=== PATIENT | female | born 1970 | race Caucasian/White ===

== ENCOUNTER 2018-08-12 10:14 | Observation (INO) | payer BC, OTHER ==
--- NOTE | 2018-08-12 10:45 | ED ---
General Adult HPI <Jatin Louie - Last Filed: 08/12/18 16:18> - General Source: patient, RN notes reviewed Mode of arrival: ambulatory Limitations: no limitations <Mickey Cowart - Last Filed: 08/12/18 18:25> - General Chief complaint: Shortness of Breath Stated complaint: SOB, headache Time Seen by Provider: 08/12/18 10:44 - History of Present Illness Initial comments: 48-year-old female with a past medical history of sleep apnea, heart murmur, Hodgkin's lymphoma, bariatric surgery in 2012 presents to the emergency department for a chief complaint of shortness of breath 3 weeks. Patient states the shortness of breath has been progressing for the past 3 weeks. She states shortness of breath is worse with activity. She states last night was the first time she was short of breath at rest. She admits to chest tightness when short of breath but denies pain. Patient denies diaphoresis. Patient denies any cardiac history besides for an unknown heart murmur. Patient admits to shortness of breath worsening with lying flat. She denies any leg swelling. Patient denies any recent travel, pain in the legs, or contraceptive pills, smoking. Patient does admit to a [id number] smoking history but did quit 20 years ago. Patient has no other complaints at this time including chest pain, abdominal pain, nausea or vomiting, headache, or visual changes. (Mickey Cowart) - Related Data Home Medications Medication Instructions Recorded Confirmed Meloxicam 15 mg PO DAILY PRN 07/31/16 08/12/18 Metoprolol Succinate [Toprol Xl] 100 mg PO HS 08/12/18 08/12/18 Naproxen Sodium [Aleve] 400 mg PO DAILY PRN 08/12/18 08/12/18 Pramipexole Di-HCl [Mirapex] 1.5 mg PO HS 08/12/18 08/12/18 Allergies Allergy/AdvReac Type Severity Reaction Status Date / Time amoxicillin AdvReac UTI Verified 08/12/18 10:56 artificial sweetner AdvReac Nausea & Uncoded 08/12/18 10:25 Vomiting Review of Systems ROS Other: All systems not noted in ROS Statement are negative. <Jatin Louie - Last Filed: 08/12/18 16:18> ROS Other: All systems not noted in ROS Statement are negative. <Mickey Cowart P - Last Filed: 08/12/18 18:25> ROS Statement: Those systems with pertinent positive or pertinent negative responses have been documented in the HPI. Past Medical History Past Medical History: Sleep Apnea/CPAP/BIPAP Additional Past Medical History / Comment(s): heart murmur, hodkins lymphoma, ankle spurs, restless leg syndrome History of Any Multi-Drug Resistant Organisms: None Reported Past Surgical History: Adenoidectomy, Bariatric Surgery, Section, Tubal Ligation Additional Past Surgical History / Comment(s): sleeve gastrectomy 05/2013, Lymph node asperation, Lt knee injections, back injections Past Anesthesia/Blood Transfusion Reactions: No Reported Reaction Smoking Status: Former smoker Past Alcohol Use History: Occasional Past Drug Use History: None Reported - Past Family History Mother Family Medical History: COPD Additional Family Medical History / Comment(s): Mom: heart dx, brother at 4 months of heart abnormalaties, <Mickey Cowart P - Last Filed: 08/12/18 18:25> General Exam Limitations: no limitations General appearance: alert, in no apparent distress Head exam: Present: atraumatic, normocephalic, normal inspection Eye exam: Present: normal appearance, PERRL, EOMI. Absent: scleral icterus, conjunctival injection, periorbital swelling ENT exam: Present: normal exam, mucous membranes moist Neck exam: Present: normal inspection, full ROM. Absent: tenderness, meningismus, lymphadenopathy Respiratory exam: Present: normal lung sounds bilaterally. Absent: respiratory distress, wheezes, rales, rhonchi, stridor Cardiovascular Exam: Present: regular rate, normal rhythm, systolic murmur ( murmur noted). Absent: diastolic murmur, rubs, gallop, clicks GI/Abdominal exam: Present: soft, normal bowel sounds. Absent: distended, tenderness, guarding, rebound, rigid Extremities exam: Absent: pedal edema (No edema noted in lower extremities) Neurological exam: Present: alert, oriented X3, CN II-XII intact Psychiatric exam: Present: normal affect, normal mood <Mickey Cowart P - Last Filed: 08/12/18 18:25> Vital Signs 12/08/12/18 08/12/18 10:22 13:30 13:31 Temperature 98.3 F Pulse Rate 87 80 79 Respiratory 18 13 18 Rate Blood Pressure 176/96 157/82 157/82 O2 Sat by Pulse 99 97 97 Oximetry 08/12/18 08/12/18 08/12/18 14:00 15:00 16:00 Temperature Pulse Rate 81 89 85 Respiratory 19 14 13 Rate Blood Pressure 160/85 160/92 167/101 O2 Sat by Pulse 95 97 98 Oximetry 08/12/18 16:30 Temperature Pulse Rate 84 Respiratory 22 Rate Blood Pressure 158/88 O2 Sat by Pulse 96 Oximetry EKG Findings - EKG Comments: EKG Findings:: EKG shows sinus rhythm rate of 84, OH 160, QRS 78, QTc 425 <Jatin Louie - Last Filed: 08/12/18 16:18> - EKG Comments: EKG Findings:: EKG at 1228 shows sinus rhythm, ventricular rate 80, OH interval 176, QTc 412, no ST elevation or depression. EKG at 1447 shows normal sinus rhythm, ventricular rate 80, OH interval 182, QTC 417 no significant changes noted. <Mickey Cowart - Last Filed: 08/12/18 18:25> Medical Decision Making - Lab Data Result diagrams: 08/12/18 12:56 08/12/18 12:56 <Jatin Louie - Last Filed: 08/12/18 16:18> - Lab Data Result diagrams: 08/12/18 12:56 08/12/18 12:56 <Mickey Cowart - Last Filed: 08/12/18 18:25> - Medical Decision Making 48-year-old female with a past medical history of sleep apnea, heart murmur, Hodgkin's lymphoma, bariatric surgery presents to the emergency department for a chief complaint of shortness of breath 3 weeks. Patient states this has been progressing and she was short of breath at rest last night. She states usually shortness of breath is worsened with activity. Vitals are within normal limits, mild hypertension. O2 sat consistently between 95 and 98% on room air. No signs of respiratory distress. On exam patient does have murmur noted, states this is a known murmur. No swelling in the lower extremities. CBC and CMP unremarkable. Mild cardiomegaly noted on chest x-ray with interstitial changes and trace effusions. Correlate for CHF or pulmonary vascular congestion. Troponin is elevated mildly at 0.049, BNP 792. Troponin likely elevated due to CHF exacerbation. She has not expressed any chest pain. EKGs repeated multiple times in the emergency department do not show any changing or significant ST elevation. D-dimer was elevated to 1.40 so patient was scanned which did not show any evidence of pulmonary embolism however there is pulmonary edema with bilateral pleural effusions. Patient was started on IV Lasix. She will be admitted for selective with cardiology consult. Discussed with Dr Louie (Mickey Cowart) - Lab Data Lab Results 08/12/18 08/12/18 08/12/18 Range/Units 12:53 12:53 12:56 WBC 9.3 (3.8-10.6) k/uL RBC 4.31 (3.80-5.40) m/uL Hgb 10.8 L (11.4-16.0) gm/dL Hct 34.7 (34.0-46.0) % MCV 80.5 (80.0-100.0) fL MCH 25.1 (25.0-35.0) pg MCHC 31.3 (31.0-37.0) g/dL RDW 14.2 (11.5-15.5) % Plt Count 267 (150-450) k/uL Neutrophils % 71 % Lymphocytes % 19 % Monocytes % 5 % Eosinophils % 2 % Basophils % 1 % Neutrophils # 6.6 (1.3-7.7) k/uL Lymphocytes # 1.8 (1.0-4.8) k/uL Monocytes # 0.5 (0-1.0) k/uL Eosinophils # 0.2 (0-0.7) k/uL Basophils # 0.1 (0-0.2) k/uL Hypochromasia Marked PT (9.0-12.0) sec INR (<1.2) APTT (22.0-30.0) sec D-Dimer (<0.60) mg/L FEU Sodium (137-145) mmol/L Potassium (3.5-5.1) mmol/L Chloride (98-107) mmol/L Carbon Dioxide (22-30) mmol/L Anion Gap mmol/L BUN (7-17) mg/dL Creatinine (0.52-1.04) mg/dL Est GFR (CKD-EPI)AfAm (>60 ml/min/1.73 sqM) Est GFR (CKD-EPI)NonAf (>60 ml/min/1.73 sqM) Glucose (74-99) mg/dL Calcium (8.4-10.2) mg/dL Total Bilirubin (0.2-1.3) mg/dL AST (14-36) U/L ALT (9-52) U/L Alkaline Phosphatase (38-126) U/L Total Creatine Kinase 45 (30-135) U/L CK-MB (CK-2) 0.6 (0.0-2.4) ng/mL CK-MB (CK-2) Rel Index 1.3 Troponin I 0.049 H* (0.000-0.034) ng/mL NT-Pro-B Natriuret Pep 792 pg/mL Total Protein (6.3-8.2) g/dL Albumin (3.5-5.0) g/dL 08/12/18 08/12/18 Range/Units 12:56 12:56 WBC (3.8-10.6) k/uL RBC (3.80-5.40) m/uL Hgb (11.4-16.0) gm/dL Hct (34.0-46.0) % MCV (80.0-100.0) fL MCH (25.0-35.0) pg MCHC (31.0-37.0) g/dL RDW (11.5-15.5) % Plt Count (150-450) k/uL Neutrophils % % Lymphocytes % % Monocytes % % Eosinophils % % Basophils % % Neutrophils # (1.3-7.7) k/uL Lymphocytes # (1.0-4.8) k/uL Monocytes # (0-1.0) k/uL Eosinophils # (0-0.7) k/uL Basophils # (0-0.2) k/uL Hypochromasia PT 9.5 (9.0-12.0) sec INR 0.9 (<1.2) APTT 23.0 (22.0-30.0) sec D-Dimer 1.40 H (<0.60) mg/L FEU Sodium 141 (137-145) mmol/L Potassium 5.0 (3.5-5.1) mmol/L Chloride 106 (98-107) mmol/L Carbon Dioxide 30 (22-30) mmol/L Anion Gap 5 mmol/L BUN 14 (7-17) mg/dL Creatinine 0.75 (0.52-1.04) mg/dL Est GFR (CKD-EPI)AfAm >90 (>60 ml/min/1.73 sqM) Est GFR (CKD-EPI)NonAf >90 (>60 ml/min/1.73 sqM) Glucose 102 H (74-99) mg/dL Calcium 9.2 (8.4-10.2) mg/dL Total Bilirubin 0.4 (0.2-1.3) mg/dL AST 23 (14-36) U/L ALT 45 (9-52) U/L Alkaline Phosphatase 122 (38-126) U/L Total Creatine Kinase (30-135) U/L CK-MB (CK-2) (0.0-2.4) ng/mL CK-MB (CK-2) Rel Index Troponin I (0.000-0.034) ng/mL NT-Pro-B Natriuret Pep pg/mL Total Protein 6.6 (6.3-8.2) g/dL Albumin 3.7 (3.5-5.0) g/dL Disposition <Jatin Louie B - Last Filed: 08/12/18 16:18> Time of Disposition: 17:58 <Mickey Cowart P - Last Filed: 08/12/18 18:25> Clinical Impression: Congestive heart failure, Pleural effusion Disposition: ADMITTED IP TO THIS HOSP Condition: Fair Referrals: Rohan Burns MD [Primary Care Provider] - 1-2 days
[2018-08-12] MEDS ORDERED: SODIUM CHLORIDE 0.9% 500 ML 500 ML IV STA (11:30)
[2018-08-12] MEDS ORDERED: KETOROLAC 30 MG/ML 1 ML VIAL IVP STA (11:31)
[2018-08-12 13:18] LABS: Basophils # (A) 0.1 k/uL (0-0.2); Basophils % (A) 1 %; Eosinophils # (A) 0.2 k/uL (0-0.7); Eosinophils % (A) 2 %; HCT 34.7 % (34.0-46.0); HGB 10.8 gm/dL (11.4-16.0); Hypochromasia Marked; Lymphocytes # (A) 1.8 k/uL (1.0-4.8); Lymphocytes % (A) 19 %; MCH 25.1 pg (25.0-35.0); MCHC 31.3 g/dL (31.0-37.0); MCV 80.5 fL (80.0-100.0); Mean Platelet Volume 7.5; Monocytes # (A) 0.5 k/uL (0-1.0); Monocytes % (A) 5 %; Neutrophils # (A) 6.6 k/uL (1.3-7.7); Neutrophils % (A) 71 %; Platelet Count 267 k/uL (150-450); RBC 4.31 m/uL (3.80-5.40); RDW 14.2 % (11.5-15.5); WBC 9.3 k/uL (3.8-10.6)
--- NOTE | 2018-08-12 13:23 | XR ---
EXAMINATION TYPE: XR chest 2V DATE OF EXAM: 08/12/2018 COMPARISON: None HISTORY: 71-year-old female with shortness of breath for 2 weeks TECHNIQUE: PA and lateral views FINDINGS: Heart mildly enlarged. Diffuse interstitial densities. Trace effusions are suggested on lateral view. IMPRESSION: Mild cardiomegaly with interstitial changes and trace effusions. Correlate for CHF or pulmonary vascu lar congestion.
[2018-08-12 13:32] LABS: INR 0.9 (<1.2); Prothrombin Time 9.5 sec (9.0-12.0)
[2018-08-12 13:37] LABS: ALT 45 U/L (9-52); AST 23 U/L (14-36); Albumin 3.7 g/dL (3.5-5.0); Alkaline Phosphatase 122 U/L (38-126); Anion Gap 5 mmol/L; Blood Urea Nitrogen 14 mg/dL (7-17); Calcium 9.2 mg/dL (8.4-10.2); Carbon Dioxide 30 mmol/L (22-30); Chloride 106 mmol/L (98-107); Glucose 102 mg/dL (74-99); Sodium 141 mmol/L (137-145); Total Bilirubin 0.4 mg/dL (0.2-1.3); Total Protein 6.6 g/dL (6.3-8.2)
[2018-08-12 13:46] LABS: D-Dimer 1.4 mg/L FEU (<0.60)
[2018-08-12 13:56] LABS: Creatine Kinase MB 0.6 ng/mL (0.0-2.4)
[2018-08-12 14:03] LABS: Troponin I 0.049 ng/mL (0.000-0.034)
[2018-08-12] MEDS ORDERED: ASPIRIN 81 MG PO STA (14:19)
--- NOTE | 2018-08-12 17:34 | CT ---
EXAMINATION TYPE: CT chest angio for PE with contrast and with 3-D reconstruction renderings DATE OF EXAM: 08/12/2018 COMPARISON: None HISTORY: SOB CT DLP: 755.7 mGycm Automated exposure control for dose reduction was used. CONTRAST: CT Chest for pulmonary embolism performed with with IV Contrast, patient injected with 100 mL of Isovue 370. 3-D reconstructions. FINDINGS: AIRWAYS: Unremarkable. LUNGS: There is a dependent groundglass opacity pattern throughout the lung lobes bilaterally and sym metrically, consistent with pulmonary edema. PLEURAL SPACES: There is a moderate right pleural effusion and a small left pleural effusion present. There is associated mild bibasilar passive atelectasis, greater on the right. MEDIASTINUM: There is satisfactory enhancement of the pulmonary artery and its branches, there is no CT evidence for pulmonary embolism. Aorta is negative. There are no greater than 1 cm hilar or medias tinal lymph nodes. No cardiomegaly, but corner calcifications noted. Only minimal pericardial effusio n is seen. OTHER: No additional significant abnormality is seen. IMPRESSION: 1. Interstitial phase pulmonary edema with bilateral pleural effusions, greater on the right. 2. Coronary calcifications.
[2018-08-12] MEDS ORDERED: NALOXONE 0.4 MG/ML 1 ML VIAL IV PRN (17:55)
[2018-08-12] MEDS ORDERED: FUROSEMIDE 10 MG/ML 4 ML VIAL IV STA (17:57)
[2018-08-12] MEDS: SODIUM CHLORIDE 0.9% 1,000 ML IV SCH (18:48)
[2018-08-12] MEDS: traMADol 50 MG TAB PO PRN (18:48)
[2018-08-13] MEDS: traMADol 50 MG TAB PO PRN ×2 (01:24→12:11)
[2018-08-13] MEDS: FUROSEMIDE 10 MG/ML 4 ML VIAL IV SCH ×2 (05:07→18:09)
[2018-08-13] MEDS ORDERED: MELOXICAM 7.5 MG TAB PO PRN (10:54)
[2018-08-13] MEDS ORDERED: NAPROXEN 250 MG TAB PO PRN (10:54)
--- NOTE | 2018-08-13 14:01 | P.CRDCN ---
History of Present Illness Consult date: 08/13/18 Requesting physician: Edy Pierre Chief complaint: Shortness of breath History of present illness: This is a pleasant 48-year-old female with history of sleep apnea, Hodgkin's lymphoma for which the patient had undergone chemotherapy and radiation. Hypertension, sleep apnea, restless leg syndrome, presented to the hospital mainly with complaints of progressively worsening shortness of breath. Patient states she's been experiencing these symptoms for the past 3-4 weeks, worsening in severity over that time. She also states that with walking short distances she notices intermittent tightness in her chest. Positive PND and orthopnea, no significant bilateral peripheral edema. Patient has been told in the past to have had a heart murmur. Chest x-ray shows myocardial megaly with interstitial changes and trace effusions. Correlation for congestive heart failure or pulmonary vascular congestion suggestive. ET of the chest was performed which showed bilateral pleural effusions, greater on the right, coronary calcifications. No evidence of pulmonary embolism. Initial EKG showed a normal sinus rhythm with no acute changes. 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 Blood pressure 176/90 with a heart rate in the 80s, temperature 98.3, 99% on room air. White blood cell count 9.3, hemoglobin 10.8 , platelet count 267. D-dimer 1.4. Sodium 141, potassium 5.0, BUN 14, creatinine 0.5. Troponin 0.049, 0.052. BNP level 792. Patient was initiated on IV Lasix in the emergency room, she is also receiving metoprolol 100 mg at bedtime. At the time of our examination, patient feels well, denies any shortness of breath at present, denies any chest discomfort. Past Medical History Past Medical History: Hypertension, Osteoarthritis (OA), Sleep Apnea/CPAP/BIPAP Additional Past Medical History / Comment(s): heart murmur, at age 20 or 21 dx w / hodgkins lymphoma-received chemo/radiation, ankle spurs, restless leg syndrome ,past kidney stone,slight scoliosis,2 herniated disc History of Any Multi-Drug Resistant Organisms: None Reported Past Surgical History: Adenoidectomy, Bariatric Surgery, Section, Tubal Ligation Additional Past Surgical History / Comment(s): sleeve gastrectomy 05/2013, Lymph node asperation, Lt knee injections, back injections Past Anesthesia/Blood Transfusion Reactions: No Reported Reaction Additional Past Anesthesia/Blood Transfusion Reaction / Comment(s): "has never received any blood transfusions" Smoking Status: Former smoker - Past Family History Father Additional Family Medical History / Comment(s): alcoholism Mother Family Medical History: COPD Additional Family Medical History / Comment(s): Mom: heart dx, brother at 4 months of heart abnormalaties, Medications and Allergies Home Medications Medication Instructions Recorded Confirmed Type Meloxicam 15 mg PO DAILY PRN 07/31/16 08/12/18 History Metoprolol Succinate [Toprol Xl] 100 mg PO HS 08/12/18 08/12/18 History Naproxen Sodium [Aleve] 400 mg PO DAILY PRN 08/12/18 08/12/18 History Pramipexole Di-HCl [Mirapex] 1.5 mg PO HS 08/12/18 08/12/18 History Allergies Allergy/AdvReac Type Severity Reaction Status Date / Time amoxicillin AdvReac UTI Verified 08/12/18 10:56 artificial sweetner AdvReac Nausea & Uncoded 08/12/18 10:25 Vomiting Physical Exam Vitals: Vital Signs Temp Pulse Pulse Resp BP BP Pulse Ox 08/13/18 11:50 98.0 F 87 18 125/76 97 08/13/18 07:58 97.8 F 82 18 123/88 96 08/13/18 04:00 98.4 F 90 18 136/78 95 08/13/18 00:30 97.6 F 85 17 130/65 96 08/13/18 00:00 98.8 F 90 85 18 154/72 141/85 94 L 08/12/18 23:30 93 20 156/81 96 08/12/18 23:00 87 20 146/77 08/12/18 22:30 92 20 152/89 95 08/12/18 22:00 91 15 167/79 95 08/12/18 21:30 86 14 156/94 95 08/12/18 21:00 80 14 152/93 96 08/12/18 20:30 82 21 130/73 96 08/12/18 20:00 88 15 142/79 95 08/12/18 19:30 86 18 141/83 96 08/12/18 19:00 89 14 150/91 96 08/12/18 18:30 94 21 171/95 97 08/12/18 18:00 87 13 158/93 97 08/12/18 17:00 83 21 151/93 95 08/12/18 16:30 84 22 158/88 96 08/12/18 16:00 85 13 167/101 98 18 15:00 89 14 160/92 97 08/12/18 14:00 81 19 160/85 95 08/12/18 13:31 79 18 157/82 97 08/12/18 13:30 80 13 157/82 97 Intake and Output 08/12/18 08/13/18 08/13/18 22:59 06:59 14:59 Output Total 1100 850 Balance -1100 -850 Output: Urine 1100 850 Other: Voiding Method Toilet # Voids 3 Weight 131.5 kg PHYSICAL EXAMINATION: GENERAL: 78-year-old female in no acute distress at the time of my examination HEENT: Head is atraumatic, normocephalic. Pupils equal, round. Sclera anicteric. Conjunctiva are clear. Mucous membranes of the mouth are moist. Neck is supple. There is no elevated jugular venous pressure. No carotid bruit is heard. HEART EXAMINATION: Heart S1 and S2 with systolic ejection murmur is heard. CHEST EXAMINATION: Circumflex clear with mild diminished air entry to the bases. ABDOMEN: Soft, nontender. Bowel sounds are heard. No organomegaly noted. EXTREMITIES: 2+ peripheral pulses with trace evidence of peripheral edema and no calf tenderness noted. NEUROLOGIC patient is awake, alert and oriented X3. . Results 08/12/18 12:56 08/12/18 12:56 Cardiac Enzymes 08/12/18 08/12/18 08/13/18 Range/Units 12:53 12:56 09:49 AST 23 (14-36) U/L CK-MB (CK-2) 0.6 (0.0-2.4) ng/mL Troponin I 0.049 H* 0.052 H* (0.000-0.034) ng/mL Coagulation 08/12/18 Range/Units 12:56 PT 9.5 (9.0-12.0) sec APTT 23.0 (22.0-30.0) sec CBC 08/12/18 Range/Units 12:56 WBC 9.3 (3.8-10.6) k/uL RBC 4.31 (3.80-5.40) m/uL Hgb 10.8 L (11.4-16.0) gm/dL Hct 34.7 (34.0-46.0) % Plt Count 267 (150-450) k/uL Comprehensive Metabolic Panel 08/12/18 Range/Units 12:56 Sodium 141 (137-145) mmol/L Potassium 5.0 (3.5-5.1) mmol/L Chloride 106 (98-107) mmol/L Carbon Dioxide 30 (22-30) mmol/L BUN 14 (7-17) mg/dL Creatinine 0.75 (0.52-1.04) mg/dL Glucose 102 H (74-99) mg/dL Calcium 9.2 (8.4-10.2) mg/dL AST 23 (14-36) U/L ALT 45 (9-52) U/L Alkaline Phosphatase 122 (38-126) U/L Total Protein 6.6 (6.3-8.2) g/dL Albumin 3.7 (3.5-5.0) g/dL Current Medications Generic Name Dose Route Start Last Admin Trade Name Freq PRN Reason Stop Dose Admin Furosemide 40 mg 08/13/18 06:00 08/13/18 05:07 Lasix IV 40 mg Q12H HENNY Administration Sodium Chloride 1,000 mls @ 20 mls/hr 08/12/18 18:00 08/12/18 18:48 Saline 0.9% IV 20 mls/hr .Q24H HENNY Administration Meloxicam 15 mg 08/13/18 10:54 Mobic PO DAILY PRN MODERATE Pain Metoprolol Succinate 100 mg 08/13/18 21:00 Toprol Xl PO HS HENNY Naloxone HCl 0.2 mg 08/12/18 17:55 Narcan IV Q2M PRN Opioid Reversal Naproxen 250 mg 08/13/18 10:54 Naprosyn PO DAILY PRN MILD Pain Pramipexole Dihydrochloride 1.5 mg 08/13/18 21:00 Mirapex PO HS HENNY Tramadol HCl 50 mg 08/12/18 17:55 08/13/18 12:11 Ultram PO 50 mg Q6H PRN Administration SEVERE Pain Intake and Output 08/12/18 08/13/18 08/13/18 22:59 06:59 14:59 Output Total 1100 850 Balance -1100 -850 Output: Urine 1100 850 Other: Voiding Method Toilet # Voids 3 Weight 131.5 kg 08/12/18 12:56 08/12/18 12:56 EKG Interpretations (text) EKG shows normal sinus rhythm with no acute changes, evidence of old anterior septal infarct. Assessment and Plan Plan: Assessment and plan #1 symptoms of progressively worsening shortness of breath with associated chest tightness. Evidence of mild congestive heart failure on chest x-ray. LV function unknown at this time. Patient is currently on IV Lasix. D-dimer 1.4, CTA of the chest negative for pulmonary embolism. There is evidence of pulmonary edema with bilateral pleural effusions. #2 abnormality in troponin, could represent acute coronary syndrome, EKG shows normal sinus rhythm with evidence of old anterior septal infarct. We will obtain a third troponin. #3 hypertension #4 sleep apnea #5 history of Hodgkin's lymphoma with prior chemo and radiation Plan We will obtain an echocardiogram with Doppler study. Obtain third troponin value. Continue IV Lasix. Patient may require other workup to rule out any underlying coronary artery disease. Further recommendations will be based on these findings and patient's clinical course. DNP note has been reviewed, I agree with a documented findings and plan of care. Patient was seen and examined.
[2018-08-13 14:09] VITALS: BMI 48.2
[2018-08-13] MEDS ORDERED: METOPROLOL SUCCINATE (ER) 100 MG TAB.ER.24H PO SCH (21:00)
[2018-08-13] MEDS ORDERED: PRAMIPEXOLE 1 MG TAB PO SCH (21:00)
--- NOTE | 2018-08-13 21:03 | HP ---
HISTORY AND PHYSICAL DATE OF ADMISSION: 08/12/2018 DATE OF SERVICE: 08/13/2018 PRESENTING COMPLAINT: Short of breath. HISTORY OF PRESENTING COMPLAINT: This is a very pleasant 48-year-old patient of Dr. Rohan Burns. Chronic stable medical conditions include hypertension osteoarthritis in the lower back, obesity. The patient also has restless legs syndrome, scoliosis. Did have Hodgkin's lymphoma, treated over 30 years ago with chemotherapy. For 2 weeks the patient has been progressively getting more and more short of breath. It became rather significant yesterday. There was minimal edema, if any. The patient did have a cough, though there was no sputum, no fever, no chills. She was finding it difficult to lie down. The patient with any activity was getting heavy chest pressure and finally decided to come in. Chest x-ray in the ER did show pulmonary edema. The patient did get a dose of Lasix, and following diuresis she felt right away better. Patient did have some troponin leak and was admitted for the same. REVIEW OF SYSTEMS: CONSTITUTIONAL: Tired. HEENT: None. RESPIRATORY: As above. CARDIOVASCULAR: As above. GASTROINTESTINAL: None. GENITOURINARY: None. MUSCULOSKELETAL: Arthritic pain in joints, especially lower back. DERMATOLOGICAL: None. HEMATOLOGICAL: None. LYMPHATICS: None. PSYCHIATRY: None. NEUROLOGICAL: None. PAST MEDICAL HISTORY: 1. Hypertension. 2. Osteoarthritis in the lower back. 3. Obstructive sleep apnea. Does not use CPAP. 4. Hodgkin's lymphoma 30 years ago, treated with chemo and radiation treatment. 5. Restless legs syndrome. 6. Scoliosis. PAST SURGICAL HISTORY: 1. Adenoidectomy. 2. Bariatric surgery. 3. . 4. Sleeve gastrectomy in 2012. 5. Lymph node aspiration. 6. Left knee injections. 7. Back injections. SOCIAL HISTORY: Patient smoked on and off for about 20 years, half a pack a day, and stopped smoking close to 15 years ago. . Drinks alcohol occasionally. FAMILY HISTORY: Mother and brother both had heart disease. HOME MEDICATIONS: 1. Mirapex 1.5 mg p.o. at bedtime. 2. Aleve 400 mg p.o. daily p.r.n. 3. Toprol-XL 100 mg at bedtime. 4. Meloxicam 15 mg p.o. daily p.r.n. ALLERGIES: AMOXICILLIN, ARTIFICIAL SWEETENER. PHYSICAL EXAMINATION: VITAL SIGNS ON PRESENTATION: Temperature 98.3, pulse 87, respiration 18, blood pressure 136/96, pulse ox 99% on room air. Repeat blood pressure did come down to 160/85. GENERAL APPEARANCE: Well built; BMI of 48.2. Sitting up, not in distress. EYES: Pupils equal. Conjunctivae normal. HEENT: External appearance of nose and ears normal. Oral cavity normal. NECK: JVD not raised. Mass not palpable. RESPIRATORY: Effort increased. LUNGS: Decreased breath sounds. CARDIOVASCULAR: Ejection systolic murmur with soft S2 in the aortic area going up to the neck. First and second sounds normal. Some edema. ABDOMEN: Soft, nontender. Liver and spleen not palpable. LYMPHATIC: No lymph node palpable in neck or axillae. PSYCHIATRY: Alert and oriented x3. Mood and affect normal. NEUROLOGICAL: Pupils equal. Cranial nerves grossly intact. Power and sensation grossly intact. INVESTIGATIONS: White count 9.3, hemoglobin 10.8, potassium 5.0. BUN and creatinine are normal. Troponin 0.049, 0.052, 0.035. ProBNP 792. Chest x-ray film, personally reviewed by me, shows cardiomegaly and venous prominence. Chest CTA shows some pulmonary edema with bilateral pleural effusions. ASSESSMENT: 1. Acute congestive heart failure exacerbation. Will need EF determination. Patient does have a soft ejection systolic murmur with a soft S2 in the aortic area; could be suggestive of aortic stenosis. It may be noted that the patient did receive chemotherapy over 30 years ago and there may have been chemotherapy-induced some element of cardiomyopathy. Patient has also been getting significant chest pressure with exertion and probably will need a cardiac catheterization to rule out underlying coronary artery disease. 2. Morbid obesity with body mass index of 48.2. 3. Essential hypertension. 4. Primary osteoarthritis, especially in the lumbar spine. 5. Restless legs syndrome. 6. Scoliosis. PLAN: Given patient's cardiac function, will discontinue patient's NSAIDs and keep the patient on IV Lasix. Two-D echocardiogram was ordered, results of which are pending. Cardiology was consulted. The patient will probably need a cardiac catheterization. This was discussed with the patient. MMODL / IJN: [id number] /
[2018-08-13] MEDS: SODIUM CHLORIDE 0.9% 1,000 ML IV SCH (21:04)
[2018-08-13] MEDS: ENOXAPARIN 40 MG/0.4 ML SYRINGE SQ SCH (21:30)
[2018-08-14] MEDS: FUROSEMIDE 10 MG/ML 4 ML VIAL IV SCH (06:11)
[2018-08-14 06:23] LABS: Anion Gap 7 mmol/L; Blood Urea Nitrogen 18 mg/dL (7-17); Carbon Dioxide 30 mmol/L (22-30); Chloride 102 mmol/L (98-107); Cholesterol 168 mg/dL (<200); Glucose 102 mg/dL (74-99); HDL Cholesterol 35 mg/dL (40-60); LDL Cholesterol,Calculated 108 mg/dL (0-99); Potassium 4.4 mmol/L (3.5-5.1); Sodium 139 mmol/L (137-145); Triglycerides 124 mg/dL (<150)
[2018-08-14] MEDS ORDERED: ATORVASTATIN 40 MG TAB PO SCH (09:00)
[2018-08-14] MEDS ORDERED: ASPIRIN 81 MG PO SCH (09:00)
[2018-08-14 09:01] VITALS: RESP 18
[2018-08-14] MEDS: ENOXAPARIN 40 MG/0.4 ML SYRINGE SQ SCH (09:17)
[2018-08-14] MEDS ORDERED: DOBUTamine DRIP for NUC MED 500 MG in DEXTROSE/WATER 1 250ML.BAG IV ONE (10:52)
--- NOTE | 2018-08-14 11:29 | ECHOF ---
Referral Reason:chf MEASUREMENTS -------- HEIGHT: 165.1 cm WEIGHT: 131.1 kg BP: 123/88 RVIDd: 3.0 cm (< 3.3) IVSd: 1.4 cm (0.6 - 1.1) LVIDd: 4.7 cm (3.9 - 5.3) LVPWd: 1.6 cm (0.6 - 1.1) IVSs: 2.0 cm LVIDs: 3.2 cm LVPWs: 2.4 cm LA Diam: 3.7 cm (2.7 - 3.8) LAESV Index (A-L): 26.75 ml/m Ao Diam: 3.2 cm (2.0 - 3.7) AV Cusp: 1.1 cm (1.5 - 2.6) EPSS: 1.1 cm MV E Devendra: 1.15 m/s MV DecT: 179 ms MV A Devendra: 0.97 m/s MV E/A Ratio: 1.19 AV maxP.52 mmHg AV meanP.99 mmHg AR PHT: 382 ms RAP: 15.00 mmHg RVSP: 45.42 mmHg MV EF SLOPE: 28.52 mm/s (70 - 150) MV EXCURSION: 1.15 cm (> 18.000) FINDINGS -------- Sinus rhythm. This was a technically difficult study with suboptimal views. The left ventricular size is normal. There is severe concentric left ventricular hypertrophy. Ove rall left ventricular systolic function is normal with, an EF between 55 - 60 %. Mitral Doppler inf low pattern suggests diastolic filling abnormality {E/E'}. The right ventricle is normal in size. Normal LA size by volume 22+/-6 ml/m2. The right atrium was not well visualized. 3 ml of Lumason was utilized for enhancement of images. There is mild to moderate aortic valve sclerosis. There is gjuk-qr-zmqgwspz aortic regurgitation. There is moderate aortic stenosis present. Peak/mean gradient across the Aortic Valve is 60.52mmHg / 32.99mmHg. The mitral valve leaflets are mildly thickened. There is trace to mild mitral regurgitation. Mild tricuspid regurgitation present. There is mild to moderate pulmonary hypertension. The right ventricular systolic pressure, as measured by Doppler, is 45.42mmHg. The pulmonic valve was not well visualized. The aortic root size is normal. The inferior vena cava is dilated with no significant inspiratory collapse which is consistent estima johnny right atrial pressure of >15 mmHg. There is no pericardial effusion. CONCLUSIONS -------- 1. Sinus rhythm. 2. This was a technically difficult study with suboptimal views. 3. The left ventricular size is normal. 4. Overall left ventricular systolic function is normal with, an EF between 55 - 60 %. 5. The right ventricle is normal in size. 6. Normal LA size by volume 22+/-6 ml/m2. 7. The right atrium was not well visualized. 8. 3 ml of Lumason was utilized for enhancement of images. 9. There is mild to moderate aortic valve sclerosis. 10. There is eqqx-cp-rxjuwtrj aortic regurgitation. 11. There is moderate aortic stenosis present. 12. Peak/mean gradient across the Aortic Valve is 60.52mmHg / 32.99mmHg. 13. The mitral valve leaflets are mildly thickened. 14. There is trace to mild mitral regurgitation. 15. Mild tricuspid regurgitation present. 16. There is mild to moderate pulmonary hypertension. 17. The right ventricular systolic pressure, as measured by Doppler, is 45.42mmHg. 18. The pulmonic valve was not well visualized. 19. The aortic root size is normal. 20. The inferior vena cava is dilated with no significant inspiratory collapse which is consistent es timated right atrial pressure of >15 mmHg. 21. There is no pericardial effusion. PHOTO LAB MANAGER: CARRIE Hartman
--- NOTE | 2018-08-14 14:25 | PN ---
PROGRESS NOTE Mrs Brizuela had an echocardiogram which revealed moderate to severe aortic stenosis with concentric LVH. I discussed the findings with the patient. The echocardiogram transthoracic was not clear whether this was a bicuspid valve or not. However, CAT scan of the chest did not reveal any dilatation of ascending aorta. I explained to the patient that we will not do any stress test and instead we will pursue current medical therapy and I will see her in the office next week and we will perform a right and left heart catheterization and a transesophageal echo to assess the severity of aortic stenosis and also to check her right-sided pressures as well. She is relatively young and has no family history of a bicuspid aortic valve. I explained to the patient the rationale, risks, benefits, and options. We will discharge her on current medical therapy and I will see her in the office within a week. All questions were answered. Discharge instructions were given. Vital signs are stable, S1-S2 heard normally, ejection systolic murmur is audible, second heart sound is preserved. Lungs are clear. Abdomen and lower extremity exam is unchanged. MMODL / IJN: [id number] /
[2018-08-14 17:48] VITALS: BP 137/64; PULSE 83; TEMP 98
--- NOTE | 2018-08-20 11:22 | DS ---
DISCHARGE SUMMARY DATE OF ADMISSION: 08/12/2018 DATE OF DISCHARGE: 08/14/2018 FINAL DIAGNOSES: 1. Acute congestive heart failure exacerbation secondary to moderate aortic stenosis. 2. Morbid obesity, body mass index 48.2. 3. Essential hypertension. 4. 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 5. Restless legs syndrome. 6. Chronic scoliosis. HOSPITAL COURSE: This patient presented with CHF symptoms and 2D echo confirmed a moderate aortic stenosis. The patient did respond well to Lasix and was doing rather well at the time of discharge. Seen by Dr. Issac Jones. He will do a cardiac catheterization as an outpatient. This was discussed with the patient. Overall feeling much better. PHYSICAL EXAMINATION: On examination, temperature 98, pulse 83, respiration 18, blood pressure 137/64, pulse ox 95% on room air. Lungs are clear. Soft ejection systolic murmur at the aortic area. BUN 18, creatinine 0.74. The patient had a troponin leak of 0.049. LDL 108. Chest CTA shows pulmonary edema. DISCHARGE MEDICATIONS: 1. Toprol XL 100 mg q.h.s. 2. Mirapex 1.5 mg q.h.s. 3. Tylenol 500 mg q.4 p.r.n. 4. Aspirin 81 mg a day. 5. Lipitor 40 mg a day. 6. Lasix 40 mg a day. 7. Potassium 20 mEq a day. DISCONTINUED MEDICATIONS: Meloxicam and naproxen. Follow up with Dr. Issac Jones on 08/20/2018 and follow up with Dr. Rohna Burns on 08/20/2018. MMODL / IJN: [id number] /
== END 2018-08-14 15:47 | disposition home or self-care (01) ==
LOC: EC 10:14 → 3SCARD 20:08
PROVIDERS: ADMIT Hospitalist; ATTEND Hospitalist
DX: I35.0 Nonrheumatic aortic (valve) stenosis (principal); I11.0 Hypertensive heart disease with heart failure; I50.9 Heart failure, unspecified; R77.8 Other specified abnormalities of plasma proteins; R79.89 Other specified abnormal findings of blood chemistry; G47.33 Obstructive sleep apnea (adult) (pediatric); Z99.89 Dependence on other enabling machines and devices; M41.9 Scoliosis, unspecified; M47.9 Spondylosis, unspecified; E66.01 Morbid (severe) obesity due to excess calories; Z68.42 Body mass index [BMI] 45.0-49.9, adult; M19.91 Primary osteoarthritis, unspecified site; G25.81 Restless legs syndrome; Z85.71 Personal history of Hodgkin lymphoma; Z87.891 Personal history of nicotine dependence; Z79.1 Long term (current) use of non-steroidal anti-inflammatories (NSAID); Z79.899 Other long term (current) drug therapy; Z88.0 Allergy status to penicillin; Z91.02 Food additives allergy status; Z98.84 Bariatric surgery status; Z98.51 Tubal ligation status; Z92.21 Personal history of antineoplastic chemotherapy; Z92.3 Personal history of irradiation; Z87.442 Personal history of urinary calculi; Z82.5 Family history of asthma and other chronic lower respiratory diseases; Z82.49 Family history of ischemic heart disease and other diseases of the circulatory system; Z82.79 Family history of other congenital malformations, deformations and chromosomal abnormalities; Z81.1 Family history of alcohol abuse and dependence
CPT/HCPCS: 96376 ×2; 96372 ×2; 96374; 96375; 99285; 36415; 93005; 93306; 85379; 83880; 80061; 80053; 80048; 82550; 82553; 84484 ×2; 85025; 85610; 85730; 71046; 71275; G0378 ×3; J1250; J1940 ×3; J1650 ×2; J1885; Q9950; Q9967

== ENCOUNTER 2018-09-05 06:30 | Day surgery (SDC) | payer BC ==
[2018-09-03 14:40] VITALS: BMI 47.5
[~2018-09-05 06:30] MED LIST: ALPRAZolam 0.25 MG TAB PO PRN; ALPRAZolam 0.5 MG TAB PO PRN; NITROGLYCERIN SL TABS 0.4 MG TAB SUBLINGUAL PRN; SODIUM CHLORIDE 0.9% 1,000 ML in EMPTY BAG 1 BAG IV ONE
[2018-09-05] MEDS ORDERED: ATORVASTATIN 80 MG TAB PO ONE (07:00)
[2018-09-05] MEDS ORDERED: ASPIRIN 325 MG TAB PO ONE (07:00)
[2018-09-05] MEDS: MIDAZOLAM 2 MG/2 ML VIAL IVP ONE ×2 (07:41→07:44)
[2018-09-05] MEDS ORDERED: LIDOCAINE 1% INJ 10MG/ML (20 ML MDV) SQ ONE (07:44)
[2018-09-05] MEDS: VERAPAMIL SYRINGE (5 MG/10 ML) INTRAARTER ONE ×2 (07:46→08:09)
[2018-09-05] MEDS ORDERED: HEPARIN SODIUM 1,000 UN/ML (10ML VL) IV ONE (07:52)
[2018-09-05] MEDS ORDERED: fentaNYL (PF) 50 MCG/ML 2 ML AMP IVP ONE (08:01)
[2018-09-05] MEDS ORDERED: IOPAMIDOL-370 100ML BTL INJ ONE (08:09)
--- NOTE | 2018-09-05 09:03 | CC ---
CARDIAC CATHETERIZATION REPORT DATE OF SERVICE: 09/05/2018 PROCEDURE: Coronary angiography. PERFORMED BY: Dr. Issac Jones. CLINICAL INFORMATION: Mrs. Frank Kurtz is a 48-year-old lady who was recently seen by me in the hospital. She has history of hypertension and also aortic stenosis which was moderate to severe with msen-xn-knquxskx regurgitation as well. She was advised coronary angiography and transesophageal echo and brought in for the procedure electively. Risks, benefits, options and rationale were explained to the patient in detail. PROCEDURE NOTE: Under local anesthesia and strict aseptic precautions, a 6-Hebrew introducer was placed in the right radial artery. For the right coronary, I used a JR4 and for the left I used an Ultimate 1 catheter and I performed selective coronary angiography. I did not check any LV pressures. The sheath was taken out and TR band applied as per protocol with a saturation of the fingers of 97%. The patient had considerable discomfort at the site of entry in the right radial artery, but following the procedure, she was asymptomatic. There may have been some spasm. LV gram was not performed and LV pressures were not checked. Moderate conscious sedation time was 31 minutes. The patient was administered fentanyl and Versed and oxygen saturation hemodynamics and EKG were monitored closely. CORONARY ANGIOGRAPHY FINDINGS: RIGHT CORONARY ARTERY: Technically dominant vessel has no significant disease, has only minor irregularities and distally bifurcates into a large PDA and PLV, both of which supply a sizable amount of myocardium. PLV is larger branch than PDA and there is no significant disease noted in the very dominant RCA or its branches. LEFT MAIN CORONARY ARTERY: This is a fair caliber vessel has about a 55% to 60% lesion involving the distal left main before bifurcation. This lesion is evident in multiple views and in any way I look at the lesion, it is at least close to 60%. The left main then bifurcates into ramus intermedius, LAD and circumflex. The ramus almost looks like a high obtuse marginal branch. Left main therefore distally has about a 55% to 60% lesion. LEFT ANTERIOR DESCENDING CORONARY ARTERY: Good caliber vessel extends along the anterior wall, gives off a large septal branch proximally then gives secondary branches then gives off a diagonal branch and then runs towards the apex. The distal 1/4 of LAD is small in caliber and distribution. The LAD, however, in the distal 1/4 is small in caliber and distribution, but the diagonal and septal are free of significant disease. LEFT POSTERIOR CIRCUMFLEX CORONARY ARTERY: Technically nondominant vessel, smaller in distribution. No significant disease. It gives off a high first obtuse marginal which almost looks like a ramus. There is no significant disease in the ramus other than an area of maybe a 30% narrowing noted. The circumflex and ramus/high obtuse marginal are free of significant disease. The high obtuse marginal has about a 30% lesion proximally. LEFT VENTRICULOGRAM: This was not performed. FINAL IMPRESSION: This patient has somewhat of an unusual LAD anatomy. RCA is very dominant and disease free. The ramus has a 30% proximal lesion. The circumflex is nondominant, free of significant disease. LAD starts off as a good caliber vessel gives off a septal and diagonal branch and in the distal 1/4 of the LAD, the caliber is small and it has diffuse narrowing and it runs all the way to the apex. There are no critical lesions in the LAD, but LAD in the distal 1/4 is small in caliber and distribution. RECOMMENDATIONS: This lady also has moderate to severe aortic stenosis and she will have MARY today. Most likely she will require an aortic valve replacement and a bypass surgery in view of distal left main of nearly 60%. I discussed the findings with the patient and family. She will have MARY today and I will then make arrangements for her to see the surgeon. ESTEVAN / JUAN JN: [id number] /
[2018-09-05] MEDS ORDERED: SODIUM CHLORIDE 0.9% 1,000 ML IV SCH (09:15)
[2018-09-05] MEDS ORDERED: ACETAMINOPHEN TAB 325 MG TAB PO STA (09:42)
[2018-09-05] MEDS ORDERED: HYDROmorphone 0.5 MG/0.5 ML SYRINGE IVP STA (09:53)
[2018-09-05] MEDS ORDERED: fentaNYL (PF) 50 MCG/ML 2 ML AMP ONE (11:54)
[2018-09-05] MEDS ORDERED: BENZOCAINE SPRAY 1 CAN MUCOUS MEM ONE (12:23)
[2018-09-05] MEDS ORDERED: fentaNYL (PF) 50 MCG/ML 2 ML AMP IV ONE (12:24)
[2018-09-05] MEDS ORDERED: IV FLUID CONTINUATION 400 ML IV ONE (12:24)
[2018-09-05] MEDS ORDERED: MIDAZOLAM 2 MG/2 ML VIAL IV ONE (12:24)
[2018-09-05] MEDS ORDERED: MIDAZOLAM 2 MG/2 ML VIAL IVP ONE (12:26)
--- NOTE | 2018-09-05 13:02 | ECHOT ---
TRANSESOPHAGEAL ECHOCARDIOGRAM This transesophageal echocardiogram was performed to evaluate the patient's aortic stenosis. Patient was given intravenous sedation with Versed and fentanyl and transesophageal echocardiogram was performed without any complications. Left ventricular chamber is normal in size. Mitral valve morphology is normal. Minimal mitral regurgitation is noted. Left atrial appendage is normal. There is no evidence of thrombus. Left atrium is mildly enlarged. Aortic valve is calcified and sclerotic with aortic it appears to be trileaflet. The aortic valve area is calculated in the range of 1 to 1.1 cm2 suggestive of severe degree of aortic stenosis. There is a mild aortic regurgitation noted. Tricuspid valve morphology is normal. Left ventricular systolic function is normal. Interatrial septum is intact. There is no evidence of any PFO by saline contrast study. FINAL IMPRESSION: 1. Aortic wall is calcified and with a restricted opening. Aortic valve area is calculated in the range of 1 to 1.1 cm2 suggestive of severe aortic stenosis. 2. Left ventricular systolic function is normal. 3. Mild aortic regurgitation and trace mitral regurgitation is noted. 4. There is no evidence of thrombus in left atrium or atrial appendage. 5. Interatrial septum is intact without any evidence of patent foramen ovale. MMODL / IJN: [id number] /
[2018-09-05] MEDS ORDERED: RX INFO: IV CONTRAST WAS GIVEN 1 EACH MISC MISCELLANE PRN (13:13)
[2018-09-05] MEDS ORDERED: ACETAMINOPHEN TAB 500 MG TAB PO PRN (13:16)
[2018-09-05] MEDS ORDERED: HEPARIN SODIUM,PORCINE 5,000 UNIT/ML 1 ML VIAL IV ONE (13:18)
[2018-09-05] MEDS ORDERED: HEPARIN SODIUM,PORCINE 5,000 UNIT/ML 1 ML VIAL IV PRN (13:18)
[2018-09-05] MEDS ORDERED: SODIUM CHLORIDE 0.9% 1,000 ML in EMPTY BAG 1 BAG IV ONE (13:22)
[2018-09-05] MEDS ORDERED: HEPARIN SOD,PORK IN 0.45% NACL 25,000 UNIT in 0.45% NACL 1 250ML.BAG IV SCH (13:30)
[2018-09-05 15:31] LABS: Basophils # (A) 0.1 k/uL (0-0.2); Basophils % (A) 1 %; Eosinophils # (A) 0.3 k/uL (0-0.7); Eosinophils % (A) 3 %; HCT 39.1 % (34.0-46.0); Hypochromasia Marked; Lymphocytes # (A) 2.5 k/uL (1.0-4.8); Lymphocytes % (A) 25 %; MCH 25.1 pg (25.0-35.0); MCHC 30.6 g/dL (31.0-37.0); MCV 82.1 fL (80.0-100.0); Mean Platelet Volume 7.5; Monocytes # (A) 0.4 k/uL (0-1.0); Monocytes % (A) 4 %; Neutrophils # (A) 6.5 k/uL (1.3-7.7); Neutrophils % (A) 65 %; Platelet Count 261 k/uL (150-450); RBC 4.76 m/uL (3.80-5.40); RDW 14.8 % (11.5-15.5); WBC 10.1 k/uL (3.8-10.6)
--- NOTE | 2018-09-05 15:31 | P.GSCN ---
History of Present Illness Consult date: 09/05/18 Reason for Consult: Coronary artery disease with left main disease, severe aortic stenosis, surgical recommendations Requesting physician: Marifer Jones History of present illness: This is a 48-year-old female patient who follows with Dr. Rohan Burns on an outpatient basis. She has a previous medical history of known aortic stenosis, hypertension, hyperlipidemia, Hodgkin's lymphoma status post chemo and radiation when she was 20 years old, previous heavy tobacco dependence, she quit greater than 10 years ago but previously smoked 2-3 packs a day for 20 years, morbid obesity, previous gastric sleeve surgery, obstructive sleep apnea without CPAP use, restless leg syndrome, and family history of premature coronary artery disease with uncle having MT at 47 years old and cousin from myocardial infarction at 45 years old. She has been followed on an outpatient basis for aortic stenosis. She presented to [facility] emergency room in July 2018 with complaints of increasing shortness of breath and chest pain with exertion. Her workup included chest x-ray which demonstrated mild cardiomegaly, chest CTA which demonstrated pulmonary edema with bilateral pleural effusions and coronary calcification, and transthoracic echocardiogram which demonstrated normal left ventricular systolic function with EF 55-60%, mild to moderate aortic regurgitation, moderate aortic stenosis with peak/mean gradient 60.52 mmHg/32.99 mmHg, trace to mild mitral regurgitation, mild tricuspid regurgitation, and mild to moderate pulmonary hypertension with RVSP 45.42 mmHg. She was treated for acute congestive heart failure with diuretics and was discharged with plans to follow with Dr. Jones for heart catheterization. Heart catheterization was completed this morning and demonstrated left main stenosis approaching 60%, and a 30% proximal lesion in the ramus. Transesophageal echocardiogram was also completed demonstrating calcified tricuspid aortic valve with an area calculated to be 1-1.1 cm suggesting severe aortic stenosis, mild aortic regurgitation, and trace mitral regurgitation. Due to these findings Dr. Jesus from cardiothoracic surgery was consulted for surgical recommendations. Review of Systems Review of systems was completed and was negative except as noted. - Constitutional Reports chronic headaches - Cardiovascular Reports chest pain, Reports dyspnea on exertion, Reports leg edema Past Medical History Past Medical History: Coronary Artery Disease (CAD), Chest Pain / Angina, Hyperlipidemia, Hypertension, Osteoarthritis (OA), Sleep Apnea/CPAP/BIPAP Additional Past Medical History / Comment(s): heart murmur, at age 20 or 21 dx w / hodgkins lymphoma-received chemo/radiation, ankle spurs, restless leg syndrome ,past kidney stone,slight scoliosis,2 herniated disc, recent admission here for SOB, chest discomfort, aortic stenosis, recent bronchitis History of Any Multi-Drug Resistant Organisms: None Reported Past Surgical History: Adenoidectomy, Bariatric Surgery, Section, Tubal Ligation Additional Past Surgical History / Comment(s): sleeve gastrectomy 05/2013, Lymph node aspiration, Lt knee injections, back injections Past Anesthesia/Blood Transfusion Reactions: No Reported Reaction Additional Past Anesthesia/Blood Transfusion Reaction / Comm: "has never received any blood transfusions" Past Psychological History: No Psychological Hx Reported Smoking Status: Former smoker Past Alcohol Use History: Occasional Past Drug Use History: Marijuana - Past Family History Father Additional Family Medical History / Comment(s): alcoholism Mother Family Medical History: COPD Additional Family Medical History / Comment(s): Mom: heart dx, brother at 4 months of heart abnormalaties, uncle had a myocardial infarction at 47 years old, cousin from myocardial infarction at 45 years old Medications and Allergies Home Medications Medication Instructions Recorded Confirmed Type Metoprolol Succinate [Toprol Xl] 100 mg PO HS 08/12/18 09/03/18 History Pramipexole Di-HCl [Mirapex] 1.5 mg PO HS 08/12/18 09/03/18 History Acetaminophen Tab [Tylenol Tab] 500 mg PO Q4H PRN #1 tablet 08/14/18 09/03/18 Rx Aspirin 81 mg PO DAILY chew 08/14/18 09/03/18 Rx Furosemide [Lasix] 40 mg PO DAILY #30 tablet 08/14/18 09/03/18 Rx Cephalexin [Keflex] 500 mg PO Q8HR 09/03/18 09/03/18 History Allergies Allergy/AdvReac Type Severity Reaction Status Date / Time amoxicillin AdvReac UTI Verified 09/03/18 14:17 artificial sweetener AdvReac Nausea & Uncoded 09/03/18 14:42 Vomiting Surgical - Exam Vital Signs Temp Pulse Resp BP 98.2 F 89 20 117/64 09/05/18 07:03 09/05/18 07:03 09/05/18 07:03 09/05/18 07:03 - General well developed, well nourished, no distress, no pain, obese - Eyes PERRL, normal ocular movement - ENT no hearing loss, poor nursing home - Neck no masses, no bruits, trachea midline - Respiratory Lungs sounds clear bilaterally. Respirations even, nonlabored. Currently on room air with oxygen saturation 95%. No chest wall deformities. - Cardiovascular S1, S2 present. Positive systolic murmur. Regular rate and rhythm, sinus rhythm on telemetry. Palpable peripheral pulses bilaterally. Trace bilateral lower extremity edema present. No calf pain or tenderness noted. No varicosities noted. - Abdomen Abdomen: soft, non tender, bowel sounds - Genitourinary Deferred - Rectum Deferred - Integumentary Multiple tattoos present no rash, no growths - Neurologic normal coordination, normal sensation - Musculoskeletal normal gait, normal posture - Psychiatric oriented to time, oriented to person, oriented to place, speech is normal, memory intact Results - Imaging Additional studies: Heart catheterization and transesophageal echocardiogram films were reviewed. Assessment and Plan (1) Aortic stenosis Current Visit: Yes Status: Chronic Code(s): I35.0 - NONRHEUMATIC AORTIC ( VALVE) STENOSIS SNOMED Code(s): 10133210 (2) Hypertension Current Visit: Yes Status: Chronic Code(s): I10 - ESSENTIAL (PRIMARY) HYPERTENSION SNOMED Code(s): 07815981 (3) Hyperlipidemia Current Visit: Yes Status: Chronic Code(s): E78.5 - HYPERLIPIDEMIA, UNSPECIFIED SNOMED Code(s): 66873470 (4) History of Hodgkin's lymphoma Current Visit: No Status: Resolved Code(s): Z85.71 - PERSONAL HISTORY OF HODGKIN LYMPHOMA SNOMED Code(s): 584525023 (5) History of chemotherapy Current Visit: No Status: Resolved Code(s): Z92.21 - PERSONAL HISTORY OF ANTINEOPLASTIC CHEMOTHERAPY SNOMED Code(s): 334121677992101 (6) History of radiation therapy Current Visit: No Status: Resolved Code(s): Z92.3 - PERSONAL HISTORY OF IRRADIATION SNOMED Code(s): 065173247 (7) Obstructive sleep apnea Current Visit: Yes Status: Chronic Code(s): G47.33 - OBSTRUCTIVE SLEEP APNEA (ADULT) (PEDIATRIC) SNOMED Code(s): 17855409 (8) History of gastric surgery Current Visit: Yes Status: Chronic Code(s): Z98.890 - OTHER SPECIFIED POSTPROCEDURAL STATES SNOMED Code(s): 651471353 (9) Restless leg syndrome Current Visit: Yes Status: Chronic Code(s): G25.81 - RESTLESS LEGS SYNDROME SNOMED Code(s): 69741451 (10) Morbid obesity with BMI of 45.0-49.9, adult Current Visit: Yes Status: Chronic Code(s): E66.01 - MORBID (SEVERE) OBESITY DUE TO EXCESS CALORIES; Z68.42 - BODY MASS INDEX (BMI) 45.0-49.9, ADULT SNOMED Code(s): 091627076 Plan: The patient was seen and examined in the extended stay unit. Chart/diagnostics were reviewed. The case will be discussed in detail with Dr. Jesus. At this time the patient is indicating she will likely seek a second opinion at [facility]. Preoperative teaching was initiated. Preoperative testing was initiated. We would recommend maximizing medical therapy with aspirin, statin, beta will therapy. Patient would need dental clearance prior to any valvular surgery, this was discussed with the patient. An appointment was made with the patient to see Dr. Jesus in the office on 09/11/2018 at 2:30 PM for further discussion. If the patient would prefer to have surgery at [facility] or anywhere else, she is certainly within her right, however we would be happy to perform cardiac surgery here if she wishes. Medical management per cardiology, primary care services. Thank you Dr. Jones for this consult. Please call us with any questions. Time with Patient: Greater than 30
[2018-09-05 15:41] LABS: ALT 27 U/L (9-52); AST 20 U/L (14-36); Albumin 3.9 g/dL (3.5-5.0); Alkaline Phosphatase 130 U/L (38-126); Anion Gap 8 mmol/L; Blood Urea Nitrogen 17 mg/dL (7-17); Calcium 9.2 mg/dL (8.4-10.2); Carbon Dioxide 27 mmol/L (22-30); Chloride 106 mmol/L (98-107); Cholesterol 181 mg/dL (<200); Glucose 109 mg/dL (74-99); HDL Cholesterol 33 mg/dL (40-60); LDL Cholesterol,Calculated 91 mg/dL (0-99); Magnesium 2.1 mg/dL (1.6-2.3); Potassium 4.3 mmol/L (3.5-5.1); Sodium 141 mmol/L (137-145); Total Bilirubin 0.4 mg/dL (0.2-1.3); Total Protein 6.9 g/dL (6.3-8.2); Triglycerides 283 mg/dL (<150)
[2018-09-05 15:43] LABS: INR 0.9 (<1.2); Prothrombin Time 9.4 sec (9.0-12.0)
[2018-09-05 15:53] LABS: Partial Thromboplastin Time 19.8 sec (22.0-30.0)
--- NOTE | 2018-09-05 16:17 | US ---
EXAMINATION TYPE: US carotid duplex BILAT DATE OF EXAM: 09/05/2018 COMPARISON: NONE CLINICAL HISTORY: preop cardiac surgery. EXAM MEASUREMENTS: RIGHT: Peak Systolic Velocity (PSV) cm/sec ----- Right CCA: 62.5 ----- Right ICA: 123.6 ----- Right ECA: 92.2 ICA/CCA ratio: 2.0 RIGHT: End Diastole cm/sec ----- Right CCA: 20.6 ----- Right ICA: 42.3 ----- Right ECA: 10.7 LEFT: Peak Systolic Velocity (PSV) cm/sec ----- Left CCA: 64.2 ----- Left ICA: 106.8 ----- Left ECA: 101.5 ICA/CCA ratio: 1.7 LEFT: End Diastole cm/sec ----- Left CCA: 23.2 ----- Left ICA: 42.4 ----- Left ECA: 19.6 VERTEBRALS (direction of flow): Right Vertebral: Antegrade Left Vertebral: Antegrade Rhythm: Normal Bilateral intimal thickening, bilateral torturous ICA, no elevated velocities, right ICA/CCA ratio 2. 0 Grayscale, color Doppler, spectral Doppler imaging performed of the carotid arteries. Waveform analys is does not show significant stenosis of the proximal internal carotid arteries by Doppler criteria. IMPRESSION: No hemodynamic significant stenosis of the proximal internal carotid arteries bilaterall y by Doppler criteria, an indirect measurement of carotid stenosis
[2018-09-05] MEDS: CEPHALEXIN 500 MG CAP PO SCH ×2 (17:17→23:23)
[2018-09-05] MEDS ORDERED: PRAMIPEXOLE 0.5 MG TAB PO SCH (21:00)
[2018-09-05] MEDS ORDERED: METOPROLOL SUCCINATE (ER) 100 MG TAB.ER.24H PO SCH (21:00)
[2018-09-05 22:48] LABS: Hemoglobin A1C 6.3 % (4.0-6.0)
[2018-09-06 04:52] LABS: Hepatitis A Antibody IgM Non-Reactive (Non-Reactive); Hepatitis B Core IgM Non-Reactive (Non-Reactive)
[2018-09-06 04:58] VITALS: RESP 18
[2018-09-06 07:52] LABS: ALT 30 U/L (9-52); AST 23 U/L (14-36); Albumin 3.5 g/dL (3.5-5.0); Alkaline Phosphatase 142 U/L (38-126); Anion Gap 6 mmol/L; Blood Urea Nitrogen 16 mg/dL (7-17); Calcium 8.9 mg/dL (8.4-10.2); Carbon Dioxide 28 mmol/L (22-30); Chloride 107 mmol/L (98-107); Glucose 108 mg/dL (74-99); Potassium 4.6 mmol/L (3.5-5.1); Sodium 141 mmol/L (137-145); Total Bilirubin 0.4 mg/dL (0.2-1.3); Total Protein 6.4 g/dL (6.3-8.2)
[2018-09-06 08:43] LABS: Basophils # (A) 0.1 k/uL (0-0.2); Basophils % (A) 1 %; Eosinophils # (A) 0.3 k/uL (0-0.7); Eosinophils % (A) 3 %; HCT 38.1 % (34.0-46.0); HGB 11.6 gm/dL (11.4-16.0); Hypochromasia Moderate; Lymphocytes # (A) 2.7 k/uL (1.0-4.8); Lymphocytes % (A) 28 %; MCH 24.2 pg (25.0-35.0); MCHC 30.5 g/dL (31.0-37.0); MCV 79.4 fL (80.0-100.0); Mean Platelet Volume 9.1; Monocytes # (A) 0.6 k/uL (0-1.0); Monocytes % (A) 6 %; Neutrophils # (A) 5.9 k/uL (1.3-7.7); Neutrophils % (A) 61 %; Platelet Count 258 k/uL (150-450); RDW 14.6 % (11.5-15.5); WBC 9.7 k/uL (3.8-10.6)
[2018-09-06] MEDS ORDERED: ASPIRIN 81 MG PO SCH (09:00)
[2018-09-06] MEDS ORDERED: FUROSEMIDE 40 MG TAB PO SCH (09:00)
--- NOTE | 2018-09-06 09:25 | P.PN ---
Subjective Progress Note Date: 09/06/18 Principal diagnosis: Coronary artery disease with left main disease, severe aortic stenosis. Previous medical history of hypertension, hyperlipidemia, Hodgkin's lymphoma status post chemo and radiation when she was 20 years old, previous heavy tobacco dependence, mild COPD with FEV1 71% of predicted, morbid obesity, previous gastric sleeve surgery, obstructive sleep apnea without CPAP use, restless leg syndrome, and family history of premature coronary artery disease with uncle having AR at 47 years old and cousin from myocardial infarction at 45 years old. The patient is currently sitting up in bed on the cardiac stepdown unit in no acute distress. Denies any pain or shortness of breath at this time. Preoperative teaching reinforced, all questions answered. At this time patient states that she has decided to have her surgery here at [facility]. The patient's case was discussed in detail with Dr. Jesus. Preoperative testing has been completed and STS risk score has been calculated and will be discussed with the patient. Objective - Vital Signs Vital signs: Vital Signs Temp 98.2 F 09/06/18 04:00 Pulse 76 09/06/18 04:00 Resp 18 09/06/18 04:00 BP 141/79 09/06/18 04:00 Pulse Ox 96 09/06/18 04:00 Intake & Output 09/05/18 09/06/18 09/06/18 18:59 06:59 18:59 Intake Total 1255 1605.839 Output Total 250 Balance 1005 1605.839 Weight 129.727 kg 130.6 kg Intake: IV 525 220 Sodium Chloride 0.9% 1, 100 220 000 ml @ 100 mls/hr IV . Q10H HENNY Rx#:[id number] Intake, IV Titration 185.839 Amount Heparin Sod,Pork in 0.45% 185.839 NaCl 25,000 unit In 0.45 % NaCl 1 250ml.bag @ 7. 709 UNITS/KG/HR 10 mls/hr IV .Q24H HENNY Rx#: [id number] Oral 730 1200 Output: Urine 250 Other: Voiding Method Toilet # Voids 2 - Constitutional General appearance: Present: cooperative, no acute distress, obese - Respiratory Details: Lungs sounds clear bilaterally. Respirations even, nonlabored. Currently on room air with oxygen saturation 96%. Able to achieve 2000 mL on her incentive spirometry. - Cardiovascular Details: S1, S2 present. Positive systolic murmur. Regular rate and rhythm, sinus rhythm on telemetry. Palpable peripheral pulses bilaterally. No edema present. No calf pain or tenderness noted. - Gastrointestinal Gastrointestinal Comment(s): Abdomen soft, nontender, nondistended, obese. Active bowel sounds present 4 quadrants. Tolerating diet. - Genitourinary Genitourinary Comment(s): Continues to void clear, yellow urine. - Integumentary Integumentary Comment(s): Skin is warm and dry with evidence of good perfusion. - Neurologic Neurologic: Present: CNII-XII intact - Musculoskeletal Musculoskeletal: Present: gait normal, strength equal bilaterally - Psychiatric Psychiatric: Present: A&O x's 3, appropriate affect, intact judgment & insight - Allied health notes Allied health notes reviewed: nursing - Labs CBC & Chem 7: 09/06/18 06:45 09/06/18 06:45 Labs: Abnormal Lab Results - Last 24 Hours (Table) 09/05/18 09/05/18 09/05/18 Range/Units 15:11 15:11 15:11 MCV (80.0-100.0) fL MCH (25.0-35.0) pg MCHC 30.6 L (31.0-37.0) g/dL APTT 19.8 L (22.0-30.0) sec Glucose 109 H (74-99) mg/dL Hemoglobin A1c (4.0-6.0) % Alkaline Phosphatase 130 H (38-126) U/L Triglycerides 283 H (<150) mg/dL HDL Cholesterol 33 L (40-60) mg/dL 09/05/18 09/06/18 09/06/18 Range/Units 15:11 06:45 06:45 MCV 79.4 L (80.0-100.0) fL MCH 24.2 L (25.0-35.0) pg MCHC 30.5 L (31.0-37.0) g/dL APTT (22.0-30.0) sec Glucose 108 H (74-99) mg/dL Hemoglobin A1c 6.3 H (4.0-6.0) % Alkaline Phosphatase 142 H (38-126) U/L Triglycerides (<150) mg/dL HDL Cholesterol (40-60) mg/dL Microbiology - Last 24 Hours (Table) 09/05/18 17:45 Nasal Screen MRSA/MSSA - Preliminary Nasal Swab - Imaging and Cardiology Carotid Dopplers and vein mapping reviewed Assessment and Plan (1) Aortic stenosis Current Visit: Yes Status: Chronic Code(s): I35.0 - NONRHEUMATIC AORTIC ( VALVE) STENOSIS SNOMED Code(s): 40465965 (2) Hypertension Current Visit: Yes Status: Chronic Code(s): I10 - ESSENTIAL (PRIMARY) HYPERTENSION SNOMED Code(s): 15828611 (3) Hyperlipidemia Current Visit: Yes Status: Chronic Code(s): E78.5 - HYPERLIPIDEMIA, UNSPECIFIED SNOMED Code(s): 59797306 (4) History of Hodgkin's lymphoma Current Visit: No Status: Resolved Code(s): Z85.71 - PERSONAL HISTORY OF HODGKIN LYMPHOMA SNOMED Code(s): 810849898 (5) History of chemotherapy Current Visit: No Status: Resolved Code(s): Z92.21 - PERSONAL HISTORY OF ANTINEOPLASTIC CHEMOTHERAPY SNOMED Code(s): 621715600375909 (6) History of radiation therapy Current Visit: No Status: Resolved Code(s): Z92.3 - PERSONAL HISTORY OF IRRADIATION SNOMED Code(s): 192587612 (7) Obstructive sleep apnea Current Visit: Yes Status: Chronic Code(s): G47.33 - OBSTRUCTIVE SLEEP APNEA (ADULT) (PEDIATRIC) SNOMED Code(s): 22265251 (8) History of gastric surgery Current Visit: Yes Status: Chronic Code(s): Z98.890 - OTHER SPECIFIED POSTPROCEDURAL STATES SNOMED Code(s): 394908783 (9) Restless leg syndrome Current Visit: Yes Status: Chronic Code(s): G25.81 - RESTLESS LEGS SYNDROME SNOMED Code(s): 39598211 (10) Morbid obesity with BMI of 45.0-49.9, adult Current Visit: Yes Status: Chronic Code(s): E66.01 - MORBID (SEVERE) OBESITY DUE TO EXCESS CALORIES; Z68.42 - BODY MASS INDEX (BMI) 45.0-49.9, ADULT SNOMED Code(s): 969747960 Plan: 1. Continue aspirin, beta will therapy. Patient needs statin, however she states she is intolerant to atorvastatin, should be started on Crestor at discharge as it is not on formulary here. 2. Appointment has been made with Dr. Jesus for this August at 2:30 PM to make plans for aortic valve replacement and coronary artery bypass surgery. 3. Patient will need dental clearance prior to surgery, this has been discussed with the patient. 4. Encourage incentive spirometry use. 5. Continue to reinforce preoperative teaching. 6. Our contact information has been given to the patient and she may contact us with any questions. 7. Patient may be discharged to home from our standpoint when okay with cardiology. Time with Patient: Greater than 30
[2018-09-06] MEDS: CEPHALEXIN 500 MG CAP PO SCH (09:31)
[2018-09-06 11:06] VITALS: BP 120/67; PULSE 81; TEMP 98
--- NOTE | 2018-09-09 08:58 | P.VSCSTY ---
Greater Saphenous Vein Mapping This is bilateral lower extremity greater saphenous vein mapping. Date of service 09/05/2018 Vein quality and ultrasound appearance we see no intraluminal thrombus or wall changes. There are a lot of sizable branches on both sides throughout.. Vein size groin right 7.0 x 7.3 groin left 9.2 x 9.2 High thigh right 5.1 x 5.6 high thigh left 8.6 x 8.3 Mid thigh right 5.5 x 6.1 mid thigh left 5.8 x 6.3 Above-knee right 5.4 x 6.4 above- knee left 4.8 x 5.6 Below knee right 5.1 x 5.2 below-knee left 4.8 x 4.8 Mid calf right 3.8 x 4.0 mid calf left 3.7 x 3.9 Ankle right 3.3 x 3.2 ankle left 2.7 x 2.5 Impression usable bilateral greater saphenous vein. Lower legs appear better size match to coronaries..
== END 2018-09-06 11:45 | disposition home or self-care (01) ==
LOC: CATHCVL 06:30 → 3SCARD 08:17 → CATHCVL 09-06 11:45
PROVIDERS: ATTEND Internal Medicine Interventional Cardiology
DX: I08.3 Combined rheumatic disorders of mitral, aortic and tricuspid valves (principal); I25.119 Atherosclerotic heart disease of native coronary artery with unspecified angina pectoris; I11.9 Hypertensive heart disease without heart failure; E78.00 Pure hypercholesterolemia, unspecified; G47.33 Obstructive sleep apnea (adult) (pediatric); G25.81 Restless legs syndrome; I27.20 Pulmonary hypertension, unspecified; M19.90 Unspecified osteoarthritis, unspecified site; J44.9 Chronic obstructive pulmonary disease, unspecified; E66.01 Morbid (severe) obesity due to excess calories; Z68.42 Body mass index [BMI] 45.0-49.9, adult; Z99.89 Dependence on other enabling machines and devices; Z79.899 Other long term (current) drug therapy; Z88.0 Allergy status to penicillin; Z90.3 Acquired absence of stomach [part of]; Z98.84 Bariatric surgery status; Z98.51 Tubal ligation status; Z85.71 Personal history of Hodgkin lymphoma; Z92.21 Personal history of antineoplastic chemotherapy; Z92.3 Personal history of irradiation; Z87.442 Personal history of urinary calculi; Z87.891 Personal history of nicotine dependence; Z82.49 Family history of ischemic heart disease and other diseases of the circulatory system
CPT/HCPCS: 94150; 93312; 93320; 93325; 93454; 80061; 80053 ×2; 80074; 84443; 83735; 85025 ×2; 85610; 85730 ×2; 87070; 83036; 93970; 93880; C1769 ×4; C1894 ×2; J2250; J1644 ×3; J2001; J3010; J1170; Q9967

== ENCOUNTER → 2018-09-25 | Outpatient (CLI) | payer BC, OTHER ==
[2018-09-25 09:39] LABS: Appearance,Urine Clear (Clear); Bilirubin,Urine Negative (Negative); Blood,Urine Negative (Negative); Color,Urine Colorless; Glucose,Urine (UA) Negative (Negative); Ketones,Urine Negative (Negative); Leukocyte Esterase,Urine Negative (Negative); Nitrite,Urine Negative (Negative); PH, Urine 5.5 (5.0-8.0); Protein,Urine Negative (Negative); Specific Gravity,Urine 1.006 (1.001-1.035); Urobilinogen,Urine <2.0 mg/dL (<2.0)
[2018-09-25 09:53] LABS: HCT 37.9 % (34.0-46.0); HGB 11.5 gm/dL (11.4-16.0); Hypochromasia Moderate; MCH 24.3 pg (25.0-35.0); MCHC 30.2 g/dL (31.0-37.0); MCV 80.5 fL (80.0-100.0); Mean Platelet Volume 7.4; Platelet Count 262 k/uL (150-450); RDW 15.3 % (11.5-15.5)
[2018-09-25 09:56] LABS: INR 0.8 (<1.2); Partial Thromboplastin Time 24.1 sec (22.0-30.0); Prothrombin Time 9.3 sec (9.0-12.0)
[2018-09-25 10:26] LABS: ALT 34 U/L (9-52); AST 23 U/L (14-36); Albumin 4.2 g/dL (3.5-5.0); Alkaline Phosphatase 137 U/L (38-126); Anion Gap 9 mmol/L; Blood Urea Nitrogen 17 mg/dL (7-17); Calcium 9.3 mg/dL (8.4-10.2); Carbon Dioxide 30 mmol/L (22-30); Chloride 104 mmol/L (98-107); Glucose 123 mg/dL (74-99); Potassium 4.3 mmol/L (3.5-5.1); Sodium 143 mmol/L (137-145); Total Bilirubin 0.3 mg/dL (0.2-1.3); Total Protein 7.2 g/dL (6.3-8.2)
--- NOTE | 2018-09-25 11:37 | XR ---
EXAMINATION TYPE: XR chest 2V DATE OF EXAM: 09/25/2018 COMPARISON: 08/12/2018 TECHNIQUE: PA and lateral views submitted. HISTORY: Aortic Stenosis FINDINGS: The lungs are clear and there is no pneumothorax, pleural effusion, or focal pneumonia. Heart is mi ldly prominent. Arthropathy of the shoulders. No overt failure. Hypertrophic and degenerative change of the spine. IMPRESSION: 1. Cardiomegaly
--- NOTE | 2018-09-26 11:59 | P.PN ---
Progress Note - Text Progress Note Date: 09/25/18 A 5 m walk test was completed time 1: 2.28 seconds, time 2: 2.10 seconds, time 3 : 2.03 seconds.
== END | disposition home or self-care (01) ==
LOC: LABPAT 07:30
PROVIDERS: ATTEND Thoracic Surgery (Cardiothoracic Vascular Surgery)
DX: I35.1 Nonrheumatic aortic (valve) insufficiency (principal); I25.119 Atherosclerotic heart disease of native coronary artery with unspecified angina pectoris; I51.7 Cardiomegaly
CPT/HCPCS: 36415; 71046; 80053; 81003; 85027; 85610; 85730; 87086; 93922; 93930

== ENCOUNTER 2018-10-01 09:00 | Inpatient (IN) | payer BC, OTHER ==
[2018-10-02] MEDS ORDERED: PROTAMINE SULFATE 250 MG in EMPTY BAG 1 BAG IV ONE (05:00)
[2018-10-02] MEDS ORDERED: NITROGLYCERIN SL TABS 0.4 MG TAB SUBLINGUAL ONE (05:00)
[2018-10-02] MEDS ORDERED: NOREPINEPHRINE 4 MG in SODIUM CHLORIDE 0.9% 250 ML IV ONE (05:00)
[2018-10-02] MEDS ORDERED: INSULIN REGULAR 100 UNIT in SODIUM CHLORIDE 0.9% 100 ML IV ONE (05:00)
[2018-10-02] MEDS ORDERED: PHENYLEPHRINE 40 MG in SODIUM CHLORIDE 0.9% 250 ML IV ONE (05:00)
[2018-10-02] MEDS ORDERED: METOPROLOL TARTRATE 12.5 MG TAB PO ONE (05:00)
[2018-10-02] MEDS ORDERED: ceFAZolin 2,000 MG in SODIUM CHLORIDE 0.9% 30 ML IVPB ONE (05:00)
[2018-10-02] MEDS ORDERED: CHLORHEXIDINE GLUCONATE 15 ML CUP MUCOUS MEM ONE (05:00)
[2018-10-02] MEDS ORDERED: SODIUM CHLORIDE 0.9% 1,000 ML IV ONE (05:00)
[2018-10-02] MEDS ORDERED: NITROGLYCERIN-D5W PMX 25 MG/250 ML BTL IV ONE (05:00)
[2018-10-02] MEDS ORDERED: MANNITOL 25% 12.5 GM/50 ML VIAL IV ONE (05:00)
[2018-10-02] MEDS ORDERED: LACTATED RINGERS 1,000 ML IV ONE (05:00)
[2018-10-02] MEDS ORDERED: DILTIAZEM 125 MG in SODIUM CHLORIDE 0.9% 100 ML IV ONE (05:00)
[2018-10-02] MEDS ORDERED: CLEVIDIPINE BUTYRATE 25 MG in EMPTY BAG 1 BAG IV ONE (05:00)
[2018-10-02] MEDS ORDERED: TRANEXAMIC ACID 2,000 MG in SODIUM CHLORIDE 0.9% 80 ML IV ONE ×4 (05:00)
[2018-10-02] MEDS ORDERED: CALCIUM CHLORIDE 100 MG/ML 10 ML SYRINGE IV ONE (05:00)
[2018-10-02] MEDS ORDERED: NITROGLYCERIN-D5W PMX 50 MG in DEXTROSE/WATER 1 250ML.BAG IV ONE (05:00)
[2018-10-02] MEDS ORDERED: ASPIRIN 325 MG TAB PO ONE (05:00)
[2018-10-02] MEDS ORDERED: ALBUMIN HUMAN 5% 500 ML IVPB ONE ×6 (05:00)
[2018-10-02] MEDS ORDERED: PROPOFOL 1,000 MG/100 ML VIAL IV ONE (05:00)
[2018-10-02] MEDS ORDERED: ceFAZolin 1,000 MG in SODIUM CHLORIDE 0.9% IRRIGATIO 1,000 ML IRRIGATION ONE (05:00)
[2018-10-02] MEDS ORDERED: CARDIOPLEGIC SOLN (K+ 16 MEQ/L 1,000 ML with SODIUM BICARB (1 MEQ/ML) 20 ML, LIDOCAINE ... PERFUSION ONE ×9 (05:00)
[2018-10-02] MEDS ORDERED: HEPARIN SODIUM 1,000 UN/ML (10ML VL) IV ONE (05:00)
[2018-10-02] MEDS ORDERED: HEPARIN SODIUM,PORCINE 5,000 UNIT in SODIUM CHLORIDE 0.9% 500 ML 500 ML IV ONE (05:00)
[2018-10-02] MEDS ORDERED: PROTAMINE SULFATE 10 MG/ML 25 ML VIAL IV ONE ×2 (05:00→07:46)
[2018-10-02] MEDS ORDERED: PHENYLEPHRINE-0.9% NACL SYG 1 MG/10 ML SYRINGE IV ONE (05:00)
[2018-10-02] MEDS ORDERED: DILTIAZEM 50 MG in SODIUM CHLORIDE 0.9% 40 ML IV ONE (05:00)
[2018-10-02] MEDS ORDERED: PAPAVERINE 360 MG in SODIUM CHLORIDE 0.9% 90 ML IV ONE (05:00)
[2018-10-02] MEDS ORDERED: ATORVASTATIN 10 MG TAB PO ONE (05:00)
[2018-10-02] MEDS ORDERED: SODIUM BICARB 8.4% 50 ML SYR (1 MEQ/ML) IV ONE (05:00)
[2018-10-02] MEDS ORDERED: ceFAZolin 3 GM in SODIUM CHLORIDE 0.9% 30 ML IVPB ONE (05:00)
[2018-10-02] MEDS ORDERED: MAGNESIUM SULFATE MG 500 MG/ML IV ONE (05:00)
[2018-10-02] MEDS ORDERED: ALBUMIN HUMAN 25% 50 ML IV ONE ×2 (05:00)
[2018-10-02] MEDS ORDERED: MAGNESIUM SULFATE 4 MEQ/ML 10ML VIAL ONE (07:46)
[2018-10-02] MEDS ORDERED: SODIUM CHLORIDE 0.9% IRRIG 1,000 ML BTL IRRIGATION ONE (07:46)
[2018-10-02] MEDS ORDERED: MIDAZOLAM 2 MG/2 ML VIAL ONE (07:46)
[2018-10-02] MEDS ORDERED: TRANEXAMIC ACID 1,000 MG/10 ML VIAL ONE (07:46)
[2018-10-02] MEDS ORDERED: VECURONIUM 10 MG VIAL IV ONE (07:46)
[2018-10-02] MEDS ORDERED: fentaNYL (PF) 50 MCG/ML 50 ML VIAL ONE (07:46)
[2018-10-02] MEDS ORDERED: SODIUM CHLORIDE 0.9% 250 ML BAG ONE (07:46)
[2018-10-02] MEDS ORDERED: fentaNYL (PF) 50 MCG/ML 2 ML AMP ONE (07:46)
[2018-10-02] MEDS ORDERED: ceFAZolin 1,000 MG VIAL ONE (07:46)
[2018-10-02] MEDS ORDERED: PROPOFOL 10 MG/ML 20 ML VIAL IV ONE (07:46)
[2018-10-02] MEDS ORDERED: LIDOCAINE 2% SYG (PF) 100 MG/5 ML ONE (07:46)
[2018-10-02] MEDS ORDERED: ELECTROLYTE-R (PH 7.4) 1,000 ML IV.SOLN IV ONE (07:46)
[2018-10-02 08:43] LABS: ABG Base Excess 5.8 mmol/L; ABG HCO3 30 mmol/L (21-25); ABG Oxygen Saturation 99.6 % (94-97); ABG PCO2 42 mmHg (35-45); ABG PH 7.47 (7.35-7.45); ABG PO2 232 mmHg (83-108); ABG Potassium Whole Blood 3.8 mmol/L (3.4-4.5); ABG Sodium Whole Blood 143 mmol/L (135-146); ABG TCO2 31 mmol/L (19-24)
[2018-10-02 10:23] LABS: ABG Base Excess 4.9 mmol/L; ABG HCO3 29 mmol/L (21-25); ABG Oxygen Saturation 99.7 % (94-97); ABG PCO2 42 mmHg (35-45); ABG PH 7.45 (7.35-7.45); ABG PO2 263 mmHg (83-108); ABG Potassium Whole Blood 3.7 mmol/L (3.4-4.5); ABG Sodium Whole Blood 142 mmol/L (135-146); ABG TCO2 31 mmol/L (19-24)
[2018-10-02 11:35] LABS: ABG Base Excess 2.3 mmol/L; ABG HCO3 27 mmol/L (21-25); ABG Oxygen Saturation 99.7 % (94-97); ABG PCO2 42 mmHg (35-45); ABG PH 7.42 (7.35-7.45); ABG PO2 237 mmHg (83-108); ABG Potassium Whole Blood 4.2 mmol/L (3.4-4.5); ABG Sodium Whole Blood 138 mmol/L (135-146); ABG TCO2 28 mmol/L (19-24)
[2018-10-02 12:09] LABS: ABG Base Excess 2.7 mmol/L; ABG HCO3 27 mmol/L (21-25); ABG Oxygen Saturation 99.7 % (94-97); ABG PCO2 41 mmHg (35-45); ABG PH 7.43 (7.35-7.45); ABG PO2 222 mmHg (83-108); ABG Potassium Whole Blood 4.3 mmol/L (3.4-4.5); ABG Sodium Whole Blood 139 mmol/L (135-146); ABG TCO2 29 mmol/L (19-24)
[2018-10-02 12:42] LABS: ABG Base Excess 1.6 mmol/L; ABG HCO3 27 mmol/L (21-25); ABG Oxygen Saturation 99.9 % (94-97); ABG PCO2 45 mmHg (35-45); ABG PH 7.38 (7.35-7.45); ABG PO2 324 mmHg (83-108); ABG Potassium Whole Blood 4.6 mmol/L (3.4-4.5); ABG Sodium Whole Blood 139 mmol/L (135-146); ABG TCO2 28 mmol/L (19-24)
[2018-10-02 13:33] LABS: ABG Base Excess -0.9 mmol/L; ABG HCO3 24 mmol/L (21-25); ABG Oxygen Saturation 99.9 % (94-97); ABG PCO2 43 mmHg (35-45); ABG PH 7.36 (7.35-7.45); ABG PO2 357 mmHg (83-108); ABG Potassium Whole Blood 4.8 mmol/L (3.4-4.5); ABG Sodium Whole Blood 138 mmol/L (135-146); ABG TCO2 26 mmol/L (19-24)
[2018-10-02 14:51] LABS: ABG Base Excess -0.5 mmol/L; ABG HCO3 24 mmol/L (21-25); ABG PCO2 35 mmHg (35-45); ABG PH 7.43 (7.35-7.45); ABG Potassium Whole Blood 3.9 mmol/L (3.4-4.5); ABG Sodium Whole Blood 141 mmol/L (135-146); ABG TCO2 25 mmol/L (19-24)
[2018-10-02 14:52] LABS: ABG PO2 >420 mmHg (83-108)
[2018-10-02] MEDS ORDERED: METOCLOPRAMIDE 5 MG/ML 2 ML VIAL IVP PRN (15:36)
[2018-10-02] MEDS ORDERED: DILTIAZEM 125 MG in SODIUM CHLORIDE 0.9% 100 ML IV SCH (15:36)
[2018-10-02] MEDS ORDERED: IPRATROPIUM-ALBUTEROL 3 ML NEB INHALATION PRN (15:36)
[2018-10-02] MEDS ORDERED: PROPOFOL 1,000 MG in EMPTY BAG 1 BAG IV SCH (15:36)
[2018-10-02] MEDS ORDERED: BENZOCAINE/MENTHOL LOZENG 1 EACH LOZENGE MUCOUS MEM PRN (15:36)
[2018-10-02] MEDS ORDERED: AMIODARONE 300 MG in DEXTROSE 5% IN WATER 250 ML IV SCH ×2 (15:36)
[2018-10-02] MEDS ORDERED: Potassium Replacement Protocol 1 EACH MISC MISCELLANE PRN (15:36)
[2018-10-02] MEDS ORDERED: NITROGLYCERIN-D5W PMX 50 MG in DEXTROSE/WATER 1 250ML.BAG IV SCH (15:36)
[2018-10-02] MEDS ORDERED: DEXTROSE 5% IN WATER 100 ML with AMIODARONE 150 MG IV PRN (15:36)
[2018-10-02] MEDS ORDERED: Magnesium Replacement Protocol 1 EACH MISC MISCELLANE PRN (15:36)
[2018-10-02] MEDS ORDERED: ONDANSETRON 4 MG/2 ML VIAL IVP PRN (15:36)
[2018-10-02] MEDS ORDERED: Phosphorus Replacement Protoco 1 EACH MISC MISCELLANE PRN (15:36)
[2018-10-02] MEDS ORDERED: CALCIUM CHLORIDE 1 GM in SODIUM CHLORIDE 0.9% 50 ML IV PRN (16:00)
[2018-10-02] MEDS: IPRATROPIUM-ALBUTEROL 3 ML NEB INHALATION SCH ×2 (16:00→19:12)
[2018-10-02] MEDS ORDERED: AMIODARONE 360 MG in DEXTROSE 5% IN WATER 200 ML IV PRN ×2 (16:29)
[2018-10-02] MEDS ORDERED: AMIODARONE 300 MG in DEXTROSE 5% IN WATER 250 ML IV PRN ×2 (16:31)
[2018-10-02 16:42] LABS: Glucose,Whole Blood 153 mg/dL (75-99)
[2018-10-02 16:43] LABS: ABG Base Excess 1.5 mmol/L; ABG HCO3 24 mmol/L (21-25); ABG PCO2 30 mmHg (35-45); ABG PH 7.52 (7.35-7.45); ABG PO2 311 mmHg (83-108); ABG TCO2 25 mmol/L (19-24)
[2018-10-02 16:45] LABS: Basophils % (A) 0 %; Eosinophils % (A) 0 %; HCT 22.4 % (34.0-46.0); Hypochromasia Moderate; Lymphocytes # (A) 1.3 k/uL (1.0-4.8); Lymphocytes % (A) 11 %; MCH 25.3 pg (25.0-35.0); MCHC 31.8 g/dL (31.0-37.0); MCV 79.4 fL (80.0-100.0); Monocytes # (A) 0.6 k/uL (0-1.0); Monocytes % (A) 5 %; Neutrophils % (A) 83 %; Platelet Count 148 k/uL (150-450); RBC 2.82 m/uL (3.80-5.40); RDW 15.8 % (11.5-15.5)
[2018-10-02 16:49] LABS: HGB 7.1 gm/dL (11.4-16.0)
[2018-10-02 16:50] LABS: Ionized Calcium 4.8 mg/dL (4.5-5.3)
--- NOTE | 2018-10-02 16:53 | P.CNPUL ---
History of Present Illness Consult date: 10/02/18 Chief complaint: Post thoracotomy, cardiac surgery, ventilator management, postoperative History of present illness: 48-year-old female patient, morbidly obese, was found out to have bicuspid aortic valve along with severe aortic stenosis and a cardiac catheterization that showed 6-70% left main stenosis. The patient underwent aortic valve replacement and two-vessel bypass surgery. I'm seeing this patient in intensive care unit as the patient arrived and she is being currently seen postop. She is currently on assist control mode of ventilation. She is on a rate of 12, tidal volume of 600, FiO2 of 100% and a PEEP of 10. Her peak air pressures around 37-40. Static pressures 28. Meanwhile, the patient is hemodynamically stable. Cardiac index is at 1.7. Pulmonary artery pressure 38/ 24. The patient is producing adequate amount of urine output. The patient and a combination of propofol drip, running at 25 g per KG per minute, nitroglycerin drip at 5 mg per KG per minute, and Cardizem drip at 5 mg an hour. The patient underwent BRO to LAD and and diagonal and radial bypass to OM1. Note that the patient had a preop spirometry that showed a FEV1 of 74% with an FVC of 71% indicating a mild obstructive physiology consistent with her obesity. She has adequate urine output at this point in time. Chest x-ray was noted. There is adequate expansion of both lungs. ET tube is in a pullback by around 1 cm. The patient has a left pleural and mediastinal chest tube. No pneumothorax. Lungs are well expanded. Review of Systems ROS unobtainable: due to endotracheal tube Past Medical History Past Medical History: Coronary Artery Disease (CAD), Cancer, Chest Pain / Angina , Hyperlipidemia, Hypertension, Osteoarthritis (OA), Sleep Apnea/CPAP/BIPAP Additional Past Medical History / Comment(s): Morbid obesity with a previous gastric sleeve surgery approximately 5 years ago, history of Hodgkin's lymphoma treated with systemic chemotherapy and radiation therapy, restless leg syndrome , history of nephrolithiasis, mild scoliosis, degenerative disc disease, bicuspid aortic valve, coronary artery disease, hypertension, hyperlipidemia, obstructive sleep apnea, osteoarthritis History of Any Multi-Drug Resistant Organisms: None Reported Past Surgical History: Adenoidectomy, Bariatric Surgery, Section, Heart Catheterization, Tubal Ligation Additional Past Surgical History / Comment(s): sleeve gastrectomy 05/2013, Lymph node aspiration, Lt knee injections, back injections Past Anesthesia/Blood Transfusion Reactions: No Reported Reaction Additional Past Anesthesia/Blood Transfusion Reaction / Comment(s): "has never received any blood transfusions" Smoking Status: Former smoker - Past Family History Father Additional Family Medical History / Comment(s): alcoholism Mother Family Medical History: COPD Additional Family Medical History / Comment(s): Mom: heart dx, brother at 4 months of heart abnormalaties, uncle had a myocardial infarction at 47 years old, cousin from myocardial infarction at 45 years old Medications and Allergies Home Medications Medication Instructions Recorded Confirmed Type Metoprolol Succinate [Toprol Xl] 100 mg PO HS 08/12/18 10/02/18 History Pramipexole Di-HCl [Mirapex] 1.5 mg PO HS 08/12/18 10/02/18 History Acetaminophen Tab [Tylenol] 500 mg PO Q4H PRN #1 tablet 08/14/18 10/02/18 Rx Aspirin 81 mg PO DAILY chew 08/14/18 10/02/18 Rx Furosemide [Lasix] 40 mg PO DAILY #30 tablet 08/14/18 10/02/18 Rx Rosuvastatin Calcium [Crestor] 5 mg PO DAILY #90 tab 09/06/18 10/02/18 Rx Allergies Allergy/AdvReac Type Severity Reaction Status Date / Time clindamycin Allergy Rash/Hives Verified 10/02/18 06:13 amoxicillin AdvReac UTI Verified 10/02/18 06:13 atorvastatin [From Lipitor] AdvReac muscle Verified 10/02/18 06:13 cramping artificial sweetener AdvReac Nausea & Uncoded 10/02/18 06:13 Vomiting Physical Exam Vitals: Vital Signs Temp Pulse Resp BP BP Pulse Ox 10/02/18 06:15 97.5 F L 88 16 107/57 108/62 95 Intake and Output 10/02/18 10/02/18 10/02/18 06:59 14:59 22:59 Intake Total 100 343 740 Output Total 4075 Balance 100 343 -3335 Intake: IV 100 33 Blood Product 310 740 Ffp 24 Cp2d Unit 201 [id number] Ffp 24 Cpd Unit 0 332 [id number] Platelet Pheresis Acda1 207 Unit [id number] Platelet Pheresis Acda2 310 Unit [id number] Output: Urine 575 Estimated Blood Loss 3500 Gen. appearance, comfortable was sedated nonacute distress. Obese with a BMI of 47.6 Head exam was generally normal. There was no scleral icterus or corneal arcus. Mucous membranes were moist. Neck was supple and without jugular venous distension, thyromegaly, or carotid bruits. Carotids were easily palpable bilaterally. There was no adenopathy. Right IJ [place]in catheter in place Lungs sounds are diminished bilaterally. Sternum stable clean and intact. The patient has a left pleural and mediastinal chest tube. Cardiac exam revealed the PMI to be normally situated and sized. The rhythm was regular and no extrasystoles were noted during several minutes of auscultation. The first and second heart sounds were normal and physiologic splitting of the second heart sound was noted. There were no murmurs, rubs, clicks, or gallops. Abdominal exam revealed normal bowel sounds. The abdomen was soft, non-tender, and without masses, organomegaly, or appreciable enlargement of the abdominal aorta. Extremities are cold. The pulses are palpable bilaterally. No cyanosis or clubbing. Neurologically the patient is awake and alert and there is no focal neurological deficits. Results - Laboratory Findings ABG ABG pH 7.43 (7.35-7.45) 10/02/18 14:45 ABG pCO2 35 mmHg (35-45) 10/02/18 14:45 ABG pO2 >420 mmHg (83-108) H 10/02/18 14:45 ABG O2 Saturation 100.0 % (94-97) H 10/02/18 14:45 Abnormal lab findings: Abnormal Labs 09/25/18 10/02/18 10/02/18 09:00 08:43 10:23 ABG pH 7.47 H ABG pO2 232 H 263 H ABG HCO3 30 H 29 H ABG Total CO2 31 H 31 H ABG O2 Saturation 99.6 H 99.7 H ABG Hematocrit 31 L ABG Potassium ABG Ionized Calcium 4.4 L 4.4 L ABG Glucose 117 H 142 H ABG Lactic Acid Hemoglobin 11.0 L 10.2 L Arterial Blood Potassium Arterial Blood Glucose 117 H 142 H Crossmatch See Detail 10/02/18 10/02/18 10/02/18 11:35 12:09 12:41 ABG pH ABG pO2 237 H 222 H 324 H ABG HCO3 27 H 27 H 27 H ABG Total CO2 28 H 29 H 28 H ABG O2 Saturation 99.7 H 99.7 H 99.9 H ABG Hematocrit 23 L 25 L 25 L ABG Potassium 4.6 H ABG Ionized Calcium 4.3 L 4.3 L 4.4 L ABG Glucose 126 H 151 H 163 H ABG Lactic Acid Hemoglobin 7.5 L 8.1 L 8.1 L Arterial Blood Potassium 4.6 H Arterial Blood Glucose 126 H 151 H 163 H Crossmatch 10/02/18 10/02/18 13:32 14:45 ABG pH ABG pO2 357 H >420 H ABG HCO3 ABG Total CO2 26 H 25 H ABG O2 Saturation 99.9 H 100.0 H ABG Hematocrit 23 L 24 L ABG Potassium 4.8 H ABG Ionized Calcium 4.3 L ABG Glucose 213 H 161 H ABG Lactic Acid 2.7 H* 2.7 H* Hemoglobin 7.3 L 7.7 L Arterial Blood Potassium 4.8 H Arterial Blood Glucose 213 H 161 H Crossmatch - Diagnostic Findings Chest x-ray: image reviewed Assessment and Plan Plan: Assessment 1 aortic valve replacement with a mechanical aortic valve and two-vessel bypass surgery involving BRO to LAD and radial artery graft to OM 1 and the patient is postop day #0. 2 post thoracotomy, currently intubated and the patient is on a mechanical ventilator. Blood gases show a component of respiratory alkalosis with a pH of 7.5 and a pCO2 of 29. PO2 is at 311. The patient has being ventilated with a height tidal volume and a peak and static pressures are quite elevated. Appropriate vent adjustments will be done. Most recent cardiac index is at 1.7. 3 morbid obesity with a BMI of 47.6 4 previous history of gastric sleeve surgery 5 previous history of Hodgkin's lymphoma 6 history of restless leg syndrome 7 hypertension 8 hyperlipidemia Plan Continue vent support. Switch this patient on assist control mode of ventilation. Of the tidal volume to 450. Drop the PEEP down to 8. Drop the FiO2 down to 50%. Monitor the peak and static pressures. Monitor the cardiac output. The patient volume to augment the cardiac output. Keep the sedation for now. Not ready for weaning at this point in time. Monitor the output from the chest tube. Monitor hemoglobin. We may be able to extubate this patient with the next 6 hours. We'll continue to follow make further recommendations based on her progress pH chest x-ray was noted. Hemodynamic parameters were all noted.
[2018-10-02 16:59] LABS: Partial Thromboplastin Time 39.3 sec (22.0-30.0); Prothrombin Time 10.8 sec (9.0-12.0)
[2018-10-02 17:00] LABS: ALT 31 U/L (9-52); AST 60 U/L (14-36); Albumin 3.2 g/dL (3.5-5.0); Alkaline Phosphatase 61 U/L (38-126); Anion Gap 6 mmol/L; Blood Urea Nitrogen 16 mg/dL (7-17); Calcium 8.7 mg/dL (8.4-10.2); Carbon Dioxide 26 mmol/L (22-30); Chloride 109 mmol/L (98-107); Glucose 135 mg/dL (74-99); Potassium 4.5 mmol/L (3.5-5.1); Sodium 141 mmol/L (137-145); Total Bilirubin 0.9 mg/dL (0.2-1.3)
[2018-10-02] MEDS: LACTATED RINGERS 1,000 ML IV SCH (17:02)
[2018-10-02] MEDS: ceFAZolin 3 GM in SODIUM CHLORIDE 0.9% 100 ML IVPB SCH ×2 (17:05→23:27)
[2018-10-02] MEDS: ACETAMINOPHEN IV (For NPO) 1,000 MG in EMPTY BAG 1 BAG IVPB SCH ×2 (17:05→23:27)
[2018-10-02 17:10] LABS: Glucose,Whole Blood 149 mg/dL (75-99)
--- NOTE | 2018-10-02 17:16 | XR ---
EXAMINATION TYPE: XR chest 1V portable DATE OF EXAM: 10/02/2018 COMPARISON: 09/25/2018 HISTORY: Aortic stenosis. TECHNIQUE: Single frontal view of the chest is obtained. FINDINGS: Endotracheal tube is 1.5 cm from the magda. Right jugular catheter has tip in the main pu lmonary artery. There are sternal wires. There is a left-sided chest tube. I see no pneumothorax. The re are chest leads. There is no gross heart failure. IMPRESSION: There is minimal atelectasis in the left lower lobe that is new compared to preoperative exam of 09/25/2018. No heart failure.
[2018-10-02] MEDS: CLEVIDIPINE BUTYRATE 25 MG in EMPTY BAG 1 BAG IV SCH (17:56)
[2018-10-02 18:14] LABS: Glucose,Whole Blood 120 mg/dL (75-99)
[2018-10-02] MEDS: ALBUMIN HUMAN 5% 250 ML in EMPTY BAG 1 BAG IVPB PRN (18:29)
[2018-10-02] MEDS: INSULIN REGULAR 100 UNIT in SODIUM CHLORIDE 0.9% 100 ML IV SCH (19:06)
[2018-10-02 19:31] LABS: Glucose,Whole Blood 175 mg/dL (75-99)
[2018-10-02 20:10] LABS: Anisocytosis Slight; Basophils % (A) 0 %; Eosinophils % (A) 0 %; HCT 25.4 % (34.0-46.0); HGB 7.5 gm/dL (11.4-16.0); Hypochromasia Moderate; Lymphocytes # (A) 1.4 k/uL (1.0-4.8); Lymphocytes % (A) 10 %; MCH 23.7 pg (25.0-35.0); MCHC 29.5 g/dL (31.0-37.0); MCV 80.1 fL (80.0-100.0); Mean Platelet Volume 8.8; Monocytes # (A) 0.6 k/uL (0-1.0); Monocytes % (A) 4 %; Neutrophils # (A) 12.1 k/uL (1.3-7.7); Neutrophils % (A) 84 %; Platelet Count 200 k/uL (150-450); RBC 3.17 m/uL (3.80-5.40); RDW 16.2 % (11.5-15.5); WBC 14.3 k/uL (3.8-10.6)
[2018-10-02 20:12] LABS: Glucose,Whole Blood 183 mg/dL (75-99)
[2018-10-02 20:48] LABS: ABG Base Excess 0.4 mmol/L; ABG HCO3 25 mmol/L (21-25); ABG Oxygen Saturation 99.4 % (94-97); ABG PCO2 37 mmHg (35-45); ABG PH 7.43 (7.35-7.45); ABG PO2 188 mmHg (83-108); ABG TCO2 26 mmol/L (19-24)
[2018-10-02 21:15] LABS: Glucose,Whole Blood 174 mg/dL (75-99)
--- NOTE | 2018-10-02 21:33 | CONS ---
CONSULTATION ATTENDING DOCTOR: Dr. Jesus HISTORY OF PRESENT ILLNESS: Mrs. Kurtz is a 48-year-old female who is followed by Dr. Issac Jones and has underwent cardiac catheterization, was found to have severe aortic stenosis with significant left main disease. She underwent coronary bypass grafting with BRO to the LAD and diagonal branch and radial artery to the OM. She is intubated and sedated. Patient prior to the surgical intervention on the evaluation of Dr. Jones was having symptoms of progressive dyspnea on exertion. She has no history of myocardial infarction. She has underwent transesophageal echocardiogram in August of this year and her left ventricular systolic function was preserved. She had mild aortic and trace mitral regurgitation. Her coronary risk factors are positive for history of hyperlipidemia and hypertension. She is nondiabetic. REVIEW OF SYSTEMS: Could not be obtained. PHYSICAL EXAMINATION: She is a 48-year-old female, intubated, sedated. Blood pressure 107/50 with a heart rate in the 80s. HEAD: Normocephalic. EYES: Sclerae anicteric. NECK: [place]-Edin in place. LUNGS: Clear to auscultation anteriorly. HEART: Regular rate and rhythm S1, S2 with a metallic aortic sound. No diastolic murmur. No rub. ABDOMEN: Soft, obese. Hypoactive bowel sounds. EXTREMITIES: No edema. IMPRESSION: 1. Status post mechanical aortic valve replacement and coronary artery bypass grafting. 2. History of hypertension. 3. Hyperlipidemia. 4. Obesity. 5. Prior history of gastric sleeve surgery. 6. History of Hodgkin lymphoma. RECOMMENDATION: From the cardiac standpoint, we will continue present therapy with the routine postoperative care. Hopefully, she can be weaned and extubated within the next few hours. MMODL / IJN: [id number] /
[2018-10-02 22:23] LABS: Glucose,Whole Blood 167 mg/dL (75-99)
[2018-10-02] MEDS: MUPIROCIN 2% OINT 22 GM TUBE NASAL SCH (22:27)
[2018-10-02 22:42] LABS: Anisocytosis Slight; Basophils % (A) 0 %; Eosinophils % (A) 0 %; HCT 24.9 % (34.0-46.0); HGB 7.4 gm/dL (11.4-16.0); Hypochromasia Moderate; Lymphocytes # (A) 1.1 k/uL (1.0-4.8); Lymphocytes % (A) 8 %; MCHC 29.8 g/dL (31.0-37.0); MCV 80.4 fL (80.0-100.0); Mean Platelet Volume 7.5; Monocytes # (A) 0.5 k/uL (0-1.0); Monocytes % (A) 4 %; Neutrophils # (A) 11.7 k/uL (1.3-7.7); Neutrophils % (A) 87 %; Platelet Count 165 k/uL (150-450); RBC 3.09 m/uL (3.80-5.40); RDW 16.1 % (11.5-15.5); WBC 13.6 k/uL (3.8-10.6)
[2018-10-02 22:54] LABS: Albumin 3.6 g/dL (3.5-5.0); Calcium 8.4 mg/dL (8.4-10.2); Potassium 4.7 mmol/L (3.5-5.1); Total Bilirubin 0.9 mg/dL (0.2-1.3); Total Protein 5.6 g/dL (6.3-8.2)
[2018-10-02 23:19] LABS: Glucose,Whole Blood 148 mg/dL (75-99)
[2018-10-02] MEDS: HEPARIN SODIUM,PORCINE 5,000 UNIT/ML 1 ML VIAL SQ SCH (23:27)
[2018-10-03 00:21] LABS: Glucose,Whole Blood 135 mg/dL (75-99)
[2018-10-03 01:22] LABS: Glucose,Whole Blood 128 mg/dL (75-99)
[2018-10-03 02:26] LABS: Glucose,Whole Blood 126 mg/dL (75-99)
[2018-10-03 03:21] LABS: Glucose,Whole Blood 120 mg/dL (75-99)
[2018-10-03] MEDS: ALBUMIN HUMAN 5% 250 ML in EMPTY BAG 1 BAG IVPB PRN ×2 (04:00→06:30)
[2018-10-03 04:33] LABS: Glucose,Whole Blood 121 mg/dL (75-99)
[2018-10-03 04:53] LABS: Partial Thromboplastin Time 24.6 sec (22.0-30.0); Prothrombin Time 10.3 sec (9.0-12.0)
[2018-10-03 04:58] LABS: Ionized Calcium 4.6 mg/dL (4.5-5.3)
[2018-10-03 05:09] LABS: Albumin 3.5 g/dL (3.5-5.0); Calcium 8.3 mg/dL (8.4-10.2); Magnesium 3.2 mg/dL (1.6-2.3); Potassium 4.9 mmol/L (3.5-5.1); Total Bilirubin 0.5 mg/dL (0.2-1.3); Total Protein 5.5 g/dL (6.3-8.2)
[2018-10-03] MEDS: ACETAMINOPHEN IV (For NPO) 1,000 MG in EMPTY BAG 1 BAG IVPB SCH ×3 (05:37→18:46)
[2018-10-03 05:46] LABS: HCT 23.9 % (34.0-46.0); HGB 7.5 gm/dL (11.4-16.0); Hypochromasia Marked; MCH 25.1 pg (25.0-35.0); MCHC 31.3 g/dL (31.0-37.0); MCV 80.4 fL (80.0-100.0); Mean Platelet Volume 7.5; Platelet Count 169 k/uL (150-450); RBC 2.98 m/uL (3.80-5.40); RDW 15.7 % (11.5-15.5); WBC 14.5 k/uL (3.8-10.6)
[2018-10-03 05:46] LABS: Glucose,Whole Blood 130 mg/dL (75-99)
[2018-10-03 06:48] LABS: Glucose,Whole Blood 128 mg/dL (75-99)
[2018-10-03] MEDS: IPRATROPIUM-ALBUTEROL 3 ML NEB INHALATION SCH ×4 (06:50→19:52)
[2018-10-03 07:21] LABS: Glucose,Whole Blood 128 mg/dL (75-99)
[2018-10-03 07:24] LABS: Band Neutrophils % 9 %; Lymphocytes # (M) 1.74 k/uL (1.0-4.8); Monocytes # (M) 0.58 k/uL (0-1.0); Neutrophils % (M) 75 %; Nucleated Red Blood Cells 0 /100 WBC (0-0); Total Cells Counted 100
[2018-10-03 07:25] LABS: Anisocytosis (M) Present
[2018-10-03 07:26] LABS: Polychromasia Present
[2018-10-03 07:27] LABS: Ovalocytes Present; Poikilocytosis (M) Present
--- NOTE | 2018-10-03 08:14 | XR ---
EXAMINATION TYPE: XR chest 1V portable DATE OF EXAM: 10/03/2018 COMPARISON: Prior chest x-ray 10/02/2018 HISTORY: Status post cardiac surgery, extubated TECHNIQUE: Single frontal view of the chest is obtained. FINDINGS: Endotracheal tube has been removed. Central venous sheath and coaxial [place] catheter, median sternal drain, left chest tube, post median sternotomy changes are again noted. Lung volumes a re low. Heart size is accentuated, patient is rotated. No sizable pneumothorax or pleural effusion. C entral vascularity and interstitium are increased. There are additional overlying artifacts. IMPRESSION: Expiratory rotated exam, there may be a component of volume overload, interstitial edema . Additional follow-up recommended.
[2018-10-03] MEDS: HEPARIN SODIUM,PORCINE 5,000 UNIT/ML 1 ML VIAL SQ SCH ×2 (08:21→16:45)
[2018-10-03] MEDS: DILTIAZEM ORAL 30 MG TAB PO SCH ×3 (08:21→18:45)
[2018-10-03 08:22] LABS: Glucose,Whole Blood 125 mg/dL (75-99)
[2018-10-03] MEDS: ceFAZolin 3 GM in SODIUM CHLORIDE 0.9% 100 ML IVPB SCH ×2 (08:29→16:45)
[2018-10-03] MEDS: ASPIRIN 325 MG TAB PO SCH (08:29)
[2018-10-03] MEDS: MUPIROCIN 2% OINT 22 GM TUBE NASAL SCH (08:29)
[2018-10-03] MEDS ORDERED: CLOPIDOGREL 75 MG TAB PO SCH (09:00)
[2018-10-03] MEDS ORDERED: PANTOPRAZOLE 40 MG/10 ML VIAL IVP SCH (09:00)
[2018-10-03] MEDS: KETOROLAC 30 MG/ML 1 ML VIAL IVP SCH ×3 (09:06→21:54)
[2018-10-03 09:09] LABS: Glucose,Whole Blood 131 mg/dL (75-99)
--- NOTE | 2018-10-03 09:26 | P.PN ---
Subjective Progress Note Date: 10/03/18 Principal diagnosis: Bicuspid aortic valve with severe aortic stenosis, symptomatic multivessel coronary artery disease with left main coronary artery disease. Morbid obesity. Hypertension. Hyperlipidemia. Prediabetic with preoperative hemoglobin A1c 6.3%. History of Hodgkin's lymphoma at 20 years old with subsequent chemo and radiation therapy. Previous tobacco abuse with preoperative FEV1 71% of predicted. Obstructive sleep apnea without CPAP use. History of gastric sleeve surgery. Restless leg syndrome. Family history of premature coronary artery disease with uncle having myocardial infarction 47 years old and cousin from myocardial infarction at 45 years old. POD #1 elective coronary artery bypass graft surgery with sequential left internal mammary artery to the left anterior descending artery to the diagonal branch, radial artery to the obtuse marginal artery, aortic valve replacement using a 23 mm On-X mechanical valve, aortic root enlargement with [place]-Bg patch , exclusion of the left atrial appendage using a 35 mm AtriClip, endoscopic left radial artery harvest, epi-aortic scanning, intraoperative transesophageal echocardiogram by anesthesia. Postoperative acute blood loss anemia, an expected outcome of surgery given cardiopulmonary bypass pump and hemodilution. The patient is currently sitting in a recliner in no acute distress in the intensive care unit. She was successfully extubated last night at 21:12. Remains hemodynamically stable on no inotropes or pressors. She is using her incentive spirometer diligently. Remains in normal sinus rhythm. Does complain of postoperative surgical chest pain, denies shortness of breath. No new complaints. Objective - Vital Signs Vital signs: Vital Signs Temp 99.5 F 10/03/18 08:00 Pulse 76 10/03/18 08:30 Resp 31 H 10/03/18 08:30 BP 108/62 10/02/18 06:15 Pulse Ox 94 L 10/03/18 08:30 Intake & Output 10/02/18 10/03/18 10/03/18 18:59 06:59 18:59 Intake Total 5629.938 6010.391 290.119 Output Total 4323 901 155 Balance -2513.769 2491.391 135.119 Weight 143.2 kg Intake: IV 732 1722.0 281.0 ACETAMINOPHEN IV (For NPO 200 ) 1,000 mg In Empty Bag 1 bag @ 400 mls/hr IVPB Q6HR [facility] Rx#:[id number] Albumin Human 5% 500 ml @ 500 500 Per Protocol IVPB ONCE ONE Rx#:[id number] CO/CI 30 210 50 Diltiazem 125 mg In 5 40 10 Sodium Chloride 0.9% 100 ml @ 5 MG/HR 5 mls/hr IV .Q24H [facility] Rx#:[id number] Lactated Ringers 1,000 ml 150 550 100 @ 20 mls/hr IV .Q24H [facility] Rx#:[id number] Nitroglycerin-D5w Pmx 50 5 20.0 3.0 mg In Dextrose/Water 1 250ml.bag @ 5 MCG/MIN 1.5 mls/hr IV .Q24H [facility] Rx#: [id number] Pressure Bag 9 102 18 ceFAZolin 3 gm In Sodium 100 100 Chloride 0.9% 100 ml @ 100 mls/hr IVPB Q8HR [facility] Rx#:[id number] Intake, IV Titration 27.231 50.391 9.119 Amount Insulin Regular 100 unit 40.666 9.119 In Sodium Chloride 0.9% 100 ml @ Per Protocol IV .Q0M [facility] Rx#:[id number] Propofol 1,000 mg In 27.231 9.725 Empty Bag 1 bag @ Titrate IV .Q0M [facility] Rx#: [id number] Oral 1080 Tube Feeding 540 Blood Product 1050 Ffp 24 Cp2d Unit 201 [id number] Ffp 24 Cpd Unit 332 [id number] Platelet Pheresis Acda1 207 Unit [id number] Platelet Pheresis Acda2 310 Unit [id number] Output: Chest Tube Drainage 113 468 80 Left Pleural/Mediastinal 113 468 80 Drainage 15 Left Wrist 15 Urine 710 418 75 Estimated Blood Loss 3500 Other: Voiding Method Indwelling Catheter Indwelling Catheter ABP, PAP, CO, CI - Last Documented Arterial Blood Pressure 105/54 Pulmonary Artery Pressure 49/23 Cardiac Output 5.7 Cardiac Index 2.5 - Constitutional General appearance: Present: cooperative, morbidly obese, no acute distress - Respiratory Details: Lungs sounds diminished bilaterally. Respirations even, nonlabored. Currently on 2 L nasal cannula with oxygen saturation 96%. Able to achieve 1250 mL on her incentive spirometry. Mediastinal/left pleural chest tube to continuous wall suction, 250 mL serosanguineous drainage overnight, 600 mL since surgery, no air leak present. - Cardiovascular Details: S1, S2 present. Positive valvular click. Regular rate and rhythm, sinus rhythm on telemetry. Palpable peripheral pulses bilaterally. Generalized trace edema present. No calf pain or tenderness noted. Right internal jugular [place], right radial arterial line present. Last CO/CI 4.9/2.1 on no inotropes or pressors. Heart hugger in place with patient demonstrating appropriate use. Antiembolism stockings, SCDs present. - Gastrointestinal Gastrointestinal Comment(s): Abdomen soft, nontender, nondistended, obese. Hypoactive bowel sounds present 4 quadrants. Tolerating clear liquids. Positive flatus. - Genitourinary Genitourinary Comment(s): [place] present draining clear, yellow urine. Output 15-45 mL per hour overnight , 264 mL in the last 8 hours. - Integumentary Integumentary Comment(s): Skin is warm and dry with evidence of good perfusion. Anterior chest incision well approximated and covered with dry intact dressing. Left radial artery harvest site well approximated, SANDRA drain present with minimal serosanguineous drainage. Patient has positive feeling without numbness or tingling in her left hand, able to open and close her hand and physician's aide objects. - Neurologic Neurologic: Present: CNII-XII intact - Musculoskeletal Musculoskeletal: Present: gait normal, strength equal bilaterally - Psychiatric Psychiatric: Present: A&O x's 3, appropriate affect, intact judgment & insight - Allied health notes Allied health notes reviewed: nursing - Labs CBC & Chem 7: 10/03/18 04:26 10/03/18 04:26 Labs: Abnormal Lab Results - Last 24 Hours (Table) 09/25/18 10/02/18 10/02/18 Range/Units 09:00 08:43 10:23 WBC (3.8-10.6) k/uL RBC (3.80-5.40) m/uL Hgb (11.4-16.0) gm/dL Hct (34.0-46.0) % MCV (80.0-100.0) fL MCH (25.0-35.0) pg MCHC (31.0-37.0) g/dL RDW (11.5-15.5) % Plt Count (150-450) k/uL Neutrophils # (1.3-7.7) k/uL Neutrophils # (Manual) (1.3-7.7) k/uL APTT (22.0-30.0) sec ABG pH 7.47 H (7.35-7.45) ABG pCO2 (35-45) mmHg ABG pO2 232 H 263 H (83-108) mmHg ABG HCO3 30 H 29 H (21-25) mmol/L ABG Total CO2 31 H 31 H (19-24) mmol/L ABG O2 Saturation 99.6 H 99.7 H (94-97) % ABG Hematocrit 31 L (34.0-46.0) % ABG Potassium (3.4-4.5) mmol/L ABG Ionized Calcium 4.4 L 4.4 L (4.5-5.3) mg/dL ABG Glucose 117 H 142 H (75-99) mg/dL ABG Lactic Acid (0.5-1.6) mmol/L Hemoglobin 11.0 L 10.2 L (11.4-16.0) gm/dL Chloride (98-107) mmol/L BUN (7-17) mg/dL Glucose (74-99) mg/dL POC Glucose (mg/dL) (75-99) mg/dL Calcium (8.4-10.2) mg/dL Magnesium (1.6-2.3) mg/dL AST (14-36) U/L ALT (9-52) U/L Total Protein (6.3-8.2) g/dL Albumin (3.5-5.0) g/dL Arterial Blood Potassium (3.4-4.5) mmol/L Arterial Blood Glucose 117 H 142 H (75-99) mg/dL Crossmatch See Detail 10/02/18 10/02/18 10/02/18 Range/Units 11:35 12:09 12:41 WBC (3.8-10.6) k/uL RBC (3.80-5.40) m/uL Hgb (11.4-16.0) gm/dL Hct (34.0-46.0) % MCV (80.0-100.0) fL MCH (25.0-35.0) pg MCHC (31.0-37.0) g/dL RDW (11.5-15.5) % Plt Count (150-450) k/uL Neutrophils # (1.3-7.7) k/uL Neutrophils # (Manual) (1.3-7.7) k/uL APTT (22.0-30.0) sec ABG pH (7.35-7.45) ABG pCO2 (35-45) mmHg ABG pO2 237 H 222 H 324 H (83-108) mmHg ABG HCO3 27 H 27 H 27 H (21-25) mmol/L ABG Total CO2 28 H 29 H 28 H (19-24) mmol/L ABG O2 Saturation 99.7 H 99.7 H 99.9 H (94-97) % ABG Hematocrit 23 L 25 L 25 L (34.0-46.0) % ABG Potassium 4.6 H (3.4-4.5) mmol/L ABG Ionized Calcium 4.3 L 4.3 L 4.4 L (4.5-5.3) mg/dL ABG Glucose 126 H 151 H 163 H (75-99) mg/dL ABG Lactic Acid (0.5-1.6) mmol/L Hemoglobin 7.5 L 8.1 L 8.1 L (11.4-16.0) gm/dL Chloride (98-107) mmol/L BUN (7-17) mg/dL Glucose (74-99) mg/dL POC Glucose (mg/dL) (75-99) mg/dL Calcium (8.4-10.2) mg/dL Magnesium (1.6-2.3) mg/dL AST (14-36) U/L ALT (9-52) U/L Total Protein (6.3-8.2) g/dL Albumin (3.5-5.0) g/dL Arterial Blood Potassium 4.6 H (3.4-4.5) mmol/L Arterial Blood Glucose 126 H 151 H 163 H (75-99) mg/dL Crossmatch 10/02/18 10/02/18 10/02/18 Range/Units 13:32 14:45 16:18 WBC (3.8-10.6) k/uL RBC (3.80-5.40) m/uL Hgb (11.4-16.0) gm/dL Hct (34.0-46.0) % MCV (80.0-100.0) fL MCH (25.0-35.0) pg MCHC (31.0-37.0) g/dL RDW (11.5-15.5) % Plt Count (150-450) k/uL Neutrophils # (1.3-7.7) k/uL Neutrophils # (Manual) (1.3-7.7) k/uL APTT (22.0-30.0) sec ABG pH (7.35-7.45) ABG pCO2 (35-45) mmHg ABG pO2 357 H >420 H (83-108) mmHg ABG HCO3 (21-25) mmol/L ABG Total CO2 26 H 25 H (19-24) mmol/L ABG O2 Saturation 99.9 H 100.0 H (94-97) % ABG Hematocrit 23 L 24 L (34.0-46.0) % ABG Potassium 4.8 H (3.4-4.5) mmol/L ABG Ionized Calcium 4.3 L (4.5-5.3) mg/dL ABG Glucose 213 H 161 H (75-99) mg/dL ABG Lactic Acid 2.7 H* 2.7 H* (0.5-1.6) mmol/L Hemoglobin 7.3 L 7.7 L (11.4-16.0) gm/dL Chloride (98-107) mmol/L BUN (7-17) mg/dL Glucose (74-99) mg/dL POC Glucose (mg/dL) 153 H (75-99) mg/dL Calcium (8.4-10.2) mg/dL Magnesium (1.6-2.3) mg/dL AST (14-36) U/L ALT (9-52) U/L Total Protein (6.3-8.2) g/dL Albumin (3.5-5.0) g/dL Arterial Blood Potassium 4.8 H (3.4-4.5) mmol/L Arterial Blood Glucose 213 H 161 H (75-99) mg/dL Crossmatch 10/02/18 10/02/18 10/02/18 Range/Units 16:20 16:20 16:20 WBC 12.0 H (3.8-10.6) k/uL RBC 2.82 L (3.80-5.40) m/uL Hgb 7.1 L D (11.4-16.0) gm/dL Hct 22.4 L (34.0-46.0) % MCV 79.4 L (80.0-100.0) fL MCH (25.0-35.0) pg MCHC (31.0-37.0) g/dL RDW 15.8 H (11.5-15.5) % Plt Count 148 L (150-450) k/uL Neutrophils # 10.0 H (1.3-7.7) k/uL Neutrophils # (Manual) (1.3-7.7) k/uL APTT 39.3 H (22.0-30.0) sec ABG pH (7.35-7.45) ABG pCO2 (35-45) mmHg ABG pO2 (83-108) mmHg ABG HCO3 (21-25) mmol/L ABG Total CO2 (19-24) mmol/L ABG O2 Saturation (94-97) % ABG Hematocrit (34.0-46.0) % ABG Potassium (3.4-4.5) mmol/L ABG Ionized Calcium (4.5-5.3) mg/dL ABG Glucose (75-99) mg/dL ABG Lactic Acid (0.5-1.6) mmol/L Hemoglobin (11.4-16.0) gm/dL Chloride 109 H (98-107) mmol/L BUN (7-17) mg/dL Glucose 135 H (74-99) mg/dL POC Glucose (mg/dL) (75-99) mg/dL Calcium (8.4-10.2) mg/dL Magnesium 4.0 H (1.6-2.3) mg/dL AST 60 H (14-36) U/L ALT (9-52) U/L Total Protein 5.0 L (6.3-8.2) g/dL Albumin 3.2 L (3.5-5.0) g/dL Arterial Blood Potassium (3.4-4.5) mmol/L Arterial Blood Glucose (75-99) mg/dL Crossmatch 10/02/18 10/02/18 10/02/18 Range/Units 16:40 16:58 18:02 WBC (3.8-10.6) k/uL RBC (3.80-5.40) m/uL Hgb (11.4-16.0) gm/dL Hct (34.0-46.0) % MCV (80.0-100.0) fL MCH (25.0-35.0) pg MCHC (31.0-37.0) g/dL RDW (11.5-15.5) % Plt Count (150-450) k/uL Neutrophils # (1.3-7.7) k/uL Neutrophils # (Manual) (1.3-7.7) k/uL APTT (22.0-30.0) sec ABG pH 7.52 H (7.35-7.45) ABG pCO2 30 L (35-45) mmHg ABG pO2 311 H (83-108) mmHg ABG HCO3 (21-25) mmol/L ABG Total CO2 25 H (19-24) mmol/L ABG O2 Saturation 100.0 H (94-97) % ABG Hematocrit (34.0-46.0) % ABG Potassium (3.4-4.5) mmol/L ABG Ionized Calcium (4.5-5.3) mg/dL ABG Glucose (75-99) mg/dL ABG Lactic Acid (0.5-1.6) mmol/L Hemoglobin (11.4-16.0) gm/dL Chloride (98-107) mmol/L BUN (7-17) mg/dL Glucose (74-99) mg/dL POC Glucose (mg/dL) 149 H 120 H (75-99) mg/dL Calcium (8.4-10.2) mg/dL Magnesium (1.6-2.3) mg/dL AST (14-36) U/L ALT (9-52) U/L Total Protein (6.3-8.2) g/dL Albumin (3.5-5.0) g/dL Arterial Blood Potassium (3.4-4.5) mmol/L Arterial Blood Glucose (75-99) mg/dL Crossmatch 10/02/18 10/02/18 10/02/18 Range/Units 19:02 20:00 20:00 WBC 14.3 H (3.8-10.6) k/uL RBC 3.17 L (3.80-5.40) m/uL Hgb 7.5 L (11.4-16.0) gm/dL Hct 25.4 L (34.0-46.0) % MCV (80.0-100.0) fL MCH 23.7 L (25.0-35.0) pg MCHC 29.5 L (31.0-37.0) g/dL RDW 16.2 H (11.5-15.5) % Plt Count (150-450) k/uL Neutrophils # 12.1 H (1.3-7.7) k/uL Neutrophils # (Manual) (1.3-7.7) k/uL APTT (22.0-30.0) sec ABG pH (7.35-7.45) ABG pCO2 (35-45) mmHg ABG pO2 (83-108) mmHg ABG HCO3 (21-25) mmol/L ABG Total CO2 (19-24) mmol/L ABG O2 Saturation (94-97) % ABG Hematocrit (34.0-46.0) % ABG Potassium (3.4-4.5) mmol/L ABG Ionized Calcium (4.5-5.3) mg/dL ABG Glucose (75-99) mg/dL ABG Lactic Acid (0.5-1.6) mmol/L Hemoglobin (11.4-16.0) gm/dL Chloride (98-107) mmol/L BUN (7-17) mg/dL Glucose (74-99) mg/dL POC Glucose (mg/dL) 175 H 183 H (75-99) mg/dL Calcium (8.4-10.2) mg/dL Magnesium (1.6-2.3) mg/dL AST (14-36) U/L ALT (9-52) U/L Total Protein (6.3-8.2) g/dL Albumin (3.5-5.0) g/dL Arterial Blood Potassium (3.4-4.5) mmol/L Arterial Blood Glucose (75-99) mg/dL Crossmatch 10/02/18 10/02/18 10/02/18 Range/Units 20:40 21:04 22:12 WBC (3.8-10.6) k/uL RBC (3.80-5.40) m/uL Hgb (11.4-16.0) gm/dL Hct (34.0-46.0) % MCV (80.0-100.0) fL MCH (25.0-35.0) pg MCHC (31.0-37.0) g/dL RDW (11.5-15.5) % Plt Count (150-450) k/uL Neutrophils # (1.3-7.7) k/uL Neutrophils # (Manual) (1.3-7.7) k/uL APTT (22.0-30.0) sec ABG pH (7.35-7.45) ABG pCO2 (35-45) mmHg ABG pO2 188 H (83-108) mmHg ABG HCO3 (21-25) mmol/L ABG Total CO2 26 H (19-24) mmol/L ABG O2 Saturation 99.4 H (94-97) % ABG Hematocrit (34.0-46.0) % ABG Potassium (3.4-4.5) mmol/L ABG Ionized Calcium (4.5-5.3) mg/dL ABG Glucose (75-99) mg/dL ABG Lactic Acid (0.5-1.6) mmol/L Hemoglobin (11.4-16.0) gm/dL Chloride (98-107) mmol/L BUN (7-17) mg/dL Glucose (74-99) mg/dL POC Glucose (mg/dL) 174 H 167 H (75-99) mg/dL Calcium (8.4-10.2) mg/dL Magnesium (1.6-2.3) mg/dL AST (14-36) U/L ALT (9-52) U/L Total Protein (6.3-8.2) g/dL Albumin (3.5-5.0) g/dL Arterial Blood Potassium (3.4-4.5) mmol/L Arterial Blood Glucose (75-99) mg/dL Crossmatch 10/02/18 10/02/18 10/02/18 Range/Units 22:16 22:16 23:08 WBC 13.6 H (3.8-10.6) k/uL RBC 3.09 L (3.80-5.40) m/uL Hgb 7.4 L (11.4-16.0) gm/dL Hct 24.9 L (34.0-46.0) % MCV (80.0-100.0) fL MCH 24.0 L (25.0-35.0) pg MCHC 29.8 L (31.0-37.0) g/dL RDW 16.1 H (11.5-15.5) % Plt Count (150-450) k/uL Neutrophils # 11.7 H (1.3-7.7) k/uL Neutrophils # (Manual) (1.3-7.7) k/uL APTT (22.0-30.0) sec ABG pH (7.35-7.45) ABG pCO2 (35-45) mmHg ABG pO2 (83-108) mmHg ABG HCO3 (21-25) mmol/L ABG Total CO2 (19-24) mmol/L ABG O2 Saturation (94-97) % ABG Hematocrit (34.0-46.0) % ABG Potassium (3.4-4.5) mmol/L ABG Ionized Calcium (4.5-5.3) mg/dL ABG Glucose (75-99) mg/dL ABG Lactic Acid (0.5-1.6) mmol/L Hemoglobin (11.4-16.0) gm/dL Chloride 108 H (98-107) mmol/L BUN (7-17) mg/dL Glucose 154 H (74-99) mg/dL POC Glucose (mg/dL) 148 H (75-99) mg/dL Calcium (8.4-10.2) mg/dL Magnesium (1.6-2.3) mg/dL AST 83 H (14-36) U/L ALT (9-52) U/L Total Protein 5.6 L (6.3-8.2) g/dL Albumin (3.5-5.0) g/dL Arterial Blood Potassium (3.4-4.5) mmol/L Arterial Blood Glucose (75-99) mg/dL Crossmatch 10/03/18 10/03/18 10/03/18 Range/Units 00:10 01:10 02:15 WBC (3.8-10.6) k/uL RBC (3.80-5.40) m/uL Hgb (11.4-16.0) gm/dL Hct (34.0-46.0) % MCV (80.0-100.0) fL MCH (25.0-35.0) pg MCHC (31.0-37.0) g/dL RDW (11.5-15.5) % Plt Count (150-450) k/uL Neutrophils # (1.3-7.7) k/uL Neutrophils # (Manual) (1.3-7.7) k/uL APTT (22.0-30.0) sec ABG pH (7.35-7.45) ABG pCO2 (35-45) mmHg ABG pO2 (83-108) mmHg ABG HCO3 (21-25) mmol/L ABG Total CO2 (19-24) mmol/L ABG O2 Saturation (94-97) % ABG Hematocrit (34.0-46.0) % ABG Potassium (3.4-4.5) mmol/L ABG Ionized Calcium (4.5-5.3) mg/dL ABG Glucose (75-99) mg/dL ABG Lactic Acid (0.5-1.6) mmol/L Hemoglobin (11.4-16.0) gm/dL Chloride (98-107) mmol/L BUN (7-17) mg/dL Glucose (74-99) mg/dL POC Glucose (mg/dL) 135 H 128 H 126 H (75-99) mg/dL Calcium (8.4-10.2) mg/dL Magnesium (1.6-2.3) mg/dL AST (14-36) U/L ALT (9-52) U/L Total Protein (6.3-8.2) g/dL Albumin (3.5-5.0) g/dL Arterial Blood Potassium (3.4-4.5) mmol/L Arterial Blood Glucose (75-99) mg/dL Crossmatch 10/03/18 10/03/18 10/03/18 Range/Units 03:09 04:22 04:26 WBC 14.5 H (3.8-10.6) k/uL RBC 2.98 L (3.80-5.40) m/uL Hgb 7.5 L (11.4-16.0) gm/dL Hct 23.9 L (34.0-46.0) % MCV (80.0-100.0) fL MCH (25.0-35.0) pg MCHC (31.0-37.0) g/dL RDW 15.7 H (11.5-15.5) % Plt Count (150-450) k/uL Neutrophils # (1.3-7.7) k/uL Neutrophils # (Manual) 12.10 H (1.3-7.7) k/uL APTT (22.0-30.0) sec ABG pH (7.35-7.45) ABG pCO2 (35-45) mmHg ABG pO2 (83-108) mmHg ABG HCO3 (21-25) mmol/L ABG Total CO2 (19-24) mmol/L ABG O2 Saturation (94-97) % ABG Hematocrit (34.0-46.0) % ABG Potassium (3.4-4.5) mmol/L ABG Ionized Calcium (4.5-5.3) mg/dL ABG Glucose (75-99) mg/dL ABG Lactic Acid (0.5-1.6) mmol/L Hemoglobin (11.4-16.0) gm/dL Chloride (98-107) mmol/L BUN (7-17) mg/dL Glucose (74-99) mg/dL POC Glucose (mg/dL) 120 H 121 H (75-99) mg/dL Calcium (8.4-10.2) mg/dL Magnesium (1.6-2.3) mg/dL AST (14-36) U/L ALT (9-52) U/L Total Protein (6.3-8.2) g/dL Albumin (3.5-5.0) g/dL Arterial Blood Potassium (3.4-4.5) mmol/L Arterial Blood Glucose (75-99) mg/dL Crossmatch 10/03/18 10/03/18 10/03/18 Range/Units 04:26 05:34 06:37 WBC (3.8-10.6) k/uL RBC (3.80-5.40) m/uL Hgb (11.4-16.0) gm/dL Hct (34.0-46.0) % MCV (80.0-100.0) fL MCH (25.0-35.0) pg MCHC (31.0-37.0) g/dL RDW (11.5-15.5) % Plt Count (150-450) k/uL Neutrophils # (1.3-7.7) k/uL Neutrophils # (Manual) (1.3-7.7) k/uL APTT (22.0-30.0) sec ABG pH (7.35-7.45) ABG pCO2 (35-45) mmHg ABG pO2 (83-108) mmHg ABG HCO3 (21-25) mmol/L ABG Total CO2 (19-24) mmol/L ABG O2 Saturation (94-97) % ABG Hematocrit (34.0-46.0) % ABG Potassium (3.4-4.5) mmol/L ABG Ionized Calcium (4.5-5.3) mg/dL ABG Glucose (75-99) mg/dL ABG Lactic Acid (0.5-1.6) mmol/L Hemoglobin (11.4-16.0) gm/dL Chloride (98-107) mmol/L BUN 18 H (7-17) mg/dL Glucose 112 H (74-99) mg/dL POC Glucose (mg/dL) 130 H 128 H (75-99) mg/dL Calcium 8.3 L (8.4-10.2) mg/dL Magnesium 3.2 H (1.6-2.3) mg/dL AST 125 H (14-36) U/L ALT 65 H (9-52) U/L Total Protein 5.5 L (6.3-8.2) g/dL Albumin (3.5-5.0) g/dL Arterial Blood Potassium (3.4-4.5) mmol/L Arterial Blood Glucose (75-99) mg/dL Crossmatch 10/03/18 10/03/18 Range/Units 07:10 08:11 WBC (3.8-10.6) k/uL RBC (3.80-5.40) m/uL Hgb (11.4-16.0) gm/dL Hct (34.0-46.0) % MCV (80.0-100.0) fL MCH (25.0-35.0) pg MCHC (31.0-37.0) g/dL RDW (11.5-15.5) % Plt Count (150-450) k/uL Neutrophils # (1.3-7.7) k/uL Neutrophils # (Manual) (1.3-7.7) k/uL APTT (22.0-30.0) sec ABG pH (7.35-7.45) ABG pCO2 (35-45) mmHg ABG pO2 (83-108) mmHg ABG HCO3 (21-25) mmol/L ABG Total CO2 (19-24) mmol/L ABG O2 Saturation (94-97) % ABG Hematocrit (34.0-46.0) % ABG Potassium (3.4-4.5) mmol/L ABG Ionized Calcium (4.5-5.3) mg/dL ABG Glucose (75-99) mg/dL ABG Lactic Acid (0.5-1.6) mmol/L Hemoglobin (11.4-16.0) gm/dL Chloride (98-107) mmol/L BUN (7-17) mg/dL Glucose (74-99) mg/dL POC Glucose (mg/dL) 128 H 125 H (75-99) mg/dL Calcium (8.4-10.2) mg/dL Magnesium (1.6-2.3) mg/dL AST (14-36) U/L ALT (9-52) U/L Total Protein (6.3-8.2) g/dL Albumin (3.5-5.0) g/dL Arterial Blood Potassium (3.4-4.5) mmol/L Arterial Blood Glucose (75-99) mg/dL Crossmatch - Imaging and Cardiology Chest x-ray: report reviewed, image reviewed Assessment and Plan (1) Morbid obesity with BMI of 50.0-59.9, adult Current Visit: Yes Status: Chronic Code(s): E66.01 - MORBID (SEVERE) OBESITY DUE TO EXCESS CALORIES; Z68.43 - BODY MASS INDEX (BMI) 50-59.9, ADULT SNOMED Code(s): 897285319 (2) Family history of early CAD Current Visit: Yes Status: Chronic Code(s): Z82.49 - FAMILY HX OF ISCHEM HEART DIS AND OTH DIS OF THE CIRC SYS SNOMED Code(s): 009285839 (3) Tobacco dependence in remission Current Visit: No Status: Resolved Code(s): F17.201 - NICOTINE DEPENDENCE, UNSPECIFIED, IN REMISSION SNOMED Code(s): 286463682 (4) Aortic stenosis Current Visit: No Status: Resolved Code(s): I35.0 - NONRHEUMATIC AORTIC ( VALVE) STENOSIS SNOMED Code(s): 50542072 (5) History of gastric surgery Current Visit: No Status: Resolved Code(s): Z98.890 - OTHER SPECIFIED POSTPROCEDURAL STATES SNOMED Code(s): 602135138 (6) Hyperlipidemia Current Visit: Yes Status: Chronic Code(s): E78.5 - HYPERLIPIDEMIA, UNSPECIFIED SNOMED Code(s): 19461397 (7) Hypertension Current Visit: Yes Status: Chronic Code(s): I10 - ESSENTIAL (PRIMARY) HYPERTENSION SNOMED Code(s): 36471360 (8) Obstructive sleep apnea Current Visit: No Status: Chronic Code(s): G47.33 - OBSTRUCTIVE SLEEP APNEA (ADULT) (PEDIATRIC) SNOMED Code(s): 35455374 (9) Restless leg syndrome Current Visit: No Status: Chronic Code(s): G25.81 - RESTLESS LEGS SYNDROME SNOMED Code(s): 00779875 (10) History of Hodgkin's lymphoma Current Visit: No Status: Resolved Code(s): Z85.71 - PERSONAL HISTORY OF HODGKIN LYMPHOMA SNOMED Code(s): 108614651 (11) History of chemotherapy Current Visit: No Status: Resolved Code(s): Z92.21 - PERSONAL HISTORY OF ANTINEOPLASTIC CHEMOTHERAPY SNOMED Code(s): 035460603274459 (12) History of radiation therapy Current Visit: No Status: Resolved Code(s): Z92.3 - PERSONAL HISTORY OF IRRADIATION SNOMED Code(s): 331911017 Plan: 1. Continue aspirin, Crestor, beta will therapy. Will increase beta will therapy as tolerated. 2. Continue IV Cardizem, will transition to oral Cardizem today, may stop IV Cardizem after second oral dose given. Continue for radial artery spasm prophylaxis. Discontinue IV nitro. 3. Wean O2 as tolerated. Encourage incentive spirometry 10 times every hour. Encourage continued smoking cessation. 4. Bronchodilators per pulmonology. 5. Increase activity, ambulate as tolerated. PT/OT/cardiac rehab following. 6. Will start Coumadin tomorrow. 7. Will monitor daily labs and x-rays. Electrolyte replacement per protocol. No transfusion at this time. 8. Pain control with current medication regimen. Toradol added. 9. Insulin management per primary care service. 10. GI prophylaxis with Protonix. DVT prophylaxis with subcu heparin, SCDs. 11. Discontinue Kossuth. Connect Cordis to continuous CVP monitoring. 12. Will discontinue SANDRA drain. Keep chest tubes, Apodaca catheter for another 24 hours. 13. More recommendations to follow as patient progresses. Time with Patient: Greater than 30
--- NOTE | 2018-10-03 09:43 | PN ---
PROGRESS NOTE Ms. Kurtz is a 48-year-old female who has underwent coronary artery bypass grafting and double bypass with BRO to LAD and diagonal branch and radial to the obtuse marginal branch. She is extubated, complaining of chest soreness, denying any dizziness or palpitation. She has mild dyspnea. She continued be in sinus mechanism. She is on IV Cardizem. She is on aspirin, Lipitor, Plavix 75 mg daily and metoprolol tartrate 12.5 mg twice a day. PHYSICAL EXAMINATION: Blood pressure 115/60 with a heart rate in the 50s. LUNGS: Clear with a few crackles at the bases. HEART: Regular rate and rhythm, S1, S2. No S3 with metallic aortic sound and a systolic murmur. ABDOMEN: Soft, obese, nontender. EXTREMITIES: No significant edema. LAB DATA: Revealed BUN and creatinine of 18 and 1.01, hemoglobin of 7.5. IMPRESSION: 1. Status post aortic valve replacement with a prosthetic valve. 2. Status post coronary artery bypass grafting. 3. Hyperlipidemia. 4. Obesity. 5. Hypertension. RECOMMENDATION: From the cardiac standpoint, will continue supportive care. Continue incentive spirometry. Depending on her blood pressure, the dose of beta will will be adjusted. The patient will need to be started on anticoagulation soon in view of her metallic valve. MMODL / IJN: [id number] /
[2018-10-03 09:59] VITALS: BMI 52.5
[2018-10-03 10:29] LABS: Glucose,Whole Blood 154 mg/dL (75-99)
[2018-10-03 11:03] LABS: Glucose,Whole Blood 148 mg/dL (75-99)
--- NOTE | 2018-10-03 11:19 | P.PN ---
Subjective Progress Note Date: 10/03/18 Principal diagnosis: Bicuspid aortic valve, severe aortic stenosis, coronary artery disease. Status post aortic valve replacement with two-vessel coronary artery bypass grafting. 48-year-old female patient, morbidly obese, was found out to have bicuspid aortic valve along with severe aortic stenosis and a cardiac catheterization that showed 6-70% left main stenosis. The patient underwent aortic valve replacement and two-vessel bypass surgery. I'm seeing this patient in intensive care unit as the patient arrived and she is being currently seen postop. She is currently on assist control mode of ventilation. She is on a rate of 12, tidal volume of 600, FiO2 of 100% and a PEEP of 10. Her peak air pressures around 37-40. Static pressures 28. Meanwhile, the patient is hemodynamically stable. Cardiac index is at 1.7. Pulmonary artery pressure 38/ 24. The patient is producing adequate amount of urine output. The patient and a combination of propofol drip, running at 25 g per KG per minute, nitroglycerin drip at 5 mg per KG per minute, and Cardizem drip at 5 mg an hour. The patient underwent BRO to LAD and and diagonal and radial bypass to OM1. Note that the patient had a preop spirometry that showed a FEV1 of 74% with an FVC of 71% indicating a mild obstructive physiology consistent with her obesity. She has adequate urine output at this point in time. Chest x-ray was noted. There is adequate expansion of both lungs. ET tube is in a pullback by around 1 cm. The patient has a left pleural and mediastinal chest tube. No pneumothorax. Lungs are well expanded. The patient is seen again today 10/03/2018 in follow-up in the intensive care unit. She was successfully extubated at 2100 last evening. She is currently maintaining good O2 saturations in the 90s on 2 L/m per nasal cannula. She is awake and alert in no acute distress. She is sitting up in a chair at the bedside. Pain is well managed. Chest x-ray shows some evidence of interstitial edema. Low lung volumes. Mediastinal and left chest tubes in place. Approximately 700 ML's return thus far. White count 14.5. Hemoglobin 7.5. Creatinine 1.01. She received 2 units of fresh frozen plasma, one unit of platelets and 1 unit of pheresis platelets. [place] catheter remains in place. PA pressure 47/28, CVP 23, cardiac output 5.7, cardiac index 2.5. Remains on a Cardizem drip at 5 mg per hour. Insulin drip at 3.5 units per hour. Lactated Ringer's at 50 MLS per hour. Objective - Vital Signs Vital signs: Vital Signs Temp 99.5 F 10/03/18 08:00 Pulse 74 10/03/18 10:00 Resp 20 10/03/18 10:00 BP 108/62 10/02/18 06:15 Pulse Ox 94 L 10/03/18 10:00 Intake & Output 10/02/18 10/03/18 10/03/18 18:59 06:59 18:59 Intake Total 9369.033 4975.391 748.119 Output Total 4323 901 250 Balance -2513.769 2491.391 498.119 Weight 143.2 kg 143.2 kg Intake: IV 732 1722.0 439.0 ACETAMINOPHEN IV (For NPO 200 ) 1,000 mg In Empty Bag 1 bag @ 400 mls/hr IVPB Q6HR [facility] Rx#:[id number] Albumin Human 5% 500 ml @ 500 500 Per Protocol IVPB ONCE ONE Rx#:[id number] CO/CI 30 210 90 Diltiazem 125 mg In 5 40 10 Sodium Chloride 0.9% 100 ml @ 5 MG/HR 5 mls/hr IV .Q24H [facility] Rx#:[id number] Lactated Ringers 1,000 ml 150 550 200 @ 20 mls/hr IV .Q24H [facility] Rx#:[id number] Nitroglycerin-D5w Pmx 50 5 20.0 3.0 mg In Dextrose/Water 1 250ml.bag @ 5 MCG/MIN 1.5 mls/hr IV .Q24H [facility] Rx#: [id number] Pressure Bag 9 102 36 ceFAZolin 3 gm In Sodium 100 100 Chloride 0.9% 100 ml @ 100 mls/hr IVPB Q8HR [facility] Rx#:[id number] Intake, IV Titration 27.231 50.391 9.119 Amount Insulin Regular 100 unit 40.666 9.119 In Sodium Chloride 0.9% 100 ml @ Per Protocol IV .Q0M [facility] Rx#:[id number] Propofol 1,000 mg In 27.231 9.725 Empty Bag 1 bag @ Titrate IV .Q0M [facility] Rx#: [id number] Oral 1080 300 Tube Feeding 540 Blood Product 1050 Ffp 24 Cp2d Unit 201 [id number] Ffp 24 Cpd Unit 332 [id number] Platelet Pheresis Acda1 207 Unit [id number] Platelet Pheresis Acda2 310 Unit [id number] Output: Chest Tube Drainage 113 468 130 Left Pleural/Mediastinal 113 468 130 Drainage 15 Left Wrist 15 Urine 710 418 120 Estimated Blood Loss 3500 Other: Voiding Method Indwelling Catheter Indwelling Catheter Indwelling Catheter ABP, PAP, CO, CI - Last Documented Arterial Blood Pressure 101/59 Pulmonary Artery Pressure 47/28 Cardiac Output 5.7 Cardiac Index 2.5 - Exam Gen. appearance, Awake alert in no acute distress. On 2 L nasal cannula. Head exam was generally normal. There was no scleral icterus or corneal arcus. Mucous membranes were moist. Neck was supple and without jugular venous distension, thyromegaly, or carotid bruits. Carotids were easily palpable bilaterally. There was no adenopathy. Right IJ [place] catheter in place Lungs sounds are diminished bilaterally. Sternum stable clean and intact. The patient has a left pleural and mediastinal chest tube. Cardiac exam revealed the PMI to be normally situated and sized. The rhythm was regular and no extrasystoles were noted during several minutes of auscultation. The first and second heart sounds were normal and physiologic splitting of the second heart sound was noted. There were no murmurs, rubs, clicks, or gallops. Abdominal exam revealed normal bowel sounds. The abdomen was soft, non-tender, and without masses, organomegaly, or appreciable enlargement of the abdominal aorta. Extremities are cold. The pulses are palpable bilaterally. No cyanosis or clubbing. Neurologically the patient is awake and alert and there is no focal neurological deficits. - Labs CBC & Chem 7: 10/03/18 04:26 10/03/18 04:26 Labs: Abnormal Lab Results - Last 24 Hours (Table) 09/25/18 10/02/18 10/02/18 Range/Units 09:00 08:43 10:23 WBC (3.8-10.6) k/uL RBC (3.80-5.40) m/uL Hgb (11.4-16.0) gm/dL Hct (34.0-46.0) % MCV (80.0-100.0) fL MCH (25.0-35.0) pg MCHC (31.0-37.0) g/dL RDW (11.5-15.5) % Plt Count (150-450) k/uL Neutrophils # (1.3-7.7) k/uL Neutrophils # (Manual) (1.3-7.7) k/uL APTT (22.0-30.0) sec ABG pH 7.47 H (7.35-7.45) ABG pCO2 (35-45) mmHg ABG pO2 232 H 263 H (83-108) mmHg ABG HCO3 30 H 29 H (21-25) mmol/L ABG Total CO2 31 H 31 H (19-24) mmol/L ABG O2 Saturation 99.6 H 99.7 H (94-97) % ABG Hematocrit 31 L (34.0-46.0) % ABG Potassium (3.4-4.5) mmol/L ABG Ionized Calcium 4.4 L 4.4 L (4.5-5.3) mg/dL ABG Glucose 117 H 142 H (75-99) mg/dL ABG Lactic Acid (0.5-1.6) mmol/L Hemoglobin 11.0 L 10.2 L (11.4-16.0) gm/dL Chloride (98-107) mmol/L BUN (7-17) mg/dL Glucose (74-99) mg/dL POC Glucose (mg/dL) (75-99) mg/dL Calcium (8.4-10.2) mg/dL Magnesium (1.6-2.3) mg/dL AST (14-36) U/L ALT (9-52) U/L Total Protein (6.3-8.2) g/dL Albumin (3.5-5.0) g/dL Arterial Blood Potassium (3.4-4.5) mmol/L Arterial Blood Glucose 117 H 142 H (75-99) mg/dL Crossmatch See Detail 10/02/18 10/02/18 10/02/18 Range/Units 11:35 12:09 12:41 WBC (3.8-10.6) k/uL RBC (3.80-5.40) m/uL Hgb (11.4-16.0) gm/dL Hct (34.0-46.0) % MCV (80.0-100.0) fL MCH (25.0-35.0) pg MCHC (31.0-37.0) g/dL RDW (11.5-15.5) % Plt Count (150-450) k/uL Neutrophils # (1.3-7.7) k/uL Neutrophils # (Manual) (1.3-7.7) k/uL APTT (22.0-30.0) sec ABG pH (7.35-7.45) ABG pCO2 (35-45) mmHg ABG pO2 237 H 222 H 324 H (83-108) mmHg ABG HCO3 27 H 27 H 27 H (21-25) mmol/L ABG Total CO2 28 H 29 H 28 H (19-24) mmol/L ABG O2 Saturation 99.7 H 99.7 H 99.9 H (94-97) % ABG Hematocrit 23 L 25 L 25 L (34.0-46.0) % ABG Potassium 4.6 H (3.4-4.5) mmol/L ABG Ionized Calcium 4.3 L 4.3 L 4.4 L (4.5-5.3) mg/dL ABG Glucose 126 H 151 H 163 H (75-99) mg/dL ABG Lactic Acid (0.5-1.6) mmol/L Hemoglobin 7.5 L 8.1 L 8.1 L (11.4-16.0) gm/dL Chloride (98-107) mmol/L BUN (7-17) mg/dL Glucose (74-99) mg/dL POC Glucose (mg/dL) (75-99) mg/dL Calcium (8.4-10.2) mg/dL Magnesium (1.6-2.3) mg/dL AST (14-36) U/L ALT (9-52) U/L Total Protein (6.3-8.2) g/dL Albumin (3.5-5.0) g/dL Arterial Blood Potassium 4.6 H (3.4-4.5) mmol/L Arterial Blood Glucose 126 H 151 H 163 H (75-99) mg/dL Crossmatch 10/02/18 10/02/18 10/02/18 Range/Units 13:32 14:45 16:18 WBC (3.8-10.6) k/uL RBC (3.80-5.40) m/uL Hgb (11.4-16.0) gm/dL Hct (34.0-46.0) % MCV (80.0-100.0) fL MCH (25.0-35.0) pg MCHC (31.0-37.0) g/dL RDW (11.5-15.5) % Plt Count (150-450) k/uL Neutrophils # (1.3-7.7) k/uL Neutrophils # (Manual) (1.3-7.7) k/uL APTT (22.0-30.0) sec ABG pH (7.35-7.45) ABG pCO2 (35-45) mmHg ABG pO2 357 H >420 H (83-108) mmHg ABG HCO3 (21-25) mmol/L ABG Total CO2 26 H 25 H (19-24) mmol/L ABG O2 Saturation 99.9 H 100.0 H (94-97) % ABG Hematocrit 23 L 24 L (34.0-46.0) % ABG Potassium 4.8 H (3.4-4.5) mmol/L ABG Ionized Calcium 4.3 L (4.5-5.3) mg/dL ABG Glucose 213 H 161 H (75-99) mg/dL ABG Lactic Acid 2.7 H* 2.7 H* (0.5-1.6) mmol/L Hemoglobin 7.3 L 7.7 L (11.4-16.0) gm/dL Chloride (98-107) mmol/L BUN (7-17) mg/dL Glucose (74-99) mg/dL POC Glucose (mg/dL) 153 H (75-99) mg/dL Calcium (8.4-10.2) mg/dL Magnesium (1.6-2.3) mg/dL AST (14-36) U/L ALT (9-52) U/L Total Protein (6.3-8.2) g/dL Albumin (3.5-5.0) g/dL Arterial Blood Potassium 4.8 H (3.4-4.5) mmol/L Arterial Blood Glucose 213 H 161 H (75-99) mg/dL Crossmatch 10/02/18 10/02/18 10/02/18 Range/Units 16:20 16:20 16:20 WBC 12.0 H (3.8-10.6) k/uL RBC 2.82 L (3.80-5.40) m/uL Hgb 7.1 L D (11.4-16.0) gm/dL Hct 22.4 L (34.0-46.0) % MCV 79.4 L (80.0-100.0) fL MCH (25.0-35.0) pg MCHC (31.0-37.0) g/dL RDW 15.8 H (11.5-15.5) % Plt Count 148 L (150-450) k/uL Neutrophils # 10.0 H (1.3-7.7) k/uL Neutrophils # (Manual) (1.3-7.7) k/uL APTT 39.3 H (22.0-30.0) sec ABG pH (7.35-7.45) ABG pCO2 (35-45) mmHg ABG pO2 (83-108) mmHg ABG HCO3 (21-25) mmol/L ABG Total CO2 (19-24) mmol/L ABG O2 Saturation (94-97) % ABG Hematocrit (34.0-46.0) % ABG Potassium (3.4-4.5) mmol/L ABG Ionized Calcium (4.5-5.3) mg/dL ABG Glucose (75-99) mg/dL ABG Lactic Acid (0.5-1.6) mmol/L Hemoglobin (11.4-16.0) gm/dL Chloride 109 H (98-107) mmol/L BUN (7-17) mg/dL Glucose 135 H (74-99) mg/dL POC Glucose (mg/dL) (75-99) mg/dL Calcium (8.4-10.2) mg/dL Magnesium 4.0 H (1.6-2.3) mg/dL AST 60 H (14-36) U/L ALT (9-52) U/L Total Protein 5.0 L (6.3-8.2) g/dL Albumin 3.2 L (3.5-5.0) g/dL Arterial Blood Potassium (3.4-4.5) mmol/L Arterial Blood Glucose (75-99) mg/dL Crossmatch 10/02/18 10/02/18 10/02/18 Range/Units 16:40 16:58 18:02 WBC (3.8-10.6) k/uL RBC (3.80-5.40) m/uL Hgb (11.4-16.0) gm/dL Hct (34.0-46.0) % MCV (80.0-100.0) fL MCH (25.0-35.0) pg MCHC (31.0-37.0) g/dL RDW (11.5-15.5) % Plt Count (150-450) k/uL Neutrophils # (1.3-7.7) k/uL Neutrophils # (Manual) (1.3-7.7) k/uL APTT (22.0-30.0) sec ABG pH 7.52 H (7.35-7.45) ABG pCO2 30 L (35-45) mmHg ABG pO2 311 H (83-108) mmHg ABG HCO3 (21-25) mmol/L ABG Total CO2 25 H (19-24) mmol/L ABG O2 Saturation 100.0 H (94-97) % ABG Hematocrit (34.0-46.0) % ABG Potassium (3.4-4.5) mmol/L ABG Ionized Calcium (4.5-5.3) mg/dL ABG Glucose (75-99) mg/dL ABG Lactic Acid (0.5-1.6) mmol/L Hemoglobin (11.4-16.0) gm/dL Chloride (98-107) mmol/L BUN (7-17) mg/dL Glucose (74-99) mg/dL POC Glucose (mg/dL) 149 H 120 H (75-99) mg/dL Calcium (8.4-10.2) mg/dL Magnesium (1.6-2.3) mg/dL AST (14-36) U/L ALT (9-52) U/L Total Protein (6.3-8.2) g/dL Albumin (3.5-5.0) g/dL Arterial Blood Potassium (3.4-4.5) mmol/L Arterial Blood Glucose (75-99) mg/dL Crossmatch 10/02/18 10/02/18 10/02/18 Range/Units 19:02 20:00 20:00 WBC 14.3 H (3.8-10.6) k/uL RBC 3.17 L (3.80-5.40) m/uL Hgb 7.5 L (11.4-16.0) gm/dL Hct 25.4 L (34.0-46.0) % MCV (80.0-100.0) fL MCH 23.7 L (25.0-35.0) pg MCHC 29.5 L (31.0-37.0) g/dL RDW 16.2 H (11.5-15.5) % Plt Count (150-450) k/uL Neutrophils # 12.1 H (1.3-7.7) k/uL Neutrophils # (Manual) (1.3-7.7) k/uL APTT (22.0-30.0) sec ABG pH (7.35-7.45) ABG pCO2 (35-45) mmHg ABG pO2 (83-108) mmHg ABG HCO3 (21-25) mmol/L ABG Total CO2 (19-24) mmol/L ABG O2 Saturation (94-97) % ABG Hematocrit (34.0-46.0) % ABG Potassium (3.4-4.5) mmol/L ABG Ionized Calcium (4.5-5.3) mg/dL ABG Glucose (75-99) mg/dL ABG Lactic Acid (0.5-1.6) mmol/L Hemoglobin (11.4-16.0) gm/dL Chloride (98-107) mmol/L BUN (7-17) mg/dL Glucose (74-99) mg/dL POC Glucose (mg/dL) 175 H 183 H (75-99) mg/dL Calcium (8.4-10.2) mg/dL Magnesium (1.6-2.3) mg/dL AST (14-36) U/L ALT (9-52) U/L Total Protein (6.3-8.2) g/dL Albumin (3.5-5.0) g/dL Arterial Blood Potassium (3.4-4.5) mmol/L Arterial Blood Glucose (75-99) mg/dL Crossmatch 10/02/18 10/02/18 10/02/18 Range/Units 20:40 21:04 22:12 WBC (3.8-10.6) k/uL RBC (3.80-5.40) m/uL Hgb (11.4-16.0) gm/dL Hct (34.0-46.0) % MCV (80.0-100.0) fL MCH (25.0-35.0) pg MCHC (31.0-37.0) g/dL RDW (11.5-15.5) % Plt Count (150-450) k/uL Neutrophils # (1.3-7.7) k/uL Neutrophils # (Manual) (1.3-7.7) k/uL APTT (22.0-30.0) sec ABG pH (7.35-7.45) ABG pCO2 (35-45) mmHg ABG pO2 188 H (83-108) mmHg ABG HCO3 (21-25) mmol/L ABG Total CO2 26 H (19-24) mmol/L ABG O2 Saturation 99.4 H (94-97) % ABG Hematocrit (34.0-46.0) % ABG Potassium (3.4-4.5) mmol/L ABG Ionized Calcium (4.5-5.3) mg/dL ABG Glucose (75-99) mg/dL ABG Lactic Acid (0.5-1.6) mmol/L Hemoglobin (11.4-16.0) gm/dL Chloride (98-107) mmol/L BUN (7-17) mg/dL Glucose (74-99) mg/dL POC Glucose (mg/dL) 174 H 167 H (75-99) mg/dL Calcium (8.4-10.2) mg/dL Magnesium (1.6-2.3) mg/dL AST (14-36) U/L ALT (9-52) U/L Total Protein (6.3-8.2) g/dL Albumin (3.5-5.0) g/dL Arterial Blood Potassium (3.4-4.5) mmol/L Arterial Blood Glucose (75-99) mg/dL Crossmatch 10/02/18 10/02/18 10/02/18 Range/Units 22:16 22:16 23:08 WBC 13.6 H (3.8-10.6) k/uL RBC 3.09 L (3.80-5.40) m/uL Hgb 7.4 L (11.4-16.0) gm/dL Hct 24.9 L (34.0-46.0) % MCV (80.0-100.0) fL MCH 24.0 L (25.0-35.0) pg MCHC 29.8 L (31.0-37.0) g/dL RDW 16.1 H (11.5-15.5) % Plt Count (150-450) k/uL Neutrophils # 11.7 H (1.3-7.7) k/uL Neutrophils # (Manual) (1.3-7.7) k/uL APTT (22.0-30.0) sec ABG pH (7.35-7.45) ABG pCO2 (35-45) mmHg ABG pO2 (83-108) mmHg ABG HCO3 (21-25) mmol/L ABG Total CO2 (19-24) mmol/L ABG O2 Saturation (94-97) % ABG Hematocrit (34.0-46.0) % ABG Potassium (3.4-4.5) mmol/L ABG Ionized Calcium (4.5-5.3) mg/dL ABG Glucose (75-99) mg/dL ABG Lactic Acid (0.5-1.6) mmol/L Hemoglobin (11.4-16.0) gm/dL Chloride 108 H (98-107) mmol/L BUN (7-17) mg/dL Glucose 154 H (74-99) mg/dL POC Glucose (mg/dL) 148 H (75-99) mg/dL Calcium (8.4-10.2) mg/dL Magnesium (1.6-2.3) mg/dL AST 83 H (14-36) U/L ALT (9-52) U/L Total Protein 5.6 L (6.3-8.2) g/dL Albumin (3.5-5.0) g/dL Arterial Blood Potassium (3.4-4.5) mmol/L Arterial Blood Glucose (75-99) mg/dL Crossmatch 10/03/18 10/03/18 10/03/18 Range/Units 00:10 01:10 02:15 WBC (3.8-10.6) k/uL RBC (3.80-5.40) m/uL Hgb (11.4-16.0) gm/dL Hct (34.0-46.0) % MCV (80.0-100.0) fL MCH (25.0-35.0) pg MCHC (31.0-37.0) g/dL RDW (11.5-15.5) % Plt Count (150-450) k/uL Neutrophils # (1.3-7.7) k/uL Neutrophils # (Manual) (1.3-7.7) k/uL APTT (22.0-30.0) sec ABG pH (7.35-7.45) ABG pCO2 (35-45) mmHg ABG pO2 (83-108) mmHg ABG HCO3 (21-25) mmol/L ABG Total CO2 (19-24) mmol/L ABG O2 Saturation (94-97) % ABG Hematocrit (34.0-46.0) % ABG Potassium (3.4-4.5) mmol/L ABG Ionized Calcium (4.5-5.3) mg/dL ABG Glucose (75-99) mg/dL ABG Lactic Acid (0.5-1.6) mmol/L Hemoglobin (11.4-16.0) gm/dL Chloride (98-107) mmol/L BUN (7-17) mg/dL Glucose (74-99) mg/dL POC Glucose (mg/dL) 135 H 128 H 126 H (75-99) mg/dL Calcium (8.4-10.2) mg/dL Magnesium (1.6-2.3) mg/dL AST (14-36) U/L ALT (9-52) U/L Total Protein (6.3-8.2) g/dL Albumin (3.5-5.0) g/dL Arterial Blood Potassium (3.4-4.5) mmol/L Arterial Blood Glucose (75-99) mg/dL Crossmatch 10/03/18 10/03/18 10/03/18 Range/Units 03:09 04:22 04:26 WBC 14.5 H (3.8-10.6) k/uL RBC 2.98 L (3.80-5.40) m/uL Hgb 7.5 L (11.4-16.0) gm/dL Hct 23.9 L (34.0-46.0) % MCV (80.0-100.0) fL MCH (25.0-35.0) pg MCHC (31.0-37.0) g/dL RDW 15.7 H (11.5-15.5) % Plt Count (150-450) k/uL Neutrophils # (1.3-7.7) k/uL Neutrophils # (Manual) 12.10 H (1.3-7.7) k/uL APTT (22.0-30.0) sec ABG pH (7.35-7.45) ABG pCO2 (35-45) mmHg ABG pO2 (83-108) mmHg ABG HCO3 (21-25) mmol/L ABG Total CO2 (19-24) mmol/L ABG O2 Saturation (94-97) % ABG Hematocrit (34.0-46.0) % ABG Potassium (3.4-4.5) mmol/L ABG Ionized Calcium (4.5-5.3) mg/dL ABG Glucose (75-99) mg/dL ABG Lactic Acid (0.5-1.6) mmol/L Hemoglobin (11.4-16.0) gm/dL Chloride (98-107) mmol/L BUN (7-17) mg/dL Glucose (74-99) mg/dL POC Glucose (mg/dL) 120 H 121 H (75-99) mg/dL Calcium (8.4-10.2) mg/dL Magnesium (1.6-2.3) mg/dL AST (14-36) U/L ALT (9-52) U/L Total Protein (6.3-8.2) g/dL Albumin (3.5-5.0) g/dL Arterial Blood Potassium (3.4-4.5) mmol/L Arterial Blood Glucose (75-99) mg/dL Crossmatch 10/03/18 10/03/18 10/03/18 Range/Units 04:26 05:34 06:37 WBC (3.8-10.6) k/uL RBC (3.80-5.40) m/uL Hgb (11.4-16.0) gm/dL Hct (34.0-46.0) % MCV (80.0-100.0) fL MCH (25.0-35.0) pg MCHC (31.0-37.0) g/dL RDW (11.5-15.5) % Plt Count (150-450) k/uL Neutrophils # (1.3-7.7) k/uL Neutrophils # (Manual) (1.3-7.7) k/uL APTT (22.0-30.0) sec ABG pH (7.35-7.45) ABG pCO2 (35-45) mmHg ABG pO2 (83-108) mmHg ABG HCO3 (21-25) mmol/L ABG Total CO2 (19-24) mmol/L ABG O2 Saturation (94-97) % ABG Hematocrit (34.0-46.0) % ABG Potassium (3.4-4.5) mmol/L ABG Ionized Calcium (4.5-5.3) mg/dL ABG Glucose (75-99) mg/dL ABG Lactic Acid (0.5-1.6) mmol/L Hemoglobin (11.4-16.0) gm/dL Chloride (98-107) mmol/L BUN 18 H (7-17) mg/dL Glucose 112 H (74-99) mg/dL POC Glucose (mg/dL) 130 H 128 H (75-99) mg/dL Calcium 8.3 L (8.4-10.2) mg/dL Magnesium 3.2 H (1.6-2.3) mg/dL AST 125 H (14-36) U/L ALT 65 H (9-52) U/L Total Protein 5.5 L (6.3-8.2) g/dL Albumin (3.5-5.0) g/dL Arterial Blood Potassium (3.4-4.5) mmol/L Arterial Blood Glucose (75-99) mg/dL Crossmatch 10/03/18 10/03/1810/03/19 Range/Units 07:10 08:11 08:58 WBC (3.8-10.6) k/uL RBC (3.80-5.40) m/uL Hgb (11.4-16.0) gm/dL Hct (34.0-46.0) % MCV (80.0-100.0) fL MCH (25.0-35.0) pg MCHC (31.0-37.0) g/dL RDW (11.5-15.5) % Plt Count (150-450) k/uL Neutrophils # (1.3-7.7) k/uL Neutrophils # (Manual) (1.3-7.7) k/uL APTT (22.0-30.0) sec ABG pH (7.35-7.45) ABG pCO2 (35-45) mmHg ABG pO2 (83-108) mmHg ABG HCO3 (21-25) mmol/L ABG Total CO2 (19-24) mmol/L ABG O2 Saturation (94-97) % ABG Hematocrit (34.0-46.0) % ABG Potassium (3.4-4.5) mmol/L ABG Ionized Calcium (4.5-5.3) mg/dL ABG Glucose (75-99) mg/dL ABG Lactic Acid (0.5-1.6) mmol/L Hemoglobin (11.4-16.0) gm/dL Chloride (98-107) mmol/L BUN (7-17) mg/dL Glucose (74-99) mg/dL POC Glucose (mg/dL) 128 H 125 H 131 H (75-99) mg/dL Calcium (8.4-10.2) mg/dL Magnesium (1.6-2.3) mg/dL AST (14-36) U/L ALT (9-52) U/L Total Protein (6.3-8.2) g/dL Albumin (3.5-5.0) g/dL Arterial Blood Potassium (3.4-4.5) mmol/L Arterial Blood Glucose (75-99) mg/dL Crossmatch 10/03/18 10/03/18 Range/Units 10:18 10:52 WBC (3.8-10.6) k/uL RBC (3.80-5.40) m/uL Hgb (11.4-16.0) gm/dL Hct (34.0-46.0) % MCV (80.0-100.0) fL MCH (25.0-35.0) pg MCHC (31.0-37.0) g/dL RDW (11.5-15.5) % Plt Count (150-450) k/uL Neutrophils # (1.3-7.7) k/uL Neutrophils # (Manual) (1.3-7.7) k/uL APTT (22.0-30.0) sec ABG pH (7.35-7.45) ABG pCO2 (35-45) mmHg ABG pO2 (83-108) mmHg ABG HCO3 (21-25) mmol/L ABG Total CO2 (19-24) mmol/L ABG O2 Saturation (94-97) % ABG Hematocrit (34.0-46.0) % ABG Potassium (3.4-4.5) mmol/L ABG Ionized Calcium (4.5-5.3) mg/dL ABG Glucose (75-99) mg/dL ABG Lactic Acid (0.5-1.6) mmol/L Hemoglobin (11.4-16.0) gm/dL Chloride (98-107) mmol/L BUN (7-17) mg/dL Glucose (74-99) mg/dL POC Glucose (mg/dL) 154 H 148 H (75-99) mg/dL Calcium (8.4-10.2) mg/dL Magnesium (1.6-2.3) mg/dL AST (14-36) U/L ALT (9-52) U/L Total Protein (6.3-8.2) g/dL Albumin (3.5-5.0) g/dL Arterial Blood Potassium (3.4-4.5) mmol/L Arterial Blood Glucose (75-99) mg/dL Crossmatch Assessment and Plan Assessment: Assessment 1 aortic valve replacement with a mechanical aortic valve and two-vessel bypass surgery involving BRO to LAD and radial artery graft to OM 1 and the patient is postop day #1. 2 post thoracotomy, extubated at 2100 on 10/02/2017. On 2 L/m per nasal cannula. 3 morbid obesity with a BMI of 47.6 4 previous history of gastric sleeve surgery 5 previous history of Hodgkin's lymphoma 6 history of restless leg syndrome 7 hypertension 8 hyperlipidemia Plan: The patient was seen and evaluated by Dr. Navarro. Chest x-ray and labs were reviewed. Mediastinal chest tubes remain in place. She is working well with the incentive spirometer. Continued on bronchodilators. Hemodynamically stable. Up in a chair at bedside. Will continue to increase her activity as tolerated. Heparin for DVT prophylaxis. We'll continue to follow and make further recommendations based on her clinical status. I, the cosigning physician, performed a history & physical examination of the patient. Lungs sounds few scattered rhonchi, crackles in the posterior bases Maintaining good O2 saturations in the 90s on 2 L/m per nasal cannula. I discussed the assessment and plan of care with my nurse practitioner, Candis Nichole. I attest to the above note as dictated by her.
[2018-10-03 12:08] LABS: Glucose,Whole Blood 128 mg/dL (75-99)
[2018-10-03 13:12] LABS: Glucose,Whole Blood 151 mg/dL (75-99)
[2018-10-03] MEDS: LACTATED RINGERS 1,000 ML IV SCH (13:53)
[2018-10-03] MEDS: CLEVIDIPINE BUTYRATE 25 MG in EMPTY BAG 1 BAG IV SCH (13:57)
[2018-10-03 14:04] LABS: Glucose,Whole Blood 187 mg/dL (75-99)
[2018-10-03] MEDS ORDERED: BISACODYL 10 MG SUPP RECTAL PRN (14:49)
[2018-10-03] MEDS ORDERED: MAGNESIUM HYDROXIDE 2,400 MG/10 ML CUP PO PRN (14:49)
[2018-10-03 15:08] LABS: Glucose,Whole Blood 140 mg/dL (75-99)
[2018-10-03] MEDS: INSULIN REGULAR 100 UNIT in SODIUM CHLORIDE 0.9% 100 ML IV SCH (15:36)
[2018-10-03 16:41] LABS: Glucose,Whole Blood 110 mg/dL (75-99)
[2018-10-03] MEDS: METOPROLOL TARTRATE 12.5 MG TAB PO SCH ×2 (16:45→23:31)
--- NOTE | 2018-10-03 17:39 | P.OP ---
Date of Procedure: 10/02/18 Preoperative Diagnosis: Coronary artery disease, aortic stenosis with aortic insufficiency Postoperative Diagnosis: Same Procedure(s) Performed: Coronary artery bypass grafting 3 with sequential BRO to first diagonal and left anterior descending coronary artery with left radial artery T graft to obtuse marginal coronary artery and aortic valve replacement with 23 mm On-X mechanical valve with Nix aortic root enlargement with Dacron patch, ligation of left atrial appendage with 35 mm AtriCure clip, endovascular harvest of the left radial artery. MARY by anesthesia Implants: 23 mm On-X valve, Dacron patch, holding pericardial patch, 35 mm AtriCure clip Anesthesia: JOHN Surgeon: Miyk Jesus Artistic Associate #1: Lorenzo Perez Artistic Associate #2: Cedric Goins Estimated Blood Loss (ml): 1,000 IV fluids (ml): 3,000 Urine output (ml): 800 Pathology: other (Aortic valve) Condition: stable Disposition: ICU Indications for Procedure: 48-year-old female with anginal symptomatology and moderate to severe aortic valvular stenosis with left main two-vessel coronary artery disease Operative Findings: Calcific tricuspid aortic valve, small aortic annulus, diffuse coronary artery disease with good targets.. Description of Procedure: Patient was brought to the operating room, placed supine on the operating table , anesthetized and intubated. MARY probe was placed. The anterior chest bilateral lower extremities and left upper extremity were sterilely prepped and draped. The left radial artery was harvested using endovascular technique. Right greater saphenous vein was harvested using endovascular technique. Simultaneous sternotomy was performed and left internal mammary artery was harvested on a vascularized pedicle left intact on its origin from the subclavian and divided distally. Left pleural space was drained with 32-[place]izen [place] chest tube. Standard sternal retractor was placed and the pericardium opened in the midline. The part was exposed with pericardial sutures. Patient was heparinized and cannulated for cardiac peroneal bypass with 7 mm Sarns soft flow cannula in the distal ascending aorta and two-stage venous cannula through the right atrium into the inferior vena cava. Antegrade and retrograde cardioplegia lines were placed in standard fashion. Bulldog clamp was placed on the proximal left internal mammary artery and it was opened in its midportion prior to its entrance into the pericardial sac with a linear longitudinal incision of about a centimeter. The radial artery was jumped as a T graft off the BRO from this incision using running 7-0 Prolene suture. Bulldog clamp was removed and good flow was noted both through the distal BRO and through the radial artery. Bulldog clamp was replaced. Patient was placed on cardiopulmonary bypass in standard fashion and stabilized. Pursestring suture was placed in the right superior pulmonary vein. Aorta was crossclamped and the heart was arrested with cold crystalloid cardioplegia followed by retrograde cardioplegia. The obtuse marginal coronary artery was exposed. It was calcified proximally and we dissected distally to beyond the calcification to a soft spot an open the vessel here. It accepted a 1.5 mm probe proximally and distally. The radial artery was anastomosed in end-to-side fashion with running 7-0 Prolene suture. The 35 mm AtriCure was applied to the base of the left atrial appendage. Next the sequential graft from of the BRO to the diagonal and LAD was planned out. A longitudinal incision was made in the BRO opposite the diagonal and diagonal was also opened. It was a 1.5 mm vessel. Anastomosis was constructed with running 8-0 Prolene suture in ckgb-in-xlen fashion. On completion anastomosis bulldog clamp was briefly moved distally and the BRO was noted to fill well and flow distally in the diagonal. It also filled the radial and it filled well into the OM. We reclamped the BRO proximally. The distal end of the JAHAIRA was prepared in the distal anastomosis of the BRO to the LAD was performed. The LAD was a 2 mm vessel.'s opened in its midportion and the anastomosis constructed with running 8-0 Prolene suture. On completion of the anastomosis it was probed and noted be patent. Again inflow was briefly opened and it was noted to flow well. BRO was reoccluded. The aorta was now opened transversely. Aortic valve was examined. It was tricuspid calcific valve and it was excised and the annulus decalcified. A 21 mm On-X valve sizer fit tightly. Due to the patient's size this was felt to be inadequate. The arteriotomy incision was carried down into the midportion of the non-coronary cusp and across the aortic annulus into the left ventricle. A patch of Dacron was fashioned and sewn in place with 5-0 Prolene suture, enlarging the annulus. Circumferential valve sutures of 2-0 Ethibond were placed with pledgets on the ventricular side to allow a supra-annular valve implant. A 23 sizer now fit well. A 23 On-X valve was opened and the valve sutures were placed through the sewing ring of the valve. It was seated and the sutures tied and was noted to seat well. Second dose of cardioplegia had been given an hour into the case. Valve was noted to seat well with patent coronary ostia and good motion of the valve leaflets without any impingement. The 5-0 Prolene suture that had been used to suture the patch into the annulus was used to continue suturing the patch around the arteriotomy essentially closing the arteriotomy. The patient was placed in Trendelenburg and the cross- clamp was removed. There was some bleeding from the edges of the arteriotomy and this was reinforced with multiple sutures. The needle holes were bleeding quite a bit no was decided to place a pericardial patch over this in order to obviate any postoperative bleeding. First we put a little BioGlue over the needle holes and then sewed a pericardial patch over the aortotomy and patch. Hemostasis was now much better. Meanwhile the patient had return to slow sinus weatherman's after initial pacing. Pacing wires had been placed in standard fashion. The patient was de-aired under MARY guidance and she was then weaned from cardioplegic bypass without the use of inotropic support. She well. There was quite a bit of oozing still and fresh frozen and platelets were given with eventual resolution of the coagulopathy and the bleeding. This patient was dry, mediastinum was drained with 36-[place]izen [place] chest tubes in the left pleural space with a 32-[place]izen [place] chest tube. These were secured with 0 Ethibond sutures. The chest was irrigated with antibiotic solution. Sternum was closed with 8 sternal wires. The fascia was closed with 0 Ethibond. The subcutaneous and subcuticular layers were closed with layers of Vicryl suture. Patient was transferred to the CVICU in stable hemodynamic condition on no inotropic support. She did receive 2 FFP and 2 bags of platelets. She did not require any packed red blood cells..
[2018-10-03 18:12] LABS: Glucose,Whole Blood 119 mg/dL (75-99)
--- NOTE | 2018-10-03 18:40 | CONS ---
CONSULTATION DATE OF CONSULTATION: 10/03/2018 REASON FOR CONSULTATION: Medical management requested by Dr. Jesus. CONSULTATION: This is a pleasant 48-year-old patient of Dr. Rohan Burns. Patient was here in July with acute congestive heart failure exacerbation secondary to moderate aortic stenosis. Subsequently patient underwent a cardiac catheterization and was found to have LAD disease and some disease in the circumflex. This was followed by a MARY that showed severe aortic stenosis. Patient's other chronic stable medical conditions include essential hypertension, primary osteoarthritis of the lumbar spine, restless legs syndrome, chronic scoliosis. Patient is status post coronary artery bypass and mechanical aortic valve was placed. The patient was extubated last night and is currently on 2 L of oxygen. Patient did tolerate full liquids earlier today. The patient has got 2 mediastinal chest tubes and one left pleural chest tube. Telemetry shows sinus rhythm. The patient has been out of bed, awake, has got a slight cough. REVIEW OF SYSTEMS: CONSTITUTIONAL: Tired. HEENT: None. RESPIRATORY: Slight shortness of breath. CARDIOVASCULAR: As above. GASTROINTESTINAL: None. GENITOURINARY: None. MUSCULOSKELETAL: Pain in the joints, including lower back. DERMATOLOGICAL: None. HEMATOLOGICAL: None. LYMPHATICS: None. PSYCHIATRY: None. NEUROLOGICAL: None. PAST MEDICAL HISTORY: 1. Hypertension. 2. Osteoarthritis of the lumbar spine. 3. Obstructive sleep apnea. Does not use CPAP. 4. Hodgkin's lymphoma 30 years ago, treated with chemo and radiation treatment. 5. Restless legs syndrome. 6. Scoliosis. 7. Aortic stenosis, severe. PAST SURGICAL HISTORY: 1. Adenoidectomy. 2. Bariatric surgery. 3. . 4. Sleeve gastrectomy in 2012. 5. Lymph node aspiration. 6. Left knee injection. 7. Back injection. SOCIAL HISTORY: The patient smoked on and off for 20 years, half a pack a day, and stopped smoking about 15 years ago. . Alcohol occasionally. FAMILY HISTORY: Mother and brother both had heart disease. HOME MEDICATIONS: 1. Crestor 5 mg a day. 2. Mirapex 1.5 mg at bedtime. 3. Toprol-XL 100 mg at bedtime. 4. Lasix 40 mg a day. 5. Aspirin 81 mg a day. 6. Currently patient also did receive albumin. 7. DuoNeb. 8. Also received IV amiodarone. 9. Also received IV Ancef. 10.Previously did receive clevidipine. 11.Subcutaneous heparin. 12.[place] for pain. 13.Lopressor 12.5 b.i.d. PHYSICAL EXAMINATION: VITAL SIGNS: Temperature 98.8, pulse 66, respiration 16, blood pressure 105/55, pulse ox 91% on 2 L. GENERAL APPEARANCE: Well built; BMI 52.5. Lying in bed, awake, tired-appearing. EYES: Pupils equal. Conjunctivae normal. HEENT: External appearance of nose and ears normal. Oral cavity normal. NECK: Short, thick. JVD unable to assess. Mass not palpable. RESPIRATORY: Effort increased. LUNGS: Diminished breath sounds. CARDIOVASCULAR: Mechanical heart sounds. No edema. ABDOMEN: Soft, nontender. Liver and spleen not palpable. LYMPHATIC: No lymph node palpable in neck or axillae. PSYCHIATRY: Alert and oriented x3. Mood and affect normal. CHEST WALL: Patient has 2 mediastinal and 1 left pleural chest tube. NEUROLOGICAL: Pupils equal. No facial asymmetry. Moving all 4 limbs. INVESTIGATIONS: White count 14.5, hemoglobin 7.5, platelets 169. Potassium 4.9, BUN 18, creatinine 1.01. Accu-Cheks 121, 130. Patient's preoperative hemoglobin was 10.8. ASSESSMENT: 1. Status post coronary artery bypass. 2. Severe aortic stenosis followed by aortic valve replacement with a mechanical valve. 3. Acute postoperative blood-loss anemia as expected from surgery. 4. Leukocytosis, likely reactive from surgery. No clinical evidence of infection. 5. Morbid obesity. BMI more than 40. 6. Essential hypertension. 7. Primary osteoarthritis of the lumbar spine. 8. Restless legs syndrome. 9. Chronic scoliosis. PLAN: Continue current medication and treatment plan. Patient is already doing well, using the inspiratory spirometer. Patient did tolerate a full liquid diet, has already been out of bed. Overall doing better. Patient will be followed. Thank you, Dr. Jesus. ESTEVAN / JUAN JN: [id number] /
[2018-10-03 19:07] LABS: Glucose,Whole Blood 144 mg/dL (75-99)
[2018-10-03 20:24] LABS: Glucose,Whole Blood 118 mg/dL (75-99)
[2018-10-03] MEDS ORDERED: CRESTOR 5MG PO SCH (21:00)
[2018-10-03 21:23] LABS: Glucose,Whole Blood 124 mg/dL (75-99)
[2018-10-03] MEDS: SENNOSIDES-DOCUSATE SODIUM 1 EACH TAB PO SCH (21:54)
[2018-10-03 23:09] LABS: Glucose,Whole Blood 120 mg/dL (75-99)
[2018-10-04 00:28] LABS: Glucose,Whole Blood 109 mg/dL (75-99)
[2018-10-04] MEDS: HEPARIN SODIUM,PORCINE 5,000 UNIT/ML 1 ML VIAL SQ SCH ×3 (00:58→16:55)
[2018-10-04] MEDS: DILTIAZEM ORAL 30 MG TAB PO SCH ×4 (00:58→16:54)
[2018-10-04] MEDS: ceFAZolin 3 GM in SODIUM CHLORIDE 0.9% 100 ML IVPB SCH (00:59)
[2018-10-04] MEDS: MUPIROCIN 2% OINT 22 GM TUBE NASAL SCH ×3 (00:59→21:08)
[2018-10-04 01:17] LABS: Glucose,Whole Blood 108 mg/dL (75-99)
[2018-10-04 02:23] LABS: Glucose,Whole Blood 144 mg/dL (75-99)
[2018-10-04 03:26] LABS: Glucose,Whole Blood 125 mg/dL (75-99)
[2018-10-04] MEDS: KETOROLAC 30 MG/ML 1 ML VIAL IVP SCH (04:30)
[2018-10-04 04:39] LABS: Glucose,Whole Blood 101 mg/dL (75-99)
[2018-10-04 05:16] LABS: Glucose,Whole Blood 122 mg/dL (75-99)
[2018-10-04] MEDS: IPRATROPIUM-ALBUTEROL 3 ML NEB INHALATION SCH ×4 (05:18→19:42)
[2018-10-04 05:36] LABS: Anisocytosis Slight; Basophils # (A) 0.1 k/uL (0-0.2); Basophils % (A) 0 %; Eosinophils # (A) 0.1 k/uL (0-0.7); Eosinophils % (A) 1 %; HCT 22.6 % (34.0-46.0); HGB 7.1 gm/dL (11.4-16.0); Hypochromasia Marked; Lymphocytes # (A) 2.1 k/uL (1.0-4.8); Lymphocytes % (A) 15 %; MCH 25.6 pg (25.0-35.0); MCHC 31.3 g/dL (31.0-37.0); MCV 81.7 fL (80.0-100.0); Mean Platelet Volume 7.5; Monocytes # (A) 0.6 k/uL (0-1.0); Monocytes % (A) 4 %; Neutrophils # (A) 11.2 k/uL (1.3-7.7); Neutrophils % (A) 78 %; Platelet Count 169 k/uL (150-450); RBC 2.76 m/uL (3.80-5.40); RDW 16.3 % (11.5-15.5); WBC 14.3 k/uL (3.8-10.6)
[2018-10-04 06:08] LABS: Prothrombin Time 10.6 sec (9.0-12.0)
[2018-10-04 06:08] LABS: Ionized Calcium 4.8 mg/dL (4.5-5.3)
[2018-10-04 06:21] LABS: Glucose,Whole Blood 139 mg/dL (75-99)
[2018-10-04 06:28] LABS: Albumin 3.3 g/dL (3.5-5.0); Calcium 8.2 mg/dL (8.4-10.2); Magnesium 2.9 mg/dL (1.6-2.3); Total Bilirubin 0.4 mg/dL (0.2-1.3); Total Protein 5.5 g/dL (6.3-8.2)
[2018-10-04 06:38] LABS: Potassium 4.4 mmol/L (3.5-5.1)
--- NOTE | 2018-10-04 07:22 | XR ---
EXAMINATION TYPE: XR chest 1V portable DATE OF EXAM: 10/04/2018 CLINICAL HISTORY: Difficulty breathing progress study. TECHNIQUE: Single AP portable upright view of the chest is obtained. COMPARISON: Chest x-ray from one day earlier FINDINGS: The cardiomediastinal silhouette remains unchanged. Large bore right IJ central line is stable in pos ition. Left-sided thoracostomy tube as well as mediastinal drain and postsurgical sternotomy changes are stable. Right midlung subsegmental atelectasis. No large pneumothorax or pleural effusion. IMPRESSION: Overall stable findings when compared to most recent prior study.
[2018-10-04 07:24] LABS: Glucose,Whole Blood 135 mg/dL (75-99)
[2018-10-04] MEDS: ASCORBIC ACID 500 MG TAB PO SCH ×2 (08:26→16:54)
[2018-10-04] MEDS: FERROUS SULFATE 325 MG TAB PO SCH ×2 (08:26→16:54)
[2018-10-04] MEDS: METOPROLOL TARTRATE 25 MG TAB PO SCH ×2 (08:26→21:08)
[2018-10-04 08:27] LABS: Glucose,Whole Blood 150 mg/dL (75-99)
[2018-10-04] MEDS: PANTOPRAZOLE 40 MG TABLET PO SCH (08:27)
[2018-10-04] MEDS: ASPIRIN 325 MG TAB PO SCH (08:27)
[2018-10-04] MEDS: HYDROcodone/APAP 5-325MG 1 EACH TAB PO PRN ×4 (08:31→19:35)
--- NOTE | 2018-10-04 09:32 | P.PN ---
Subjective Progress Note Date: 10/04/18 Principal diagnosis: Bicuspid aortic valve with severe aortic stenosis, symptomatic multivessel coronary artery disease with left main coronary artery disease. Morbid obesity. Hypertension. Hyperlipidemia. Prediabetic with preoperative hemoglobin A1c 6.3%. History of Hodgkin's lymphoma at 20 years old with subsequent chemo and radiation therapy. Previous tobacco abuse with preoperative FEV1 71% of predicted. Obstructive sleep apnea without CPAP use. History of gastric sleeve surgery. Restless leg syndrome. Family history of premature coronary artery disease with uncle having myocardial infarction 47 years old and cousin from myocardial infarction at 45 years old. POD #2 elective coronary artery bypass graft surgery with sequential left internal mammary artery to the left anterior descending artery to the diagonal branch, radial artery to the obtuse marginal artery, aortic valve replacement using a 23 mm On-X mechanical valve, aortic root enlargement with [place]-Bg patch , exclusion of the left atrial appendage using a 35 mm AtriClip, endoscopic left radial artery harvest, epi-aortic scanning, intraoperative transesophageal echocardiogram by anesthesia. Postoperative acute blood loss anemia, an expected outcome of surgery given cardiopulmonary bypass pump and hemodilution. The patient is currently sitting in a recliner in no acute distress in the intensive care unit. Remains hemodynamically stable on no inotropes or pressors. She is using her incentive spirometer diligently. Remains in normal sinus rhythm. Does complain of postoperative surgical chest pain which is controlled on current medication regimen, denies shortness of breath. No new complaints. Objective - Vital Signs Vital signs: Vital Signs Temp 98.1 F 10/04/18 04:00 Pulse 82 10/04/18 07:30 Resp 21 10/04/18 07:30 BP 101/38 10/04/18 07:00 Pulse Ox 95 10/04/18 07:30 Intake & Output 10/03/18 10/04/18 10/04/18 18:59 06:59 18:59 Intake Total 1771.698 554.495 34.551 Output Total 425 490 55 Balance 1346.698 64.495 -20.449 Weight 143.2 kg 144.2 kg Intake: IV 881.0 315 26 ACETAMINOPHEN IV (For NPO 100 ) 1,000 mg In Empty Bag 1 bag @ 400 mls/hr IVPB Q6HR [facility] Rx#:[id number] CO/CI 100 Diltiazem 125 mg In 10 Sodium Chloride 0.9% 100 ml @ 5 MG/HR 5 mls/hr IV .Q24H [facility] Rx#:[id number] Lactated Ringers 1,000 ml 360 240 20 @ 20 mls/hr IV .Q24H [facility] Rx#:[id number] Nitroglycerin-D5w Pmx 50 3.0 mg In Dextrose/Water 1 250ml.bag @ 5 MCG/MIN 1.5 mls/hr IV .Q24H [facility] Rx#: [id number] Pressure Bag 108 75 6 ceFAZolin 3 gm In Sodium 200 Chloride 0.9% 100 ml @ 100 mls/hr IVPB Q8HR [facility] Rx#:[id number] Intake, IV Titration 40.698 54.495 8.551 Amount Insulin Regular 100 unit 40.698 54.495 8.551 In Sodium Chloride 0.9% 100 ml @ Per Protocol IV .Q0M [facility] Rx#:[id number] Oral 850 185 Output: Chest Tube Drainage 130 170 20 Left Pleural/Mediastinal 130 170 20 Urine 295 320 35 Other: Voiding Method Indwelling Catheter Indwelling Catheter ABP, PAP, CO, CI - Last Documented Arterial Blood Pressure 104/84 Pulmonary Artery Pressure 42/19 Cardiac Output 5.1 Cardiac Index 2.5 - Constitutional General appearance: Present: cooperative, morbidly obese, no acute distress - Respiratory Details: Lungs sounds diminished bilaterally. Respirations even, nonlabored. Currently on 2 L nasal cannula with oxygen saturation 93%. Able to achieve 0828-8705 mL on her incentive spirometry. Strong productive cough. Mediastinal/left pleural chest tube to continuous wall suction, 170 mL thin serosanguineous drainage overnight, 650 mL in the last 24 hours, no air leak present. - Cardiovascular Details: S1, S2 present. Positive valvular click. Regular rate and rhythm, sinus rhythm on telemetry. Palpable peripheral pulses bilaterally. Generalized trace edema present. No calf pain or tenderness noted. Right internal jugular Cordis, right radial arterial line present. Heart hugger in place with patient demonstrating appropriate use. Antiembolism stockings, SCDs present. - Gastrointestinal Gastrointestinal Comment(s): Abdomen soft, nontender, nondistended, obese. Active bowel sounds present 4 quadrants. Tolerating diet. Positive flatus, negative bowel movement. - Genitourinary Genitourinary Comment(s): Apodaca present draining clear, yellow urine. Output 35-40 mL per hour overnight. - Integumentary Integumentary Comment(s): Skin is warm and dry with evidence of good perfusion. Anterior chest incision well approximated and covered with dry intact dressing. Left radial artery harvest site well approximated. 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 - Neurologic Neurologic: Present: CNII-XII intact - Musculoskeletal Musculoskeletal: Present: gait normal, strength equal bilaterally - Psychiatric Psychiatric: Present: A&O x's 3, appropriate affect, intact judgment & insight - Allied health notes Allied health notes reviewed: nursing - Labs CBC & Chem 7: 10/04/18 04:50 10/04/18 04:50 Labs: Abnormal Lab Results - Last 24 Hours (Table) 10/03/18 10/03/18 10/03/18 Range/Units 08:58 10:18 10:52 WBC (3.8-10.6) k/uL RBC (3.80-5.40) m/uL Hgb (11.4-16.0) gm/dL Hct (34.0-46.0) % RDW (11.5-15.5) % Neutrophils # (1.3-7.7) k/uL BUN (7-17) mg/dL Creatinine (0.52-1.04) mg/dL Glucose (74-99) mg/dL POC Glucose (mg/dL) 131 H 154 H 148 H (75-99) mg/dL Calcium (8.4-10.2) mg/dL Magnesium (1.6-2.3) mg/dL AST (14-36) U/L ALT (9-52) U/L Total Protein (6.3-8.2) g/dL Albumin (3.5-5.0) g/dL 10/03/18 10/03/18 10/03/18 Range/Units 11:57 13:01 13:53 WBC (3.8-10.6) k/uL RBC (3.80-5.40) m/uL Hgb (11.4-16.0) gm/dL Hct (34.0-46.0) % RDW (11.5-15.5) % Neutrophils # (1.3-7.7) k/uL BUN (7-17) mg/dL Creatinine (0.52-1.04) mg/dL Glucose (74-99) mg/dL POC Glucose (mg/dL) 128 H 151 H 187 H (75-99) mg/dL Calcium (8.4-10.2) mg/dL Magnesium (1.6-2.3) mg/dL AST (14-36) U/L ALT (9-52) U/L Total Protein (6.3-8.2) g/dL Albumin (3.5-5.0) g/dL 10/03/18 10/03/18 10/03/18 Range/Units 14:56 16:30 18:01 WBC (3.8-10.6) k/uL RBC (3.80-5.40) m/uL Hgb (11.4-16.0) gm/dL Hct (34.0-46.0) % RDW (11.5-15.5) % Neutrophils # (1.3-7.7) k/uL BUN (7-17) mg/dL Creatinine (0.52-1.04) mg/dL Glucose (74-99) mg/dL POC Glucose (mg/dL) 140 H 110 H 119 H (75-99) mg/dL Calcium (8.4-10.2) mg/dL Magnesium (1.6-2.3) mg/dL AST (14-36) U/L ALT (9-52) U/L Total Protein (6.3-8.2) g/dL Albumin (3.5-5.0) g/dL 10/03/18 10/03/18 10/03/18 Range/Units 18:55 20:11 21:09 WBC (3.8-10.6) k/uL RBC (3.80-5.40) m/uL Hgb (11.4-16.0) gm/dL Hct (34.0-46.0) % RDW (11.5-15.5) % Neutrophils # (1.3-7.7) k/uL BUN (7-17) mg/dL Creatinine (0.52-1.04) mg/dL Glucose (74-99) mg/dL POC Glucose (mg/dL) 144 H 118 H 124 H (75-99) mg/dL Calcium (8.4-10.2) mg/dL Magnesium (1.6-2.3) mg/dL AST (14-36) U/L ALT (9-52) U/L Total Protein (6.3-8.2) g/dL Albumin (3.5-5.0) g/dL 10/03/18 10/04/18 10/04/18 Range/Units 22:57 00:17 01:06 WBC (3.8-10.6) k/uL RBC (3.80-5.40) m/uL Hgb (11.4-16.0) gm/dL Hct (34.0-46.0) % RDW (11.5-15.5) % Neutrophils # (1.3-7.7) k/uL BUN (7-17) mg/dL Creatinine (0.52-1.04) mg/dL Glucose (74-99) mg/dL POC Glucose (mg/dL) 120 H 109 H 108 H (75-99) mg/dL Calcium (8.4-10.2) mg/dL Magnesium (1.6-2.3) mg/dL AST (14-36) U/L ALT (9-52) U/L Total Protein (6.3-8.2) g/dL Albumin (3.5-5.0) g/dL 10/04/18 10/04/18 10/04/18 Range/Units 02:12 03:13 04:27 WBC (3.8-10.6) k/uL RBC (3.80-5.40) m/uL Hgb (11.4-16.0) gm/dL Hct (34.0-46.0) % RDW (11.5-15.5) % Neutrophils # (1.3-7.7) k/uL BUN (7-17) mg/dL Creatinine (0.52-1.04) mg/dL Glucose (74-99) mg/dL POC Glucose (mg/dL) 144 H 125 H 101 H (75-99) mg/dL Calcium (8.4-10.2) mg/dL Magnesium (1.6-2.3) mg/dL AST (14-36) U/L ALT (9-52) U/L Total Protein (6.3-8.2) g/dL Albumin (3.5-5.0) g/dL 10/04/18 10/04/18 10/04/18 Range/Units 04:50 04:50 05:04 WBC 14.3 H (3.8-10.6) k/uL RBC 2.76 L (3.80-5.40) m/uL Hgb 7.1 L (11.4-16.0) gm/dL Hct 22.6 L (34.0-46.0) % RDW 16.3 H (11.5-15.5) % Neutrophils # 11.2 H (1.3-7.7) k/uL BUN 24 H (7-17) mg/dL Creatinine 1.23 H (0.52-1.04) mg/dL Glucose 109 H (74-99) mg/dL POC Glucose (mg/dL) 122 H (75-99) mg/dL Calcium 8.2 L (8.4-10.2) mg/dL Magnesium 2.9 H (1.6-2.3) mg/dL AST 267 H (14-36) U/L ALT 170 H (9-52) U/L Total Protein 5.5 L (6.3-8.2) g/dL Albumin 3.3 L (3.5-5.0) g/dL 10/04/18 10/04/18 10/04/18 Range/Units 06:10 07:12 08:16 WBC (3.8-10.6) k/uL RBC (3.80-5.40) m/uL Hgb (11.4-16.0) gm/dL Hct (34.0-46.0) % RDW (11.5-15.5) % Neutrophils # (1.3-7.7) k/uL BUN (7-17) mg/dL Creatinine (0.52-1.04) mg/dL Glucose (74-99) mg/dL POC Glucose (mg/dL) 139 H 135 H 150 H (75-99) mg/dL Calcium (8.4-10.2) mg/dL Magnesium (1.6-2.3) mg/dL AST (14-36) U/L ALT (9-52) U/L Total Protein (6.3-8.2) g/dL Albumin (3.5-5.0) g/dL - Imaging and Cardiology Chest x-ray: report reviewed, image reviewed Assessment and Plan (1) Morbid obesity with BMI of 50.0-59.9, adult Current Visit: Yes Status: Chronic Code(s): E66.01 - MORBID (SEVERE) OBESITY DUE TO EXCESS CALORIES; Z68.43 - BODY MASS INDEX (BMI) 50-59.9, ADULT SNOMED Code(s): 108050010 (2) Family history of early CAD Current Visit: Yes Status: Chronic Code(s): Z82.49 - FAMILY HX OF ISCHEM HEART DIS AND OTH DIS OF THE CIRC SYS SNOMED Code(s): 287951374 (3) Tobacco dependence in remission Current Visit: No Status: Resolved Code(s): F17.201 - NICOTINE DEPENDENCE, UNSPECIFIED, IN REMISSION SNOMED Code(s): 976111423 (4) Aortic stenosis Current Visit: No Status: Resolved Code(s): I35.0 - NONRHEUMATIC AORTIC ( VALVE) STENOSIS SNOMED Code(s): 74215060 (5) History of gastric surgery Current Visit: No Status: Resolved Code(s): Z98.890 - OTHER SPECIFIED POSTPROCEDURAL STATES SNOMED Code(s): 719067987 (6) Hyperlipidemia Current Visit: Yes Status: Chronic Code(s): E78.5 - HYPERLIPIDEMIA, UNSPECIFIED SNOMED Code(s): 14462062 (7) Hypertension Current Visit: Yes Status: Chronic Code(s): I10 - ESSENTIAL (PRIMARY) HYPERTENSION SNOMED Code(s): 89425026 (8) Obstructive sleep apnea Current Visit: No Status: Chronic Code(s): G47.33 - OBSTRUCTIVE SLEEP APNEA (ADULT) (PEDIATRIC) SNOMED Code(s): 68836173 (9) Restless leg syndrome Current Visit: No Status: Chronic Code(s): G25.81 - RESTLESS LEGS SYNDROME SNOMED Code(s): 97465735 (10) History of Hodgkin's lymphoma Current Visit: No Status: Resolved Code(s): Z85.71 - PERSONAL HISTORY OF HODGKIN LYMPHOMA SNOMED Code(s): 106218921 (11) History of chemotherapy Current Visit: No Status: Resolved Code(s): Z92.21 - PERSONAL HISTORY OF ANTINEOPLASTIC CHEMOTHERAPY SNOMED Code(s): 230806260333033 (12) History of radiation therapy Current Visit: No Status: Resolved Code(s): Z92.3 - PERSONAL HISTORY OF IRRADIATION SNOMED Code(s): 267392983 Plan: 1. Continue aspirin, beta will therapy. Will increase beta will therapy as tolerated, increased to 25 mg twice daily. 2. Continue oral Cardizem for radial artery spasm prophylaxis. 3. Wean O2 as tolerated. Encourage incentive spirometry 10 times every hour. Encourage continued smoking cessation. 4. Bronchodilators per pulmonology. 5. Increase activity, ambulate as tolerated. PT/OT/cardiac rehab following. 6. Will start Coumadin today, 5 mg. We will dose daily based on PT/INR. Goal INR 2.5-3.5 for the first 3 months, then 1.5-2.0. 7. Will monitor daily labs and x-rays. Electrolyte replacement per protocol. No transfusion at this time. 8. Pain control with current medication regimen. 9. Insulin management per primary care service. 10. GI prophylaxis with Protonix. DVT prophylaxis with subcu heparin, SCDs. 11. Discontinue Cordis, Apodaca catheter. 12. Will split chest tubes and discontinue mediastinal chest tube, keep left pleural chest tube for another 24 hours. 13. Will discontinue epicardial pacemaker wires. 14. More recommendations to follow as patient progresses. Time with Patient: Greater than 30
[2018-10-04 10:15] LABS: Glucose,Whole Blood 141 mg/dL (75-99)
--- NOTE | 2018-10-04 11:11 | PN ---
PROGRESS NOTE Mrs. Kurtz is a 48-year-old female with a known history of aortic valve disease and coronary artery disease, status post coronary artery bypass grafting and aortic valve replacement. She continues to be in sinus mechanism. She has some soreness in the chest. Her breathing is stable. She continues to be mildly dyspneic, but she is starting to ambulate. She denies any dizziness or palpitation. She denies any nausea. She is using the incentive spirometry. She continues to be at this time on aspirin once a day, diltiazem 30 mg every 6 hours, metoprolol tartrate 25 mg twice a day, Coumadin. PHYSICAL EXAMINATION: Blood pressure 109/49 with a heart rate in the 70s. LUNGS: A few crackles at the bases. HEART: Regular rate and rhythm. S1, S2 with prosthetic aortic sound and systolic ejection murmur. No diastolic murmur. No rub. ABDOMEN: Soft, nontender, obese. EXTREMITIES: No significant edema. LAB DATA/IMAGING: Chest x-ray revealed no acute infiltrate. Her BUN and creatinine are 24 and 1.23. IMPRESSION: 1. Status post coronary artery bypass grafting. 2. Status post aortic valve replacement with a prosthetic aortic valve. 3. Hyperlipidemia. 4. Status post gastric surgery. 5. History of Hodgkin's lymphoma. RECOMMENDATIONS: Patient will be initiated on the anticoagulation. She will be continued on Cardizem. A statin will be added to her regimen. Depending on her progress, further recommendations will be made. MMODL / IJN: [id number] /
[2018-10-04 12:17] LABS: Glucose,Whole Blood 134 mg/dL (75-99)
--- NOTE | 2018-10-04 14:47 | P.PN ---
Subjective Progress Note Date: 10/04/18 On today's evaluation of 10/04/2018, the patient is postop day #2 following an elective coronary artery bypass surgery and aortic valve replacement. The patient a lathe mechanic aortic valve replaced. The patient also had a clipping of the arterial appendage. The patient is doing extremely well. Based on tubes will be removed today. The pleural chest tube will be kept in place. The Peridot- Edin catheter or the been taken out. Her cardiac rhythm is sinus. His sternum stable clean and intact. No chest pain. No shortness of breath. She is pulling approximately thousand on incentive spirometer. No nausea. No vomiting. No abdominal pain. No cardiac arrhythmias. She is ambulating. She is afebrile. No other significant events overnight. Objective - Vital Signs Vital signs: Vital Signs Temp 98.6 F 10/04/18 12:00 Pulse 73 10/04/18 14:00 Resp 19 10/04/18 14:00 BP 100/52 10/04/18 14:00 Pulse Ox 97 10/04/18 14:00 Intake & Output 10/03/18 10/04/18 10/04/18 18:59 06:59 18:59 Intake Total 1771.698 554.495 566.803 Output Total 425 490 215 Balance 1346.698 64.495 351.803 Weight 143.2 kg 144.2 kg Intake: IV 881.0 315 181 ACETAMINOPHEN IV (For NPO 100 ) 1,000 mg In Empty Bag 1 bag @ 400 mls/hr IVPB Q6HR [facility] Rx#:[id number] CO/CI 100 Diltiazem 125 mg In 10 Sodium Chloride 0.9% 100 ml @ 5 MG/HR 5 mls/hr IV .Q24H [facility] Rx#:[id number] Lactated Ringers 1,000 ml 360 240 160 @ 20 mls/hr IV .Q24H [facility] Rx#:[id number] Nitroglycerin-D5w Pmx 50 3.0 mg In Dextrose/Water 1 250ml.bag @ 5 MCG/MIN 1.5 mls/hr IV .Q24H [facility] Rx#: [id number] Pressure Bag 108 75 21 ceFAZolin 3 gm In Sodium 200 Chloride 0.9% 100 ml @ 100 mls/hr IVPB Q8HR [facility] Rx#:[id number] Intake, IV Titration 40.698 54.495 25.803 Amount Insulin Regular 100 unit 40.698 54.495 25.803 In Sodium Chloride 0.9% 100 ml @ Per Protocol IV .Q0M [facility] Rx#:[id number] Oral 850 185 360 Output: Chest Tube Drainage 130 170 50 Left Pleural/Mediastinal 130 170 50 left pleural 0 Urine 295 320 165 Other: Voiding Method Indwelling Catheter Indwelling Catheter Bedside Commode ABP, PAP, CO, CI - Last Documented Arterial Blood Pressure 104/84 Pulmonary Artery Pressure 42/19 Cardiac Output 5.1 Cardiac Index 2.5 - Exam - Constitutional General appearance: Present: cooperative, morbidly obese, no acute distress - Respiratory Details: Lungs sounds diminished bilaterally. Respirations even, nonlabored. Currently on 2 L nasal cannula with oxygen saturation 93%. Able to achieve 3714-2583 mL on her incentive spirometry. Strong productive cough. Mediastinal/left pleural chest tube to continuous wall suction, 170 mL thin serosanguineous drainage overnight, 650 mL in the last 24 hours, no air leak present. - Cardiovascular Details: S1, S2 present. Positive valvular click. Regular rate and rhythm, sinus rhythm on telemetry. Palpable peripheral pulses bilaterally. Generalized trace edema present. No calf pain or tenderness noted. Right internal jugular Cordis, right radial arterial line present. Heart hugger in place with patient demonstrating appropriate use. Antiembolism stockings, SCDs present. - Gastrointestinal Gastrointestinal Comment(s): Abdomen soft, nontender, nondistended, obese. Active bowel sounds present 4 quadrants. Tolerating diet. Positive flatus, negative bowel movement. - Genitourinary Genitourinary Comment(s): Apodaca present draining clear, yellow urine. Output 35-40 mL per hour overnight. - Integumentary Integumentary Comment(s): Skin is warm and dry with evidence of good perfusion. Anterior chest incision well approximated and covered with dry intact dressing. Left radial artery harvest site well approximated. 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 - Neurologic Neurologic: Present: CNII-XII intact - Musculoskeletal Musculoskeletal: Present: gait normal, strength equal bilaterally - Psychiatric Psychiatric: Present: A&O x's 3, appropriate affect, intact judgment & insight - Labs CBC & Chem 7: 10/04/18 04:50 10/04/18 04:50 Labs: Abnormal Lab Results - Last 24 Hours (Table) 10/03/18 10/03/18 10/03/18 Range/Units 14:56 16:30 18:01 WBC (3.8-10.6) k/uL RBC (3.80-5.40) m/uL Hgb (11.4-16.0) gm/dL Hct (34.0-46.0) % RDW (11.5-15.5) % Neutrophils # (1.3-7.7) k/uL BUN (7-17) mg/dL Creatinine (0.52-1.04) mg/dL Glucose (74-99) mg/dL POC Glucose (mg/dL) 140 H 110 H 119 H (75-99) mg/dL Calcium (8.4-10.2) mg/dL Magnesium (1.6-2.3) mg/dL AST (14-36) U/L ALT (9-52) U/L Total Protein (6.3-8.2) g/dL Albumin (3.5-5.0) g/dL 10/03/18 10/03/18 10/03/18 Range/Units 18:55 20:11 21:09 WBC (3.8-10.6) k/uL RBC (3.80-5.40) m/uL Hgb (11.4-16.0) gm/dL Hct (34.0-46.0) % RDW (11.5-15.5) % Neutrophils # (1.3-7.7) k/uL BUN (7-17) mg/dL Creatinine (0.52-1.04) mg/dL Glucose (74-99) mg/dL POC Glucose (mg/dL) 144 H 118 H 124 H (75-99) mg/dL Calcium (8.4-10.2) mg/dL Magnesium (1.6-2.3) mg/dL AST (14-36) U/L ALT (9-52) U/L Total Protein (6.3-8.2) g/dL Albumin (3.5-5.0) g/dL 10/03/18 10/04/18 10/04/18 Range/Units 22:57 00:17 01:06 WBC (3.8-10.6) k/uL RBC (3.80-5.40) m/uL Hgb (11.4-16.0) gm/dL Hct (34.0-46.0) % RDW (11.5-15.5) % Neutrophils # (1.3-7.7) k/uL BUN (7-17) mg/dL Creatinine (0.52-1.04) mg/dL Glucose (74-99) mg/dL POC Glucose (mg/dL) 120 H 109 H 108 H (75-99) mg/dL Calcium (8.4-10.2) mg/dL Magnesium (1.6-2.3) mg/dL AST (14-36) U/L ALT (9-52) U/L Total Protein (6.3-8.2) g/dL Albumin (3.5-5.0) g/dL 10/04/18 10/04/18 10/04/18 Range/Units 02:12 03:13 04:27 WBC (3.8-10.6) k/uL RBC (3.80-5.40) m/uL Hgb (11.4-16.0) gm/dL Hct (34.0-46.0) % RDW (11.5-15.5) % Neutrophils # (1.3-7.7) k/uL BUN (7-17) mg/dL Creatinine (0.52-1.04) mg/dL Glucose (74-99) mg/dL POC Glucose (mg/dL) 144 H 125 H 101 H (75-99) mg/dL Calcium (8.4-10.2) mg/dL Magnesium (1.6-2.3) mg/dL AST (14-36) U/L ALT (9-52) U/L Total Protein (6.3-8.2) g/dL Albumin (3.5-5.0) g/dL 10/04/18 10/04/18 10/04/18 Range/Units 04:50 04:50 05:04 WBC 14.3 H (3.8-10.6) k/uL RBC 2.76 L (3.80-5.40) m/uL Hgb 7.1 L (11.4-16.0) gm/dL Hct 22.6 L (34.0-46.0) % RDW 16.3 H (11.5-15.5) % Neutrophils # 11.2 H (1.3-7.7) k/uL BUN 24 H (7-17) mg/dL Creatinine 1.23 H (0.52-1.04) mg/dL Glucose 109 H (74-99) mg/dL POC Glucose (mg/dL) 122 H (75-99) mg/dL Calcium 8.2 L (8.4-10.2) mg/dL Magnesium 2.9 H (1.6-2.3) mg/dL AST 267 H (14-36) U/L ALT 170 H (9-52) U/L Total Protein 5.5 L (6.3-8.2) g/dL Albumin 3.3 L (3.5-5.0) g/dL 10/04/18 10/04/18 10/04/18 Range/Units 06:10 07:12 08:16 WBC (3.8-10.6) k/uL RBC (3.80-5.40) m/uL Hgb (11.4-16.0) gm/dL Hct (34.0-46.0) % RDW (11.5-15.5) % Neutrophils # (1.3-7.7) k/uL BUN (7-17) mg/dL Creatinine (0.52-1.04) mg/dL Glucose (74-99) mg/dL POC Glucose (mg/dL) 139 H 135 H 150 H (75-99) mg/dL Calcium (8.4-10.2) mg/dL Magnesium (1.6-2.3) mg/dL AST (14-36) U/L ALT (9-52) U/L Total Protein (6.3-8.2) g/dL Albumin (3.5-5.0) g/dL 10/04/18 10/04/18 Range/Units 10:04 12:06 WBC (3.8-10.6) k/uL RBC (3.80-5.40) m/uL Hgb (11.4-16.0) gm/dL Hct (34.0-46.0) % RDW (11.5-15.5) % Neutrophils # (1.3-7.7) k/uL BUN (7-17) mg/dL Creatinine (0.52-1.04) mg/dL Glucose (74-99) mg/dL POC Glucose (mg/dL) 141 H 134 H (75-99) mg/dL Calcium (8.4-10.2) mg/dL Magnesium (1.6-2.3) mg/dL AST (14-36) U/L ALT (9-52) U/L Total Protein (6.3-8.2) g/dL Albumin (3.5-5.0) g/dL Assessment and Plan Plan: Assessment 1 aortic valve replacement with a mechanical aortic valve and two-vessel bypass surgery involving BRO to LAD and radial artery graft to OM 1 and the patient is postop day #2. 2 post thoracotomy, the patient was extubated without any major difficulties. The mediastinal chest tubes have been removed. The left pleural chest tube and kept in place. We'll monitor the output. The patient is using incentive spirometer. Pain is under good control. 3 morbid obesity with a BMI of 47.6 4 previous history of gastric sleeve surgery 5 previous history of Hodgkin's lymphoma 6 history of restless leg syndrome 7 hypertension 8 hyperlipidemia Plan Continue using incentive spirometer. Keep the left pleural chest tube in place. Remove the mediastinal chest tubes. The patient on aspirin. Increase the metoprolol to 25 mg by mouth twice a day. Continue oral Cardizem. We'll 70 correlation with warfarin 5 mg by mouth daily with daily PT/INR monitoring to achieve an INR between 2.5- 3.5. The patient will be kept in ICU for another 24 hours. Rest of the medical [facility] comorbidities are currently inactive and stable.
[2018-10-04 17:12] LABS: Glucose,Whole Blood 166 mg/dL (75-99)
[2018-10-04] MEDS ORDERED: WARFARIN 5 MG TAB PO ONE (18:00)
[2018-10-04] MEDS: INSULIN ASPART (NovoLOG) 100 UNIT/ML VIAL SQ SCH ×2 (18:24→21:09)
[2018-10-04 21:00] LABS: Glucose,Whole Blood 135 mg/dL (75-99)
[2018-10-04] MEDS: SENNOSIDES-DOCUSATE SODIUM 1 EACH TAB PO SCH (21:08)
--- NOTE | 2018-10-04 22:32 | PN ---
PROGRESS NOTE DATE OF SERVICE: 10/04/2018. PRESENTING COMPLAINTS: Status post CABG and aortic valve replacement. INTERVAL HISTORY: Patient is status post aortic valve replacement and CABG. The patient did walk out of the hallway. Does feel easily tired. A bit short of breath. Did pass some flatus. Two chest tubes were removed. Also started on Coumadin, hepatitis still low. Tired, sitting up in a chair. REVIEW OF SYSTEMS: Done for constitutional, cardiovascular, GI, pulmonary and relevant findings as above. CURRENT MEDICATIONS: Reviewed that include DuoNeb, Amiodarone, Lipitor, aspirin, p.o. Cardizem and subcu heparin. PHYSICAL EXAMINATION: VITAL SIGNS: Temperature 99.1, pulse 75, respiration 21, blood pressure 110/59, pulse ox 99% on 2 L. GENERAL APPEARANCE: Propped up in chair, tired-appearing. EYES: Pupils equal. Conjunctivae pale. HEENT: External appearance of nose and ears normal. Oral cavity normal. NECK: Short, thick. JVD unable to assess. Mass not palpable. RESPIRATORY: Effort increased. LUNGS: Diminished breath sounds. CARDIOVASCULAR: Mechanical heart sounds. No edema. ABDOMEN: Soft, nontender. Liver and spleen not palpable. PSYCHIATRY: Alert and oriented times three. Mood and affect normal. CHEST WALL: One chest tube in place. INVESTIGATIONS: White count 14.3, hemoglobin 7.1, BUN 24, creatinine 1.23. Chest x-ray results noted. ASSESSMENT: 1. Status post coronary artery bypass. 2. Severe aortic stenosis followed by aortic valve replacement with a mechanical valve. 3. Acute postoperative blood loss anemia expected from surgery. 4. Leukocytosis likely reactive from surgery. No evidence of infection. 5. Morbid obesity. BMI of more than 40. 6. Essential hypertension. 7. Primary osteoarthritis of the lumbar spine. 8. Restless legs syndrome. 9. Chronic scoliosis. 10.Coumadin monitoring. PLAN: Continue current medication and treatment plan. Patient is started on Coumadin per Cardiothoracic. Care was discussed with the patient. Encouraged to use the incentive spirometry. MMODL / IJN: [id number] /
[2018-10-05] MEDS: DILTIAZEM ORAL 30 MG TAB PO SCH ×4 (00:20→16:55)
[2018-10-05] MEDS: HEPARIN SODIUM,PORCINE 5,000 UNIT/ML 1 ML VIAL SQ SCH ×3 (00:20→16:56)
[2018-10-05] MEDS: HYDROcodone/APAP 5-325MG 1 EACH TAB PO PRN ×6 (00:25→20:47)
[2018-10-05 02:30] LABS: Glucose,Whole Blood 147 mg/dL (75-99)
[2018-10-05] MEDS: INSULIN ASPART (NovoLOG) 100 UNIT/ML VIAL SQ SCH ×5 (02:33→20:47)
[2018-10-05 05:42] LABS: Ionized Calcium 4.7 mg/dL (4.5-5.3)
[2018-10-05 05:51] LABS: ALT 160 U/L (9-52); AST 145 U/L (14-36); Albumin 3.1 g/dL (3.5-5.0); Alkaline Phosphatase 100 U/L (38-126); Anion Gap 7 mmol/L; Blood Urea Nitrogen 20 mg/dL (7-17); Calcium 8.1 mg/dL (8.4-10.2); Carbon Dioxide 25 mmol/L (22-30); Chloride 106 mmol/L (98-107); Glucose 124 mg/dL (74-99); Magnesium 2.6 mg/dL (1.6-2.3); Potassium 5.1 mmol/L (3.5-5.1); Sodium 138 mmol/L (137-145); Total Bilirubin 0.5 mg/dL (0.2-1.3); Total Protein 5.4 g/dL (6.3-8.2)
[2018-10-05 06:01] LABS: Anisocytosis Slight; Basophils # (A) 0.1 k/uL (0-0.2); Basophils % (A) 1 %; Eosinophils # (A) 0.2 k/uL (0-0.7); Eosinophils % (A) 1 %; HCT 27.5 % (34.0-46.0); HGB 8.1 gm/dL (11.4-16.0); Hypochromasia Marked; Lymphocytes # (A) 2.4 k/uL (1.0-4.8); Lymphocytes % (A) 15 %; MCH 25.4 pg (25.0-35.0); MCHC 29.3 g/dL (31.0-37.0); MCV 86.6 fL (80.0-100.0); Monocytes # (A) 0.7 k/uL (0-1.0); Monocytes % (A) 4 %; Neutrophils # (A) 12.6 k/uL (1.3-7.7); Neutrophils % (A) 77 %; Platelet Count 165 k/uL (150-450); RBC 3.18 m/uL (3.80-5.40); RDW 16.5 % (11.5-15.5); WBC 16.3 k/uL (3.8-10.6)
[2018-10-05 07:05] LABS: INR 0.9 (<1.2); Prothrombin Time 10.2 sec (9.0-12.0)
[2018-10-05 07:10] LABS: Glucose,Whole Blood 164 mg/dL (75-99)
[2018-10-05] MEDS: IPRATROPIUM-ALBUTEROL 3 ML NEB INHALATION SCH ×4 (07:46→19:51)
[2018-10-05] MEDS ORDERED: ATORVASTATIN 40 MG TAB PO SCH (09:00)
[2018-10-05] MEDS: PANTOPRAZOLE 40 MG TABLET PO SCH (09:01)
[2018-10-05] MEDS: ASPIRIN 325 MG TAB PO SCH (09:01)
[2018-10-05] MEDS: FERROUS SULFATE 325 MG TAB PO SCH ×2 (09:01→16:55)
[2018-10-05] MEDS: ASCORBIC ACID 500 MG TAB PO SCH ×2 (09:01→16:55)
[2018-10-05] MEDS: METOPROLOL TARTRATE 25 MG TAB PO SCH ×2 (09:01→20:51)
[2018-10-05] MEDS: MUPIROCIN 2% OINT 22 GM TUBE NASAL SCH ×2 (09:02→20:51)
--- NOTE | 2018-10-05 09:25 | XR ---
EXAMINATION TYPE: XR chest 1V portable DATE OF EXAM: 10/05/2018 COMPARISON: 10/04/2018 INDICATION: Post cardiac surgery TECHNIQUE: Single frontal view of the chest is obtained. FINDINGS: The heart size is mildly prominent. The pulmonary vasculature is normal. The lungs are clear. Left-sided chest tube remains present. Right central venous catheter sheath remains present. No pneum othorax is evident. IMPRESSION: 1. Mild cardiomegaly. 2. Left-sided chest tube remains present.
--- NOTE | 2018-10-05 09:47 | P.PN ---
Subjective Progress Note Date: 10/05/18 Principal diagnosis: Bicuspid aortic valve with severe aortic stenosis, symptomatic multivessel coronary artery disease with left main coronary artery disease. Morbid obesity. Hypertension. Hyperlipidemia. Prediabetic with preoperative hemoglobin A1c 6.3%. History of Hodgkin's lymphoma at 20 years old with subsequent chemo and radiation therapy. Previous tobacco abuse with preoperative FEV1 71% of predicted. Obstructive sleep apnea without CPAP use. History of gastric sleeve surgery. Restless leg syndrome. Family history of premature coronary artery disease with uncle having myocardial infarction 47 years old and cousin from myocardial infarction at 45 years old. POD #3 elective coronary artery bypass graft surgery with sequential left internal mammary artery to the left anterior descending artery to the diagonal branch, radial artery to the obtuse marginal artery, aortic valve replacement using a 23 mm On-X mechanical valve, aortic root enlargement with [place]-Bg patch , exclusion of the left atrial appendage using a 35 mm AtriClip, endoscopic left radial artery harvest, epi-aortic scanning, intraoperative transesophageal echocardiogram by anesthesia. Postoperative acute blood loss anemia, an expected outcome of surgery given cardiopulmonary bypass pump and hemodilution. The patient is currently sitting in a recliner in no acute distress in the intensive care unit. Remains hemodynamically stable on no inotropes or pressors. She is using her incentive spirometer diligently. Remains in normal sinus rhythm. Does complain of postoperative surgical chest pain which is controlled on current medication regimen, denies shortness of breath. No new complaints. She has ambulated in the hallway. Objective - Vital Signs Vital signs: Vital Signs Temp 98.9 F 10/05/18 04:00 Pulse 78 10/05/18 07:56 Resp 20 10/05/18 07:00 BP 110/51 10/05/18 07:00 Pulse Ox 97 10/05/18 07:00 Intake & Output 10/04/18 10/05/18 10/05/18 18:59 06:59 18:59 Intake Total 1126.803 240 20 Output Total 540 760 0 Balance 586.803 -520 20 Weight 143 kg Intake: IV 261 240 20 Lactated Ringers 1,000 ml 240 240 20 @ 20 mls/hr IV .Q24H [facility] Rx#:[id number] Pressure Bag 21 Intake, IV Titration 25.803 Amount Insulin Regular 100 unit 25.803 In Sodium Chloride 0.9% 100 ml @ Per Protocol IV .Q0M [facility] Rx#:[id number] Oral 840 Output: Chest Tube Drainage 75 160 0 Left Pleural/Mediastinal 50 left pleural 25 160 0 Urine 465 600 Other: Voiding Method Bedside Commode Bedside Commode ABP, PAP, CO, CI - Last Documented Arterial Blood Pressure 104/84 Pulmonary Artery Pressure 42/19 Cardiac Output 5.1 Cardiac Index 2.5 - Constitutional General appearance: Present: cooperative, morbidly obese, no acute distress - Respiratory Details: Lungs sounds diminished bilaterally. Respirations even, nonlabored. Currently on 2 L nasal cannula with oxygen saturation 97%. Able to achieve 1000 mL on her incentive spirometry. Strong productive cough with paige/yellow sputum. Left pleural chest tube to continuous wall suction, 90 mL thin serous drainage overnight, 200 mL in the last 24 hours, no air leak present. - Cardiovascular Details: S1, S2 present. Positive valvular click. Regular rate and rhythm, sinus rhythm on telemetry. Palpable peripheral pulses bilaterally. Generalized trace edema present. No calf pain or tenderness noted. Right internal jugular Cordis present. Heart hugger in place with patient demonstrating appropriate use. Antiembolism stockings, SCDs present. - Gastrointestinal Gastrointestinal Comment(s): Abdomen soft, nontender, nondistended, obese. Active bowel sounds present 4 quadrants. Tolerating diet. Positive flatus, negative bowel movement. - Genitourinary Genitourinary Comment(s): Apodaca discontinued yesterday. Patient has voided, measures approximately 300 mL at a time - Integumentary Integumentary Comment(s): Skin is warm and dry with evidence of good perfusion. Anterior chest incision well approximated and covered with dry intact dressing. Left radial artery harvest site well approximated. 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 - Neurologic Neurologic: Present: CNII-XII intact - Musculoskeletal Musculoskeletal: Present: gait normal, strength equal bilaterally - Psychiatric Psychiatric: Present: A&O x's 3, appropriate affect, intact judgment & insight - Allied health notes Allied health notes reviewed: nursing - Labs CBC & Chem 7: 10/05/18 05:07 10/05/18 05:07 Labs: Abnormal Lab Results - Last 24 Hours (Table) 10/04/18 10/04/18 10/04/18 Range/Units 10:04 12:06 17:00 WBC (3.8-10.6) k/uL RBC (3.80-5.40) m/uL Hgb (11.4-16.0) gm/dL Hct (34.0-46.0) % MCHC (31.0-37.0) g/dL RDW (11.5-15.5) % Neutrophils # (1.3-7.7) k/uL BUN (7-17) mg/dL Glucose (74-99) mg/dL POC Glucose (mg/dL) 141 H 134 H 166 H (75-99) mg/dL Calcium (8.4-10.2) mg/dL Magnesium (1.6-2.3) mg/dL AST (14-36) U/L ALT (9-52) U/L Total Protein (6.3-8.2) g/dL Albumin (3.5-5.0) g/dL 10/04/18 10/05/18 10/05/18 Range/Units 20:48 02:19 05:07 WBC (3.8-10.6) k/uL RBC (3.80-5.40) m/uL Hgb (11.4-16.0) gm/dL Hct (34.0-46.0) % MCHC (31.0-37.0) g/dL RDW (11.5-15.5) % Neutrophils # (1.3-7.7) k/uL BUN 20 H (7-17) mg/dL Glucose 124 H (74-99) mg/dL POC Glucose (mg/dL) 135 H 147 H (75-99) mg/dL Calcium 8.1 L (8.4-10.2) mg/dL Magnesium 2.6 H (1.6-2.3) mg/dL AST 145 H (14-36) U/L ALT 160 H (9-52) U/L Total Protein 5.4 L (6.3-8.2) g/dL Albumin 3.1 L (3.5-5.0) g/dL 10/05/18 10/05/18 Range/Units 05:07 06:59 WBC 16.3 H (3.8-10.6) k/uL RBC 3.18 L (3.80-5.40) m/uL Hgb 8.1 L (11.4-16.0) gm/dL Hct 27.5 L (34.0-46.0) % MCHC 29.3 L (31.0-37.0) g/dL RDW 16.5 H (11.5-15.5) % Neutrophils # 12.6 H (1.3-7.7) k/uL BUN (7-17) mg/dL Glucose (74-99) mg/dL POC Glucose (mg/dL) 164 H (75-99) mg/dL Calcium (8.4-10.2) mg/dL Magnesium (1.6-2.3) mg/dL AST (14-36) U/L ALT (9-52) U/L Total Protein (6.3-8.2) g/dL Albumin (3.5-5.0) g/dL - Imaging and Cardiology Chest x-ray: report reviewed, image reviewed Assessment and Plan (1) Morbid obesity with BMI of 50.0-59.9, adult Current Visit: Yes Status: Chronic Code(s): E66.01 - MORBID (SEVERE) OBESITY DUE TO EXCESS CALORIES; Z68.43 - BODY MASS INDEX (BMI) 50-59.9, ADULT SNOMED Code(s): 131828575 (2) Family history of early CAD Current Visit: Yes Status: Chronic Code(s): Z82.49 - FAMILY HX OF ISCHEM HEART DIS AND OTH DIS OF THE [facility] SYS SNOMED Code(s): 495679369 (3) Tobacco dependence in remission Current Visit: No Status: Resolved Code(s): F17.201 - NICOTINE DEPENDENCE, UNSPECIFIED, IN REMISSION SNOMED Code(s): 338423304 (4) Aortic stenosis Current Visit: No Status: Resolved Code(s): I35.0 - NONRHEUMATIC AORTIC ( VALVE) STENOSIS SNOMED Code(s): 29853896 (5) History of gastric surgery Current Visit: No Status: Resolved Code(s): Z98.890 - OTHER SPECIFIED POSTPROCEDURAL STATES SNOMED Code(s): 310255176 (6) Hyperlipidemia Current Visit: Yes Status: Chronic Code(s): E78.5 - HYPERLIPIDEMIA, UNSPECIFIED SNOMED Code(s): 90429680 (7) Hypertension Current Visit: Yes Status: Chronic Code(s): I10 - ESSENTIAL (PRIMARY) HYPERTENSION SNOMED Code(s): 50284641 (8) Obstructive sleep apnea Current Visit: No Status: Chronic Code(s): G47.33 - OBSTRUCTIVE SLEEP APNEA (ADULT) (PEDIATRIC) SNOMED Code(s): 16792970 (9) Restless leg syndrome Current Visit: No Status: Chronic Code(s): G25.81 - RESTLESS LEGS SYNDROME SNOMED Code(s): 56963689 (10) History of Hodgkin's lymphoma Current Visit: No Status: Resolved Code(s): Z85.71 - PERSONAL HISTORY OF HODGKIN LYMPHOMA SNOMED Code(s): 903214704 (11) History of chemotherapy Current Visit: No Status: Resolved Code(s): Z92.21 - PERSONAL HISTORY OF ANTINEOPLASTIC CHEMOTHERAPY SNOMED Code(s): 541201943809010 (12) History of radiation therapy Current Visit: No Status: Resolved Code(s): Z92.3 - PERSONAL HISTORY OF IRRADIATION SNOMED Code(s): 897668321 Plan: 1. Continue aspirin, beta will therapy. Will increase beta will therapy as tolerated. Will re-add Crestor as patient's liver enzymes are decreasing. 2. Continue oral Cardizem for radial artery spasm prophylaxis. Will transition to Cardizem CD at discharge. 3. Wean O2 as tolerated. Encourage incentive spirometry 10 times every hour. Encourage continued smoking cessation. 4. Bronchodilators per pulmonology. 5. Increase activity, ambulate as tolerated. PT/OT/cardiac rehab following. 6. Continue Coumadin, will give 7.5 mg, INR this morning 0.9 after 5 mg given yesterday. We will dose daily based on PT/INR. Goal INR 2.5-3.5 for the first 3 months, then 1.5-2.0. 7. Will monitor daily labs and x-rays. Electrolyte replacement per protocol. No transfusion at this time. 8. Pain control with current medication regimen. 9. Insulin management per primary care service. 10. GI prophylaxis with Protonix. DVT prophylaxis with subcu heparin, SCDs. Will discontinue subcu heparin when INR is therapeutic. 11. When able to obtain peripheral IV discontinue Cordis. 12. Will discontinue left pleural chest tube. 13. Once able to obtain peripheral IV and discontinue Cordis transfer orders will be placed for 3 S. cardiac stepdown unit. 14. More recommendations to follow as patient progresses. Time with Patient: Greater than 30
--- NOTE | 2018-10-05 10:59 | PN ---
PROGRESS NOTE Mrs. Kurtz is a 48-year-old female who underwent aortic valve replacement, coronary artery bypass grafting. She is feeling better today. She is feeling stronger. She has some chest wall tenderness. She feels that her breathing is better. She continued be in sinus mechanism. She denies any dizziness or palpitation. She denies any nausea. She continues to be at this time on aspirin once a day, diltiazem 30 mg every 6 hours, metoprolol tartrate 25 mg twice a day, and she was started on Coumadin. PHYSICAL EXAMINATION: Blood pressure 104/60 with a heart rate in 70s. Lungs with a few crackles at the bases. No wheezes. HEART: Regular rate and rhythm S1, S2 with prosthetic aortic sound. No diastolic murmur. ABDOMEN: Soft, nontender, obese. Extremities: No significant edema. LAB DATA: BUN and creatinine 20 and 0.7, potassium 5.1, hemoglobin of 8.1. AST of 145, ALT 160. IMPRESSION: 1. Status post coronary artery bypass grafting and aortic valve replacement with a prosthetic valve. 2. Hyperlipidemia. 3. Status post gastric bypass. 4. Hodgkin's lymphoma. RECOMMENDATIONS: From the cardiac standpoint, we will continue present therapy. Continue anticoagulation as present. Once anticoagulated, I will cut down the dose of her aspirin to 81 mg daily. We will continue to increase her activity level. MMODL / IJN: [id number] /
[2018-10-05 12:09] LABS: Glucose,Whole Blood 130 mg/dL (75-99)
--- NOTE | 2018-10-05 14:48 | P.PN ---
Subjective Progress Note Date: 10/05/18 On today's evaluation of potential thousand and 19 the patient is postop day # 3. The patient underwent aortic valve replacement. The patient is doing extremely well. The patient has no specific complaints. The patient is post abdominal 3. Chest tubes have been removed. She is hemodynamically stable. She is in a sinus rhythm. No cough sputum production chest answer wheezing. She continues using incentive spirometer. The chest x-ray from today shows no acute abnormalities. There is mild cardiomegaly. Her surgical wound is dry clean and intact. The patient was also started on and to coagulation with warfarin. PT/INR remains subtherapeutic. INR today is at 0.9. She'll be receiving 7.5 mg of warfarin today. Objective - Vital Signs Vital signs: Vital Signs Temp 98.9 F 10/05/18 04:00 Pulse 74 10/05/18 12:19 Resp 14 10/05/18 11:00 BP 100/57 10/05/18 11:00 Pulse Ox 97 10/05/18 11:00 Intake & Output 10/04/18 10/05/18 10/05/18 18:59 06:59 18:59 Intake Total 1126.803 240 460 Output Total 540 760 340 Balance 586.803 -520 120 Weight 143 kg Intake: IV 261 240 100 Lactated Ringers 1,000 ml 240 240 100 @ 20 mls/hr IV .Q24H [facility] Rx#:[id number] Pressure Bag 21 Intake, IV Titration 25.803 Amount Insulin Regular 100 unit 25.803 In Sodium Chloride 0.9% 100 ml @ Per Protocol IV .Q0M [facility] Rx#:[id number] Oral 840 360 Output: Chest Tube Drainage 75 160 40 Left Pleural/Mediastinal 50 left pleural 25 160 40 Urine 465 600 300 Other: Voiding Method Bedside Commode Bedside Commode Bedside Commode ABP, PAP, CO, CI - Last Documented Arterial Blood Pressure 104/84 Pulmonary Artery Pressure 42/19 Cardiac Output 5.1 Cardiac Index 2.5 - Exam General appearance: Present: cooperative, morbidly obese, no acute distress - Respiratory Details: Lungs sounds diminished bilaterally. Respirations even, nonlabored. Currently on 2 L nasal cannula with oxygen saturation 97%. Able to achieve 1000 mL on her incentive spirometry. Strong productive cough with paige/yellow sputum. Left pleural chest tube to continuous wall suction, 90 mL thin serous drainage overnight, 200 mL in the last 24 hours, no air leak present. - Cardiovascular Details: S1, S2 present. Positive valvular click. Regular rate and rhythm, sinus rhythm on telemetry. Palpable peripheral pulses bilaterally. Generalized trace edema present. No calf pain or tenderness noted. Right internal jugular Cordis present. Heart hugger in place with patient demonstrating appropriate use. Antiembolism stockings, SCDs present. - Gastrointestinal Gastrointestinal Comment(s): Abdomen soft, nontender, nondistended, obese. Active bowel sounds present 4 quadrants. Tolerating diet. Positive flatus, negative bowel movement. - Genitourinary Genitourinary Comment(s): Apodaca discontinued yesterday. Patient has voided, measures approximately 300 mL at a time - Integumentary Integumentary Comment(s): Skin is warm and dry with evidence of good perfusion. Anterior chest incision well approximated and covered with dry intact dressing. Left radial artery harvest site well approximated. 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 - Neurologic Neurologic: Present: CNII-XII intact - Musculoskeletal Musculoskeletal: Present: gait normal, strength equal bilaterally - Psychiatric Psychiatric: Present: A&O x's 3, appropriate affect, intact judgment & insight - Labs CBC & Chem 7: 10/05/18 05:07 10/05/18 05:07 Labs: Abnormal Lab Results - Last 24 Hours (Table) 10/04/18 10/04/18 10/05/18 Range/Units 17:00 20:48 02:19 WBC (3.8-10.6) k/uL RBC (3.80-5.40) m/uL Hgb (11.4-16.0) gm/dL Hct (34.0-46.0) % MCHC (31.0-37.0) g/dL RDW (11.5-15.5) % Neutrophils # (1.3-7.7) k/uL BUN (7-17) mg/dL Glucose (74-99) mg/dL POC Glucose (mg/dL) 166 H 135 H 147 H (75-99) mg/dL Calcium (8.4-10.2) mg/dL Magnesium (1.6-2.3) mg/dL AST (14-36) U/L ALT (9-52) U/L Total Protein (6.3-8.2) g/dL Albumin (3.5-5.0) g/dL 10/05/18 10/05/18 10/05/18 Range/Units 05:07 05:07 06:59 WBC 16.3 H (3.8-10.6) k/uL RBC 3.18 L (3.80-5.40) m/uL Hgb 8.1 L (11.4-16.0) gm/dL Hct 27.5 L (34.0-46.0) % MCHC 29.3 L (31.0-37.0) g/dL RDW 16.5 H (11.5-15.5) % Neutrophils # 12.6 H (1.3-7.7) k/uL BUN 20 H (7-17) mg/dL Glucose 124 H (74-99) mg/dL POC Glucose (mg/dL) 164 H (75-99) mg/dL Calcium 8.1 L (8.4-10.2) mg/dL Magnesium 2.6 H (1.6-2.3) mg/dL AST 145 H (14-36) U/L ALT 160 H (9-52) U/L Total Protein 5.4 L (6.3-8.2) g/dL Albumin 3.1 L (3.5-5.0) g/dL 10/05/18 Range/Units 11:57 WBC (3.8-10.6) k/uL RBC (3.80-5.40) m/uL Hgb (11.4-16.0) gm/dL Hct (34.0-46.0) % MCHC (31.0-37.0) g/dL RDW (11.5-15.5) % Neutrophils # (1.3-7.7) k/uL BUN (7-17) mg/dL Glucose (74-99) mg/dL POC Glucose (mg/dL) 130 H (75-99) mg/dL Calcium (8.4-10.2) mg/dL Magnesium (1.6-2.3) mg/dL AST (14-36) U/L ALT (9-52) U/L Total Protein (6.3-8.2) g/dL Albumin (3.5-5.0) g/dL Assessment and Plan Plan: Assessment 1 aortic valve replacement with a mechanical aortic valve and two-vessel bypass surgery involving BRO to LAD and radial artery graft to OM 1 and the patient is postop day #3 2 post thoracotomy, the patient was extubated without any major difficulties. All of the chest tubes are out and the patient is ambulating and using incentive spirometer. 3 morbid obesity with a BMI of 47.6 4 previous history of gastric sleeve surgery 5 previous history of Hodgkin's lymphoma 6 history of restless leg syndrome 7 hypertension 8 hyperlipidemia 9 history of Hodgkin's lymphoma with chemotherapy and radiation therapy Plan Continue using incentive spirometer. All of the chest tubes have been removed. The patient on aspirin. Increase the metoprolol to 25 mg by mouth twice a day. Continue oral Cardizem. We'll 70 correlation with warfarin 7.5 mg by mouth daily and daily PT/INR monitoring to achieve an INR between 2.5- 3.5. The patient will be kept in ICU for another 24 hours. She is doing very well. Pain is under good control. No other significant events overnight. Restart Crestor.
[2018-10-05 17:06] LABS: Glucose,Whole Blood 120 mg/dL (75-99)
[2018-10-05] MEDS ORDERED: FUROSEMIDE 10 MG/ML 2 ML VIAL IV ONE (17:23)
[2018-10-05] MEDS ORDERED: WARFARIN 7.5 MG TAB PO ONE (18:00)
--- NOTE | 2018-10-05 19:30 | PN ---
PROGRESS NOTE DATE OF SERVICE: October 05, 2018. PRESENTING COMPLAINT: Status post CABG. Aortic valve replacement. INTERVAL HISTORY: Patient is status post mechanical aortic valve replacement and CABG. Continues to feel better though feels a bit tired. Still a bit short of breath. Did have a bowel movement. The patient has been started on Coumadin. Tolerating a diet. REVIEW OF SYSTEMS: Done for constitutional, cardiovascular, GI, pulmonary and relevant findings as above. CURRENT MEDICATIONS: Reviewed that include DuoNeb, aspirin, Crestor, p.o. Cardizem, Lopressor. EXAMINATION: VITAL SIGNS: Temperature 98.6, pulse 77, respirations 17, blood pressure 102/64, pulse ox 100 percent on room air. GENERAL APPEARANCE: Sitting up in a chair, tired, awake. EYES: Pupils equal. Conjunctivae pale. HEENT: External appearance of nose and ears normal. Oral cavity normal. NECK: Short, thick. JVD unable to assess. Mass not palpable. RESPIRATORY: Effort increased. LUNGS: Diminished breath sounds. CARDIOVASCULAR: Mechanical heart sounds. No edema. ABDOMEN: Soft, nontender. Liver and spleen not palpable. PSYCHIATRY: Alert and oriented x3. Mood and affect normal. INVESTIGATIONS: White count 15.3, hemoglobin 8.1, potassium 5.1, BUN 20, creatinine 0.78. Accu-Cheks are noted. ASSESSMENT: 1. Status post coronary artery bypass. 2. Severe aortic stenosis followed by mechanical aortic valve replacement. 3. Acute postoperative blood loss anemia expected from surgery. 4. Leukocytosis likely reactive from surgery. No evidence of infection. 5. Morbid obesity BMI more than 40. 6. Essential hypertension. 7. Primary osteoarthritis of the lumbar area. 8. Restless leg syndrome. 9. Chronic scoliosis. 10.Coumadin monitoring. 11.Hypoalbuminemia as an acute phase reactant. PLAN: Continue current medication and treatment plan. INR is 0.9. Care was discussed with the patient. MMODL / IJN: [id number] /
[2018-10-05 20:44] LABS: Glucose,Whole Blood 135 mg/dL (75-99)
[2018-10-05] MEDS: PRAMIPEXOLE 0.5 MG TAB PO SCH (20:49)
[2018-10-05] MEDS: CRESTOR 5 MG PO SCH (20:50)
[2018-10-05] MEDS: SENNOSIDES-DOCUSATE SODIUM 1 EACH TAB PO SCH (20:52)
[2018-10-05] MEDS ORDERED: MD COMMUNICATION TO PHARMACY 1 EACH MISC PO ONE (21:00)
[2018-10-06] MEDS: DILTIAZEM ORAL 30 MG TAB PO SCH ×4 (00:48→18:07)
[2018-10-06] MEDS: HEPARIN SODIUM,PORCINE 5,000 UNIT/ML 1 ML VIAL SQ SCH ×3 (00:48→18:03)
[2018-10-06] MEDS: HYDROcodone/APAP 5-325MG 1 EACH TAB PO PRN ×3 (04:23→20:20)
[2018-10-06] MEDS: INSULIN ASPART (NovoLOG) 100 UNIT/ML VIAL SQ SCH ×5 (04:24→20:26)
[2018-10-06 05:01] LABS: Anisocytosis Slight; Basophils # (A) 0.1 k/uL (0-0.2); Basophils % (A) 1 %; Eosinophils # (A) 0.4 k/uL (0-0.7); Eosinophils % (A) 3 %; HCT 23.1 % (34.0-46.0); HGB 7.1 gm/dL (11.4-16.0); Hypochromasia Marked; Lymphocytes # (A) 1.7 k/uL (1.0-4.8); Lymphocytes % (A) 13 %; MCH 25.2 pg (25.0-35.0); MCHC 30.7 g/dL (31.0-37.0); Mean Platelet Volume 7.6; Monocytes # (A) 0.5 k/uL (0-1.0); Monocytes % (A) 4 %; Neutrophils # (A) 10.4 k/uL (1.3-7.7); Neutrophils % (A) 78 %; Platelet Count 208 k/uL (150-450); RBC 2.81 m/uL (3.80-5.40); RDW 17.2 % (11.5-15.5); WBC 13.3 k/uL (3.8-10.6)
[2018-10-06 05:09] LABS: INR 1.2 (<1.2); Prothrombin Time 12.7 sec (9.0-12.0)
[2018-10-06 05:16] LABS: ALT 107 U/L (9-52); AST 65 U/L (14-36); Alkaline Phosphatase 120 U/L (38-126); Anion Gap 5 mmol/L; Blood Urea Nitrogen 18 mg/dL (7-17); Calcium 8.2 mg/dL (8.4-10.2); Carbon Dioxide 28 mmol/L (22-30); Chloride 106 mmol/L (98-107); Glucose 128 mg/dL (74-99); Magnesium 2.4 mg/dL (1.6-2.3); Potassium 4.5 mmol/L (3.5-5.1); Sodium 139 mmol/L (137-145); Total Bilirubin 0.5 mg/dL (0.2-1.3); Total Protein 5.4 g/dL (6.3-8.2)
[2018-10-06] MEDS: IPRATROPIUM-ALBUTEROL 3 ML NEB INHALATION SCH ×4 (07:16→21:23)
[2018-10-06 07:24] LABS: Glucose,Whole Blood 144 mg/dL (75-99)
--- NOTE | 2018-10-06 08:02 | XR ---
EXAMINATION TYPE: XR chest 2V DATE OF EXAM: 10/06/2018 COMPARISON: Prior chest x-ray 10/05/2018 HISTORY: Status post cardiac surgery TECHNIQUE: Frontal and lateral views of the chest are obtained. FINDINGS: Patient is post median sternotomy and atrial appendage clipping. Patchy basilar density is noted posteriorly. Left chest tube has been removed. Central venous sheath remains in place. No evid ent pneumothorax. Heart remains enlarged. There are cardiac leads, overlying artifact. IMPRESSION: Suspect some improvement in aeration. No evident complication status post chest tube rem oval.
--- NOTE | 2018-10-06 08:16 | PN ---
PROGRESS NOTE Mrs. Kurtz is a 48-year-old female who underwent aortic valve replacement and coronary artery bypass grafting. She is doing well this morning. She is still sore, but feeling well overall. She feels tired at time. She is in sinus mechanism. Hemodynamically, she is stable. She is on no pressor. She is using her incentive spirometry and continues to be on aspirin once a day, Plavix 75 mg daily, diltiazem 30 mg q. 6 hours, metoprolol tartrate 25 mg twice a day and was started on Coumadin. PHYSICAL EXAMINATION: Blood pressure running in the 100 with a heart rate in 70s. LUNGS: Mild decrease in breath sounds at the bases. HEART: Regular rate and rhythm, S1-S2 with prosthetic aortic sound and a systolic murmur, no diastolic murmur. ABDOMEN: Soft, nontender. EXTREMITIES: 1+ edema. LAB DATA: Revealed an INR of 1.2. BUN and creatinine of 18 and 0.69, hemoglobin of 7.1, white blood cells 13.3. IMPRESSION: 1. Status post aortic valve replacement and coronary artery bypass grafting. 2. History of hyperlipidemia. 3. Status post gastric bypass. 4. Hodgkin lymphoma. RECOMMENDATION: From the cardiac standpoint, will continue present therapy. Increase his level of activity. Continue incentive spirometry. Continue anticoagulation. She is scheduled to undergo placement of a midline today so the IJ catheter can be removed and probably transfer to telemetry floor. MMTRA / SARA: [id number] /
[2018-10-06] MEDS: METOPROLOL TARTRATE 25 MG TAB PO SCH ×2 (08:51→20:27)
[2018-10-06] MEDS: FERROUS SULFATE 325 MG TAB PO SCH ×2 (08:51→18:03)
[2018-10-06] MEDS: PANTOPRAZOLE 40 MG TABLET PO SCH (08:52)
[2018-10-06] MEDS: ASPIRIN 325 MG TAB PO SCH (08:52)
[2018-10-06] MEDS: ASCORBIC ACID 500 MG TAB PO SCH ×2 (08:52→18:03)
[2018-10-06 11:45] LABS: Glucose,Whole Blood 147 mg/dL (75-99)
--- NOTE | 2018-10-06 13:15 | P.PN ---
Subjective Progress Note Date: 10/06/18 Principal diagnosis: Status post aortic valve replacement with mechanical aortic valve and two- vessel bypass surgery involving BRO to LAD and radial artery graft to obtuse marginal 1 postoperative day #4 Patient was reevaluated today on 10/06/2018, status post aortic valve replacement and two-vessel CABG. Postoperative day #4. Chest tubes have been removed, patient is hemodynamically stable, relatively asymptomatic, no cough no wheezing no shortness of breath chest x-ray was reviewed, patchy basilar density noted bilaterally, mostly atelectasis which is expected after this kind of surgery. Objective - Vital Signs Vital signs: Vital Signs Temp 98.1 F 10/06/18 12:00 Pulse 87 10/06/18 12:00 Resp 24 10/06/18 12:00 BP 109/50 10/06/18 12:00 Pulse Ox 95 10/06/18 12:00 Intake & Output 10/05/18 10/06/18 10/06/18 18:59 06:59 18:59 Intake Total 1320 740 120 Output Total 642 650 200 Balance 678 90 -80 Weight 142.4 kg Intake: IV 240 240 120 Lactated Ringers 1,000 ml 240 240 120 @ 20 mls/hr IV .Q24H [facility] Rx#:[id number] Oral 1080 500 Output: Chest Tube Drainage 40 left pleural 40 Urine 600 650 200 Stool 2 Other: Voiding Method Bedside Commode Bedside Commode Bedside Commode # Voids 2 ABP, PAP, CO, CI - Last Documented Arterial Blood Pressure 104/84 Pulmonary Artery Pressure 42/19 Cardiac Output 5.1 Cardiac Index 2.5 - Exam Physical Exam: Revealed a 48-year-old female in no distress Head: Atraumatic normocephalic HEENT:[Neck is supple.] [No neck masses.] [No thyromegaly.] [No JVD.] Chest: [Clear throughout, no crackles, no rhonchi, no wheezes.] Cardiac Exam: [Normal S1 and S2, no S3 gallop, no murmur.] Abdomen: [Soft, nontender, no megaly, no rebound, no guarding, normal bowel sounds.] Extremities: [No clubbing, no edema, no cyanosis.] Neurological Exam: [No focal neurologic deficit.] Psychiatric: Normal mood affect and mental status examination. Skin: No rashes. - Labs CBC & Chem 7: 10/06/18 04:42 10/06/18 04:42 Labs: Abnormal Lab Results - Last 24 Hours (Table) 10/05/18 10/05/18 10/06/18 Range/Units 16:55 20:33 04:42 WBC (3.8-10.6) k/uL RBC (3.80-5.40) m/uL Hgb (11.4-16.0) gm/dL Hct (34.0-46.0) % MCHC (31.0-37.0) g/dL RDW (11.5-15.5) % Neutrophils # (1.3-7.7) k/uL PT 12.7 H (9.0-12.0) sec INR 1.2 H (<1.2) BUN (7-17) mg/dL Glucose (74-99) mg/dL POC Glucose (mg/dL) 120 H 135 H (75-99) mg/dL Calcium (8.4-10.2) mg/dL Magnesium (1.6-2.3) mg/dL AST (14-36) U/L ALT (9-52) U/L Total Protein (6.3-8.2) g/dL Albumin (3.5-5.0) g/dL 10/06/18 10/06/18 10/06/18 Range/Units 04:42 04:42 07:13 WBC 13.3 H (3.8-10.6) k/uL RBC 2.81 L (3.80-5.40) m/uL Hgb 7.1 L (11.4-16.0) gm/dL Hct 23.1 L (34.0-46.0) % MCHC 30.7 L (31.0-37.0) g/dL RDW 17.2 H (11.5-15.5) % Neutrophils # 10.4 H (1.3-7.7) k/uL PT (9.0-12.0) sec INR (<1.2) BUN 18 H (7-17) mg/dL Glucose 128 H (74-99) mg/dL POC Glucose (mg/dL) 144 H (75-99) mg/dL Calcium 8.2 L (8.4-10.2) mg/dL Magnesium 2.4 H (1.6-2.3) mg/dL AST 65 H (14-36) U/L ALT 107 H (9-52) U/L Total Protein 5.4 L (6.3-8.2) g/dL Albumin 3.0 L (3.5-5.0) g/dL 10/06/18 Range/Units 11:32 WBC (3.8-10.6) k/uL RBC (3.80-5.40) m/uL Hgb (11.4-16.0) gm/dL Hct (34.0-46.0) % MCHC (31.0-37.0) g/dL RDW (11.5-15.5) % Neutrophils # (1.3-7.7) k/uL PT (9.0-12.0) sec INR (<1.2) BUN (7-17) mg/dL Glucose (74-99) mg/dL POC Glucose (mg/dL) 147 H (75-99) mg/dL Calcium (8.4-10.2) mg/dL Magnesium (1.6-2.3) mg/dL AST (14-36) U/L ALT (9-52) U/L Total Protein (6.3-8.2) g/dL Albumin (3.5-5.0) g/dL Assessment and Plan Assessment: Impression: 1 status post aortic valve replacement and two-vessel bypass surgery involving BRO to LAD and the radial artery graft to obtuse marginal 1, patient is postoperative day #4. 2 postoperative atelectasis, expected after such surgery. Hence the patient will remain on incentive spirometry. 3 history of previous gastric sleeve surgery. 4 history of Hodgkin's lymphoma 5 multiple comorbidities including hypertension, hyperlipidemia, restless leg syndrome, and morbid obesity. BMI of 47.6. Recommendation: Continue incentive spirometry, patient could be transferred out of the ICU to a monitor bed on selective, we'll continue to follow. Time with Patient: Less than 30
--- NOTE | 2018-10-06 13:55 | P.PN ---
Subjective Progress Note Date: 10/06/18 Principal diagnosis: Bicuspid aortic valve with severe aortic valve stenosis, symptomatic multivessel coronary artery disease with left main coronary artery disease. Morbid obesity with a BMI of 52.2 kg/m, hypertension, hyperlipidemia, prediabetic with preoperative hemoglobin A1c 6.3%. History of Hodgkin's lymphoma at 20 years old with subsequent chemo and radiation therapy. Remote history of tobacco abuse with preoperative FEV1 71% of predicted, obstructive sleep apnea without CPAP use, history of gastric sleeve surgery, restless leg syndrome, family history of premature coronary artery disease with an uncle having a myocardial infarction at 47 years old and a cousin from myocardial infarction at 45 years old. POD #4 elective coronary artery bypass graft surgery with sequential left internal mammary artery to the left anterior descending artery to the diagonal branch, radial artery to the obtuse marginal artery, aortic valve replacement using a 23 mm On-X mechanical valve, aortic root enlargement with T[place]a-Bg patch , exclusion of the left atrial appendage using a 35 mm AtriClip, endoscopic left radial artery harvest, epi-aortic scanning, intraoperative transesophageal echocardiogram by anesthesia. Postoperative acute blood loss anemia, an expected outcome of surgery given cardiopulmonary bypass pump and hemodilution. The patient is currently sitting up to the bedside chair in the intensive care unit. She remains hemodynamically stable on no inotropes or pressors. She denies any complaints of pain or shortness of breath this time. Bedside telemetry shows normal sinus rhythm with a heart rate of 77 BPM. She reports that she has been ambulating in the intensive care unit hallway with minimal assistance. Objective - Vital Signs Vital signs: Vital Signs Temp 98 F 10/06/18 08:00 Pulse 73 10/06/18 10:00 Resp 20 10/06/18 10:00 BP 117/59 10/06/18 10:00 Pulse Ox 93 L 10/06/18 10:00 Intake & Output 10/05/18 10/06/18 10/06/18 18:59 06:59 18:59 Intake Total 1320 740 80 Output Total 642 650 Balance 678 90 80 Weight 142.4 kg Intake: IV 240 240 80 Lactated Ringers 1,000 ml 240 240 80 @ 20 mls/hr IV .Q24H [facility] Rx#:[id number] Oral 1080 500 Output: Chest Tube Drainage 40 left pleural 40 Urine 600 650 Stool 2 Other: Voiding Method Bedside Commode Bedside Commode Bedside Commode # Voids 2 ABP, PAP, CO, CI - Last Documented Arterial Blood Pressure 104/84 Pulmonary Artery Pressure 42/19 Cardiac Output 5.1 Cardiac Index 2.5 - Constitutional General appearance: Present: cooperative, morbidly obese, no acute distress - Respiratory Details: Lung sounds essentially clear throughout, diminished bilateral bases. Respirations are symmetrical and nonlabored. Oxygen saturation are 95% on room air. She is achieving 1250 mL on her incentive spirometry. - Cardiovascular Details: Regular rhythm and rate. S1 and S2 present, positive valvular click, negative for S3, gallop or murmur. Sternum is stable. Bedside telemetry showing normal sinus rhythm heart rate 77. Heart hugger is in place and she is demonstrating appropriate use. Generalized +1 edema. Right IJ Cordis in place and functioning. Knee-high MADHURI hose and sequential compression devices in place to her bilateral lower extremities. - Gastrointestinal Gastrointestinal Comment(s): Abdomen is soft, nontender and nondistended. Active bowel sounds to all 4 abdominal quadrants. Tolerating oral intake. Bowel movement yesterday 2018. Obese. - Genitourinary Genitourinary Comment(s): Voiding clear yellow urine. 350 mL output in the last 8 hours. - Integumentary Integumentary Comment(s): Skin is warm and dry. No clubbing or cyanosis is present. Midline sternal incision is clean, dry and approximated. No drainage or redness is present. Gauze dressing is clean, dry and intact. Left radial artery harvest sites being , dry and approximated. No drainage or redness present. Scattered ecchymotic area to her left forearm, soft and nontender to touch. - Neurologic Neurologic: Present: CNII-XII intact - Musculoskeletal Musculoskeletal: Present: gait normal, strength equal bilaterally - Psychiatric Psychiatric: Present: A&O x's 3, appropriate affect, intact judgment & insight - Allied health notes Allied health notes reviewed: nursing - Labs CBC & Chem 7: 10/06/18 04:42 10/06/18 04:42 Labs: Abnormal Lab Results - Last 24 Hours (Table) 10/05/18 10/05/18 10/05/18 Range/Units 11:57 16:55 20:33 WBC (3.8-10.6) k/uL RBC (3.80-5.40) m/uL Hgb (11.4-16.0) gm/dL Hct (34.0-46.0) % MCHC (31.0-37.0) g/dL RDW (11.5-15.5) % Neutrophils # (1.3-7.7) k/uL PT (9.0-12.0) sec INR (<1.2) BUN (7-17) mg/dL Glucose (74-99) mg/dL POC Glucose (mg/dL) 130 H 120 H 135 H (75-99) mg/dL Calcium (8.4-10.2) mg/dL Magnesium (1.6-2.3) mg/dL AST (14-36) U/L ALT (9-52) U/L Total Protein (6.3-8.2) g/dL Albumin (3.5-5.0) g/dL 10/06/18 10/06/18 10/06/18 Range/Units 04:42 04:42 04:42 WBC 13.3 H (3.8-10.6) k/uL RBC 2.81 L (3.80-5.40) m/uL Hgb 7.1 L (11.4-16.0) gm/dL Hct 23.1 L (34.0-46.0) % MCHC 30.7 L (31.0-37.0) g/dL RDW 17.2 H (11.5-15.5) % Neutrophils # 10.4 H (1.3-7.7) k/uL PT 12.7 H (9.0-12.0) sec INR 1.2 H (<1.2) BUN 18 H (7-17) mg/dL Glucose 128 H (74-99) mg/dL POC Glucose (mg/dL) (75-99) mg/dL Calcium 8.2 L (8.4-10.2) mg/dL Magnesium 2.4 H (1.6-2.3) mg/dL AST 65 H (14-36) U/L ALT 107 H (9-52) U/L Total Protein 5.4 L (6.3-8.2) g/dL Albumin 3.0 L (3.5-5.0) g/dL 10/06/18 Range/Units 07:13 WBC (3.8-10.6) k/uL RBC (3.80-5.40) m/uL Hgb (11.4-16.0) gm/dL Hct (34.0-46.0) % MCHC (31.0-37.0) g/dL RDW (11.5-15.5) % Neutrophils # (1.3-7.7) k/uL PT (9.0-12.0) sec INR (<1.2) BUN (7-17) mg/dL Glucose (74-99) mg/dL POC Glucose (mg/dL) 144 H (75-99) mg/dL Calcium (8.4-10.2) mg/dL Magnesium (1.6-2.3) mg/dL AST (14-36) U/L ALT (9-52) U/L Total Protein (6.3-8.2) g/dL Albumin (3.5-5.0) g/dL - Imaging and Cardiology Chest x-ray: report reviewed, image reviewed Assessment and Plan (1) Family history of early CAD Current Visit: Yes Status: Chronic Code(s): Z82.49 - FAMILY HX OF ISCHEM HEART DIS AND OTH DIS OF THE CIRC SYS SNOMED Code(s): 219878020 (2) Hyperlipidemia Current Visit: Yes Status: Chronic Code(s): E78.5 - HYPERLIPIDEMIA, UNSPECIFIED SNOMED Code(s): 45412760 (3) Hypertension Current Visit: Yes Status: Chronic Code(s): I10 - ESSENTIAL (PRIMARY) HYPERTENSION SNOMED Code(s): 83311391 (4) Morbid obesity with BMI of 50.0-59.9, adult Current Visit: Yes Status: Chronic Code(s): E66.01 - MORBID (SEVERE) OBESITY DUE TO EXCESS CALORIES; Z68.43 - BODY MASS INDEX (BMI) 50-59.9, ADULT SNOMED Code(s): 585676817 (5) Obstructive sleep apnea Current Visit: No Status: Chronic Code(s): G47.33 - OBSTRUCTIVE SLEEP APNEA (ADULT) (PEDIATRIC) SNOMED Code(s): 45991287 (6) Restless leg syndrome Current Visit: No Status: Chronic Code(s): G25.81 - RESTLESS LEGS SYNDROME SNOMED Code(s): 86249877 (7) Aortic stenosis Current Visit: No Status: Resolved Code(s): I35.0 - NONRHEUMATIC AORTIC ( VALVE) STENOSIS SNOMED Code(s): 26670895 (8) History of Hodgkin's lymphoma Current Visit: No Status: Resolved Code(s): Z85.71 - PERSONAL HISTORY OF HODGKIN LYMPHOMA SNOMED Code(s): 426882652 (9) History of chemotherapy Current Visit: No Status: Resolved Code(s): Z92.21 - PERSONAL HISTORY OF ANTINEOPLASTIC CHEMOTHERAPY SNOMED Code(s): 428798389209352 (10) History of gastric surgery Current Visit: No Status: Resolved Code(s): Z98.890 - OTHER SPECIFIED POSTPROCEDURAL STATES SNOMED Code(s): 695938800 (11) History of radiation therapy Current Visit: No Status: Resolved Code(s): Z92.3 - PERSONAL HISTORY OF IRRADIATION SNOMED Code(s): 138686140 (12) Tobacco dependence in remission Current Visit: No Status: Resolved Code(s): F17.201 - NICOTINE DEPENDENCE, UNSPECIFIED, IN REMISSION SNOMED Code(s): 790527018 Plan: 1. Continue aspirin, beta will. Will increase beta will as tolerated. Will add Crestor as patient's liver enzymes are decreasing. 2. Continue oral Cardizem for radial artery spasm prophylaxis. Will transition to Cardizem CD at discharge. 3. Wean O2 as tolerated. Encourage incentive spirometry 10 times every hour. Encourage continued smoking cessation. 4. Bronchodilators per pulmonology. 5. Increase activity and ambulate as tolerated. PT/OT/cardiac rehab following. 6. Coumadin 10 mg by mouth today , INR this morning 1.2 after 7.5 mg given yesterday. We will dose daily based on PT/INR. Goal INR 2.5-3.5 for the first 3 months, then 1.5-2.0. 7. Will monitor daily labs and x-rays. Electrolyte replacement per protocol. 8. Pain control with current medication regimen. 9. Insulin management per primary care service. 10. GI prophylaxis with Protonix. DVT prophylaxis with subcu heparin, SCDs. Will discontinue subcu heparin when INR is therapeutic. 11. The patient is scheduled for a midline IV placement today. Once the patient's midline catheter is then placed, her right IJ Cordis can be discontinued and the patient to be transferred to 3 S. cardiac stepdown unit. 12. More recommendations to follow a stone patient's clinical course. Discharge planning is in place. Time with Patient: Greater than 30
--- NOTE | 2018-10-06 16:25 | PN ---
PROGRESS NOTE DATE OF SERVICE: October 06, 2018. PRESENTING COMPLAINT: Status post CABG, aortic valve replacement. INTERVAL HISTORY: Patient is status post mechanical aortic valve replacement and CABG. Did walk out in the hallway. Breathing continues to improve. Had a good bowel movement yesterday. Eating better. A bit tired. Using the inspiratory spirometer. REVIEW OF SYSTEMS: Done for constitutional, cardiovascular, GI, pulmonary; relevant findings as above. CURRENT MEDICATIONS: Reviewed that include DuoNeb, aspirin, Crestor, p.o. Cardizem, Lopressor, Protonix, Mirapex, Coumadin. PHYSICAL EXAMINATION: VITAL SIGNS: Temperature 98.1, pulse 87, respiration 20, blood pressure 109/50, pulse ox 95% on room air. GENERAL APPEARANCE: Sitting up in a chair. Looking better. EYES: Pupils equal. Conjunctivae pale. NECK: JVD unable to assess. Mass not palpable. RESPIRATORY: Effort increased. LUNGS: Diminished breath sounds. CARDIOVASCULAR: Mechanical heart sounds. Minimal edema. ABDOMEN: Soft and nontender. Liver and spleen not palpable. PSYCHIATRY: Alert and oriented x3. Mood and affect normal. INVESTIGATIONS: White count 13.3, hemoglobin 7.1, potassium 4.5, BUN 18, creatinine 0.69. Accu-Cheks are noted. ASSESSMENT: 1. Status post coronary bypass and mechanical aortic valve replacement for severe aortic stenosis. 2. Acute postoperative blood-loss anemia as expected from surgery. 3. Morbid obesity BMI than 40. 4. Essential hypertension. 5. Primary osteoarthritis of the lumbar spine. 6. Restless legs syndrome. 7. Chronic scoliosis. 8. Coumadin monitoring. 9. Hypoalbuminemia as an acute phase reactant. 10.Nonspecific hepatitis likely from hypotension ischemia. Expect numbers to continue to improve. We will repeat labs in the morning. PLAN: Continue medication and treatment plan. Care was discussed with the patient. The patient's INR has come up to 1.2. Keep an eye on patient's LFTs. Follow. MMODL / IJN: [id number] /
[2018-10-06 17:18] LABS: Glucose,Whole Blood 113 mg/dL (75-99)
[2018-10-06] MEDS ORDERED: WARFARIN 10 MG TAB PO ONE (18:00)
[2018-10-06] MEDS: SENNOSIDES-DOCUSATE SODIUM 1 EACH TAB PO SCH (20:27)
[2018-10-06 20:28] LABS: Glucose,Whole Blood 118 mg/dL (75-99)
[2018-10-06] MEDS: CRESTOR 5 MG PO SCH (20:28)
[2018-10-06] MEDS: PRAMIPEXOLE 0.5 MG TAB PO SCH (20:29)
[2018-10-07] MEDS: DILTIAZEM ORAL 30 MG TAB PO SCH ×5 (00:11→23:04)
[2018-10-07] MEDS: HEPARIN SODIUM,PORCINE 5,000 UNIT/ML 1 ML VIAL SQ SCH (00:11)
[2018-10-07] MEDS: HYDROcodone/APAP 5-325MG 1 EACH TAB PO PRN ×5 (00:11→21:05)
[2018-10-07 02:03] LABS: Glucose,Whole Blood 126 mg/dL (75-99)
[2018-10-07] MEDS: INSULIN ASPART (NovoLOG) 100 UNIT/ML VIAL SQ SCH ×5 (02:19→20:53)
[2018-10-07 05:43] LABS: Glucose,Whole Blood 107 mg/dL (75-99)
[2018-10-07] MEDS: ASCORBIC ACID 500 MG TAB PO SCH ×2 (06:18→17:34)
[2018-10-07] MEDS: FERROUS SULFATE 325 MG TAB PO SCH ×2 (06:18→17:34)
[2018-10-07] MEDS: PANTOPRAZOLE 40 MG TABLET PO SCH (06:19)
[2018-10-07 06:27] LABS: ALT 90 U/L (9-52); AST 40 U/L (14-36); Albumin 3.2 g/dL (3.5-5.0); Alkaline Phosphatase 130 U/L (38-126); Anion Gap 6 mmol/L; Blood Urea Nitrogen 16 mg/dL (7-17); Calcium 8.4 mg/dL (8.4-10.2); Carbon Dioxide 26 mmol/L (22-30); Chloride 107 mmol/L (98-107); Glucose 113 mg/dL (74-99); Potassium 4.6 mmol/L (3.5-5.1); Sodium 139 mmol/L (137-145); Total Bilirubin 0.5 mg/dL (0.2-1.3); Total Protein 5.8 g/dL (6.3-8.2)
[2018-10-07 06:40] LABS: INR 2.8 (<1.2)
[2018-10-07 06:46] LABS: Anisocytosis Slight; Basophils # (A) 0.1 k/uL (0-0.2); Basophils % (A) 1 %; Eosinophils # (A) 0.7 k/uL (0-0.7); Eosinophils % (A) 5 %; HCT 24.8 % (34.0-46.0); HGB 7.4 gm/dL (11.4-16.0); Hypochromasia Marked; Lymphocytes % (A) 16 %; MCH 24.7 pg (25.0-35.0); MCHC 29.9 g/dL (31.0-37.0); MCV 82.6 fL (80.0-100.0); Mean Platelet Volume 6.6; Monocytes # (A) 0.6 k/uL (0-1.0); Monocytes % (A) 5 %; Neutrophils # (A) 8.8 k/uL (1.3-7.7); Neutrophils % (A) 70 %; Platelet Count 242 k/uL (150-450); RDW 17.5 % (11.5-15.5); WBC 12.6 k/uL (3.8-10.6)
[2018-10-07] MEDS: ASPIRIN 325 MG TAB PO SCH (08:44)
[2018-10-07] MEDS ORDERED: FUROSEMIDE 10 MG/ML 4 ML VIAL IV STA (08:44)
[2018-10-07] MEDS: METOPROLOL TARTRATE 25 MG TAB PO SCH ×2 (08:44→21:00)
[2018-10-07] MEDS: ALPRAZolam 0.25 MG TAB PO PRN ×2 (08:44→23:04)
--- NOTE | 2018-10-07 09:27 | XR ---
EXAMINATION TYPE: XR chest 2V DATE OF EXAM: 10/07/2018 COMPARISON: Prior chest x-ray 10/06/2018 HISTORY: Postop coronary artery bypass graft, aortic valve replacement TECHNIQUE: Frontal and lateral views of the chest are obtained. FINDINGS: Central venous sheath has been removed. No evident pneumothorax or pleural effusion. Patie nt is post median sternotomy, heart remains enlarged, atrial appendage clipping again noted. There ar e overlying artifacts. Patient is status post cardiac valve replacement. Minimal blunting of the post erior costophrenic angles noted. IMPRESSION: Postop changes. No evident complication status post central venous sheath removal. Proba ble basilar atelectasis and small effusion.
[2018-10-07] MEDS: IPRATROPIUM-ALBUTEROL 3 ML NEB INHALATION SCH ×4 (10:10→20:58)
--- NOTE | 2018-10-07 11:04 | P.PN ---
Subjective Progress Note Date: 10/07/18 Principal diagnosis: Bicuspid aortic valve with severe aortic stenosis, symptomatic multivessel coronary artery disease with left main coronary artery disease. Morbid obesity. Hypertension. Hyperlipidemia. Prediabetic with preoperative hemoglobin A1c 6.3%. History of Hodgkin's lymphoma at 20 years old with subsequent chemo and radiation therapy. Previous tobacco abuse with preoperative FEV1 71% of predicted. Obstructive sleep apnea without CPAP use. History of gastric sleeve surgery. Restless leg syndrome. Family history of premature coronary artery disease with uncle having myocardial infarction 47 years old and cousin from myocardial infarction at 45 years old. POD #5 elective coronary artery bypass graft surgery with sequential left internal mammary artery to the left anterior descending artery to the diagonal branch, radial artery to the obtuse marginal artery, aortic valve replacement using a 23 mm On-X mechanical valve, aortic root enlargement with Mongo-Bg patch , exclusion of the left atrial appendage using a 35 mm AtriClip, endoscopic left radial artery harvest, epi-aortic scanning, intraoperative transesophageal echocardiogram by anesthesia. Postoperative acute blood loss anemia, an expected outcome of surgery given cardiopulmonary bypass pump and hemodilution. The patient is currently sitting in a recliner in no acute distress on the cardiac stepdown unit. She is using her incentive spirometer diligently. Remains in normal sinus rhythm. Does complain of postoperative surgical chest pain which is controlled on current medication regimen. She has ambulated in the hallway. She does state she did not get much sleep last night because she had several bouts of shortness of breath, does admit that she feels like she's having panic attacks and does not want to go home today. Objective - Vital Signs Vital signs: Vital Signs Temp 97.8 F 10/07/18 08:00 Pulse 91 10/07/18 08:00 Resp 16 10/07/18 08:00 BP 129/70 10/07/18 08:00 Pulse Ox 98 10/07/18 08:00 Intake & Output 10/06/18 10/07/18 10/07/18 18:59 06:59 18:59 Intake Total 500 600 120 Output Total 400 Balance 100 600 120 Weight 137.2 kg Intake: IV 140 Lactated Ringers 1,000 ml 140 @ 20 mls/hr IV .Q24H [facility] Rx#:[id number] Oral 360 600 120 Output: Urine 400 Other: Voiding Method Bedside Commode Bedside Commode # Voids 1 3 ABP, PAP, CO, CI - Last Documented Arterial Blood Pressure 104/84 Pulmonary Artery Pressure 42/19 Cardiac Output 5.1 Cardiac Index 2.5 - Constitutional General appearance: Present: cooperative, morbidly obese, no acute distress - Respiratory Details: Lungs sounds diminished bilaterally. Respirations even, nonlabored. Currently on room air with oxygen saturation 95%. Able to achieve 1250 mL on her incentive spirometry. Strong productive cough with paige/yellow sputum. - Cardiovascular Details: S1, S2 present. Positive valvular click. Regular rate and rhythm, sinus rhythm on telemetry. Palpable peripheral pulses bilaterally. Generalized trace edema present. No calf pain or tenderness noted. Heart hugger in place with patient demonstrating appropriate use. Antiembolism stockings, SCDs present. - Gastrointestinal Gastrointestinal Comment(s): Abdomen soft, nontender, nondistended, obese. Active bowel sounds present 4 quadrants. Tolerating diet. Positive bowel movement 2/10. - Genitourinary Genitourinary Comment(s): Patient continues to void clear, yellow urine. - Integumentary Integumentary Comment(s): Skin is warm and dry with evidence of good perfusion. Anterior chest incision well approximated and covered with dry intact dressing. Left radial artery harvest site well approximated. Patient has positive feeling without numbness or tingling in her left hand, able to open and close her hand and policy advisor objects. - Neurologic Neurologic: Present: CNII-XII intact - Musculoskeletal Musculoskeletal: Present: gait normal, strength equal bilaterally - Psychiatric Psychiatric: Present: A&O x's 3, appropriate affect, intact judgment & insight - Allied health notes Allied health notes reviewed: nursing - Labs CBC & Chem 7: 10/07/18 05:54 10/07/18 05:54 Labs: Abnormal Lab Results - Last 24 Hours (Table) 10/06/18 10/06/18 10/06/18 Range/Units 11:32 16:59 20:26 WBC (3.8-10.6) k/uL RBC (3.80-5.40) m/uL Hgb (11.4-16.0) gm/dL Hct (34.0-46.0) % MCH (25.0-35.0) pg MCHC (31.0-37.0) g/dL RDW (11.5-15.5) % Neutrophils # (1.3-7.7) k/uL PT (9.0-12.0) sec INR (<1.2) Glucose (74-99) mg/dL POC Glucose (mg/dL) 147 H 113 H 118 H (75-99) mg/dL AST (14-36) U/L ALT (9-52) U/L Alkaline Phosphatase (38-126) U/L Total Protein (6.3-8.2) g/dL Albumin (3.5-5.0) g/dL 10/07/18 10/07/18 10/07/18 Range/Units 01:59 05:41 05:54 WBC 12.6 H (3.8-10.6) k/uL RBC 3.00 L (3.80-5.40) m/uL Hgb 7.4 L (11.4-16.0) gm/dL Hct 24.8 L (34.0-46.0) % MCH 24.7 L (25.0-35.0) pg MCHC 29.9 L (31.0-37.0) g/dL RDW 17.5 H (11.5-15.5) % Neutrophils # 8.8 H (1.3-7.7) k/uL PT (9.0-12.0) sec INR (<1.2) Glucose (74-99) mg/dL POC Glucose (mg/dL) 126 H 107 H (75-99) mg/dL AST (14-36) U/L ALT (9-52) U/L Alkaline Phosphatase (38-126) U/L Total Protein (6.3-8.2) g/dL Albumin (3.5-5.0) g/dL 10/07/18 10/07/18 Range/Units 05:54 05:54 WBC (3.8-10.6) k/uL RBC (3.80-5.40) m/uL Hgb (11.4-16.0) gm/dL Hct (34.0-46.0) % MCH (25.0-35.0) pg MCHC (31.0-37.0) g/dL RDW (11.5-15.5) % Neutrophils # (1.3-7.7) k/uL PT 27.0 H (9.0-12.0) sec INR 2.8 H (<1.2) Glucose 113 H (74-99) mg/dL POC Glucose (mg/dL) (75-99) mg/dL AST 40 H (14-36) U/L ALT 90 H (9-52) U/L Alkaline Phosphatase 130 H (38-126) U/L Total Protein 5.8 L (6.3-8.2) g/dL Albumin 3.2 L (3.5-5.0) g/dL - Imaging and Cardiology Chest x-ray: report reviewed, image reviewed Assessment and Plan (1) Morbid obesity with BMI of 50.0-59.9, adult Current Visit: Yes Status: Chronic Code(s): E66.01 - MORBID (SEVERE) OBESITY DUE TO EXCESS CALORIES; Z68.43 - BODY MASS INDEX (BMI) 50-59.9, ADULT SNOMED Code(s): 898832117 (2) Family history of early CAD Current Visit: Yes Status: Chronic Code(s): Z82.49 - FAMILY HX OF ISCHEM HEART DIS AND OTH DIS OF THE [facility] SNOMED Code(s): 961692204 (3) Tobacco dependence in remission Current Visit: No Status: Resolved Code(s): F17.201 - NICOTINE DEPENDENCE, UNSPECIFIED, IN REMISSION SNOMED Code(s): 084717386 (4) Aortic stenosis Current Visit: No Status: Resolved Code(s): I35.0 - NONRHEUMATIC AORTIC ( VALVE) STENOSIS SNOMED Code(s): 47896281 (5) History of gastric surgery Current Visit: No Status: Resolved Code(s): Z98.890 - OTHER SPECIFIED POSTPROCEDURAL STATES SNOMED Code(s): 019498333 (6) Hyperlipidemia Current Visit: Yes Status: Chronic Code(s): E78.5 - HYPERLIPIDEMIA, UNSPECIFIED SNOMED Code(s): 68725036 (7) Hypertension Current Visit: Yes Status: Chronic Code(s): I10 - ESSENTIAL (PRIMARY) HYPERTENSION SNOMED Code(s): 14632535 (8) Obstructive sleep apnea Current Visit: No Status: Chronic Code(s): G47.33 - OBSTRUCTIVE SLEEP APNEA (ADULT) (PEDIATRIC) SNOMED Code(s): 67195535 (9) Restless leg syndrome Current Visit: No Status: Chronic Code(s): G25.81 - RESTLESS LEGS SYNDROME SNOMED Code(s): 82304948 (10) History of Hodgkin's lymphoma Current Visit: No Status: Resolved Code(s): Z85.71 - PERSONAL HISTORY OF HODGKIN LYMPHOMA SNOMED Code(s): 487786579 (11) History of chemotherapy Current Visit: No Status: Resolved Code(s): Z92.21 - PERSONAL HISTORY OF ANTINEOPLASTIC CHEMOTHERAPY SNOMED Code(s): 096198285660521 (12) History of radiation therapy Current Visit: No Status: Resolved Code(s): Z92.3 - PERSONAL HISTORY OF IRRADIATION SNOMED Code(s): 479865337 Plan: 1. Continue full dose aspirin, Crestor, beta will therapy. Will increase beta will therapy as tolerated. 2. Continue oral Cardizem for radial artery spasm prophylaxis. Will transition to Cardizem CD at discharge. 3. Encourage incentive spirometry 10 times every hour. Encourage continued smoking cessation. 4. Bronchodilators per pulmonology. 5. Increase activity, ambulate as tolerated. PT/OT/cardiac rehab following. 6. Continue Coumadin, will give 2 mg, INR this morning 2.8 after 10 mg given yesterday. We will dose daily based on PT/INR. Goal INR 2.5-3.5 for the first 3 months, then 1.5-2.0. 7. Will monitor daily labs and x-rays. Electrolyte replacement per protocol. No transfusion at this time. 8. Pain control with current medication regimen. 9. Insulin management per primary care service. 10. GI prophylaxis with Protonix. DVT prophylaxis with SCDs. Will discontinue subcu heparin. 11. Will start low-dose Xanax as needed for anxiety. 12. Will give Lasix 40 mg IV push 1 today. 13. Likely will discharge to home with home care tomorrow. 14. More recommendations to follow as patient progresses. Time with Patient: Greater than 30
[2018-10-07 11:40] LABS: Glucose,Whole Blood 111 mg/dL (75-99)
--- NOTE | 2018-10-07 15:24 | PN ---
PROGRESS NOTE Mrs. Kurtz is a 48-year-old female who has underwent aortic valve replacement and coronary artery bypass grafting. She is feeling better today. She is mildly dyspneic. She has no chest pain, no palpitation. She denies any nausea. She continued be in sinus mechanism. She is ambulating and using her incentive spirometry. She continues to be on aspirin once a day, diltiazem 30 mg every 6 hours, metoprolol tartrate 25 mg twice a day, Coumadin. PHYSICAL EXAMINATION: Blood pressure 133/60 with a heart rate in the 70s. LUNGS: Clear. HEART: Regular rate and rhythm, S1-S2 with prosthetic aortic sound. No systolic murmur. ABDOMEN: Soft, obese, nontender. EXTREMITIES: No significant edema. LAB DATA: Revealed an INR of 2.8, hemoglobin of 7.4, BUN and creatinine 16 and 0.63. Her ALT is 90, AST is 40. IMPRESSION: 1. Status post aortic valve replacement and coronary artery bypass grafting. 2. Hyperlipidemia. 3. Hypertension. RECOMMENDATION: Patient should resume her Crestor as an outpatient. She could not tolerate the Lipitor in the past. Otherwise, will continue anticoagulation. I am hopeful that she should be able to be discharged home in the next 24 to 48 hours. MMODL / IJN: [id number] /
--- NOTE | 2018-10-07 15:48 | P.PN ---
Subjective Progress Note Date: 10/07/18 Principal diagnosis: Aortic valve stenosis, status post mechanical aortic valve replacement and two- vessel bypass surgery, postop day 5 Patient was seen and reevaluated again on 10/07/2018, she has been transferred out of the intensive care unit, she is currently on [facility] care floor, this is postoperative day 5, status post mechanical aortic valve replacement, and two -vessel coronary artery bypass grafting involving BRO to LAD, and radial artery graft to OM 1. Patient is awake and alert, sitting up in the recliner, she states she did have some shortness of breath last night, she was waking up frequently shortness of breath. Today's chest x-ray was reviewed with Dr. Galeano and shows postop changes, probable basilar atelectasis and small effusion. Patient did receive another dose of IV Lasix per CT surgery. Pain is reasonably controlled, patient has been ambulated, she is on room air, her pulse ox is 96%, afebrile, hemodynamically stable. She is in sinus mechanism. Today's labs have been reviewed, white blood cell count is 12.6, hemoglobin is 7.4, INR is 2.8, electrolytes and renal profile with within normal limits. Objective - Vital Signs Vital signs: Vital Signs Temp 97.7 F 10/07/18 12:00 Pulse 77 10/07/18 13:12 Resp 16 10/07/18 13:12 BP 133/65 10/07/18 12:00 Pulse Ox 96 10/07/18 12:00 Intake & Output 10/06/18 10/07/18 10/07/18 18:59 06:59 18:59 Intake Total 500 600 360 Output Total 400 Balance 100 600 360 Weight 137.2 kg Intake: IV 140 Lactated Ringers 1,000 ml 140 @ 20 mls/hr IV .Q24H [facility] Rx#:[id number] Oral 360 600 360 Output: Urine 400 Other: Voiding Method Bedside Commode Bedside Commode # Voids 1 3 3 # Bowel Movements 3 ABP, PAP, CO, CI - Last Documented Arterial Blood Pressure 104/84 Pulmonary Artery Pressure 42/19 Cardiac Output 5.1 Cardiac Index 2.5 - Exam GENERAL EXAM: Alert, pleasant, 48-year-old obese female comfortable in no apparent distress. HEAD: Normocephalic/atraumatic. EYES: Normal reaction of pupils, equal size. Conjunctiva pink, sclera white. NOSE: Clear with pink turbinates. THROAT: No erythema or exudates. NECK: No masses, no JVD, no thyroid enlargement, no adenopathy. CHEST: No chest wall deformity. Symmetrical expansion. Midsternal incision is clean dry and intact, well approximated, stable LUNGS: Equal air entry with diminished breath sounds CVS: Regular rate and rhythm, normal S1 and S2, no gallops, no murmurs, no rubs ABDOMEN: Soft, nontender. No hepatosplenomegaly, normal bowel sounds, no guarding or rigidity. EXTREMITIES: No clubbing, no edema, no cyanosis, 2+ pulses and upper and lower extremities. MUSCULOSKELETAL: Muscle strength and tone normal. SPINE: No scoliosis or deformity SKIN: No rashes CENTRAL NERVOUS SYSTEM: Alert and oriented -3. No focal deficits, tone is normal in all 4 extremities. PSYCHIATRIC: Alert and oriented -3. Appropriate affect. Intact judgment and insight. - Labs CBC & Chem 7: 10/07/18 05:54 10/07/18 05:54 Labs: Abnormal Lab Results - Last 24 Hours (Table) 10/06/18 10/06/18 10/07/18 Range/Units 16:59 20:26 01:59 WBC (3.8-10.6) k/uL RBC (3.80-5.40) m/uL Hgb (11.4-16.0) gm/dL Hct (34.0-46.0) % MCH (25.0-35.0) pg MCHC (31.0-37.0) g/dL RDW (11.5-15.5) % Neutrophils # (1.3-7.7) k/uL PT (9.0-12.0) sec INR (<1.2) Glucose (74-99) mg/dL POC Glucose (mg/dL) 113 H 118 H 126 H (75-99) mg/dL AST (14-36) U/L ALT (9-52) U/L Alkaline Phosphatase (38-126) U/L Total Protein (6.3-8.2) g/dL Albumin (3.5-5.0) g/dL 10/07/18 10/07/18 10/07/18 Range/Units 05:41 05:54 05:54 WBC 12.6 H (3.8-10.6) k/uL RBC 3.00 L (3.80-5.40) m/uL Hgb 7.4 L (11.4-16.0) gm/dL Hct 24.8 L (34.0-46.0) % MCH 24.7 L (25.0-35.0) pg MCHC 29.9 L (31.0-37.0) g/dL RDW 17.5 H (11.5-15.5) % Neutrophils # 8.8 H (1.3-7.7) k/uL PT 27.0 H (9.0-12.0) sec INR 2.8 H (<1.2) Glucose (74-99) mg/dL POC Glucose (mg/dL) 107 H (75-99) mg/dL AST (14-36) U/L ALT (9-52) U/L Alkaline Phosphatase (38-126) U/L Total Protein (6.3-8.2) g/dL Albumin (3.5-5.0) g/dL 10/07/18 10/07/18 Range/Units 05:54 11:37 WBC (3.8-10.6) k/uL RBC (3.80-5.40) m/uL Hgb (11.4-16.0) gm/dL Hct (34.0-46.0) % MCH (25.0-35.0) pg MCHC (31.0-37.0) g/dL RDW (11.5-15.5) % Neutrophils # (1.3-7.7) k/uL PT (9.0-12.0) sec INR (<1.2) Glucose 113 H (74-99) mg/dL POC Glucose (mg/dL) 111 H (75-99) mg/dL AST 40 H (14-36) U/L ALT 90 H (9-52) U/L Alkaline Phosphatase 130 H (38-126) U/L Total Protein 5.8 L (6.3-8.2) g/dL Albumin 3.2 L (3.5-5.0) g/dL Assessment and Plan Plan: Assessment: 1 status post aortic valve replacement and two-vessel bypass surgery involving BRO to LAD and the radial artery graft to obtuse marginal 1, patient is postoperative day #5. 2 postoperative atelectasis, expected after such surgery. Hence the patient will remain on incentive spirometry. 3 history of previous gastric sleeve surgery. 4 history of Hodgkin's lymphoma 5 multiple comorbidities including hypertension, hyperlipidemia, restless leg syndrome, and morbid obesity. BMI of 47.6. Plan: Patient is stable, today's chest x-ray has been reviewed with Dr. Galeano, shows basilar atelectasis, small pleural effusion, she did receive a dose of IV Lasix per CT surgery. Tolerating ambulation well, remains in sinus mechanism, she is working on her incentive spirometer. Anticipate discharge home in the next 24 hours I performed a history & physical examination of the patient and discussed their management with my nurse practitioner, Lou Sanchez. I reviewed the nurse practitioner's note and agree with the documented findings and plan of care. Lung sounds are positive for diminished breath sounds bilaterally. The findings and the impression was discussed with the patient. I attest to the documentation by the nurse practitioner. Time with Patient: Less than 30
[2018-10-07 16:40] LABS: Glucose,Whole Blood 116 mg/dL (75-99)
[2018-10-07] MEDS ORDERED: WARFARIN 2 MG TAB PO ONE (18:00)
[2018-10-07] MEDS ORDERED: ALPRAZolam 0.5 MG TAB PO PRN (19:05)
--- NOTE | 2018-10-07 19:14 | P.PN ---
Subjective This is a pleasant 48 years old female with past medical history of coronary artery disease, hyperlipidemia, hypertension, morbid obesity, history of Hodgkin lymphoma and kidney stones, scoliosis, patient is postoperative day #5 for elective coronary artery bypass grafting surgery. Patient denied chest pain or dyspnea or change in urine or bowel habits. Vitas looks stable. She has mild leukocytosis of 12.6 K. INR is 2.8. BMP was unremarkable and sugar controlled. Currently patient remains on warfarin, Lasix, Xanax for anxiety and insomnia. Cardizem. Objective - Vital Signs Vital signs: Vital Signs Temp 97.7 F 10/07/18 12:00 Pulse 78 10/07/18 17:10 Resp 16 10/07/18 15:58 BP 113/60 10/07/18 15:58 Pulse Ox 98 10/07/18 15:58 Intake & Output 10/07/18 10/07/18 10/08/18 06:59 18:59 06:59 Intake Total 600 420 Balance 600 420 Weight 137.2 kg Intake: Oral 600 420 Other: Voiding Method Bedside Commode # Voids 3 3 # Bowel Movements 3 ABP, PAP, CO, CI - Last Documented Arterial Blood Pressure 104/84 Pulmonary Artery Pressure 42/19 Cardiac Output 5.1 Cardiac Index 2.5 - Exam GENERAL: The patient is alert and oriented x3, not in any acute distress. Well developed, well nourished. HEENT: Pupils are round and equally reacting to light. EOMI. No scleral icterus. No conjunctival pallor. Normocephalic, atraumatic. No pharyngeal erythema. No thyromegaly. -CARDIOVASCULAR: S1 and S2 present. No murmurs, rubs, or gallops. Central incision is healing in and try PULMONARY: Chest is clear to auscultation, no wheezing or crackles. ABDOMEN: Soft, nontender, nondistended, normoactive bowel sounds. No palpable organomegaly. MUSCULOSKELETAL: No joint swelling or deformity. EXTREMITIES: No cyanosis, clubbing, or pedal edema. NEUROLOGICAL: Gross neurological examination did not reveal any focal deficits. SKIN: No rashes. - Labs CBC & Chem 7: 10/07/18 05:54 10/07/18 05:54 Labs: Abnormal Lab Results - Last 24 Hours (Table) 10/06/18 10/07/18 10/07/18 Range/Units 20:26 01:59 05:41 WBC (3.8-10.6) k/uL RBC (3.80-5.40) m/uL Hgb (11.4-16.0) gm/dL Hct (34.0-46.0) % MCH (25.0-35.0) pg MCHC (31.0-37.0) g/dL RDW (11.5-15.5) % Neutrophils # (1.3-7.7) k/uL PT (9.0-12.0) sec INR (<1.2) Glucose (74-99) mg/dL POC Glucose (mg/dL) 118 H 126 H 107 H (75-99) mg/dL AST (14-36) U/L ALT (9-52) U/L Alkaline Phosphatase (38-126) U/L Total Protein (6.3-8.2) g/dL Albumin (3.5-5.0) g/dL 10/07/18 10/07/18 10/07/18 Range/Units 05:54 05:54 05:54 WBC 12.6 H (3.8-10.6) k/uL RBC 3.00 L (3.80-5.40) m/uL Hgb 7.4 L (11.4-16.0) gm/dL Hct 24.8 L (34.0-46.0) % MCH 24.7 L (25.0-35.0) pg MCHC 29.9 L (31.0-37.0) g/dL RDW 17.5 H (11.5-15.5) % Neutrophils # 8.8 H (1.3-7.7) k/uL PT 27.0 H (9.0-12.0) sec INR 2.8 H (<1.2) Glucose 113 H (74-99) mg/dL POC Glucose (mg/dL) (75-99) mg/dL AST 40 H (14-36) U/L ALT 90 H (9-52) U/L Alkaline Phosphatase 130 H (38-126) U/L Total Protein 5.8 L (6.3-8.2) g/dL Albumin 3.2 L (3.5-5.0) g/dL 10/07/18 10/07/18 Range/Units 11:37 16:32 WBC (3.8-10.6) k/uL RBC (3.80-5.40) m/uL Hgb (11.4-16.0) gm/dL Hct (34.0-46.0) % MCH (25.0-35.0) pg MCHC (31.0-37.0) g/dL RDW (11.5-15.5) % Neutrophils # (1.3-7.7) k/uL PT (9.0-12.0) sec INR (<1.2) Glucose (74-99) mg/dL POC Glucose (mg/dL) 111 H 116 H (75-99) mg/dL AST (14-36) U/L ALT (9-52) U/L Alkaline Phosphatase (38-126) U/L Total Protein (6.3-8.2) g/dL Albumin (3.5-5.0) g/dL Assessment and Plan Assessment: Coronary artery disease, status post coronary artery bypass grafting and aortic valve replacement for severe aortic stenosis Acute blood loss anemia, expected Morbid obesity Essential hypertension Osteoarthritis Best this like syndrome Chronic scoliosis Plan: This is a pleasant 48 years old female who presents for CABG. Patient is doing well and she's been followed by several consultants including the cardiology of the primary cardiovascular team. She is on warfarin with therapeutic INR. My plaLabs and medication were reviewed.. Continue same treatment. Continue with symptomatic treatment. Resume home medication. Monitor lytes and vitals. DVT and GI prophylaxis. Further recommendations of the clinical course of the patient DVT prophylaxis: On warfarin GI Prophylaxis: Protonix Prognosis is guarded
[2018-10-07 20:48] LABS: Glucose,Whole Blood 127 mg/dL (75-99)
[2018-10-07] MEDS: SENNOSIDES-DOCUSATE SODIUM 1 EACH TAB PO SCH (21:01)
[2018-10-07] MEDS: PRAMIPEXOLE 0.5 MG TAB PO SCH (21:05)
[2018-10-07] MEDS: CRESTOR 5 MG PO SCH (21:06)
[2018-10-08 02:14] LABS: Glucose,Whole Blood 125 mg/dL (75-99)
[2018-10-08] MEDS: INSULIN ASPART (NovoLOG) 100 UNIT/ML VIAL SQ SCH ×2 (02:26→06:05)
[2018-10-08] MEDS: HYDROcodone/APAP 5-325MG 1 EACH TAB PO PRN ×3 (02:27→10:01)
[2018-10-08 05:42] LABS: Glucose,Whole Blood 119 mg/dL (75-99)
[2018-10-08 06:03] LABS: Anisocytosis Slight; HCT 24.1 % (34.0-46.0); HGB 7.5 gm/dL (11.4-16.0); Hypochromasia Marked; MCH 25.3 pg (25.0-35.0); MCV 81.5 fL (80.0-100.0); Mean Platelet Volume 6.4; Platelet Count 277 k/uL (150-450); RBC 2.95 m/uL (3.80-5.40); RDW 17.6 % (11.5-15.5); WBC 12.1 k/uL (3.8-10.6)
[2018-10-08 06:04] LABS: INR 3.4 (<1.2); Prothrombin Time 32.9 sec (9.0-12.0)
[2018-10-08] MEDS: PANTOPRAZOLE 40 MG TABLET PO SCH (06:12)
[2018-10-08] MEDS: ASCORBIC ACID 500 MG TAB PO SCH (06:12)
[2018-10-08] MEDS: FERROUS SULFATE 325 MG TAB PO SCH (06:12)
[2018-10-08 06:24] LABS: Anion Gap 4 mmol/L; Blood Urea Nitrogen 15 mg/dL (7-17); Calcium 8.6 mg/dL (8.4-10.2); Carbon Dioxide 31 mmol/L (22-30); Chloride 106 mmol/L (98-107); Glucose 117 mg/dL (74-99); Potassium 4.6 mmol/L (3.5-5.1); Sodium 141 mmol/L (137-145)
[2018-10-08] MEDS ORDERED: FUROSEMIDE 10 MG/ML 4 ML VIAL IV STA (07:31)
[2018-10-08] MEDS: IPRATROPIUM-ALBUTEROL 3 ML NEB INHALATION SCH (07:35)
--- NOTE | 2018-10-08 07:38 | XR ---
EXAMINATION TYPE: XR chest 2V DATE OF EXAM: 10/08/2018 COMPARISON: Prior chest x-ray 10/07/2018 HISTORY: Postop, abnormal chest x-ray TECHNIQUE: Frontal and lateral views of the chest are obtained. FINDINGS: Patient is post median sternotomy. Heart remains enlarged. There is persistent elevation o f the right hemidiaphragm. No evident pneumothorax. There are cardiac leads. Minimal blunting the pos terior costophrenic angles is present. IMPRESSION: There may be small effusions, basilar atelectasis. Stable cardiomegaly.
--- NOTE | 2018-10-08 08:10 | P.PN ---
Subjective Progress Note Date: 10/08/18 Principal diagnosis: Bicuspid aortic valve with severe aortic stenosis, symptomatic multivessel coronary artery disease with left main coronary artery disease. Morbid obesity. Hypertension. Hyperlipidemia. Prediabetic with preoperative hemoglobin A1c 6.3%. History of Hodgkin's lymphoma at 20 years old with subsequent chemo and radiation therapy. Previous tobacco abuse with preoperative FEV1 71% of predicted. Obstructive sleep apnea without CPAP use. History of gastric sleeve surgery. Restless leg syndrome. Family history of premature coronary artery disease with uncle having myocardial infarction 47 years old and cousin from myocardial infarction at 45 years old. POD #6 elective coronary artery bypass graft surgery with sequential left internal mammary artery to the left anterior descending artery to the diagonal branch, radial artery to the obtuse marginal artery, aortic valve replacement using a 23 mm On-X mechanical valve, aortic root enlargement with [place]-Bg patch , exclusion of the left atrial appendage using a 35 mm AtriClip, endoscopic left radial artery harvest, epi-aortic scanning, intraoperative transesophageal echocardiogram by anesthesia. Postoperative acute blood loss anemia, an expected outcome of surgery given cardiopulmonary bypass pump and hemodilution. The patient is currently sitting in a recliner in no acute distress on the cardiac stepdown unit. She is using her incentive spirometer diligently. Remains in normal sinus rhythm. States pain is controlled on current medication regimen. She has ambulated in the hallway. States her shortness of breath is slightly better, says she only had to panic attacks last night and did get more sleep. She is still nervous about going home but does feel she would be able to go home today. Objective - Vital Signs Vital signs: Vital Signs Temp 98.1 F 10/08/18 04:00 Pulse 92 10/08/18 07:48 Resp 16 10/08/18 04:00 BP 144/78 10/08/18 04:00 Pulse Ox 97 10/08/18 04:00 Intake & Output 10/07/18 10/08/18 10/08/18 18:59 06:59 18:59 Intake Total 420 Balance 420 Weight 135.4 kg Intake: Oral 420 Other: Voiding Method Toilet # Voids 3 1 # Bowel Movements 3 ABP, PAP, CO, CI - Last Documented Arterial Blood Pressure 104/84 Pulmonary Artery Pressure 42/19 Cardiac Output 5.1 Cardiac Index 2.5 - Constitutional General appearance: Present: cooperative, morbidly obese, no acute distress - Respiratory Details: Lungs sounds diminished bilaterally. Respirations even, nonlabored. Currently on room air with oxygen saturation 97%. Able to achieve 1250 mL on her incentive spirometry. Strong productive cough with paige/yellow sputum. - Cardiovascular Details: S1, S2 present. Positive valvular click. Regular rate and rhythm, sinus rhythm on telemetry. Palpable peripheral pulses bilaterally. Generalized trace edema present. No calf pain or tenderness noted. Heart hugger in place with patient demonstrating appropriate use. Antiembolism stockings, SCDs present. - Gastrointestinal Gastrointestinal Comment(s): Abdomen soft, nontender, nondistended, obese. Active bowel sounds present 4 quadrants. Tolerating diet. Positive bowel movement 10/07. - Genitourinary Genitourinary Comment(s): Patient continues to void clear, yellow urine. - Integumentary Integumentary Comment(s): Skin is warm and dry with evidence of good perfusion. Anterior chest incision well approximated and covered with dry intact dressing. Left radial artery harvest site well approximated. 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 - Neurologic Neurologic: Present: CNII-XII intact - Musculoskeletal Musculoskeletal: Present: gait normal, strength equal bilaterally - Psychiatric Psychiatric: Present: A&O x's 3, appropriate affect, intact judgment & insight - Allied health notes Allied health notes reviewed: nursing - Labs CBC & Chem 7: 10/08/18 05:42 10/08/18 05:42 Labs: Abnormal Lab Results - Last 24 Hours (Table) 10/07/18 10/07/18 10/07/18 Range/Units 11:37 16:32 20:42 WBC (3.8-10.6) k/uL RBC (3.80-5.40) m/uL Hgb (11.4-16.0) gm/dL Hct (34.0-46.0) % RDW (11.5-15.5) % PT (9.0-12.0) sec INR (<1.2) Carbon Dioxide (22-30) mmol/L Glucose (74-99) mg/dL POC Glucose (mg/dL) 111 H 116 H 127 H (75-99) mg/dL 10/08/18 10/08/18 10/08/18 Range/Units 02:12 05:39 05:42 WBC (3.8-10.6) k/uL RBC (3.80-5.40) m/uL Hgb (11.4-16.0) gm/dL Hct (34.0-46.0) % RDW (11.5-15.5) % PT 32.9 H (9.0-12.0) sec INR 3.4 H (<1.2) Carbon Dioxide (22-30) mmol/L Glucose (74-99) mg/dL POC Glucose (mg/dL) 125 H 119 H (75-99) mg/dL 10/08/18 10/08/18 Range/Units 05:42 05:42 WBC 12.1 H (3.8-10.6) k/uL RBC 2.95 L (3.80-5.40) m/uL Hgb 7.5 L (11.4-16.0) gm/dL Hct 24.1 L (34.0-46.0) % RDW 17.6 H (11.5-15.5) % PT (9.0-12.0) sec INR (<1.2) Carbon Dioxide 31 H (22-30) mmol/L Glucose 117 H (74-99) mg/dL POC Glucose (mg/dL) (75-99) mg/dL - Imaging and Cardiology Chest x-ray: report reviewed, image reviewed Assessment and Plan (1) Morbid obesity with BMI of 50.0-59.9, adult Current Visit: Yes Status: Chronic Code(s): E66.01 - MORBID (SEVERE) OBESITY DUE TO EXCESS CALORIES; Z68.43 - BODY MASS INDEX (BMI) 50-59.9, ADULT SNOMED Code(s): 664875495 (2) Family history of early CAD Current Visit: Yes Status: Chronic Code(s): Z82.49 - FAMILY HX OF ISCHEM HEART DIS AND OTH DIS OF THE [facility] SNOMED Code(s): 587468217 (3) Tobacco dependence in remission Current Visit: No Status: Resolved Code(s): F17.201 - NICOTINE DEPENDENCE, UNSPECIFIED, IN REMISSION SNOMED Code(s): 507109085 (4) Aortic stenosis Current Visit: No Status: Resolved Code(s): I35.0 - NONRHEUMATIC AORTIC ( VALVE) STENOSIS SNOMED Code(s): 39182842 (5) History of gastric surgery Current Visit: No Status: Resolved Code(s): Z98.890 - OTHER SPECIFIED POSTPROCEDURAL STATES SNOMED Code(s): 869425223 (6) Hyperlipidemia Current Visit: Yes Status: Chronic Code(s): E78.5 - HYPERLIPIDEMIA, UNSPECIFIED SNOMED Code(s): 06690135 (7) Hypertension Current Visit: Yes Status: Chronic Code(s): I10 - ESSENTIAL (PRIMARY) HYPERTENSION SNOMED Code(s): 68828859 (8) Obstructive sleep apnea Current Visit: No Status: Chronic Code(s): G47.33 - OBSTRUCTIVE SLEEP APNEA (ADULT) (PEDIATRIC) SNOMED Code(s): 20281838 (9) Restless leg syndrome Current Visit: No Status: Chronic Code(s): G25.81 - RESTLESS LEGS SYNDROME SNOMED Code(s): 15870839 (10) History of Hodgkin's lymphoma Current Visit: No Status: Resolved Code(s): Z85.71 - PERSONAL HISTORY OF HODGKIN LYMPHOMA SNOMED Code(s): 846661915 (11) History of chemotherapy Current Visit: No Status: Resolved Code(s): Z92.21 - PERSONAL HISTORY OF ANTINEOPLASTIC CHEMOTHERAPY SNOMED Code(s): 749189935812183 (12) History of radiation therapy Current Visit: No Status: Resolved Code(s): Z92.3 - PERSONAL HISTORY OF IRRADIATION SNOMED Code(s): 747304162 Plan: 1. Continue full dose aspirin, Crestor, beta will therapy. 2. Continue oral Cardizem CD for radial artery spasm prophylaxis. 3. Encourage incentive spirometry 10 times every hour. Encourage continued smoking cessation. 4. Bronchodilators per pulmonology. 5. Increase activity, ambulate as tolerated. PT/OT/cardiac rehab following. 6. Continue Coumadin, will give 2 mg, INR this morning 3.4 after 2 mg given yesterday. Goal INR 2.5-3.5 for the first 3 months, then 1.5-2.0. 7. Will monitor daily labs and x-rays. Electrolyte replacement per protocol. No transfusion at this time. 8. Pain control with current medication regimen. 9. Insulin management per primary care service. 10. GI prophylaxis with Protonix. DVT prophylaxis with SCDs. 11. Continue low-dose Xanax as needed for anxiety. 12. Will give Lasix 40 mg IV push 1 today. 13. Will discharge to home with home care today. Time with Patient: Greater than 30
[2018-10-08 09:00] VITALS: RESP 18; TEMP 98.2
[2018-10-08] MEDS ORDERED: DILTIAZEM CD 120 MG CAP.ER.24H PO SCH (09:00)
--- NOTE | 2018-10-08 09:44 | P.DS ---
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 Bicuspid aortic valve with severe aortic valve stenosis 2. Symptomatic multivessel coronary artery disease with left main coronary artery disease 3. Hypertension 4. Hyperlipidemia 5. Family history of premature coronary artery disease 6. Morbid obesity 7. Prediabetic with preoperative hemoglobin A1c 6.3% 8. History of Hodgkin's lymphoma with subsequent chemoradiation 9. Previous tobacco dependence with preoperative FEV1 was 71% of predicted 10. Obstructive sleep apnea without the CPAP use 11. History of gastric sleeve surgery 12. Restless leg syndrome 13. Postoperative acute blood loss anemia, expected outcome PRINCIPAL PROCEDURE: 1. Elective coronary artery bypass graft surgery with sequential left internal mammary artery to the left anterior descending artery to the diagonal branch, radial artery to the obtuse marginal artery 2. Aortic valve replacement using a 23 mm On-X mechanical valve 3. Aortic root enlargement with [place]-Bg patch 4. Exclusion of the left atrial appendage using a 35 mm AtriClip 5. Endoscopic left radial artery harvest 6. Epi-aortic scanning 7. Intraoperative transesophageal echocardiogram by anesthesia HISTORY OF PRESENT ILLNESS: This is a 48-year-old morbidly obese female patient who follows with Dr. Rohan Burns on an outpatient basis. She presented to [facility] emergency room in July 2018 with complaints of increasing stress of breath and chest pain with exertion. Her workup included chest x-ray which demonstrated mild cardiomegaly, chest CTA which showed pulmonary edema with bilateral pleural effusions and coronary calcifications, and transthoracic echocardiogram which demonstrated normal left ventricular systolic function with EF 55-60%, mild to moderate aortic regurgitation, moderate aortic stenosis with peak/mean gradient 60.52 mmHg/32.99 mmHg, trace to mild mitral trivial regurgitation, mild tricuspid regurgitation, and mild to moderate pulmonary hypertension with RVSP 45.42 mmHg. She was treated for acute congestive heart failure with diuretics and was discharged with plans to follow with Dr. Jones for heart catheterization. Left heart catheterization was completed 09/05/2018 and demonstrated left main stenosis 60-70%, and 30% proximal lesion in the ramus. Transesophageal echocardiogram was also completed demonstrating calcified bicuspid aortic valve with an area calculated to be 1-1.27 m suggesting severe aortic stenosis, mild aortic regurgitation, and trace mitral regurgitation. The patient was referred to Dr. Jesus from cardiothoracic surgery. She was recommended to undergo aortic valve replacement and coronary artery bypass graft surgery. The usual perioperative course was discussed in detail with the patient and her family, all risks and benefits were explained, all questions were answered, and consent was obtained to proceed with surgery. The patient was discharged to home on maximal medical therapy to return as an outpatient for surgery after obtaining dental clearance. HOSPITAL COURSE: The patient was brought to the hospital on 10/03/2018, taken to the preoperative area, prepared in the usual fashion, and subsequently taken to the operating room where Dr. Jesus performed elective coronary artery bypass graft surgery with sequential left internal mammary artery to the left anterior descending artery to the diagonal branch, radial artery to the obtuse marginal artery, aortic valve replacement using a 23 mm On-X mechanical valve, aortic root enlargement with [place]-Bg patch, exclusion of the left atrial appendage using a 35 mm AtriClip, endoscopic left radial artery harvest, epi-aortic scanning, and intraoperative transesophageal echocardiogram by anesthesia. Upon completion of surgery the patient was transferred to the cardiovascular intensive care unit where she was recovered, monitored hemodynamically, and where she progressed to cardiac rehabilitation phase 1. She was extubated, all lines, tubes, and drips were discontinued when appropriate, and she was transferred to 3 S. cardiac stepdown unit for further monitoring and rehabilitation. Her oxygen was titrated down, she continued to work with physical and occupational therapy, she was tolerating oral diet, her pain was controlled, and she was ready to be discharged to home with home care on postoperative day #. She received written and verbal instruction regarding her medications, activity restrictions, signs and symptoms requiring physician notification, and follow-up appointments. COMPLICATIONS: The patient experienced no postoperative complications. Patient Condition at Discharge: Stable Plan - Discharge Summary Discharge Rx Participant: Yes New Discharge Prescriptions: New ALPRAZolam [Xanax] 0.25 mg PO BID PRN #14 tab PRN Reason: Anxiety Ascorbic Acid [Vitamin C] 500 mg PO BID-W/MEALS #14 tab Aspirin 325 mg PO DAILY #30 tab Diltiazem Cd [Cardizem CD] 120 mg PO DAILY #30 cap.er.24h Ferrous Sulfate [Iron (65 MG Elemental)] 325 mg PO BID-W/MEALS #14 tab HYDROcodone/APAP 5-325MG [[place] 5-325] 1 each PO Q6HR PRN #30 tab PRN Reason: Moderate Pain Metoprolol Tartrate [Lopressor] 25 mg PO BID #60 tab Pantoprazole [Protonix] 40 mg PO AC-BRKFST #30 tablet.[address] Mckenna-Docusate Sodium [Senokot-S] 2 each PO HS #14 tab Warfarin Sodium [Coumadin] 2 mg PO DAILY@1800 #30 tablet Continue Furosemide [Lasix] 40 mg PO DAILY #30 tablet Pramipexole Di-HCl [Mirapex] 1.5 mg PO HS #30 tablet Rosuvastatin Calcium [Crestor] 5 mg PO DAILY #90 tab Discontinued Metoprolol Succinate [Toprol Xl] 100 mg PO HS Acetaminophen Tab [Tylenol] 500 mg PO Q4H PRN #1 tablet PRN Reason: Pain Aspirin 81 mg PO DAILY chew Discharge Medication List ALPRAZolam [Xanax] 0.25 mg PO BID PRN #14 tab 10/08/18 [Rx] Ascorbic Acid [Vitamin C] 500 mg PO BID-W/MEALS #14 tab 10/08/18 [Rx] Aspirin 325 mg PO DAILY #30 tab 10/08/18 [Rx] Diltiazem Cd [Cardizem CD] 120 mg PO DAILY #30 cap.er.24h 10/08/18 [Rx] Ferrous Sulfate [Iron (65 MG Elemental)] 325 mg PO BID-W/MEALS #14 tab 10/08/18 [Rx] Furosemide [Lasix] 40 mg PO DAILY #30 tablet 10/08/18 [Rx] HYDROcodone/APAP 5-325MG [[place] 5-325] 1 each PO Q6HR PRN #30 tab 10/08/18 [Rx] Metoprolol Tartrate [Lopressor] 25 mg PO BID #60 tab 10/08/18 [Rx] Pantoprazole [Protonix] 40 mg PO AC-BRKFST #30 tablet. 10/08/18 [Rx] Pramipexole Di-HCl [Mirapex] 1.5 mg PO HS #30 tablet 10/08/18 [Rx] Rosuvastatin Calcium [Crestor] 5 mg PO DAILY #90 tab 10/08/18 [Rx] Sennosides-Docusate Sodium [Senokot-S] 2 each PO HS #14 tab 10/08/18 [Rx] Warfarin Sodium [Coumadin] 2 mg PO DAILY@1800 #30 tablet 10/08/18 [Rx] Follow up Appointment(s)/Referral(s): Tonja Ocampo NPC [Nurse Practitioner] - 10/13/18 12:00 pm Marifer Jones MD [STAFF PHYSICIAN] - 10/21/18 10:00 am Miky Jesus MD [STAFF PHYSICIAN] - 11/06/18 1:00 pm [facility] Visiting Nurse, [NON-STAFF] - 1-2 Days Isela Navarro MD [STAFF PHYSICIAN] - 10/30/18 10:15 am Rohan Burns MD [Primary Care Provider] - 10/29/18 1:30 pm Ambulatory/Diagnostic Orders: Complete Blood Count w/diff [LAB.AMB] Time Frame: 10/10/18, Location: None Selected Comprehensive Metabolic Panel [LAB.AMB] Time Frame: 10/10/18, Location: None Selected Prothrombin Time INR [LAB.AMB] Time Frame: 10/10/18, Location: None Selected Patient Instructions/Handouts: Aortic Valve Replacement (DC), Heart Healthy Diet (DC), Coronary Artery Bypass Graft (DC) Activity/Diet/Wound Care/Special Instructions: DISCHARGE INSTRUCTIONS: 1. No driving for 4 weeks, or until physician gives their ok. 2. The patient should sleep in their own bed, no medical bed needed. 3. Stairs are not an issue. If the bedroom is upstairs, it is advised that the patient go up at night and down in the morning for the first week. Go slowly, using handrail and take 1 step at a time. 4. MADHURI hose are to be worn for 30 days or until physician discontinues. 5. Heart hugger is to be worn 100% of the time until physician discontinues.( except when showering) 6. No lifting, pushing, or pulling more than 10 pounds for 12 weeks. The physician will advise of any restriction changes. 7. The patient is expected to continue the prescribed walking program. 8. Continue pain control per as needed orders. 9. Continue with incentive spirometry and splinting/heart hugger until otherwise directed by the physician. 10. Must shower daily using liquid antibacterial soap and a separate white washcloth for each individual incision. 11. Routine sternal incision care. No powders, lotions, ointments on incisions. 12. Please call surgeon/SENIOR [employer] for temp greater than 101 F or purulent drainage from incisions. 13. Narcotic medications were discussed with the patient, including the potential for misuse, addiction, and abuse. Opiod Start Talking form was reviewed with the patient. 14. All prescriptions given by surgeon for 30 days. Refills need to be filled through machine folder/primary care physician. 15. A Red armband has been placed on the patient. It should be worn for 30 days post surgery and will be removed by the cardiac surgeons. If an ER visit is necessary, please make sure the number on the Red armband is called. HOME HEALTH SERVICES TO PROVIDE: RN SKILLED HOME CARE SERVICES FOR POST-OP SURGICAL PATIENTS WITH THE FOLLOWING: Coronary Artery Bypass Surgery (CABG), Mitral Valve Replacement/ Repair ( MVR), Aortic Valve Replacement/Repair (AVR) RN TO CONTINUE EDUCATION FROM ``ROAD TO A HEALTH HEART PATIENT EDUCATION MANUAL (GIVEN TO PATIENT IN THE HOSPITAL) MEDICATION RECONCILIATION WITH EDUCATION NEEDED ON FIRST HOME VISIT EMPHASIZE IMPORTANCE OF WEARING BREAST SUPPORT/HEART HUGGER ENCOURAGE USE OF INCENTIVE SPIROMETER 10 X EVERY HOUR WHILE AWAKE ENCOURAGE UTILIZATION OF LOWER EXTREMITY COMPRESSION STOCKINGS/MADHURI HOSE and ELEVATE LEGS ABOVE LEVEL OF HEART WHILE AT REST. ENCOURAGE AMBULATION 3-5x/day INCREASING TOLERATES, WHILE AVOID EXTREMES IN TEMPERATURE FREQUENCY: RN TO OPEN THE PATIENT WITHIN 24 HOURS OF DISCHARGE FROM THE HOSPITAL WITH TELEHEALTH INSTALLED AT [facility] [place] TO VISIT 2-3 X A WEEK FOR 4 WEEKS ESTABLISHED BY PATIENT NEEDS. LABORATORY: CBC, CMP TO BE DRAWN ON SATURDAY, (RAN STAT) FAX RESULTS TO [phone]. For patients on Coumadin, PT/INR to be drawn on Saturday, ran as STAT, and results faxed to [facility] at [phone] for Coumadin dosing. TELEHEALTH PARAMETERS: WEIGHT: NOTIFY MD OF WEIGHT GAIN OF 2 LBS IN 24 HOURS OR 5 LBS IN ONE WEEK HR: NOTIFY MD OF HR <55 BPM OR HR>100 BPM BP: NOTIFY MD IF BP <90/55 OR BP>140/100 O2 SAT: NOTIFY MD IF PO2<93% ON ROOM AIR SEND TELEHEALTH REPORT TO LABORER [employer] AND CARDIOVASCULAR SURGEON THE FIRST WEEK OF CARE AND THEN BI-WEEKLY. PLEASE ADDITIONALLY COMMUNICATE ANY ABNORMALS AND NEW FINDINGS TO THE SURGEONS OFFICE. Discharge Disposition: HOME WITH HOME HEALTH SERVICES
[2018-10-08] MEDS: ASPIRIN 325 MG TAB PO SCH (09:53)
[2018-10-08] MEDS: METOPROLOL TARTRATE 25 MG TAB PO SCH (09:53)
[2018-10-08 11:17] VITALS: BP 146/69; PULSE 105
--- NOTE | 2018-10-08 12:06 | P.PN ---
Subjective Progress Note Date: 10/08/18 Principal diagnosis: Aortic valve stenosis, status post mechanical aortic valve replacement and two- vessel bypass surgery, postop day 5 Patient was seen and reevaluated again on 10/07/2018, she has been transferred out of the intensive care unit, she is currently on selective care floor, this is postoperative day 5, status post mechanical aortic valve replacement, and two -vessel coronary artery bypass grafting involving BRO to LAD, and radial artery graft to OM 1. Patient is awake and alert, sitting up in the recliner, she states she did have some shortness of breath last night, she was waking up frequently shortness of breath. Today's chest x-ray was reviewed with Dr. Galeano and shows postop changes, probable basilar atelectasis and small effusion. Patient did receive another dose of IV Lasix per CT surgery. Pain is reasonably controlled, patient has been ambulated, she is on room air, her pulse ox is 96%, afebrile, hemodynamically stable. She is in sinus mechanism. Today's labs have been reviewed, white blood cell count is 12.6, hemoglobin is 7.4, INR is 2.8, electrolytes and renal profile with within normal limits. On 10/08/2018 patient seen in follow-up on an elective care unit. She has been up ambulating with cardiac rehab, and tolerating activity quite well, does get dyspneic, but recovers with rest, socks is 96% with ambulation, vital signs are stable, pain is controlled, reviewed, and showed a small pleural effusions, basilar atelectasis. She was given additional dose of IV Lasix per CT surgery today, INR is 2.4, hemoglobin is 7.5, white blood cell count is 12.5, electrolytes and renal profile are unremarkable. Objective - Vital Signs Vital signs: Vital Signs Temp 98.2 F 10/08/18 07:55 Pulse 105 H 10/08/18 11:14 Resp 18 10/08/18 07:55 BP 146/69 10/08/18 11:14 Pulse Ox 94 L 10/08/18 11:14 Intake & Output 10/07/18 10/08/18 10/08/18 18:59 06:59 18:59 Intake Total 420 840 Balance 420 840 Weight 135.4 kg Intake: Oral 420 840 Other: Voiding Method Toilet # Voids 3 1 # Bowel Movements 3 ABP, PAP, CO, CI - Last Documented Arterial Blood Pressure 104/84 Pulmonary Artery Pressure 42/19 Cardiac Output 5.1 Cardiac Index 2.5 - Exam GENERAL EXAM: Alert, pleasant, 48-year-old obese female comfortable in no apparent distress. HEAD: Normocephalic/atraumatic. EYES: Normal reaction of pupils, equal size. Conjunctiva pink, sclera white. NOSE: Clear with pink turbinates. THROAT: No erythema or exudates. NECK: No masses, no JVD, no thyroid enlargement, no adenopathy. CHEST: No chest wall deformity. Symmetrical expansion. Midsternal incision is clean dry and intact, well approximated, stable LUNGS: Equal air entry with diminished breath sounds CVS: Regular rate and rhythm, normal S1 and S2, no gallops, no murmurs, no rubs ABDOMEN: Soft, nontender. No hepatosplenomegaly, normal bowel sounds, no guarding or rigidity. EXTREMITIES: No clubbing, no edema, no cyanosis, 2+ pulses and upper and lower extremities. MUSCULOSKELETAL: Muscle strength and tone normal. SPINE: No scoliosis or deformity SKIN: No rashes CENTRAL NERVOUS SYSTEM: Alert and oriented -3. No focal deficits, tone is normal in all 4 extremities. PSYCHIATRIC: Alert and oriented -3. Appropriate affect. Intact judgment and insight. - Labs CBC & Chem 7: 10/08/18 05:42 10/08/18 05:42 Labs: Abnormal Lab Results - Last 24 Hours (Table) 10/07/18 10/07/18 10/08/18 Range/Units 16:32 20:42 02:12 WBC (3.8-10.6) k/uL RBC (3.80-5.40) m/uL Hgb (11.4-16.0) gm/dL Hct (34.0-46.0) % RDW (11.5-15.5) % PT (9.0-12.0) sec INR (<1.2) Carbon Dioxide (22-30) mmol/L Glucose (74-99) mg/dL POC Glucose (mg/dL) 116 H 127 H 125 H (75-99) mg/dL 10/08/18 10/08/18 10/08/18 Range/Units 05:39 05:42 05:42 WBC 12.1 H (3.8-10.6) k/uL RBC 2.95 L (3.80-5.40) m/uL Hgb 7.5 L (11.4-16.0) gm/dL Hct 24.1 L (34.0-46.0) % RDW 17.6 H (11.5-15.5) % PT 32.9 H (9.0-12.0) sec INR 3.4 H (<1.2) Carbon Dioxide (22-30) mmol/L Glucose (74-99) mg/dL POC Glucose (mg/dL) 119 H (75-99) mg/dL 10/08/18 Range/Units 05:42 WBC (3.8-10.6) k/uL RBC (3.80-5.40) m/uL Hgb (11.4-16.0) gm/dL Hct (34.0-46.0) % RDW (11.5-15.5) % PT (9.0-12.0) sec INR (<1.2) Carbon Dioxide 31 H (22-30) mmol/L Glucose 117 H (74-99) mg/dL POC Glucose (mg/dL) (75-99) mg/dL Assessment and Plan Plan: Assessment: 1 status post aortic valve replacement and two-vessel bypass surgery involving BRO to LAD and the radial artery graft to obtuse marginal 1, patient is postoperative day #6. 2 postoperative atelectasis, expected after such surgery. Hence the patient will remain on incentive spirometry. 3 history of previous gastric sleeve surgery. 4 history of Hodgkin's lymphoma 5 multiple comorbidities including hypertension, hyperlipidemia, restless leg syndrome, and morbid obesity. BMI of 47.6. Plan: She is doing well, maintaining stable oxygenation on room air, tolerating ambulation, a chest x-ray has been reviewed, and shows stable findings of small bilateral pleural effusions and basilar atelectasis. Patient received another dose of IV Lasix per CT surgery, no worsening dyspnea. Vital signs are stable, stable for discharge from pulmonary perspective, we'll follow up with Dr. Navarro in the office in one week. I performed a history & physical examination of the patient and discussed their management with my nurse practitioner, Lou Sanchez. I reviewed the nurse practitioner's note and agree with the documented findings and plan of care. Lung sounds are positive for diminished breath sounds bilaterally. The findings and the impression was discussed with the patient. I attest to the documentation by the nurse practitioner. Time with Patient: Less than 30
--- NOTE | 2018-10-08 15:46 | PN ---
PROGRESS NOTE Mrs. Kurtz is a 48-year-old female, status post coronary artery bypass grafting and aortic valve replacement. She is doing well today. She is ambulating without difficulty. She is denying any chest pain. She continues to be in sinus mechanism. She denies any dizziness or palpitations. She denies any nausea. She continues to be on Coumadin, aspirin 81 mg daily, metoprolol tartrate 25 mg twice a day. PHYSICAL EXAMINATION: Blood pressure 140/60 with a heart rate in the 90s. LUNGS: Clear. HEART: Regular rate and rhythm. S1, S2. No S3, with prosthetic aortic sound, with a systolic murmur, no rub. ABDOMEN: Soft, obese, nontender. EXTREMITIES: No edema. IMPRESSION: 1. Status post aortic valve replacement and coronary artery bypass grafting. 2. Obesity. 3. Hypertension. 4. Hyperlipidemia. RECOMMENDATIONS: Patient should be able to be discharged home today and followed as an outpatient. MMODL / IJN: [id number] /
== END 2018-10-08 11:27 | disposition home health service (06) | DRG 220 ==
LOC: 2ORMAIN 10-02 05:39 → 2SICU 10-02 15:18 → 3SCARD 10-06 14:19
PROVIDERS: ADMIT Thoracic Surgery (Cardiothoracic Vascular Surgery); ATTEND Thoracic Surgery (Cardiothoracic Vascular Surgery)
PROC: 02RF0JZ Replacement of Aortic Valve with Synthetic Substitute, Open Approach (ICD-10-PCS; principal; 2018-10-03)
PROC: 02110Z9 Bypass Coronary Artery, Two Arteries from Left Internal Mammary, Open Approach (ICD-10-PCS; 2018-10-03)
PROC: 02100A3 Bypass Coronary Artery, One Artery from Coronary Artery with Autologous Arterial Tissue, Open Approach (ICD-10-PCS; 2018-10-03)
PROC: 03BC4ZZ Excision of Left Radial Artery, Percutaneous Endoscopic Approach (ICD-10-PCS; 2018-10-03)
PROC: 02UX0JZ Supplement Thoracic Aorta, Ascending/Arch with Synthetic Substitute, Open Approach (ICD-10-PCS; 2018-10-03)
PROC: 02L70CK Occlusion of Left Atrial Appendage with Extraluminal Device, Open Approach (ICD-10-PCS; 2018-10-03)
PROC: B24BZZ4 Ultrasonography of Heart with Aorta, Transesophageal (ICD-10-PCS; 2018-10-03)
DX: I35.2 Nonrheumatic aortic (valve) stenosis with insufficiency (principal); D62 Acute posthemorrhagic anemia; E87.3 Alkalosis; J98.11 Atelectasis; Z68.42 Body mass index [BMI] 45.0-49.9, adult; I11.0 Hypertensive heart disease with heart failure; M41.9 Scoliosis, unspecified; E66.01 Morbid (severe) obesity due to excess calories; E88.09 Other disorders of plasma-protein metabolism, not elsewhere classified; K75.9 Inflammatory liver disease, unspecified; I25.119 Atherosclerotic heart disease of native coronary artery with unspecified angina pectoris; D72.829 Elevated white blood cell count, unspecified; E78.5 Hyperlipidemia, unspecified; F17.201 Nicotine dependence, unspecified, in remission; F41.0 Panic disorder [episodic paroxysmal anxiety]; G25.81 Restless legs syndrome; G47.00 Insomnia, unspecified; G47.33 Obstructive sleep apnea (adult) (pediatric); M47.816 Spondylosis without myelopathy or radiculopathy, lumbar region; R73.03 Prediabetes; Z98.84 Bariatric surgery status; Z92.3 Personal history of irradiation; Z92.21 Personal history of antineoplastic chemotherapy; Z87.442 Personal history of urinary calculi; Z79.82 Long term (current) use of aspirin; Z79.899 Other long term (current) drug therapy; Z85.72 Personal history of non-Hodgkin lymphomas; Z98.51 Tubal ligation status; Z88.1 Allergy status to other antibiotic agents; Z88.0 Allergy status to penicillin; Z88.8 Allergy status to other drugs, medicaments and biological substances; Z82.49 Family history of ischemic heart disease and other diseases of the circulatory system; Z82.5 Family history of asthma and other chronic lower respiratory diseases; Z81.1 Family history of alcohol abuse and dependence
CPT/HCPCS: 36410; 36430; 71045; 71046; 76937; 80048; 80053; 82330; 82805; 83735; 85025; 85027; 85520; 85610; 85730; 86850; 86891; 86900; 86901; 86920; 88305; 88311; 94002; 94640

== ENCOUNTER 2018-10-19 00:25 | Inpatient (IN) | payer BC, OTHER ==
[2018-10-19] MEDS ORDERED: ADENOSINE 3 MG/ML 2 ML VIAL IVP STA (00:49)
--- NOTE | 2018-10-19 00:55 | ED ---
General Adult HPI - General Chief complaint: Arrhythmia/Palpitations Stated complaint: Tachycardia Post Heart Surgery On 10/02/18 Time Seen by Provider: 10/19/18 00:37 Source: patient, RN notes reviewed, old records reviewed Mode of arrival: ambulatory Limitations: no limitations - History of Present Illness Initial comments: 48-year-old female presented for evaluation of palpitations. Patient is 17 days postop open-heart surgery. Patient had triple vessel bypass and mechanical aortic valve replacement. She presents this evening with several hours of palpitations. She didn't take heart rate at home and was noted to be 150. She called the nurse who recommended she presented to the emergency department. She has no history of arrhythmia. She is currently on metoprolol XL 100 mg daily. No missed doses. She was previously on 25 mg of metoprolol twice daily. She is on Coumadin. Denies chest pain. She has a mild sensation in her left shoulder, does not report this as significant pain. No vomiting or diarrhea. No fever or chills. No dyspnea. - Related Data Previous Rx's Medication Instructions Recorded ALPRAZolam [Xanax] 0.25 mg PO BID PRN #14 tab 10/08/18 Ascorbic Acid [Vitamin C] 500 mg PO BID-W/MEALS #14 tab 10/08/18 Aspirin 325 mg PO DAILY #30 tab 10/08/18 Diltiazem Cd [Cardizem CD] 120 mg PO DAILY #30 cap.er.24h 10/08/18 Ferrous Sulfate [Iron (65 MG 325 mg PO BID-W/MEALS #14 tab 10/08/18 Elemental)] Furosemide [Lasix] 40 mg PO DAILY #30 tablet 10/08/18 HYDROcodone/APAP 5-325MG [[place] 1 each PO Q6HR PRN #30 tab 10/08/18 5-325] Metoprolol Tartrate [Lopressor] 25 mg PO BID #60 tab 10/08/18 Pantoprazole [Protonix] 40 mg PO AC-BRKFST #30 tablet.dr 10/08/18 Pramipexole Di-HCl [Mirapex] 1.5 mg PO HS #30 tablet 10/08/18 Rosuvastatin Calcium [Crestor] 5 mg PO DAILY #90 tab 10/08/18 Sennosides-Docusate Sodium 2 each PO HS #14 tab 10/08/18 [Senokot-S] Warfarin Sodium [Coumadin] 2 mg PO DAILY@1800 #30 tablet 10/08/18 Allergies Allergy/AdvReac Type Severity Reaction Status Date / Time clindamycin Allergy Rash/Hives Verified 10/02/18 16:57 amoxicillin AdvReac UTI Verified 10/02/18 16:57 atorvastatin [From Lipitor] AdvReac muscle Verified 10/02/18 16:57 cramping artificial sweetener AdvReac Nausea & Uncoded 10/02/18 06:13 Vomiting Review of Systems ROS Statement: Those systems with pertinent positive or pertinent negative responses have been documented in the HPI. ROS Other: All systems not noted in ROS Statement are negative. Past Medical History Past Medical History: Coronary Artery Disease (CAD), Cancer, Chest Pain / Angina , Hyperlipidemia, Hypertension, Osteoarthritis (OA), Sleep Apnea/CPAP/BIPAP Additional Past Medical History / Comment(s): Morbid obesity with a previous gastric sleeve surgery approximately 5 years ago, history of Hodgkin's lymphoma treated with systemic chemotherapy and radiation therapy, restless leg syndrome , history of nephrolithiasis, mild scoliosis, degenerative disc disease, bicuspid aortic valve, coronary artery disease, hypertension, hyperlipidemia, obstructive sleep apnea, osteoarthritis History of Any Multi-Drug Resistant Organisms: None Reported Past Surgical History: Adenoidectomy, Bariatric Surgery, Section, Coronary Bypass/CABG, Heart Catheterization, Tubal Ligation Additional Past Surgical History / Comment(s): sleeve gastrectomy 05/2013, Lymph node aspiration, Lt knee injections, back injections Past Anesthesia/Blood Transfusion Reactions: No Reported Reaction Additional Past Anesthesia/Blood Transfusion Reaction / Comment(s): "has never received any blood transfusions" Past Psychological History: No Psychological Hx Reported Smoking Status: Former smoker Past Alcohol Use History: None Reported Past Drug Use History: None Reported - Past Family History Father Additional Family Medical History / Comment(s): alcoholism Mother Family Medical History: COPD Additional Family Medical History / Comment(s): Mom: heart dx, brother at 4 months of heart abnormalaties, uncle had a myocardial infarction at 47 years old, cousin from myocardial infarction at 45 years old General Exam Limitations: no limitations General appearance: alert, in no apparent distress Head exam: Present: atraumatic, normocephalic Eye exam: Present: normal appearance, PERRL ENT exam: Present: normal exam Neck exam: Present: normal inspection. Absent: tenderness, meningismus Respiratory exam: Present: normal lung sounds bilaterally. Absent: respiratory distress, wheezes Cardiovascular Exam: Present: normal rhythm, tachycardia, systolic murmur GI/Abdominal exam: Present: soft. Absent: distended, tenderness, guarding Extremities exam: Present: normal capillary refill, pedal edema (Trace edema) Neurological exam: Present: alert, oriented X3, CN II-XII intact. Absent: motor sensory deficit Psychiatric exam: Present: normal affect, normal mood Skin exam: Present: warm, dry, intact. Absent: cyanosis, diaphoretic Course Vital Signs 10/19/18 10/19/18 10/19/18 00:30 01:06 01:10 Temperature 98.2 F Pulse Rate 148 H 149 H 146 H Respiratory 18 18 18 Rate Blood Pressure 129/70 132/100 147/83 O2 Sat by Pulse 98 100 100 Oximetry 10/19/18 10/19/18 10/19/18 01:18 01:34 01:39 Temperature Pulse Rate 144 H 147 H 147 H Respiratory 18 17 18 Rate Blood Pressure 118/89 115/89 115/87 O2 Sat by Pulse 99 99 99 Oximetry 10/19/18 10/19/18 02:15 02:31 Temperature Pulse Rate 142 H 142 H Respiratory 17 Rate Blood Pressure 81/43 106/81 O2 Sat by Pulse 100 Oximetry - Reevaluation(s) Reevaluation #1: 10/19/18 0140 Discussed case with Tonja encinas for Dr. Jesus, recommends metoprolol and switching to amiodarone if this does not improve rate control Reevaluation #2: 10/19/18 02:15 Case discussed with [employer], Dr. Biggs, agrees with switching to amiodarone, as well as fluid bolus. EKG Findings - EKG Comments: EKG Findings:: EKG: Narrow complex regular tachycardia, SVT, possible atrial flutter with 2-1 conduction, left axis deviation, rate of 150, QRS duration 98, QTC 486. Medical Decision Making - Medical Decision Making 48-year-old female presenting with palpitations. Found to be in narrow complex regular tachycardia, SVT versus a flutter with 2- 1 conduction. Patient is currently on metoprolol. She has been taking this medication as prescribed. She is also on Coumadin status post mechanical valve replacement. Patient is stable blood pressure, given multiple doses of IV metoprolol in the emergency department with only minimal improvement in rate. I did discuss the case with cardiology and Tonja encinas for cardiothoracic surgery. Both recommend an amiodarone bolus and infusion. Patient has mild leukocytosis which is unchanged from prior, hemoglobin 8.8 which is improved from previous 7.5. Normal electrolytes. INR is 1.1 which is subtherapeutic. Patient is started on heparin infusion in addition to amiodarone. She will be placed in the ICU for close monitoring. Case discussed with Dr. Navarro, will accept patient to ICU. - Lab Data Result diagrams: 10/19/18 00:55 10/19/18 00:55 Lab Results 10/19/18 10/19/18 10/19/18 Range/Units 00:55 00:55 00:55 WBC 12.8 H (3.8-10.6) k/uL RBC 3.52 L (3.80-5.40) m/uL Hgb 8.8 L (11.4-16.0) gm/dL Hct 29.0 L (34.0-46.0) % MCV 82.5 (80.0-100.0) fL MCH 25.1 (25.0-35.0) pg MCHC 30.4 L (31.0-37.0) g/dL RDW 17.3 H (11.5-15.5) % Plt Count 560 H D (150-450) k/uL Neutrophils % 68 % Lymphocytes % 17 % Monocytes % 5 % Eosinophils % 8 % Basophils % 1 % Neutrophils # 8.7 H (1.3-7.7) k/uL Lymphocytes # 2.1 (1.0-4.8) k/uL Monocytes # 0.6 (0-1.0) k/uL Eosinophils # 1.0 H (0-0.7) k/uL Basophils # 0.1 (0-0.2) k/uL Hypochromasia Marked Poikilocytosis Slight Anisocytosis Slight PT 11.2 (9.0-12.0) sec INR 1.1 (<1.2) APTT 24.2 (22.0-30.0) sec Sodium 141 (137-145) mmol/L Potassium 4.3 (3.5-5.1) mmol/L Chloride 103 (98-107) mmol/L Carbon Dioxide 30 (22-30) mmol/L Anion Gap 8 mmol/L BUN 18 H (7-17) mg/dL Creatinine 0.83 (0.52-1.04) mg/dL Est GFR (CKD-EPI)AfAm >90 (>60 ml/min/1.73 sqM) Est GFR (CKD-EPI)NonAf 85 (>60 ml/min/1.73 sqM) Glucose 121 H (74-99) mg/dL Calcium 9.0 (8.4-10.2) mg/dL Magnesium 2.3 (1.6-2.3) mg/dL Total Bilirubin 0.4 (0.2-1.3) mg/dL AST 18 (14-36) U/L ALT 30 (9-52) U/L Alkaline Phosphatase 128 H (38-126) U/L Troponin I (0.000-0.034) ng/mL Total Protein 6.8 (6.3-8.2) g/dL Albumin 3.6 (3.5-5.0) g/dL 10/19/18 Range/Units 00:55 WBC (3.8-10.6) k/uL RBC (3.80-5.40) m/uL Hgb (11.4-16.0) gm/dL Hct (34.0-46.0) % MCV (80.0-100.0) fL MCH (25.0-35.0) pg MCHC (31.0-37.0) g/dL RDW (11.5-15.5) % Plt Count (150-450) k/uL Neutrophils % % Lymphocytes % % Monocytes % % Eosinophils % % Basophils % % Neutrophils # (1.3-7.7) k/uL Lymphocytes # (1.0-4.8) k/uL Monocytes # (0-1.0) k/uL Eosinophils # (0-0.7) k/uL Basophils # (0-0.2) k/uL Hypochromasia Poikilocytosis Anisocytosis PT (9.0-12.0) sec INR (<1.2) APTT (22.0-30.0) sec Sodium (137-145) mmol/L Potassium (3.5-5.1) mmol/L Chloride (98-107) mmol/L Carbon Dioxide (22-30) mmol/L Anion Gap mmol/L BUN (7-17) mg/dL Creatinine (0.52-1.04) mg/dL Est GFR (CKD-EPI)AfAm (>60 ml/min/1.73 sqM) Est GFR (CKD-EPI)NonAf (>60 ml/min/1.73 sqM) Glucose (74-99) mg/dL Calcium (8.4-10.2) mg/dL Magnesium (1.6-2.3) mg/dL Total Bilirubin (0.2-1.3) mg/dL AST (14-36) U/L ALT (9-52) U/L Alkaline Phosphatase (38-126) U/L Troponin I 0.035 H* (0.000-0.034) ng/mL Total Protein (6.3-8.2) g/dL Albumin (3.5-5.0) g/dL Critical Care Time Critical Care Time: Yes Total Critical Care Time: 35 Disposition Clinical Impression: Atrial flutter, Supraventricular tachycardia, Congestive heart failure, Mechanical heart valve present Disposition: ADMITTED IP TO THIS [facility] Condition: Serious Is patient prescribed a controlled substance at d/c from ED?: No Decision to Admit Reason: Admit from EC Decision Date: 10/19/18 Decision Time: 02:10
[2018-10-19] MEDS: METOPROLOL TARTRATE 5 MG/5 ML VIAL IVP SCH ×3 (01:06→01:37)
[2018-10-19 01:29] LABS: Anisocytosis Slight; Basophils # (A) 0.1 k/uL (0-0.2); Basophils % (A) 1 %; Eosinophils % (A) 8 %; HGB 8.8 gm/dL (11.4-16.0); Hypochromasia Marked; Lymphocytes # (A) 2.1 k/uL (1.0-4.8); Lymphocytes % (A) 17 %; MCH 25.1 pg (25.0-35.0); MCHC 30.4 g/dL (31.0-37.0); MCV 82.5 fL (80.0-100.0); Mean Platelet Volume 6.5; Monocytes # (A) 0.6 k/uL (0-1.0); Monocytes % (A) 5 %; Neutrophils # (A) 8.7 k/uL (1.3-7.7); Neutrophils % (A) 68 %; Poikilocytosis Slight; RBC 3.52 m/uL (3.80-5.40); RDW 17.3 % (11.5-15.5); WBC 12.8 k/uL (3.8-10.6)
[2018-10-19 01:35] LABS: ALT 30 U/L (9-52); AST 18 U/L (14-36); Albumin 3.6 g/dL (3.5-5.0); Alkaline Phosphatase 128 U/L (38-126); Anion Gap 8 mmol/L; Blood Urea Nitrogen 18 mg/dL (7-17); Carbon Dioxide 30 mmol/L (22-30); Chloride 103 mmol/L (98-107); Glucose 121 mg/dL (74-99); Magnesium 2.3 mg/dL (1.6-2.3); Potassium 4.3 mmol/L (3.5-5.1); Sodium 141 mmol/L (137-145); Total Bilirubin 0.4 mg/dL (0.2-1.3); Total Protein 6.8 g/dL (6.3-8.2)
[2018-10-19 01:38] LABS: INR 1.1 (<1.2); Partial Thromboplastin Time 24.2 sec (22.0-30.0); Prothrombin Time 11.2 sec (9.0-12.0)
[2018-10-19 01:43] LABS: Platelet Count 560 k/uL (150-450)
[2018-10-19] MEDS ORDERED: HEPARIN SODIUM,PORCINE 5,000 UNIT/ML 1 ML VIAL IV ONE (01:45)
--- NOTE | 2018-10-19 01:46 | XR ---
EXAM: XR Chest, 1 View CLINICAL HISTORY: ITS.REASON XR Reason: Pain TECHNIQUE: Frontal view of the chest. COMPARISON: Chest x-ray dated 10/08/2018. FINDINGS: Lungs: Mild prominence of the perihilar and interstitial structures may represent mild pulmonary congestion/edema. The lungs are otherwise clear. Pleural space: Unremarkable. No pneumothorax. Heart: Moderate cardiomegaly. Mediastinum: Unremarkable. Bones/joints: Prior sternotomy and cardiac surgery. IMPRESSION: Mild prominence of the perihilar and interstitial structures may represent mild pulmonary congestion/edema.
[2018-10-19] MEDS ORDERED: DEXTROSE 5% IN WATER 100 ML with AMIODARONE 150 MG IV ONE (02:00)
[2018-10-19] MEDS ORDERED: AMIODARONE 360 MG in DEXTROSE 5% IN WATER 200 ML IV ONE ×2 (02:00)
[2018-10-19] MEDS ORDERED: NALOXONE 0.4 MG/ML 1 ML VIAL IV PRN (02:10)
[2018-10-19] MEDS ORDERED: SODIUM CHLORIDE 0.9% 500 ML 500 ML IV ONE ×2 (02:17→02:19)
[2018-10-19] MEDS: HEPARIN SOD,PORK IN 0.45% NACL 25,000 UNIT in 0.45% NACL 1 250ML.BAG IV SCH ×2 (04:12→23:12)
[2018-10-19 05:02] LABS: Glucose,Whole Blood 125 mg/dL (75-99)
--- NOTE | 2018-10-19 09:23 | P.CNPUL ---
History of Present Illness Consult date: 10/19/18 Chief complaint: Atrial flutter, shortness of breath, possible sleep apnea History of present illness: Is a 48-year-old female patient who came in yesterday to the emergency department for some unusual sensation over the chest and shortness of breath and she was found to be in significant tachycardia and EKG showed a flutter 2-1 conduction with rapid ventricular response and based on that the patient was admitted to the intensive care unit. The patient is known to me. She has history of obstructive sleep apnea and she does not utilize a CPAP machine for now. She has a bicuspid aortic valve and severe aortic stenosis and a cardiac catheterization at shown significant CAD including left main stenosis. The patient underwent two-vessel bypass surgery and aortic valve replacement with a mechanical valve and clipping of the atrial appendage. The patient had BRO to LAD and regular bypass to OM1. Note that her preop FEV1 was 74% of predicted. The patient's surgery was essentially uncomplicated. The patient was sent home on anticoagulation with warfarin. She was normal sinus rhythm. Note that her INR is of admission was low at 1.1 and she is currently on IV heparin. She was given amiodarone loading and she subsequently converted to normal normal sinus rhythm. She is hemodynamically stable at this point in time. She is on room air. No cough. No sputum production. Sternum stable clean and intact. No other significant events otherwise for now. She is in the intensive care unit. She is communicating alert and awake. No fever or chills. No other complaints otherwise. Review of Systems Constitutional: Reports daytime sleepiness, Reports weight gain Eyes: denies as per HPI, denies blurred vision, denies bulging eye, denies decreased vision, denies diplopia, denies discharge, denies dry eye, denies irritation, denies itching, denies pain, denies photophobia, denies loss of peripheral vision, denies loss of vision, denies tunnel vision/blind spots Ears: deny: decreased hearing, ear discharge, earache, tinnitus Ears, nose, mouth and throat: Denies headache, Denies sore throat Breasts: absent: as per HPI, change in shape, gynecomastia, masses, nipple discharge, pain, skin changes, swelling Cardiovascular: Reports dyspnea on exertion Respiratory: Reports dyspnea, Reports snoring Gastrointestinal: Denies abdominal pain, Denies diarrhea, Denies nausea, Denies vomiting Genitourinary: Reports as per HPI Menstruation: Reports as per HPI Musculoskeletal: Reports as per HPI Musculoskeletal: absent: ankle pain, ankle stiffness, ankle swelling, as per HPI , elbow pain, elbow stiffness, elbow swelling, foot pain, foot stiffness, foot swelling, hand pain, hand stiffness, hand swelling, hip pain, hip stiffness, hip swelling, knee pain, knee stiffness, knee swelling, shoulder pain, shoulder stiffness, shoulder swelling, wrist pain, wrist stiffness, wrist swelling Integumentary: Reports as per HPI Neurological: Denies numbness, Denies weakness Psychiatric: Reports sleep disturbances Endocrine: Reports fatigue Hematologic/Lymphatic: Reports as per HPI Allergic/Immunologic: Reports as per HPI Past Medical History Past Medical History: Coronary Artery Disease (CAD), Cancer, Chest Pain / Angina , Hyperlipidemia, Hypertension, Osteoarthritis (OA), Sleep Apnea/CPAP/BIPAP Additional Past Medical History / Comment(s): Morbid obesity with a previous gastric sleeve surgery approximately 5 years ago, history of Hodgkin's lymphoma treated with systemic chemotherapy and radiation therapy, restless leg syndrome , history of nephrolithiasis, mild scoliosis, degenerative disc disease, bicuspid aortic valve and coronary artery disease. The patient also has history of obstructive sleep apnea. History of Any Multi-Drug Resistant Organisms: None Reported Past Surgical History: Adenoidectomy, Bariatric Surgery, Section, Coronary Bypass/CABG, Heart Catheterization, Tubal Ligation Additional Past Surgical History / Comment(s): sleeve gastrectomy 05/2013, Lymph node aspiration, Lt knee injections, back and shoulder injections Past Anesthesia/Blood Transfusion Reactions: No Reported Reaction Additional Past Anesthesia/Blood Transfusion Reaction / Comment(s): "has never received any blood transfusions" Past Psychological History: No Psychological Hx Reported, Anxiety, Depression Smoking Status: Former smoker Past Alcohol Use History: None Reported Additional Past Alcohol Use History / Comment(s): started smoking 1977 and quit 1998 smoked 1ppd, started up again 2006, quit again 2008 Past Drug Use History: None Reported - Past Family History Father Additional Family Medical History / Comment(s): alcoholism Mother Family Medical History: COPD Additional Family Medical History / Comment(s): Mom: heart dx, brother at 4 months of heart abnormalaties, uncle had a myocardial infarction at 47 years old, cousin from myocardial infarction at 45 years old Medications and Allergies Home Medications Medication Instructions Recorded Confirmed Type Ascorbic Acid [Vitamin C] 500 mg PO BID-W/MEALS #14 tab 10/08/18 10/19/18 Rx Aspirin 325 mg PO DAILY #30 tab 10/08/18 10/19/18 Rx Diltiazem Cd [Cardizem CD] 120 mg PO DAILY #30 cap.er.24h 10/08/18 10/19/18 Rx Ferrous Sulfate [Iron (65 MG 325 mg PO BID-W/MEALS #14 tab 10/08/18 10/19/18 Rx Elemental)] Furosemide [Lasix] 40 mg PO DAILY #30 tablet 10/08/18 10/19/18 Rx Pantoprazole [Protonix] 40 mg PO AC-BRKFST #30 tablet.dr 10/08/18 10/19/18 Rx Pramipexole Di-HCl [Mirapex] 1.5 mg PO HS #30 tablet 10/08/18 10/19/18 Rx Rosuvastatin Calcium [Crestor] 5 mg PO DAILY #90 tab 10/08/18 10/19/18 Rx Warfarin Sodium [Coumadin] 2 mg PO DAILY@1800 #30 tablet 10/08/18 10/19/18 Rx Metoprolol Succinate (ER) [Toprol 100 mg PO DAILY 10/19/18 10/19/18 History XL] Allergies Allergy/AdvReac Type Severity Reaction Status Date / Time clindamycin Allergy Rash/Hives Verified 10/19/18 08:16 amoxicillin AdvReac UTI Verified 10/19/18 08:16 atorvastatin [From Lipitor] AdvReac muscle Verified 10/19/18 08:16 cramping artificial sweetener AdvReac Nausea & Uncoded 10/19/18 05:02 Vomiting Physical Exam Vitals: Vital Signs Temp Pulse Resp BP Pulse Ox 10/19/18 06:00 81 19 118/53 98 10/19/18 05:45 82 20 118/53 99 10/19/18 05:30 84 12 120/68 95 10/19/18 05:15 140 H 18 102/82 99 10/19/18 05:00 138 H 19 114/83 98 10/19/18 04:45 98.0 F 140 H 20 114/83 99 10/19/18 04:30 116/79 10/19/18 04:07 142 H 17 112/92 99 02/24/19 03:30 98.4 F 141 H 18 112/87 100 10/19/18 03:03 140 H 18 103/86 100 10/19/18 02:53 142 H 18 112/88 100 10/19/18 02:31 142 H 106/81 10/19/18 02:15 142 H 17 81/43 100 10/19/18 01:39 147 H 18 115/87 99 10/19/18 01:34 147 H 17 115/89 99 10/19/18 01:18 144 H 18 118/89 99 10/19/18 01:10 146 H 18 147/83 100 10/19/18 01:06 149 H 18 132/100 100 10/19/18 00:30 98.2 F 148 H 18 129/70 98 Intake and Output 10/18/18 10/19/18 10/19/18 22:59 06:59 14:59 Intake Total 134.6 33.3 Output Total 50 250 Balance 84.6 -216.7 Intake: IV 66.6 33.3 Amiodarone 360 mg In 66.6 33.3 Dextrose 5% in Water 200 ml @ 1 MG/MIN 33.33 mls/ hr IV .Q6H1M ONE Rx#: [id number] Intake, IV Titration 18 Amount Heparin Sod,Pork in 0.45% 18 NaCl 25,000 unit In 0.45 % NaCl 1 250ml.bag @ 10 mls/hr IV .Q24H HENNY Rx#: [id number] Oral 50 Output: Urine 50 250 Other: Weight 129.274 kg Morbidly obese, comfortable likely distress Head exam was generally normal. There was no scleral icterus or corneal arcus. Mucous membranes were moist. Neck was supple and without jugular venous distension, thyromegaly, or carotid bruits. Carotids were easily palpable bilaterally. There was no adenopathy. Mallampati class IV and there is no oropharyngeal candidiasis or thrush. Heart sounds are regular, positive shortness of significant murmurs appreciated. Sternum stable treatment intact. Lungs were clear to auscultation and percussion, and with normal diaphragmatic excursion. No wheezes or rales were noted. Diminished breath on the lung bases. Abdominal exam revealed normal bowel sounds. The abdomen was soft, non-tender, and without masses, organomegaly, or appreciable enlargement of the abdominal aorta. Examination of the extremities revealed easily palpable radial, femoral and pedal pulses. There was no cyanosis, clubbing or edema. Examination of the skin revealed no evidence of significant rashes, suspicious appearing nevi or other concerning lesions. Neurologically the patient is awake and alert and is no focal neurological deficit Psychiatric to the patient is appropriate. Results - Laboratory Findings CBC and BMP: 10/19/18 00:55 10/19/18 00:55 PT/INR, D-dimer PT 11.2 sec (9.0-12.0) 10/19/18 00:55 INR 1.1 (<1.2) 10/19/18 00:55 Abnormal lab findings: Abnormal Labs 10/19/18 10/19/18 10/19/18 00:55 00:55 00:55 WBC 12.8 H RBC 3.52 L Hgb 8.8 L Hct 29.0 L MCHC 30.4 L RDW 17.3 H Plt Count 560 H D Neutrophils # 8.7 H Eosinophils # 1.0 H BUN 18 H Glucose 121 H POC Glucose (mg/dL) Alkaline Phosphatase 128 H Troponin I 0.035 H* 10/19/18 04:39 WBC RBC Hgb Hct MCHC RDW Plt Count Neutrophils # Eosinophils # BUN Glucose POC Glucose (mg/dL) 125 H Alkaline Phosphatase Troponin I Assessment and Plan Plan: Assessment 1 new onset atrial flutter with rapid ventricular response, converted back to normal sinus rhythm and the patient is currently receiving amiodarone bolus/ loading is hemodynamically stable. 2 bicuspid aortic valve status post aortic valve replacement with a mechanical valve and a subtherapeutic PT/INR while on Coumadin, post op day #18 3 symptomatically multivessel coronary artery disease status post two-vessel bypass surgery utilizing a radial artery and the BRO and a postop day #18 4 obstructive sleep apnea without a CPAP machine at this point in time, sleep apnea could've also contributed to her cardiac arrhythmia 5 obesity with a BMI of 47.4 6 hypertension 7 hyperlipidemia 8 history of Hodgkin's lymphoma with previous chemo radiation therapy currently in remission 9 history of gastric sleeve surgery 10 restless leg syndrome 11 hypersomnia secondary to her obstructive sleep apnea Plan The patient will be kept here in the intensive care unit. Complete amiodarone loading. Put the patient IV heparin and restart medical condition with warfarin. Suggest giving her 7.5 mg of warfarin tonight. Monitor daily PT/ INR. Continue metoprolol 100 mg by mouth daily. Continue Cardizem 120 mg by mouth daily. Continue aspirin. Outpatient medication will be ordered resume. I heard this patient to bring me and all the CPAP unit that she has at home. I will check the machine and make sure if it's something that we can use for the time being. If not, she will need an outpatient evaluation for obstructive sleep apnea CPAP therapy. It's reasonable to go with CPAP titration on this patient to make sure there is treatment of GEE successful. We'll continue to follow. She'll be kept in ICU for now. Check thyroid function tests and this was done on 09/05/2018 and was within normal limits.. Echo per cardiology.
[2018-10-19] MEDS: AMIODARONE 300 MG in DEXTROSE 5% IN WATER 250 ML IV SCH ×4 (09:30→18:14)
[2018-10-19] MEDS: METOPROLOL TARTRATE 25 MG TAB PO SCH ×2 (09:35→20:35)
--- NOTE | 2018-10-19 11:33 | P.GSCN ---
History of Present Illness Consult date: 10/19/18 Reason for Consult: Recent elective coronary artery bypass grafting surgery 3, aortic valve replacement using a #23 mm on a mechanical valve and exclusion of left atrial appendage using a #35 mm Atriclip on 10/02/[address] Jesus. Requesting physician: Rohan Hsu History of present illness: This is a 48-year-old female patient who is followed by Dr. Rohan Burns on an outpatient basis. She has a past medical history significant for bicuspid aortic valve with severe aortic valve stenosis, symptomatic multivessel coronary artery disease with left main disease with recent aortic valve replacement using a On-X mechanical aortic valve and coronary artery bypass grafting 3. She also has a past medical history significant for hypertension, hyperlipidemia, family history of premature coronary artery disease, morbid obesity with a BMI of 47.4 kg/m, prediabetic with a preoperative hemoglobin A1c of 6.3%, history of Hodgkin's lymphoma with subsequent chemoradiation, previous tobacco dependence with her preoperative FEV1 of 71% of predicted value , obstructive sleep apnea without CPAP use, history of gastric sleeve surgery and restless leg syndrome. Post cardiac surgery she was discharged home on postoperative day #6 with home healthcare support. The patient reports that she has been doing extremely well at home without any complaints. Subsequently last evening after a night of playing bingo, when she returned home she felt some palpitations which lasted for several hours. She denies any complaints of fever, chills, shortness of breath, near syncope, syncope, nausea or vomiting. She presented to the emergency department here at [facility] with the above mentioned symptoms. A 12-lead EKG was completed which demonstrated atrial flutter with a heart rate of 150. Her initial blood pressure was 129/70 and oxygen saturation is 98% on room air. She reports that she has been taking her medications at home and has not missed any doses. Subsequently due to her presenting symptoms and 12-lead EKG results the patient was admitted to the hospital for further evaluation and workup. Also due to her recent cardiac surgery a consult was placed to Dr. Addie Louis from cardiothoracic surgery to evaluate the patient. Review of Systems A 14 point review of systems was completed and was negative except as mentioned in the HPI. Past Medical History Past Medical History: Coronary Artery Disease (CAD), Cancer, Chest Pain / Angina , Hyperlipidemia, Hypertension, Osteoarthritis (OA), Sleep Apnea/CPAP/BIPAP Additional Past Medical History / Comment(s): Morbid obesity with a previous gastric sleeve surgery approximately 5 years ago, history of Hodgkin's lymphoma treated with systemic chemotherapy and radiation therapy, restless leg syndrome , history of nephrolithiasis, mild scoliosis, degenerative disc disease, bicuspid aortic valve and coronary artery disease. The patient also has history of obstructive sleep apnea. History of Any Multi-Drug Resistant Organisms: None Reported Past Surgical History: Adenoidectomy, Bariatric Surgery, Cardiac Valve Replacement, Section, Coronary Bypass/CABG, Heart Catheterization, Tubal Ligation Additional Past Surgical History / Comment(s): sleeve gastrectomy 05/2013, Lymph node aspiration, Lt knee injections, back and shoulder injections Past Anesthesia/Blood Transfusion Reactions: No Reported Reaction Additional Past Anesthesia/Blood Transfusion Reaction / Comm: "has never received any blood transfusions" Past Psychological History: Anxiety, Depression Smoking Status: Former smoker Past Alcohol Use History: None Reported Additional Past Alcohol Use History / Comment(s): started smoking 1977 and quit 1998 smoked 1ppd, started up again 2006, quit again 2008 Past Drug Use History: None Reported - Past Family History Father Additional Family Medical History / Comment(s): alcoholism Mother Family Medical History: COPD Additional Family Medical History / Comment(s): Mom: heart dx, brother at 4 months of heart abnormalaties, uncle had a myocardial infarction at 47 years old, cousin from myocardial infarction at 45 years old Medications and Allergies Home Medications Medication Instructions Recorded Confirmed Type Ascorbic Acid [Vitamin C] 500 mg PO BID-W/MEALS #14 tab 10/08/18 10/19/18 Rx Aspirin 325 mg PO DAILY #30 tab 10/08/18 10/19/18 Rx Diltiazem Cd [Cardizem CD] 120 mg PO DAILY #30 cap.er.24h 10/08/18 10/19/18 Rx Ferrous Sulfate [Iron (65 MG 325 mg PO BID-W/MEALS #14 tab 10/08/18 10/19/18 Rx Elemental)] Furosemide [Lasix] 40 mg PO DAILY #30 tablet 10/08/18 10/19/18 Rx Pantoprazole [Protonix] 40 mg PO AC-BRKFST #30 tablet.dr 10/08/18 10/19/18 Rx Pramipexole Di-HCl [Mirapex] 1.5 mg PO HS #30 tablet 10/08/18 10/19/18 Rx Rosuvastatin Calcium [Crestor] 5 mg PO DAILY #90 tab 10/08/18 10/19/18 Rx Warfarin Sodium [Coumadin] 2 mg PO DAILY@1800 #30 tablet 10/08/18 10/19/18 Rx Metoprolol Succinate (ER) [Toprol 100 mg PO DAILY 10/19/18 10/19/18 History XL] Allergies Allergy/AdvReac Type Severity Reaction Status Date / Time clindamycin Allergy Rash/Hives Verified 10/19/18 08:16 amoxicillin AdvReac UTI Verified 10/19/18 08:16 atorvastatin [From Lipitor] AdvReac muscle Verified 10/19/18 08:16 cramping artificial sweetener AdvReac Nausea & Uncoded 10/19/18 05:02 Vomiting Surgical - Exam Vital Signs Temp Pulse Resp BP Pulse Ox 98.2 F 148 H 18 129/70 98 10/19/18 00:30 10/19/18 00:30 10/19/18 00:30 10/19/18 00:30 10/19/18 00:30 - General well developed, well nourished, no distress, no pain, obese - Eyes PERRL, normal ocular movement - ENT normal pinna, normal nares, normal mucosa, no hearing loss, no congestion - Neck Neck is supple, no lymphadenopathy. no masses, no bruits, trachea midline, no venous distension - Respiratory Lung sounds are essentially clear throughout. Respirations are symmetrical and nonlabored. Oxygen saturation are 93% on room air. - Cardiovascular Regular rhythm and rate. S1 and S2 present, negative for S3, gallop or murmur. Aortic valve click present. Sternum is stable with some clicking felt. Bedside monitor showing normal sinus rhythm heart rate 84. No edema present. Knee-high sequential compression devices in place to her bilateral lower extremities. Heart hugger and surgical support bra in place. - Abdomen Abdomen is soft, nontender and nondistended. Obese. Active bowel sounds all 4 abdominal quadrants. No guarding or rigidity. - Genitourinary Deferred - Rectum Deferred - Integumentary Midline sternal incision is clean, dry and approximated. No drainage or redness is present. Left arm radial artery harvest sites clean, dry and approximated. No drainage or redness present. no rash, no growths, no abnormal pigmentation - Neurologic normal coordination, normal sensation - Musculoskeletal normal gait, normal posture - Psychiatric oriented to time, oriented to person, oriented to place, speech is normal, memory intact Results - Labs 10/19/18 00:55 10/19/18 00:55 Abnormal Lab Results - Last 24 Hours (Table) 10/19/18 10/19/18 10/19/18 Range/Units 00:55 00:55 00:55 WBC 12.8 H (3.8-10.6) k/uL RBC 3.52 L (3.80-5.40) m/uL Hgb 8.8 L (11.4-16.0) gm/dL Hct 29.0 L (34.0-46.0) % MCHC 30.4 L (31.0-37.0) g/dL RDW 17.3 H (11.5-15.5) % Plt Count 560 H D (150-450) k/uL Neutrophils # 8.7 H (1.3-7.7) k/uL Eosinophils # 1.0 H (0-0.7) k/uL BUN 18 H (7-17) mg/dL Glucose 121 H (74-99) mg/dL POC Glucose (mg/dL) (75-99) mg/dL Alkaline Phosphatase 128 H (38-126) U/L Troponin I 0.035 H* (0.000-0.034) ng/mL 10/19/18 Range/Units 04:39 WBC (3.8-10.6) k/uL RBC (3.80-5.40) m/uL Hgb (11.4-16.0) gm/dL Hct (34.0-46.0) % MCHC (31.0-37.0) g/dL RDW (11.5-15.5) % Plt Count (150-450) k/uL Neutrophils # (1.3-7.7) k/uL Eosinophils # (0-0.7) k/uL BUN (7-17) mg/dL Glucose (74-99) mg/dL POC Glucose (mg/dL) 125 H (75-99) mg/dL Alkaline Phosphatase (38-126) U/L Troponin I (0.000-0.034) ng/mL Diabetes panel 10/19/18 Range/Units 00:55 Sodium 141 (137-145) mmol/L Potassium 4.3 (3.5-5.1) mmol/L Chloride 103 (98-107) mmol/L Carbon Dioxide 30 (22-30) mmol/L BUN 18 H (7-17) mg/dL Creatinine 0.83 (0.52-1.04) mg/dL Glucose 121 H (74-99) mg/dL Calcium 9.0 (8.4-10.2) mg/dL AST 18 (14-36) U/L ALT 30 (9-52) U/L Alkaline Phosphatase 128 H (38-126) U/L Total Protein 6.8 (6.3-8.2) g/dL Albumin 3.6 (3.5-5.0) g/dL Calcium panel 10/19/18 Range/Units 00:55 Calcium 9.0 (8.4-10.2) mg/dL Albumin 3.6 (3.5-5.0) g/dL Pituitary panel 10/19/18 Range/Units 00:55 Sodium 141 (137-145) mmol/L Potassium 4.3 (3.5-5.1) mmol/L Chloride 103 (98-107) mmol/L Carbon Dioxide 30 (22-30) mmol/L BUN 18 H (7-17) mg/dL Creatinine 0.83 (0.52-1.04) mg/dL Glucose 121 H (74-99) mg/dL Calcium 9.0 (8.4-10.2) mg/dL Adrenal panel 10/19/18 Range/Units 00:55 Sodium 141 (137-145) mmol/L Potassium 4.3 (3.5-5.1) mmol/L Chloride 103 (98-107) mmol/L Carbon Dioxide 30 (22-30) mmol/L BUN 18 H (7-17) mg/dL Creatinine 0.83 (0.52-1.04) mg/dL Glucose 121 H (74-99) mg/dL Calcium 9.0 (8.4-10.2) mg/dL Total Bilirubin 0.4 (0.2-1.3) mg/dL AST 18 (14-36) U/L ALT 30 (9-52) U/L Alkaline Phosphatase 128 H (38-126) U/L Total Protein 6.8 (6.3-8.2) g/dL Albumin 3.6 (3.5-5.0) g/dL - Imaging Chest x-ray: report reviewed, image reviewed EKG: image reviewed Assessment and Plan (1) Atrial flutter Current Visit: Yes Status: Acute Code(s): I48.92 - UNSPECIFIED ATRIAL FLUTTER SNOMED Code(s): 1511205 (2) History of coronary artery bypass graft x 3 Current Visit: Yes Status: Acute Code(s): Z95.1 - PRESENCE OF AORTOCORONARY BYPASS GRAFT SNOMED Code(s): 629408162 (3) History of mechanical aortic valve replacement Current Visit: Yes Status: Acute Code(s): Z95.2 - PRESENCE OF PROSTHETIC HEART VALVE SNOMED Code(s): 818121707431835 (4) History of coronary artery disease Current Visit: Yes Status: Chronic Code(s): Z86.79 - PERSONAL HISTORY OF OTHER DISEASES OF THE CIRCULATORY SYSTEM SNOMED Code(s): 647762678 (5) Aortic stenosis Current Visit: No Status: Resolved Code(s): I35.0 - NONRHEUMATIC AORTIC ( VALVE) STENOSIS SNOMED Code(s): 15667686 (6) History of bicuspid aortic valve Current Visit: Yes Status: Resolved Code(s): Z87.74 - PERSONAL HISTORY OF CONGENITAL MALFORM OF HEART AND CIRC SYS SNOMED Code(s): 011280667 (7) Family history of early CAD Current Visit: No Status: Chronic Code(s): Z82.49 - FAMILY HX OF ISCHEM HEART DIS AND OTH DIS OF THE CIRC SYS SNOMED Code(s): 278563088 (8) Hyperlipidemia Current Visit: No Status: Chronic Code(s): E78.5 - HYPERLIPIDEMIA, UNSPECIFIED SNOMED Code(s): 88631835 (9) Hypertension Current Visit: No Status: Chronic Code(s): I10 - ESSENTIAL (PRIMARY) HYPERTENSION SNOMED Code(s): 60332115 (10) Morbid obesity with BMI of 45.0-49.9, adult Current Visit: No Status: Chronic Code(s): E66.01 - MORBID (SEVERE) OBESITY DUE TO EXCESS CALORIES; Z68.42 - BODY MASS INDEX (BMI) 45.0-49.9, ADULT SNOMED Code(s): 238795736 (11) Obstructive sleep apnea Current Visit: No Status: Chronic Code(s): G47.33 - OBSTRUCTIVE SLEEP APNEA (ADULT) (PEDIATRIC) SNOMED Code(s): 46113193 (12) Restless leg syndrome Current Visit: No Status: Chronic Code(s): G25.81 - RESTLESS LEGS SYNDROME SNOMED Code(s): 39733365 (13) History of Hodgkin's lymphoma Current Visit: No Status: Resolved Code(s): Z85.71 - PERSONAL HISTORY OF HODGKIN LYMPHOMA SNOMED Code(s): 693251033 (14) History of chemotherapy Current Visit: No Status: Resolved Code(s): Z92.21 - PERSONAL HISTORY OF ANTINEOPLASTIC CHEMOTHERAPY SNOMED Code(s): 816722387071864 (15) History of gastric surgery Current Visit: No Status: Resolved Code(s): Z98.890 - OTHER SPECIFIED POSTPROCEDURAL STATES SNOMED Code(s): 254448997 (16) History of radiation therapy Current Visit: No Status: Resolved Code(s): Z92.3 - PERSONAL HISTORY OF IRRADIATION SNOMED Code(s): 863855250 (17) Tobacco dependence in remission Current Visit: No Status: Resolved Code(s): F17.201 - NICOTINE DEPENDENCE, UNSPECIFIED, IN REMISSION SNOMED Code(s): 490119088 Plan: Patient was seen and examined. Her chart diagnostics were reviewed. Her case was discussed with Dr. Addie Louis from cardiothoracic surgery. Continue heparin and amiodarone drips managed by cardiology. Restart metoprolol 25 mg by mouth twice a day, aspirin 325 mg by mouth daily, home dose of Crestor and iron. Once amiodarone drip is finished start amiodarone 200 mg by mouth 3 times a day. Given 5 mg of Coumadin 1 today for her mechanical On-X aortic valve, all INR is 2.5-3.5 for the first 3 months post cardiac surgery, then 1.5- 2 thereafter. Obtain a 2-D echocardiogram in the a.m. to assess LV function. Pulmonary management and intensive care management per Dr. Navarro's recommendations. Reinforced with the patient the importance of using her heart hugger and wearing a surgical support bra due to the clicking felt her sternum. Reinforced the importance of using the incentive spirometry every hour while awake. Thank you for this consult and we look forward to working with you in the care of your patient. Time with Patient: Greater than 30
[2018-10-19] MEDS: DILTIAZEM ORAL 30 MG TAB PO SCH ×3 (12:40→22:31)
[2018-10-19] MEDS: ASCORBIC ACID 500 MG TAB PO SCH (12:40)
[2018-10-19] MEDS: FERROUS SULFATE 325 MG TAB PO SCH (12:40)
[2018-10-19] MEDS: HEPARIN SODIUM,PORCINE 5,000 UNIT/ML 1 ML VIAL IV PRN ×2 (12:50→20:29)
[2018-10-19] MEDS ORDERED: ATORVASTATIN 20 MG TAB PO SCH (13:00)
--- NOTE | 2018-10-19 14:15 | CONS ---
CONSULTATION Mrs. Kurtz is a 48-year-old female who is seen for cardiac evaluation. Patient's medical records reviewed. This patient is status post recent aortic valve replacement for bicuspid aortic valve and significant coronary artery disease including the left main stenosis. Patient underwent a 2 vessel bypass surgery with aortic valve replacement and clipping of the left atrial appendage. The patient had a BRO graft to the LAD and a regular bypass to the obtuse marginal branch 1. The patient came with a complaint that she felt something funny. She was in atrial flutter with a rapid ventricular response. The patient was started on amiodarone drip and subsequently was converted. During the postop period in the hospital, patient did not had any problem with arrhythmia. HOME MEDICATIONS: Include Cardizem 120 mg daily, aspirin once a day, Lasix 40 mg daily, Protonix 40 mg b.i.d., Coumadin 2 mg daily, metoprolol succinate 100 mg daily, rosuvastatin 5 mg daily. PAST MEDICAL HISTORY: Includes history of morbid obesity with gastric sleeve surgery, history of Hodgkin lymphoma treated with a systemic chemotherapy as well as radiation therapy. Patient has a mild scoliosis and history of obstructive sleep apnea, history of , coronary artery bypass surgery, and tubal ligation. PHYSICAL EXAMINATION: At present reveals a 48-year-old female who does not appear to be in any acute distress. In the emergency room, patient's heart rate was in the range of 150 and the patient now converted to the normal sinus rhythm. Heart rate is 84 per minute, blood pressure is 130/80 mmHg. HEAD/ENT examination is negative. Neck is supple. There is no increase in jugular venous pressure. Both the carotid pulses are felt, there is no bruit. Chest is symmetrical. Heart, the PMI is not felt. First and second heart sounds are heard. Lungs are clinically clear to auscultation and percussion. Prosthetic sounds are well heard. Abdomen is negative. Extremities peripheral pulsations are 1+. The patient's electrolytes are normal. Initial troponin was 0.035, which is probably due to the atrial flutter with a rapid ventricular response. FINAL IMPRESSION: This patient is status post aortic valve replacement and coronary artery bypass surgery. The patient came with atrial flutter, rapid ventricular response. Currently patient is on IV amiodarone. The patient is going to get 5 mg of Coumadin today. We will switch her to oral amiodarone after the IV infusion is finished. I will increase the Crestor to 20 mg daily. MMODL / IJN: [id number] /
--- NOTE | 2018-10-19 15:01 | P.HPIM ---
History of Present Illness H&P Date: 10/19/18 Chief Complaint: shortness of breath 48-year-old female patient who came in yesterday to the emergency department for some unusual sensation over the chest and shortness of breath and she was found to be in significant tachycardia and EKG showed a flutter 2-1 conduction with rapid ventricular response and based on that the patient was admitted to the intensive care unit. The patient is known to me. She has history of obstructive sleep apnea and she does not utilize a CPAP machine for now. She has a bicuspid aortic valve and severe aortic stenosis and a cardiac catheterization at shown significant CAD including left main stenosis. The patient underwent two-vessel bypass surgery and aortic valve replacement with a mechanical valve and clipping of the atrial appendage. The patient had BRO to LAD and regular bypass to OM1. Note that her preop FEV1 was 74% of predicted. The patient's surgery was essentially uncomplicated. The patient was sent home on anticoagulation with warfarin. She was normal sinus rhythm. Note that her INR is of admission was low at 1.1 and she is currently on IV heparin. She was given amiodarone loading and she subsequently converted to normal normal sinus rhythm. She is hemodynamically stable at this point in time. She is on room air. No cough. No sputum production. Sternum stable clean and intact. No other significant events otherwise for now. She is in the intensive care unit. She is communicating alert and awake. No fever or chills. No other complaints otherwise. Review of Systems Constitutional: Reports daytime sleepiness, Reports weight gain Eyes: denies as per HPI, denies blurred vision, denies bulging eye, denies decreased vision, denies diplopia, denies discharge, denies dry eye, denies irritation, denies itching, denies pain, denies photophobia, denies loss of peripheral vision, denies loss of vision, denies tunnel vision/blind spots Ears: deny: decreased hearing, ear discharge, earache, tinnitus Ears, nose, mouth and throat: Denies headache, Denies sore throat Breasts: absent: as per HPI, change in shape, gynecomastia, masses, nipple discharge, pain, skin changes, swelling Cardiovascular: Reports dyspnea on exertion Respiratory: Reports dyspnea, Reports snoring Gastrointestinal: Denies abdominal pain, Denies diarrhea, Denies nausea, Denies vomiting Genitourinary: Reports as per HPI Menstruation: Reports as per HPI Musculoskeletal: Reports as per HPI Musculoskeletal: absent: ankle pain, ankle stiffness, ankle swelling, as per HPI , elbow pain, elbow stiffness, elbow swelling, foot pain, foot stiffness, foot swelling, hand pain, hand stiffness, hand swelling, hip pain, hip stiffness, hip swelling, knee pain, knee stiffness, knee swelling, shoulder pain, shoulder stiffness, shoulder swelling, wrist pain, wrist stiffness, wrist swelling Integumentary: Reports as per HPI Neurological: Denies numbness, Denies weakness Psychiatric: Reports sleep disturbances Endocrine: Reports fatigue Past Medical History Past Medical History: Coronary Artery Disease (CAD), Cancer, Chest Pain / Angina , Hyperlipidemia, Hypertension, Osteoarthritis (OA), Sleep Apnea/CPAP/BIPAP Additional Past Medical History / Comment(s): Morbid obesity with a previous gastric sleeve surgery approximately 5 years ago, history of Hodgkin's lymphoma treated with systemic chemotherapy and radiation therapy, restless leg syndrome , history of nephrolithiasis, mild scoliosis, degenerative disc disease, bicuspid aortic valve and coronary artery disease. The patient also has history of obstructive sleep apnea. History of Any Multi-Drug Resistant Organisms: None Reported Past Surgical History: Adenoidectomy, Bariatric Surgery, Section, Coronary Bypass/CABG, Heart Catheterization, Tubal Ligation Additional Past Surgical History / Comment(s): sleeve gastrectomy 05/2013, Lymph node aspiration, Lt knee injections, back and shoulder injections Past Anesthesia/Blood Transfusion Reactions: No Reported Reaction Additional Past Anesthesia/Blood Transfusion Reaction / Comment(s): "has never received any blood transfusions" Past Psychological History: No Psychological Hx Reported, Anxiety, Depression Smoking Status: Former smoker Past Alcohol Use History: None Reported Additional Past Alcohol Use History / Comment(s): started smoking 1977 and quit 1998 smoked 1ppd, started up again 2006, quit again 2008 Past Drug Use History: None Reported - Past Family History Father Additional Family Medical History / Comment(s): alcoholism Mother Family Medical History: COPD Additional Family Medical History / Comment(s): Mom: heart dx, brother at 4 months of heart abnormalaties, uncle had a myocardial infarction at 47 years old, cousin from myocardial infarction at 45 years old Medications and Allergies Home Medications Medication Instructions Recorded Confirmed Type Ascorbic Acid [Vitamin C] 500 mg PO BID-W/MEALS #14 tab 10/08/18 10/19/18 Rx Aspirin 325 mg PO DAILY #30 tab 10/08/18 10/19/18 Rx Diltiazem Cd [Cardizem CD] 120 mg PO DAILY #30 cap.er.24h 10/08/18 10/19/18 Rx Ferrous Sulfate [Iron (65 MG 325 mg PO BID-W/MEALS #14 tab 10/08/18 10/19/18 Rx Elemental)] Furosemide [Lasix] 40 mg PO DAILY #30 tablet 10/08/18 10/19/18 Rx Pantoprazole [Protonix] 40 mg PO AC-BRKFST #30 tablet.dr 10/08/18 10/19/18 Rx Pramipexole Di-HCl [Mirapex] 1.5 mg PO HS #30 tablet 10/08/18 10/19/18 Rx Rosuvastatin Calcium [Crestor] 5 mg PO DAILY #90 tab 10/08/18 10/19/18 Rx Warfarin Sodium [Coumadin] 2 mg PO DAILY@1800 #30 tablet 10/08/18 10/19/18 Rx Metoprolol Succinate (ER) [Toprol 100 mg PO DAILY 10/19/18 10/19/18 History XL] Allergies Allergy/AdvReac Type Severity Reaction Status Date / Time clindamycin Allergy Rash/Hives Verified 10/19/18 08:16 amoxicillin AdvReac UTI Verified 10/19/18 08:16 atorvastatin [From Lipitor] AdvReac muscle Verified 10/19/18 08:16 cramping artificial sweetener AdvReac Nausea & Uncoded 10/19/18 05:02 Vomiting Physical Exam Vitals: Vital Signs Temp Pulse Resp BP Pulse Ox 10/19/18 09:30 82 11 L 112/66 95 10/19/18 09:00 80 23 118/70 92 L 10/19/18 08:30 84 15 121/63 96 10/19/18 08:00 98.2 F 82 19 132/68 94 L 10/19/18 07:00 81 21 121/48 92 L 10/19/18 06:00 81 19 118/53 98 10/19/18 05:45 82 20 118/53 99 10/19/18 05:30 84 12 120/68 95 10/19/18 05:15 140 H 18 102/82 99 10/19/18 05:00 138 H 19 114/83 98 10/19/18 04:45 98.0 F 140 H 20 114/83 99 10/19/18 04:30 116/79 10/19/18 04:07 142 H 17 112/92 99 10/19/18 03:30 98.4 F 141 H 18 112/87 100 10/19/18 03:03 140 H 18 103/86 100 10/19/18 02:53 142 H 18 112/88 100 10/19/18 02:31 142 H 106/81 10/19/18 02:15 142 H 17 81/43 100 10/19/18 01:39 147 H 18 115/87 99 10/19/18 01:34 147 H 17 115/89 99 10/19/18 01:18 144 H 18 118/89 99 10/19/18 01:10 146 H 18 147/83 100 10/19/18 01:06 149 H 18 132/100 100 10/19/18 00:30 98.2 F 148 H 18 129/70 98 Intake and Output 10/18/18 10/19/18 10/19/18 22:59 06:59 14:59 Intake Total 134.6 33.3 Output Total 50 250 Balance 84.6 -216.7 Intake: IV 66.6 33.3 Amiodarone 360 mg In 66.6 33.3 Dextrose 5% in Water 200 ml @ 1 MG/MIN 33.33 mls/ hr IV .Q6H1M [facility] Rx#: [id number] Intake, IV Titration 18 Amount Heparin Sod,Pork in 0.45% 18 NaCl 25,000 unit In 0.45 % NaCl 1 250ml.bag @ 10 mls/hr IV .Q24H [facility] Rx#: [id number] Oral 50 Output: Urine 50 250 Other: Weight 129.274 kg Morbidly obese, comfortable likely distress Head exam was generally normal. There was no scleral icterus or corneal arcus. Mucous membranes were moist. Neck was supple and without jugular venous distension, thyromegaly, or carotid bruits. Carotids were easily palpable bilaterally. There was no adenopathy. Mallampati class IV and there is no oropharyngeal candidiasis or thrush. Heart sounds are regular, positive shortness of significant murmurs appreciated. Sternum stable treatment intact. Lungs were clear to auscultation and percussion, and with normal diaphragmatic excursion. No wheezes or rales were noted. Diminished breath on the lung bases. Abdominal exam revealed normal bowel sounds. The abdomen was soft, non-tender, and without masses, organomegaly, or appreciable enlargement of the abdominal aorta. Examination of the extremities revealed easily palpable radial, femoral and pedal pulses. There was no cyanosis, clubbing or edema. Examination of the skin revealed no evidence of significant rashes, suspicious appearing nevi or other concerning lesions. Neurologically the patient is awake and alert and is no focal neurological deficit Psychiatric to the patient is appropriate. Results CBC & Chem 7: 10/19/18 00:55 10/19/18 00:55 Labs: Abnormal Lab Results - Last 24 Hours (Table) 10/19/18 10/19/18 10/19/18 Range/Units 00:55 00:55 00:55 WBC 12.8 H (3.8-10.6) k/uL RBC 3.52 L (3.80-5.40) m/uL Hgb 8.8 L (11.4-16.0) gm/dL Hct 29.0 L (34.0-46.0) % MCHC 30.4 L (31.0-37.0) g/dL RDW 17.3 H (11.5-15.5) % Plt Count 560 H D (150-450) k/uL Neutrophils # 8.7 H (1.3-7.7) k/uL Eosinophils # 1.0 H (0-0.7) k/uL BUN 18 H (7-17) mg/dL Glucose 121 H (74-99) mg/dL POC Glucose (mg/dL) (75-99) mg/dL Alkaline Phosphatase 128 H (38-126) U/L Troponin I 0.035 H* (0.000-0.034) ng/mL 10/19/18 Range/Units 04:39 WBC (3.8-10.6) k/uL RBC (3.80-5.40) m/uL Hgb (11.4-16.0) gm/dL Hct (34.0-46.0) % MCHC (31.0-37.0) g/dL RDW (11.5-15.5) % Plt Count (150-450) k/uL Neutrophils # (1.3-7.7) k/uL Eosinophils # (0-0.7) k/uL BUN (7-17) mg/dL Glucose (74-99) mg/dL POC Glucose (mg/dL) 125 H (75-99) mg/dL Alkaline Phosphatase (38-126) U/L Troponin I (0.000-0.034) ng/mL Thrombosis Risk Factor Assmnt - Choose All That Apply Each Factor Represents 1 point: Age 41-60 years, History of prior major surgery (<1month), Medical pt on bed rest, Obesity (BMI >25) Other Risk Factors: No Thrombosis Risk Factor Assessment Total Risk Factor Score: 4 Thrombosis Risk Factor Assessment Level: Moderate Risk Assessment and Plan Assessment: 1. New onset atrial flutter with rapid ventricular response, - converted back to normal sinus rhythm and the patient is currently receiving amiodarone bolus/loading is hemodynamically stable. - patient remains on IV heparin as a bridge to Coumadin therapy; patient received 7.5 mg of Coumadin last night - Continue with metoprolol 100 mg daily along with Cardizem 120 mg daily - Monitor PT/INR daily to therapeutic 2. Bicuspid aortic valve status post aortic valve replacement with a mechanical valve - subtherapeutic PT/INR while on Coumadin, post op day #18 - patient restarted on Coumadin as above 3. Symptomatically multivessel coronary artery disease - status post two-vessel bypass surgery utilizing a radial artery and the BRO and a postop day #18 4. Obstructive sleep apnea - patient has CPAP machine at home; patient advised to have family bring CPAP unit so he could be investigated - sleep apnea could've also contributed to her cardiac arrhythmia 5. Obesity with a BMI of 47.4; - patient has history of gastric sleeve surgery - counseling done on weight reduction 6. Hypertension; stable on current dose of metoprolol and Cardizem 7. Hyperlipidemia; not currently on any statin therapy 8. Restless leg syndrome; Mirapex 1.5 mg by mouth daily at bedtime 9. DVT prophylaxis; systemic anticoagulation CODE STATUS; full code Time with Patient: Greater than 30
[2018-10-19] MEDS ORDERED: WARFARIN 5 MG TAB PO ONE (18:00)
[2018-10-19] MEDS: PRAMIPEXOLE 0.5 MG TAB PO SCH (20:35)
[2018-10-19] MEDS: AMIODARONE 200 MG TAB PO SCH (22:31)
[2018-10-20 03:44] LABS: Anisocytosis Slight; Basophils # (A) 0.1 k/uL (0-0.2); Basophils % (A) 1 %; Eosinophils # (A) 1.3 k/uL (0-0.7); Eosinophils % (A) 11 %; HCT 24.2 % (34.0-46.0); Hypochromasia Marked; Lymphocytes # (A) 2.6 k/uL (1.0-4.8); Lymphocytes % (A) 21 %; MCH 24.8 pg (25.0-35.0); MCHC 29.8 g/dL (31.0-37.0); MCV 83.3 fL (80.0-100.0); Mean Platelet Volume 7.6; Monocytes # (A) 0.6 k/uL (0-1.0); Monocytes % (A) 5 %; Neutrophils # (A) 7.5 k/uL (1.3-7.7); Neutrophils % (A) 61 %; Platelet Count 509 k/uL (150-450); Poikilocytosis Slight; RDW 17.4 % (11.5-15.5); WBC 12.3 k/uL (3.8-10.6)
[2018-10-20 03:46] LABS: HGB 7.2 gm/dL (11.4-16.0)
[2018-10-20 03:52] LABS: INR 1.1 (<1.2); Partial Thromboplastin Time 49.1 sec (22.0-30.0); Prothrombin Time 11.8 sec (9.0-12.0)
[2018-10-20 05:33] LABS: ALT 34 U/L (9-52); AST 14 U/L (14-36); Albumin 3.4 g/dL (3.5-5.0); Alkaline Phosphatase 117 U/L (38-126); Anion Gap 3 mmol/L; Blood Urea Nitrogen 14 mg/dL (7-17); Calcium 8.9 mg/dL (8.4-10.2); Carbon Dioxide 31 mmol/L (22-30); Chloride 107 mmol/L (98-107); Glucose 104 mg/dL (74-99); Magnesium 2.3 mg/dL (1.6-2.3); Phosphorus 3.6 mg/dL (2.5-4.5); Potassium 4.6 mmol/L (3.5-5.1); Sodium 141 mmol/L (137-145); Total Bilirubin 0.4 mg/dL (0.2-1.3); Total Protein 6.3 g/dL (6.3-8.2)
[2018-10-20] MEDS ORDERED: ACETAMINOPHEN TAB 325 MG TAB PO PRN ×2 (08:10)
--- NOTE | 2018-10-20 09:33 | XR ---
EXAMINATION TYPE: XR chest 2V DATE OF EXAM: 10/20/2018 COMPARISON: 10/19/2018 TECHNIQUE: PA and lateral views submitted. HISTORY: Pain FINDINGS: Postsurgical changes are seen with cardiomegaly. There are small bilateral effusions and subsegmental basilar consolidation. Mild central interstitial changes are noted. Atherosclerotic change aorta. De generative and hypertrophic change of the spine. IMPRESSION: 1. Small bilateral effusion and basilar infiltrate correlate for mild CHF otherwise consider pneumoni a.
[2018-10-20] MEDS: DILTIAZEM ORAL 30 MG TAB PO SCH ×4 (09:39→21:04)
[2018-10-20] MEDS: PANTOPRAZOLE 40 MG TABLET PO SCH (09:40)
[2018-10-20] MEDS: ASPIRIN 325 MG TAB PO SCH (09:40)
[2018-10-20] MEDS: AMIODARONE 200 MG TAB PO SCH ×3 (09:40→21:04)
[2018-10-20] MEDS: METOPROLOL TARTRATE 25 MG TAB PO SCH ×2 (09:40→21:04)
[2018-10-20] MEDS: Rosuvastatin Calcium [Crestor] 5 MG PO SCH (09:49)
--- NOTE | 2018-10-20 10:20 | P.PN ---
Subjective Progress Note Date: 10/20/18 Principal diagnosis: New onset atrial flutter with rapid ventricular rate and some therapeutic INR. Previous medical history of bicuspid aortic valve with severe aortic stenosis status 18 days post aortic valve replacement using a 23 mm On-X mechanical valve and aortic root enlargement with [place]-Bg patch as well as exclusion of the left atrial appendage using a 35 mm AtriClip, symptomatic multivessel coronary artery disease with left main coronary artery disease status post coronary artery bypass graft surgery with sequential left internal mammary artery to the left anterior descending artery to the diagonal branch, radial artery to the obtuse marginal artery, hypertension, hyperlipidemia, family history of premature coronary artery disease, morbid obesity, prediabetic with recent hemoglobin A1c 6.3%, Hodgkin's lymphoma with subsequent chemoradiation, previous tobacco dependence with recent FEV1 71% of predicted, obstructive sleep apnea without CPAP use, gastric sleeve surgery, restless leg syndrome. Patient's currently sitting up in a recliner in no acute distress. Remains in normal sinus rhythm. Does complain of lower back pain but no chest pain, denies shortness of breath. She has ambulated multiple times in the hallway without difficulty. She is currently on a heparin drip while waiting for her Coumadin levels to be therapeutic, she did receive 5 mg of Coumadin last night. Objective - Vital Signs Vital signs: Vital Signs Temp 97.8 F 10/20/18 08:00 Pulse 82 10/20/18 08:00 Resp 20 10/20/18 08:00 BP 131/58 10/20/18 08:00 Pulse Ox 92 L 10/20/18 08:00 Intake & Output 10/19/18 10/20/18 10/20/18 18:59 06:59 18:59 Intake Total 1486.673 761.053 20 Output Total 250 200 Balance 1236.673 561.053 20 Weight 132.7 kg Intake: IV 249.84 126.66 20 .9 KVO 110 20 Amiodarone 360 mg In 249.84 16.66 Dextrose 5% in Water 200 ml @ 1 MG/MIN 33.33 mls/ hr IV .Q6H1M [facility] Rx#: [id number] Intake, IV Titration 286.833 154.393 Amount Amiodarone 300 mg In 218.333 Dextrose 5% in Water 250 ml @ 0.5 MG/MIN 25 mls/hr IV .Q10H [facility] Rx#: [id number] Heparin Sod,Pork in 0.45% 68.5 154.393 NaCl 25,000 unit In 0.45 % NaCl 1 250ml.bag @ 10 mls/hr IV .Q24H [facility] Rx#: [id number] Oral 950 480 Output: Urine 250 200 Other: Voiding Method Bedside Commode Bedside Commode # Voids 1 0 # Bowel Movements 1 - Constitutional General appearance: Present: cooperative, morbidly obese, no acute distress - Respiratory Details: Lungs sounds diminished bilaterally, faint expiratory wheezes heard in the left lung base. Respirations even, nonlabored. Currently on room air with oxygen saturation 96%. Able to achieve 1750 mL on her incentive spirometry. Strong cough. - Cardiovascular Details: S1, S2 present, positive valvular click. Regular rate and rhythm, sinus rhythm on telemetry. Sternum stable. Palpable peripheral pulses. No edema present. No calf pain or tenderness noted. Heart hugger in place with patient demonstrating appropriate use. Antiembolism stockings, SCDs present. - Gastrointestinal Gastrointestinal Comment(s): Abdomen soft, nontender, nondistended. Active bowel sounds present 4 quadrants. Tolerating diet. - Genitourinary Genitourinary Comment(s): Continues to void clear, yellow urine. - Integumentary Integumentary Comment(s): Skin is warm and dry with evidence of good perfusion. Anterior chest incision well approximated and covered with Dermabond dressing. - Neurologic Neurologic: Present: CNII-XII intact - Musculoskeletal Musculoskeletal: Present: gait normal, strength equal bilaterally - Psychiatric Psychiatric: Present: A&O x's 3, appropriate affect, intact judgment & insight - Allied health notes Allied health notes reviewed: nursing - Labs CBC & Chem 7: 10/20/18 03:02 10/20/18 03:02 Labs: Abnormal Lab Results - Last 24 Hours (Table) 10/19/18 10/20/18 10/20/18 Range/Units 18:54 03:02 03:02 WBC 12.3 H (3.8-10.6) k/uL RBC 2.90 L (3.80-5.40) m/uL Hgb 7.2 L D (11.4-16.0) gm/dL Hct 24.2 L (34.0-46.0) % MCH 24.8 L (25.0-35.0) pg MCHC 29.8 L (31.0-37.0) g/dL RDW 17.4 H (11.5-15.5) % Plt Count 509 H (150-450) k/uL Eosinophils # 1.3 H (0-0.7) k/uL APTT 32.7 H 49.1 H (22.0-30.0) sec Carbon Dioxide (22-30) mmol/L Glucose (74-99) mg/dL Albumin (3.5-5.0) g/dL 10/20/18 Range/Units 03:02 WBC (3.8-10.6) k/uL RBC (3.80-5.40) m/uL Hgb (11.4-16.0) gm/dL Hct (34.0-46.0) % MCH (25.0-35.0) pg MCHC (31.0-37.0) g/dL RDW (11.5-15.5) % Plt Count (150-450) k/uL Eosinophils # (0-0.7) k/uL APTT (22.0-30.0) sec Carbon Dioxide 31 H (22-30) mmol/L Glucose 104 H (74-99) mg/dL Albumin 3.4 L (3.5-5.0) g/dL - Imaging and Cardiology Chest x-ray: report reviewed, image reviewed Assessment and Plan Assessment: 1. New onset paroxysmal atrial flutter with rapid ventricular response, currently in sinus rhythm 2. Subtherapeutic INR 3. History of bicuspid aortic valve with severe aortic valve stenosis status post On-X mechanical aortic valve replacement with aortic root enlargement and exclusion of the left atrial appendage 4. History of multivessel coronary artery disease with left main disease status post coronary artery bypass graft surgery 5. Hypertension 6. Hyperlipidemia 7. Morbid obesity Plan: 1. Continue full strength aspirin, Crestor, beta will therapy. Will increase beta will therapy as tolerated. 2. Continue amiodarone for A. fib prophylaxis. 3. Continue Coumadin. Will dose daily based on PT/INR. FDA recommendations for On-X mechanical aortic valve is for full strength aspirin and target INR 2.5 -3.5 for 3 months, then 1.5-2. Will give 7.5 mg orally today. 4. We will continue IV heparin until INR is therapeutic. 5. Continue Cardizem for radial artery spasm prophylaxis. 6. Encourage continued incentive spirometry use. 7. Increase activity, ambulate as tolerated. 8. Will add as needed DuoNeb updrafts. 9. Will add Tylenol for pain control as patient does not want to take narcotics. 10. Continue iron/vitamin C. 11. Repeat transthoracic echocardiogram completed this morning, await results. 12. Will monitor daily labs. Electrolyte replacement per protocol. 13. Transfer orders placed for 3 self cardiac stepdown unit. May transfer when bed available. 14. More recommendations to follow. Time with Patient: Greater than 30
--- NOTE | 2018-10-20 10:27 | ECHOF ---
Referral Reason:assess LV function. MEASUREMENTS -------- HEIGHT: 165.1 cm WEIGHT: 129.3 kg BP: 110/57 IVSd: 1.5 cm (0.6 - 1.1) LVIDd: 4.7 cm (3.9 - 5.3) LVPWd: 1.7 cm (0.6 - 1.1) IVSs: 1.8 cm LVIDs: 4.6 cm LVPWs: 1.0 cm Ao Diam: 2.2 cm (2.0 - 3.7) LA Diam: 4.4 cm (2.7 - 3.8) MV EXCURSION: 16.399 mm (> 18.000) MV EF SLOPE: 63 mm/s (70 - 150) EPSS: 0.7 cm MV E Devendra: 1.15 m/s MV DecT: 153 ms MV A Devendra: 0.65 m/s MV E/A Ratio: 1.79 AV maxP.33 mmHg AV meanP.90 mmHg RAP: 5.00 mmHg RVSP: 20.18 mmHg FINDINGS -------- Undetermined rhythm. This was a technically adequate study. Morbid Obesity The left ventricular size is normal. There is mild concentric left ventricular hypertrophy. Overa ll left ventricular systolic function is low-normal with, an EF between 50 - 55 %. The right ventricle is normal in size. The left atrium is mildly dilated. The right atrial size is normal. Peak/mean gradient across the Aortic Valve is 19.33mmHg / 8.90mmHg. Normally functioning mechanical prosthetic valve. Mild mitral annular calcification present. Mild mitral regurgitation is present. Mild tricuspid regurgitation present. There is no evidence of pulmonary hypertension. The right v entricular systolic pressure, as measured by Doppler, is 20.18mmHg. There is no pulmonic regurgitation present. The aortic root size is normal. There is a small, generalized pericardial effusion present. CONCLUSIONS -------- 1. Morbid Obesity 2. The left ventricular size is normal. 3. There is mild concentric left ventricular hypertrophy. 4. Overall left ventricular systolic function is low-normal with, an EF between 50 - 55 %. 5. The right ventricle is normal in size. 6. The left atrium is mildly dilated. 7. The right atrial size is normal. 8. Peak/mean gradient across the Aortic Valve is 19.33mmHg / 8.90mmHg. 9. Normally functioning mechanical prosthetic valve. 10. Mild mitral annular calcification present. 11. Mild mitral regurgitation is present. 12. Mild tricuspid regurgitation present. 13. There is no evidence of pulmonary hypertension. 14. The right ventricular systolic pressure, as measured by Doppler, is 20.18mmHg. 15. There is no pulmonic regurgitation present. 16. The aortic root size is normal. 17. There is a small, generalized pericardial effusion present. HVAC SERVICE TECHNICIAN: Randa Gamboa RDCS
[2018-10-20] MEDS: FERROUS SULFATE 325 MG TAB PO SCH (12:36)
[2018-10-20] MEDS: ASCORBIC ACID 500 MG TAB PO SCH (12:36)
--- NOTE | 2018-10-20 12:48 | CDI ---
Documentation Clarification Form Date: 10/20/2018 12:42:39 PM From: Clarissa FrancisDARY, CCDS Admit Date: 10/19/2018 2:10:00 AM Patient Name: Frank Kurtz Visit Number: [id number] Discharge Date: ATTENTION: The Clinical Documentation Specialists (CDI) and [facility] Coding Staff appreciate your assistance in clarifying documentation. Please respond to the clarification below the line at the bottom and electronically sign. The CDI & [facility] Coding staff will review the response and follow-up if needed. Please note: Queries are made part of the Legal Health Record. If you have any questions, please contact the author of this message via ITS. Dr. Presley Biggs: Atrial Flutter is documented in the 10/20 progress notes: "New onset paroxysmal atrial flutter with rapid ventricular response, currently in sinus rhythm." History/Risk factors: Recent CABG & AVR for triple vessel CAD & aortic valve stenosis, Morbid obesity sp bariatric surgery with BMI >45, Hypertension, Hyperlipidemia & former smoker. Clinical Indicators: Presented to the ED with palpitations & tachycardia. Diagnosed with Atrial flutter, SVT & CHF. EKG/telemetry: R 150 supraventricular tachycardia Treatment: IV Amiodarone, IV Adenosine, IV Lopressor, IV Heparin drip, IV fluid boluses x2. Admit to ICU. In your professional opinion, in order to capture the severity of condition; can you please clarify the type of Atrial Flutter if known? Typical/Type I Atypical/Type II Other, please specify Unable to determine (Last Revision: November 2017) MTDD
--- NOTE | 2018-10-20 12:58 | CDI ---
Documentation Clarification Form Date: 10/20/2018 12:49:34 PM From: Clarissa FrancisDARY, CCDS Admit Date: 10/19/2018 2:10:00 AM Patient Name: Frank Kurtz Visit Number: [id number] Discharge Date: ATTENTION: The Clinical Documentation Specialists (CDI) and [facility] Coding Staff appreciate your assistance in clarifying documentation. Please respond to the clarification below the line at the bottom and electronically sign. The CDI & [facility] Coding staff will review the response and follow-up if needed. Please note: Queries are made part of the Legal Health Record. If you have any questions, please contact the author of this message via ITS. Dr. Presley Biggs: CHF is documented in the ED impression as congestive heart failrue History/Risk Factors: CAD with triple vessel disease & aortic valve stenosis status post recent CABG & AVR, Hypertension, Hyperlipidemia, Morbid Obesity with BMI >45 status post bariatric surgery & former smoker. Clinical Indicators: Presented with palpitations, diagnosed with new onset atrial flutter nos. VS: P 148^ BNP: not obtained Echocardiogram Results: EF 50-55% w/systolic low normal, Mild MR, Mild TR, small , generalized pericardial effusion. Chest X Ray: Mild prominence of the perihilar & interstitial structures may represent mild pulmonary congestion/edema. Treatment: IV Adenosine, IV Lopressor, IV Heparin, IV Amiodarone, IV Dextrose. In your professional opinion, can you please clarify the acuity and type of CHF if known? Systolic Heart Failure: o Acute o Chronic o Acute on Chronic Diastolic Heart Failure: o Acute o Chronic o Acute on Chronic Systolic & Diastolic Heart Failure: o Acute o Chronic o Acute on Chronic Heart Failure Unable to Determine Other, please specify (Last Revision: November 2017) MTDD
[2018-10-20] MEDS: HEPARIN SOD,PORK IN 0.45% NACL 25,000 UNIT in 0.45% NACL 1 250ML.BAG IV SCH (13:24)
--- NOTE | 2018-10-20 15:47 | P.PN ---
Subjective Progress Note Date: 10/20/18 Is a 48-year-old female patient who came in yesterday to the emergency department for some unusual sensation over the chest and shortness of breath and she was found to be in significant tachycardia and EKG showed a flutter 2-1 conduction with rapid ventricular response and based on that the patient was admitted to the intensive care unit. The patient is known to me. She has history of obstructive sleep apnea and she does not utilize a CPAP machine for now. She has a bicuspid aortic valve and severe aortic stenosis and a cardiac catheterization at shown significant CAD including left main stenosis. The patient underwent two-vessel bypass surgery and aortic valve replacement with a mechanical valve and clipping of the atrial appendage. The patient had BRO to LAD and regular bypass to OM1. Note that her preop FEV1 was 74% of predicted. The patient's surgery was essentially uncomplicated. The patient was sent home on anticoagulation with warfarin. She was normal sinus rhythm. Note that her INR is of admission was low at 1.1 and she is currently on IV heparin. She was given amiodarone loading and she subsequently converted to normal normal sinus rhythm. She is hemodynamically stable at this point in time. She is on room air. No cough. No sputum production. Sternum stable clean and intact. No other significant events otherwise for now. She is in the intensive care unit. She is communicating alert and awake. No fever or chills. No other complaints otherwise. Today's evaluation 2018, I'm seeing this patient for a follow-up. The patient is doing well. She has no specific complaints. She is converted to normal sinus rhythm. She is hemodynamically stable. She brought in her own CPAP machine from home which was a dysfunctional all units. We tried on a CPAP unit here in the hospital at a pressure of 7 cm of water and she was unable to tolerate our CPAP therapy. Currently she is on room air. No chest pain. Sternum stable clean and intact. She is ambulating. No cough sputum production chest tightness or wheezing. The patient is on amiodarone 200 mg 3 times a day. The patient is also on medical condition with warfarin. PT/INR is subtherapeutic and the patient is still on IV heparin. Warfarin will be adjusted and the patient will be given a dose of 7.5 mg today. Noted the patient is also on a Cardizem orally 30 mg 4 times a day in addition to metoprolol 25 mg twice a day for rate control. Objective - Vital Signs Vital signs: Vital Signs Temp 97.5 F L 10/20/18 12:00 Pulse 76 10/20/18 12:00 Resp 20 10/20/18 12:00 BP 119/67 10/20/18 12:00 Pulse Ox 99 10/20/18 09:00 Intake & Output 10/19/18 10/20/18 10/20/18 18:59 06:59 18:59 Intake Total 1486.673 761.053 580 Output Total 250 200 201 Balance 1236.673 561.053 379 Weight 132.7 kg Intake: IV 249.84 126.66 80 .9 KVO 110 80 Amiodarone 360 mg In 249.84 16.66 Dextrose 5% in Water 200 ml @ 1 MG/MIN 33.33 mls/ hr IV .Q6H1M [facility] Rx#: [id number] Intake, IV Titration 286.833 154.393 250 Amount Amiodarone 300 mg In 218.333 Dextrose 5% in Water 250 ml @ 0.5 MG/MIN 25 mls/hr IV .Q10H [facility] Rx#: [id number] Heparin Sod,Pork in 0.45% 68.5 154.393 250 NaCl 25,000 unit In 0.45 % NaCl 1 250ml.bag @ 10 mls/hr IV .Q24H [facility] Rx#: [id number] Oral 950 480 250 Output: Urine 250 200 201 Other: Voiding Method Bedside Commode Bedside Commode Bedside Commode # Voids 1 0 # Bowel Movements 1 - Exam Morbidly obese, comfortable likely distress Head exam was generally normal. There was no scleral icterus or corneal arcus. Mucous membranes were moist. Neck was supple and without jugular venous distension, thyromegaly, or carotid bruits. Carotids were easily palpable bilaterally. There was no adenopathy. Mallampati class IV and there is no oropharyngeal candidiasis or thrush. Heart sounds are regular, positive shortness of significant murmurs appreciated. Sternum stable treatment intact. Lungs were clear to auscultation and percussion, and with normal diaphragmatic excursion. No wheezes or rales were noted. Diminished breath on the lung bases. Abdominal exam revealed normal bowel sounds. The abdomen was soft, non-tender, and without masses, organomegaly, or appreciable enlargement of the abdominal aorta. Examination of the extremities revealed easily palpable radial, femoral and pedal pulses. There was no cyanosis, clubbing or edema. Examination of the skin revealed no evidence of significant rashes, suspicious appearing nevi or other concerning lesions. Neurologically the patient is awake and alert and is no focal neurological deficit Psychiatric to the patient is appropriate. - Labs CBC & Chem 7: 10/20/18 03:02 10/20/18 03:02 Labs: Abnormal Lab Results - Last 24 Hours (Table) 10/19/18 10/20/18 10/20/18 Range/Units 18:54 03:02 03:02 WBC 12.3 H (3.8-10.6) k/uL RBC 2.90 L (3.80-5.40) m/uL Hgb 7.2 L D (11.4-16.0) gm/dL Hct 24.2 L (34.0-46.0) % MCH 24.8 L (25.0-35.0) pg MCHC 29.8 L (31.0-37.0) g/dL RDW 17.4 H (11.5-15.5) % Plt Count 509 H (150-450) k/uL Eosinophils # 1.3 H (0-0.7) k/uL APTT 32.7 H 49.1 H (22.0-30.0) sec Carbon Dioxide (22-30) mmol/L Glucose (74-99) mg/dL Albumin (3.5-5.0) g/dL 10/20/18 Range/Units 03:02 WBC (3.8-10.6) k/uL RBC (3.80-5.40) m/uL Hgb (11.4-16.0) gm/dL Hct (34.0-46.0) % MCH (25.0-35.0) pg MCHC (31.0-37.0) g/dL RDW (11.5-15.5) % Plt Count (150-450) k/uL Eosinophils # (0-0.7) k/uL APTT (22.0-30.0) sec Carbon Dioxide 31 H (22-30) mmol/L Glucose 104 H (74-99) mg/dL Albumin 3.4 L (3.5-5.0) g/dL Assessment and Plan Plan: Assessment 1 new onset atrial flutter with rapid ventricular response, converted back to normal sinus rhythm and the patient is currently receiving amiodarone bolus/ loading is hemodynamically stable. The patient remains in an almost cardiac sinus rhythm. The patient on oral amiodarone. The patient on oral Cardizem and oral metoprolol. The patient is also on antibiotic ventilation. The patient on IV heparin. PT/INR is being adjusted while the patient being on Coumadin. 2 bicuspid aortic valve status post aortic valve replacement with a mechanical valve and a subtherapeutic PT/INR while on Coumadin, post op day # 19 3 symptomatically multivessel coronary artery disease status post two-vessel bypass surgery utilizing a radial artery and the BRO and a postop day # 19 4 obstructive sleep apnea without a CPAP machine at this point in time, sleep apnea could've also contributed to her cardiac arrhythmia 5 obesity with a BMI of 47.4 6 hypertension 7 hyperlipidemia 8 history of Hodgkin's lymphoma with previous chemo radiation therapy currently in remission 9 history of gastric sleeve surgery 10 restless leg syndrome 11 hypersomnia secondary to her obstructive sleep apnea, unable to tolerate CPAP unit here in the hospital. Plan Patient will be kept on IV heparin. The patient will be given 7.5 mg of warfarin today. Repeat PT/INR in the morning. Cardiac rhythm is sinus. The patient is on a combination of amiodarone, metoprolol and Cardizem. She is ambulating. She will obviously need a sleep evaluation outpatient basis with CPAP titration regarding her symptomatically obstructive sleep apnea. Her cardiac status is stable for now. We'll continue to follow. No significant complaints for now. She is obesity BMI 48.7.
[2018-10-20] MEDS: IPRATROPIUM-ALBUTEROL 3 ML NEB INHALATION PRN (15:55)
[2018-10-20] MEDS ORDERED: WARFARIN 7.5 MG TAB PO ONE (18:00)
--- NOTE | 2018-10-20 20:52 | PN ---
PROGRESS NOTE This patient came with atrial flutter. The patient is converted to the normal sinus rhythm. The patient is feeling fairly well. Denies any chest pain. Denies any shortness of breath. Blood pressure is 120/67 mmHg, heart rate is 70 per minute. First and second heart sounds are heard. Lungs are clinically clear to auscultation and percussion. The patient is currently taking Cordarone 200 mg 3 times a day. The patient is on IV heparin drip. The patient is taking Coumadin. The patient got Coumadin 7.5 mg today. Patient's INR is still 1.1. MMODL / IJN: [id number] /
[2018-10-20] MEDS: PRAMIPEXOLE 0.5 MG TAB PO SCH (21:04)
--- NOTE | 2018-10-21 01:13 | P.PN ---
Subjective Progress Note Date: 10/20/18 Principal diagnosis: Atrial flutter 48-year-old female patient who came in yesterday to the emergency department for some unusual sensation over the chest and shortness of breath and she was found to be in significant tachycardia and EKG showed a flutter 2-1 conduction with rapid ventricular response and based on that the patient was admitted to the intensive care unit. The patient is known to me. She has history of obstructive sleep apnea and she does not utilize a CPAP machine for now. She has a bicuspid aortic valve and severe aortic stenosis and a cardiac catheterization at shown significant CAD including left main stenosis. The patient underwent two-vessel bypass surgery and aortic valve replacement with a mechanical valve and clipping of the atrial appendage. The patient had BRO to LAD and regular bypass to OM1. Note that her preop FEV1 was 74% of predicted. The patient's surgery was essentially uncomplicated. The patient was sent home on anticoagulation with warfarin. She was normal sinus rhythm. Note that her INR is of admission was low at 1.1 and she is currently on IV heparin. She was given amiodarone loading and she subsequently converted to normal normal sinus rhythm. 2018, I'm seeing this patient for a follow-up. The patient is doing well. She has no specific complaints. She is converted to normal sinus rhythm. She is hemodynamically stable. She brought in her own CPAP machine from home which was a dysfunctional all units. We tried on a CPAP unit here in the hospital at a pressure of 7 cm of water and she was unable to tolerate our CPAP therapy. Currently she is on room air. No chest pain. Sternum stable clean and intact. She is ambulating. No cough sputum production chest tightness or wheezing. The patient is on amiodarone 200 mg 3 times a day. The patient is also on anticoagulation with warfarin. PT/INR is subtherapeutic and the patient is still on IV heparin. Warfarin will be adjusted and the patient will be given a dose of 7.5 mg today. Noted the patient is also on a Cardizem orally 30 mg 4 times a day in addition to metoprolol 25 mg twice a day for rate control. Objective - Vital Signs Vital signs: Vital Signs Temp 97.8 F 10/20/18 08:00 Pulse 82 10/20/18 08:00 Resp 20 10/20/18 08:00 BP 131/58 10/20/18 08:00 Pulse Ox 92 L 10/20/18 08:00 Intake & Output 10/19/18 10/20/18 10/20/18 18:59 06:59 18:59 Intake Total 1486.673 761.053 20 Output Total 250 200 Balance 1236.673 561.053 20 Weight 132.7 kg Intake: IV 249.84 126.66 20 .9 KVO 110 20 Amiodarone 360 mg In 249.84 16.66 Dextrose 5% in Water 200 ml @ 1 MG/MIN 33.33 mls/ hr IV .Q6H1M [facility] Rx#: [id number] Intake, IV Titration 286.833 154.393 Amount Amiodarone 300 mg In 218.333 Dextrose 5% in Water 250 ml @ 0.5 MG/MIN 25 mls/hr IV .Q10H [facility] Rx#: [id number] Heparin Sod,Pork in 0.45% 68.5 154.393 NaCl 25,000 unit In 0.45 % NaCl 1 250ml.bag @ 10 mls/hr IV .Q24H [facility] Rx#: [id number] Oral 950 480 Output: Urine 250 200 Other: Voiding Method Bedside Commode Bedside Commode # Voids 1 0 # Bowel Movements 1 - Exam PHYSICAL EXAMINATION: GENERAL: The patient is alert and oriented x3, not in any acute distress. Well developed, well nourished. HEENT: Pupils are round and equally reacting to light. EOMI. No scleral icterus. No conjunctival pallor. Normocephalic, atraumatic. No pharyngeal erythema. No thyromegaly. CARDIOVASCULAR: S1 and S2 present. No murmurs, rubs, or gallops. PULMONARY: Chest is clear to auscultation, no wheezing or crackles. ABDOMEN: Soft, nontender, nondistended, normoactive bowel sounds. No palpable organomegaly. MUSCULOSKELETAL: No joint swelling or deformity. EXTREMITIES: No cyanosis, clubbing, or pedal edema. NEUROLOGICAL: Gross neurological examination did not reveal any focal deficits. SKIN: No rashes. - Labs CBC & Chem 7: 10/20/18 03:02 10/20/18 03:02 Labs: Abnormal Lab Results - Last 24 Hours (Table) 10/19/18 10/20/18 10/20/18 Range/Units 18:54 03:02 03:02 WBC 12.3 H (3.8-10.6) k/uL RBC 2.90 L (3.80-5.40) m/uL Hgb 7.2 L D (11.4-16.0) gm/dL Hct 24.2 L (34.0-46.0) % MCH 24.8 L (25.0-35.0) pg MCHC 29.8 L (31.0-37.0) g/dL RDW 17.4 H (11.5-15.5) % Plt Count 509 H (150-450) k/uL Eosinophils # 1.3 H (0-0.7) k/uL APTT 32.7 H 49.1 H (22.0-30.0) sec Carbon Dioxide (22-30) mmol/L Glucose (74-99) mg/dL Albumin (3.5-5.0) g/dL 10/20/18 Range/Units 03:02 WBC (3.8-10.6) k/uL RBC (3.80-5.40) m/uL Hgb (11.4-16.0) gm/dL Hct (34.0-46.0) % MCH (25.0-35.0) pg MCHC (31.0-37.0) g/dL RDW (11.5-15.5) % Plt Count (150-450) k/uL Eosinophils # (0-0.7) k/uL APTT (22.0-30.0) sec Carbon Dioxide 31 H (22-30) mmol/L Glucose 104 H (74-99) mg/dL Albumin 3.4 L (3.5-5.0) g/dL Assessment and Plan Assessment: 1. New onset atrial flutter with rapid ventricular response, - converted back to normal sinus rhythm and the patient is currently receiving amiodarone bolus/loading is hemodynamically stable. - patient remains on IV heparin as a bridge to Coumadin therapy; patient received 7.5 mg of Coumadin last night - Continue with metoprolol 100 mg daily along with Cardizem 120 mg daily - Monitor PT/INR daily to therapeutic 2. Bicuspid aortic valve status post aortic valve replacement with a mechanical valve - subtherapeutic PT/INR while on Coumadin, post op day #18 - patient restarted on Coumadin as above 3. Symptomatically multivessel coronary artery disease - status post two-vessel bypass surgery utilizing a radial artery and the BRO and a postop day #18 4. Obstructive sleep apnea - patient has CPAP machine at home; patient advised to have family bring CPAP unit so he could be investigated - sleep apnea could've also contributed to her cardiac arrhythmia 5. Obesity with a BMI of 47.4; - patient has history of gastric sleeve surgery - counseling done on weight reduction 6. Hypertension; stable on current dose of metoprolol and Cardizem 7. Hyperlipidemia; not currently on any statin therapy 8. Restless leg syndrome; Mirapex 1.5 mg by mouth daily at bedtime 9. DVT prophylaxis; systemic anticoagulation CODE STATUS; full code Time with Patient: Greater than 30
[2018-10-21] MEDS: HEPARIN SOD,PORK IN 0.45% NACL 25,000 UNIT in 0.45% NACL 1 250ML.BAG IV SCH ×2 (03:32→20:00)
[2018-10-21] MEDS: IPRATROPIUM-ALBUTEROL 3 ML NEB INHALATION PRN (04:00)
[2018-10-21 05:43] LABS: Anisocytosis Slight; HCT 26.2 % (34.0-46.0); HGB 7.6 gm/dL (11.4-16.0); Hypochromasia Marked; MCH 24.5 pg (25.0-35.0); MCV 84.3 fL (80.0-100.0); Mean Platelet Volume 6.4; Platelet Count 473 k/uL (150-450); Poikilocytosis Slight; RBC 3.11 m/uL (3.80-5.40); RDW 17.2 % (11.5-15.5); WBC 11.5 k/uL (3.8-10.6)
[2018-10-21 05:49] LABS: INR 1.5 (<1.2); Prothrombin Time 15.2 sec (9.0-12.0)
[2018-10-21 05:59] LABS: Anion Gap 6 mmol/L; Blood Urea Nitrogen 13 mg/dL (7-17); Calcium 8.9 mg/dL (8.4-10.2); Carbon Dioxide 28 mmol/L (22-30); Chloride 104 mmol/L (98-107); Glucose 103 mg/dL (74-99); Potassium 4.5 mmol/L (3.5-5.1); Sodium 138 mmol/L (137-145)
--- NOTE | 2018-10-21 07:39 | P.PN ---
Subjective Progress Note Date: 10/21/18 Is a 48-year-old female patient who came in yesterday to the emergency department for some unusual sensation over the chest and shortness of breath and she was found to be in significant tachycardia and EKG showed a flutter 2-1 conduction with rapid ventricular response and based on that the patient was admitted to the intensive care unit. The patient is known to me. She has history of obstructive sleep apnea and she does not utilize a CPAP machine for now. She has a bicuspid aortic valve and severe aortic stenosis and a cardiac catheterization at shown significant CAD including left main stenosis. The patient underwent two-vessel bypass surgery and aortic valve replacement with a mechanical valve and clipping of the atrial appendage. The patient had BRO to LAD and regular bypass to OM1. Note that her preop FEV1 was 74% of predicted. The patient's surgery was essentially uncomplicated. The patient was sent home on anticoagulation with warfarin. She was normal sinus rhythm. Note that her INR is of admission was low at 1.1 and she is currently on IV heparin. She was given amiodarone loading and she subsequently converted to normal normal sinus rhythm. She is hemodynamically stable at this point in time. She is on room air. No cough. No sputum production. Sternum stable clean and intact. No other significant events otherwise for now. She is in the intensive care unit. She is communicating alert and awake. No fever or chills. No other complaints otherwise. Today's evaluation 2018, I'm seeing this patient for a follow-up. The patient is doing well. She has no specific complaints. She is converted to normal sinus rhythm. She is hemodynamically stable. She brought in her own CPAP machine from home which was a dysfunctional all units. We tried on a CPAP unit here in the hospital at a pressure of 7 cm of water and she was unable to tolerate our CPAP therapy. Currently she is on room air. No chest pain. Sternum stable clean and intact. She is ambulating. No cough sputum production chest tightness or wheezing. The patient is on amiodarone 200 mg 3 times a day. The patient is also on medical condition with warfarin. PT/INR is subtherapeutic and the patient is still on IV heparin. Warfarin will be adjusted and the patient will be given a dose of 7.5 mg today. Noted the patient is also on a Cardizem orally 30 mg 4 times a day in addition to metoprolol 25 mg twice a day for rate control. On today's evaluation of 10/21/2018 I'm seeing this patient for a follow-up patient remains in a normal sinus rhythm. No respiratory distress. She claims is on and off she is coughing especially when she exerts. Her lungs are essentially clear. She is pulling approximately 2000 mL on the incentive spirometer. She is on IV heparin. She was given 7.5 mg of Coumadin yesterday and her INR is at 1.5. She'll be given another 5 mg of Coumadin today. Her sleep is disrupted as the patient has symptomatically obstructive sleep apnea. She was unable to tolerate hour CPAP machine here in the hospital. For now she is a selective overflow. We will going to transfer out of the intensive care unit today. Objective - Vital Signs Vital signs: Vital Signs Temp 97.7 F 10/21/18 04:00 Pulse 88 10/21/18 04:10 Resp 17 10/21/18 04:00 BP 125/74 10/21/18 05:00 Pulse Ox 94 L 10/21/18 04:00 Intake & Output 10/20/18 10/21/18 10/21/18 18:59 06:59 18:59 Intake Total 840 350 Output Total 401 200 Balance 439 150 Intake: IV 100 100 .9 KVO 100 100 Intake, IV Titration 250 250 Amount Heparin Sod,Pork in 0.45% 250 250 NaCl 25,000 unit In 0.45 % NaCl 1 250ml.bag @ 10 mls/hr IV .Q24H [facility] Rx#: [id number] Oral 490 Output: Urine 401 200 Other: Voiding Method Bedside Commode Bedside Commode # Voids 1 - Exam Morbidly obese, comfortable likely distress Head exam was generally normal. There was no scleral icterus or corneal arcus. Mucous membranes were moist. Neck was supple and without jugular venous distension, thyromegaly, or carotid bruits. Carotids were easily palpable bilaterally. There was no adenopathy. Mallampati class IV and there is no oropharyngeal candidiasis or thrush. Heart sounds are regular, positive shortness of significant murmurs appreciated. Sternum stable treatment intact. Lungs were clear to auscultation and percussion, and with normal diaphragmatic excursion. No wheezes or rales were noted. Diminished breath on the lung bases. Abdominal exam revealed normal bowel sounds. The abdomen was soft, non-tender, and without masses, organomegaly, or appreciable enlargement of the abdominal aorta. Examination of the extremities revealed easily palpable radial, femoral and pedal pulses. There was no cyanosis, clubbing or edema. Examination of the skin revealed no evidence of significant rashes, suspicious appearing nevi or other concerning lesions. Neurologically the patient is awake and alert and is no focal neurological deficit Psychiatric to the patient is appropriate. - Labs CBC & Chem 7: 10/21/18 05:19 10/21/18 05:19 Labs: Abnormal Lab Results - Last 24 Hours (Table) 10/21/18 10/21/18 10/21/18 Range/Units 05:19 05:19 05:19 WBC 11.5 H (3.8-10.6) k/uL RBC 3.11 L (3.80-5.40) m/uL Hgb 7.6 L (11.4-16.0) gm/dL Hct 26.2 L (34.0-46.0) % MCH 24.5 L (25.0-35.0) pg MCHC 29.0 L (31.0-37.0) g/dL RDW 17.2 H (11.5-15.5) % Plt Count 473 H (150-450) k/uL PT 15.2 H (9.0-12.0) sec INR 1.5 H (<1.2) APTT (22.0-30.0) sec Glucose 103 H (74-99) mg/dL 10/21/18 Range/Units 06:54 WBC (3.8-10.6) k/uL RBC (3.80-5.40) m/uL Hgb (11.4-16.0) gm/dL Hct (34.0-46.0) % MCH (25.0-35.0) pg MCHC (31.0-37.0) g/dL RDW (11.5-15.5) % Plt Count (150-450) k/uL PT (9.0-12.0) sec INR (<1.2) APTT 66.5 H (22.0-30.0) sec Glucose (74-99) mg/dL Assessment and Plan Plan: Assessment 1 new onset atrial flutter with rapid ventricular response, converted back to normal sinus rhythm and the patient is currently receiving amiodarone bolus/ loading is hemodynamically stable. The patient remains in an almost cardiac sinus rhythm. The patient on oral amiodarone. The patient on oral Cardizem and oral metoprolol. The patient is also on antibiotic ventilation. The patient on IV heparin. PT/INR is being adjusted while the patient being on Coumadin. The patient's INR is still subtherapeutic at 1.5. This is to be adjusted further. 2 bicuspid aortic valve status post aortic valve replacement with a mechanical valve and a subtherapeutic PT/INR while on Coumadin, post op day # 20 3 symptomatically multivessel coronary artery disease status post two-vessel bypass surgery utilizing a radial artery and the BRO and a postop day # 20 4 obstructive sleep apnea without a CPAP machine at this point in time, sleep apnea could've also contributed to her cardiac arrhythmia 5 obesity with a BMI of 47.4 6 hypertension 7 hyperlipidemia 8 history of Hodgkin's lymphoma with previous chemo radiation therapy currently in remission 9 history of gastric sleeve surgery 10 restless leg syndrome 11 hypersomnia secondary to her obstructive sleep apnea, unable to tolerate CPAP unit here in the hospital. Plan Patient will be kept on IV heparin. The patient will be given 5 mg of warfarin today. Repeat PT/INR in the morning. Cardiac rhythm is sinus. The patient is on a combination of amiodarone, metoprolol and Cardizem. She is ambulating. She will obviously need a sleep evaluation outpatient basis with CPAP titration regarding her symptomatically obstructive sleep apnea. Her cardiac status is stable for now. We'll continue to follow. No significant complaints for now. She is obesity BMI 48.7. She remains hemodynamically stable. No other significant events overnight. The patient will be transferred out of the intensive care unit today. Her has a strep throat. He was advised not to come to the hospital for visitation.
[2018-10-21] MEDS: Rosuvastatin Calcium [Crestor] 5 MG PO SCH (09:27)
[2018-10-21] MEDS: METOPROLOL TARTRATE 25 MG TAB PO SCH ×2 (09:28→21:34)
[2018-10-21] MEDS: PANTOPRAZOLE 40 MG TABLET PO SCH (09:28)
[2018-10-21] MEDS: ASPIRIN 325 MG TAB PO SCH (09:28)
[2018-10-21] MEDS: AMIODARONE 200 MG TAB PO SCH ×3 (09:29→21:34)
[2018-10-21] MEDS: DILTIAZEM ORAL 30 MG TAB PO SCH ×4 (09:29→21:34)
--- NOTE | 2018-10-21 09:31 | P.PN ---
Subjective Progress Note Date: 10/21/18 Principal diagnosis: New onset atrial flutter with rapid ventricular rate and some therapeutic INR. Previous medical history of bicuspid aortic valve with severe aortic stenosis status 18 days post aortic valve replacement using a 23 mm On-X mechanical valve and aortic root enlargement with [place]-Bg patch as well as exclusion of the left atrial appendage using a 35 mm AtriClip, symptomatic multivessel coronary artery disease with left main coronary artery disease status post coronary artery bypass graft surgery with sequential left internal mammary artery to the left anterior descending artery to the diagonal branch, radial artery to the obtuse marginal artery, hypertension, hyperlipidemia, family history of premature coronary artery disease, morbid obesity, prediabetic with recent hemoglobin A1c 6.3%, Hodgkin's lymphoma with subsequent chemoradiation, previous tobacco dependence with recent FEV1 71% of predicted, obstructive sleep apnea without CPAP use, gastric sleeve surgery, restless leg syndrome. Patient's currently sitting up in a recliner in no acute distress. Remains in normal sinus rhythm. Denies chest pain, denies shortness of breath. She has ambulated multiple times in the hallway without difficulty and without assistance. She is currently on a heparin drip while waiting for her Coumadin levels to be therapeutic, she did receive 7.5 mg of Coumadin last night. Objective - Vital Signs Vital signs: Vital Signs Temp 97.7 F 10/21/18 04:00 Pulse 88 10/21/18 04:10 Resp 17 10/21/18 04:00 BP 125/74 10/21/18 05:00 Pulse Ox 96 10/21/18 07:45 Intake & Output 10/20/18 10/21/18 10/21/18 18:59 06:59 18:59 Intake Total 840 350 Output Total 401 200 Balance 439 150 Intake: IV 100 100 .9 KVO 100 100 Intake, IV Titration 250 250 Amount Heparin Sod,Pork in 0.45% 250 250 NaCl 25,000 unit In 0.45 % NaCl 1 250ml.bag @ 10 mls/hr IV .Q24H [facility] Rx#: [id number] Oral 490 Output: Urine 401 200 Other: Voiding Method Bedside Commode Bedside Commode # Voids 1 - Constitutional General appearance: Present: cooperative, morbidly obese, no acute distress - Respiratory Details: Lungs sounds diminished bilaterally. Respirations even, nonlabored. Currently on room air with oxygen saturation 94%. Able to achieve 2000 mL on her incentive spirometry. Strong cough. - Cardiovascular Details: S1, S2 present, positive valvular click. Regular rate and rhythm, sinus rhythm on telemetry. Sternum stable. Palpable peripheral pulses. No edema present. No calf pain or tenderness noted. Heart hugger in place with patient demonstrating appropriate use. Antiembolism stockings, SCDs present. - Gastrointestinal Gastrointestinal Comment(s): Abdomen soft, nontender, nondistended. Active bowel sounds present 4 quadrants. Tolerating diet. Positive bowel movement. - Genitourinary Genitourinary Comment(s): Continues to void clear, yellow urine. - Integumentary Integumentary Comment(s): Skin is warm and dry with evidence of good perfusion. Anterior chest incision well approximated and covered with Dermabond dressing. - Neurologic Neurologic: Present: CNII-XII intact - Musculoskeletal Musculoskeletal: Present: gait normal, strength equal bilaterally - Psychiatric Psychiatric: Present: A&O x's 3, appropriate affect, intact judgment & insight - Allied health notes Allied health notes reviewed: nursing - Labs CBC & Chem 7: 10/21/18 05:19 10/21/18 05:19 Labs: Abnormal Lab Results - Last 24 Hours (Table) 10/21/18 10/21/18 10/21/18 Range/Units 05:19 05:19 05:19 WBC 11.5 H (3.8-10.6) k/uL RBC 3.11 L (3.80-5.40) m/uL Hgb 7.6 L (11.4-16.0) gm/dL Hct 26.2 L (34.0-46.0) % MCH 24.5 L (25.0-35.0) pg MCHC 29.0 L (31.0-37.0) g/dL RDW 17.2 H (11.5-15.5) % Plt Count 473 H (150-450) k/uL PT 15.2 H (9.0-12.0) sec INR 1.5 H (<1.2) APTT (22.0-30.0) sec Glucose 103 H (74-99) mg/dL 10/21/18 Range/Units 06:54 WBC (3.8-10.6) k/uL RBC (3.80-5.40) m/uL Hgb (11.4-16.0) gm/dL Hct (34.0-46.0) % MCH (25.0-35.0) pg MCHC (31.0-37.0) g/dL RDW (11.5-15.5) % Plt Count (150-450) k/uL PT (9.0-12.0) sec INR (<1.2) APTT 66.5 H (22.0-30.0) sec Glucose (74-99) mg/dL Assessment and Plan Assessment: 1. New onset paroxysmal atrial flutter with rapid ventricular response, currently in sinus rhythm 2. Subtherapeutic INR 3. History of bicuspid aortic valve with severe aortic valve stenosis status post On-X mechanical aortic valve replacement with aortic root enlargement and exclusion of the left atrial appendage 4. History of multivessel coronary artery disease with left main disease status post coronary artery bypass graft surgery 5. Hypertension 6. Hyperlipidemia 7. Morbid obesity Plan: 1. Continue full strength aspirin, Crestor, beta will therapy. Will increase beta will therapy as tolerated. 2. Continue amiodarone for A. fib prophylaxis. 3. Continue Coumadin. Will dose daily based on PT/INR. FDA recommendations for On-X mechanical aortic valve is for full strength aspirin and target INR 2.5 -3.5 for 3 months, then 1.5-2. Will give 5 mg orally today, INR 1.5. 4. We will continue IV heparin until INR is therapeutic. 5. Continue Cardizem for radial artery spasm prophylaxis. 6. Encourage continued incentive spirometry use. 7. Increase activity, ambulate as tolerated. 8. Continue iron/vitamin C. 9. Repeat transthoracic echocardiogram completed yesterday, EF 50-55%, mechanical valve functioning normally with peak/mean gradient 19.33 mmHg/8.90 mmHg. 10. Will monitor daily labs. Electrolyte replacement per protocol. 11. Transfer orders placed for 3 self cardiac stepdown unit. May transfer when bed available. 12. More recommendations to follow. Time with Patient: Greater than 30
[2018-10-21] MEDS: FERROUS SULFATE 325 MG TAB PO SCH (13:27)
[2018-10-21] MEDS: ASCORBIC ACID 500 MG TAB PO SCH (13:27)
--- NOTE | 2018-10-21 16:31 | PN ---
PROGRESS NOTE This patient is status post metallic prosthetic valve replacement. Patient came with atrial flutter. She is maintaining normal sinus rhythm. Patient is doing fairly well. Denies any chest pain or shortness of breath. Blood pressure is 112/54 mmHg. First and second heart sounds are heard. Prosthetic sounds are well heard. Lungs are clear to auscultation and percussion. Patient's INR is 1.5 today. Patient is going to get additional 5 mg of Coumadin today. Once the patient's INR is stable, patient will be discharged home. MMODL / IJN: [id number] /
[2018-10-21] MEDS ORDERED: WARFARIN 5 MG TAB PO ONE (18:00)
[2018-10-21] MEDS: PRAMIPEXOLE 0.5 MG TAB PO SCH (21:34)
--- NOTE | 2018-10-22 05:59 | PN ---
PROGRESS NOTE DATE OF SERVICE: 10/21/2018 PRESENTING COMPLAINT: Atrial flutter. INTERVAL HISTORY: Patient admitted with atrial flutter with rapid ventricular rate, now back in sinus rhythm. Breathing is better on IV heparin. INR is subtherapeutic. Has been out of bed. REVIEW OF SYSTEMS: Done for constitutional, cardiovascular, GI, pulmonary; relevant findings as above. CURRENT MEDICATIONS: Current medications are reviewed that include p.o. Cordarone, p.o. Cardizem, IV heparin, Coumadin. PHYSICAL EXAMINATION: On examination, temperature 98.2, pulse 91, respiration 20, blood pressure 132/72 pulse ox 98% on room air. GENERAL APPEARANCE: Sitting up in a chair, awake. EYES: Pupils equal. Conjunctivae normal. NECK: JVD not raised. Mass not palpable. RESPIRATORY: Effort normal. LUNGS: Fair entry. CARDIOVASCULAR: Heart sounds normal. Minimal edema. ABDOMEN: Soft, nontender. Liver and spleen not palpable. PSYCHIATRY: Alert and oriented x3. Mood and affect normal. INVESTIGATIONS: White count 11.5, hemoglobin 7.6. INR 1.5. Potassium 4.5. BUN and creatinine normal. ASSESSMENT: 1. Paroxysmal atrial flutter fibrillation, now in sinus rhythm. 2. Coronary artery disease, recent coronary artery bypass and mechanical aortic valve replacement for severe aortic stenosis. 3. Acute postoperative blood-loss anemia as expected from surgery. 4. Morbid obesity, body mass index more than 40. 5. Essential hypertension. 6. Primary osteoarthritis of the lumbar spine. 7. Restless legs syndrome. 8. Chronic scoliosis. 9. Coumadin monitoring. 10.IV heparin monitoring. PLAN: Continue current medication and treatment plan. Care was discussed with the patient. The patient did receive Coumadin today. INR was 1.5. Repeat INR in the morning. MMODL / IJN: [id number] /
[2018-10-22 06:21] LABS: Anisocytosis Slight; HCT 30.9 % (34.0-46.0); HGB 8.7 gm/dL (11.4-16.0); Hypochromasia Marked; MCH 24.1 pg (25.0-35.0); Platelet Count 447 k/uL (150-450); Poikilocytosis Slight; RBC 3.59 m/uL (3.80-5.40); RDW 17.2 % (11.5-15.5); WBC 12.5 k/uL (3.8-10.6)
[2018-10-22 06:31] LABS: Anion Gap 9 mmol/L; Blood Urea Nitrogen 12 mg/dL (7-17); Calcium 9.3 mg/dL (8.4-10.2); Carbon Dioxide 26 mmol/L (22-30); Chloride 108 mmol/L (98-107); Glucose 105 mg/dL (74-99); INR 1.9 (<1.2); Potassium 4.6 mmol/L (3.5-5.1); Sodium 143 mmol/L (137-145)
[2018-10-22 06:32] LABS: Partial Thromboplastin Time 65.8 sec (22.0-30.0); Prothrombin Time 18.3 sec (9.0-12.0)
[2018-10-22] MEDS: Rosuvastatin Calcium [Crestor] 5 MG PO SCH (08:15)
[2018-10-22] MEDS: ASPIRIN 325 MG TAB PO SCH (08:18)
[2018-10-22] MEDS: DILTIAZEM ORAL 30 MG TAB PO SCH ×4 (08:18→21:20)
[2018-10-22] MEDS: AMIODARONE 200 MG TAB PO SCH ×3 (08:19→21:20)
[2018-10-22] MEDS: METOPROLOL TARTRATE 25 MG TAB PO SCH ×2 (08:19→20:18)
[2018-10-22] MEDS: PANTOPRAZOLE 40 MG TABLET PO SCH (08:19)
--- NOTE | 2018-10-22 09:24 | XR ---
EXAMINATION TYPE: XR chest 2V DATE OF EXAM: 10/22/2018 COMPARISON: Prior chest x-ray 10/20/2018 HISTORY: Postop cardiac surgery TECHNIQUE: Frontal and lateral views of the chest are obtained. FINDINGS: Patient is post median sternotomy and atrial appendage clipping. There is overlying artifa ct, cardiac leads. Heart size is stable, enlarged. No evident airspace disease, pneumothorax, or pleu ral effusion. Pulmonary vascularity and padmini are stable. Patient shows cardiac valve replacement quintero . Improved visualization of the posterior costophrenic angles. IMPRESSION: There is some improvement in aeration.
--- NOTE | 2018-10-22 09:54 | CDI ---
Documentation Clarification Form Date: 10/20/2018 12:42:00 PM From: Clarissa FrancisDARY, CCDS Admit Date: 10/19/2018 2:10:00 AM Patient Name: Frank Kurtz Visit Number: [id number] Discharge Date: ATTENTION: The Clinical Documentation Specialists (CDI) and [facility] Coding Staff appreciate your assistance in clarifying documentation. Please respond to the clarification below the line at the bottom and electronically sign. The CDI & [facility] Coding staff will review the response and follow-up if needed. Please note: Queries are made part of the Legal Health Record. If you have any questions, please contact the author of this message via ITS. Dr. Presley Biggs: Atrial Flutter is documented in the 10/20 progress notes: "New onset paroxysmal atrial flutter with rapid ventricular response, currently in sinus rhythm." History/Risk factors: Recent CABG & AVR for triple vessel CAD & aortic valve stenosis, Morbid obesity sp bariatric surgery with BMI >45, Hypertension, Hyperlipidemia & former smoker. Clinical Indicators: Presented to the ED with palpitations & tachycardia. Diagnosed with Atrial flutter, SVT & CHF. EKG/telemetry: R 150 supraventricular tachycardia Treatment: IV Amiodarone, IV Adenosine, IV Lopressor, IV Heparin drip, IV fluid boluses x2. Admit to ICU. In your professional opinion, in order to capture the severity of condition; can you please clarify the type of Atrial Flutter if known? Typical/Type I Atypical/Type II Other, please specify Unable to determine (Last Revision: November 2017) MTDD
--- NOTE | 2018-10-22 09:59 | CDI ---
Documentation Clarification Form Date: 10/20/2018 12:49:00 PM From: Clarissa FrancisDARY, CCDS Admit Date: 10/19/2018 2:10:00 AM Patient Name: Frank Kurtz Visit Number: [id number] Discharge Date: ATTENTION: The Clinical Documentation Specialists (CDI) and [facility] Coding Staff appreciate your assistance in clarifying documentation. Please respond to the clarification below the line at the bottom and electronically sign. The CDI & [facility] Coding staff will review the response and follow-up if needed. Please note: Queries are made part of the Legal Health Record. If you have any questions, please contact the author of this message via ITS. Dr. Presley Biggs: CHF is documented in the ED impression as congestive heart failrue History/Risk Factors: CAD with triple vessel disease & aortic valve stenosis status post recent CABG & AVR, Hypertension, Hyperlipidemia, Morbid Obesity with BMI >45 status post bariatric surgery & former smoker. Clinical Indicators: Presented with palpitations, diagnosed with new onset atrial flutter nos. VS: P 148^ BNP: not obtained Echocardiogram Results: EF 50-55% w/systolic low normal, Mild MR, Mild TR, small , generalized pericardial effusion. Chest X Ray: Mild prominence of the perihilar & interstitial structures may represent mild pulmonary congestion/edema. Treatment: IV Adenosine, IV Lopressor, IV Heparin, IV Amiodarone, IV Dextrose. In your professional opinion, can you please clarify the acuity and type of CHF if known? Systolic Heart Failure: o Acute o Chronic o Acute on Chronic Diastolic Heart Failure: o Acute o Chronic o Acute on Chronic Systolic & Diastolic Heart Failure: o Acute o Chronic o Acute on Chronic Heart Failure Unable to Determine Other, please specify (Last Revision: November 2017) MTDD
--- NOTE | 2018-10-22 10:21 | P.PN ---
Subjective Progress Note Date: 10/22/18 Principal diagnosis: New onset atrial flutter with rapid ventricular rate and subtherapeutic INR on admission. History of bicuspid aortic valve with severe aortic stenosis, status post aortic valve replacement using a 23 mm On-X mechanical valve and aortic root enlargement with [place]-Bg patch as well as exclusion of the left atrial appendage using a 35 mm AtriClip, symptomatic multivessel coronary artery disease with left main coronary artery disease status post coronary artery bypass graft surgery with sequential left internal mammary artery to the left anterior descending artery to the diagonal branch, radial artery to the obtuse marginal artery, hypertension, hyperlipidemia, family history of premature coronary artery disease, morbid obesity, prediabetic with recent hemoglobin A1c 6.3%, history of Hodgkin's lymphoma with subsequent chemoradiation, previous tobacco dependence with recent FEV1 71% of predicted, obstructive sleep apnea without CPAP use, gastric sleeve surgery, restless leg syndrome. The patient is sitting up to the bedside chair in no acute distress. She denies any complaints of pain or shortness of breath at this time, although she remains reporting that she does feel some clicking to her sternum. Bedside telemetry showing normal sinus rhythm heart rate 83. No further episodes of atrial flutter. She reports she has been ambulating in the intensive care unit hallway with minimal assistance. Her INR today is 1.9 and she received 5 mg of Coumadin yesterday 10/21/2018. She remains afebrile, her WBC count is 12.5 today. Objective - Vital Signs Vital signs: Vital Signs Temp 98.0 F 10/22/18 04:00 Pulse 76 10/22/18 04:00 Resp 18 10/22/18 04:00 BP 120/69 10/22/18 04:00 Pulse Ox 93 L 10/22/18 04:00 Intake & Output 10/21/18 10/22/18 10/22/18 18:59 06:59 18:59 Intake Total 810 525.168 Output Total 1 Balance 809 525.168 Weight 131.8 kg 135.1 kg Intake: IV 60 120 .9 KVO 60 120 Intake, IV Titration 250 165.168 Amount Heparin Sod,Pork in 0.45% 250 165.168 NaCl 25,000 unit In 0.45 % NaCl 1 250ml.bag @ 10 mls/hr IV .Q24H [facility] Rx#: [id number] Oral 500 240 Output: Stool 1 Other: Voiding Method Toilet Toilet # Voids 1 1 - Constitutional General appearance: Present: cooperative, morbidly obese, no acute distress - Respiratory Details: Lung sounds are essentially clear throughout. Respirations are symmetrical and nonlabored. Oxygen saturation is are 93% on room air. She is achieving 2000 mL on her incentive spirometry. - Cardiovascular Details: Regular rhythm and rate. S1 and S2 present, negative for S3, gallop or murmur. Positive aortic valve click. Sternum is stable although some sternal clicking felt. No edema is present. Knee-high sequential compression devices in place to her bilateral lower extremities. Heart hugger is in place and she is demonstrating appropriate use. Supportive bra in place. - Gastrointestinal Gastrointestinal Comment(s): Abdomen is soft, nontender and nondistended. Active bowel sounds all 4 abdominal quadrants. Tolerating oral intake. Passing flatus. - Genitourinary Genitourinary Comment(s): Voiding clear yellow urine. - Integumentary Integumentary Comment(s): Skin is warm and dry. No clubbing or cyanosis is present. Midline sternal incision is clean, dry and approximated. No drainage or redness is present. Left arm radial harvest sites are clean, dry and approximated. No drainage or redness is present. - Neurologic Neurologic: Present: CNII-XII intact - Musculoskeletal Musculoskeletal: Present: gait normal, strength equal bilaterally - Psychiatric Psychiatric: Present: A&O x's 3, appropriate affect, intact judgment & insight - Allied health notes Allied health notes reviewed: nursing - Labs CBC & Chem 7: 10/22/18 05:53 10/22/18 05:53 Labs: Abnormal Lab Results - Last 24 Hours (Table) 10/22/18 10/22/18 10/22/18 Range/Units 05:53 05:53 05:53 WBC 12.5 H (3.8-10.6) k/uL RBC 3.59 L (3.80-5.40) m/uL Hgb 8.7 L (11.4-16.0) gm/dL Hct 30.9 L (34.0-46.0) % MCH 24.1 L (25.0-35.0) pg MCHC 28.0 L (31.0-37.0) g/dL RDW 17.2 H (11.5-15.5) % PT 18.3 H (9.0-12.0) sec INR 1.9 H (<1.2) APTT 65.8 H (22.0-30.0) sec Chloride 108 H (98-107) mmol/L Glucose 105 H (74-99) mg/dL - Imaging and Cardiology Chest x-ray: report reviewed, image reviewed Assessment and Plan (1) Atrial flutter Current Visit: Yes Status: Acute Code(s): I48.92 - UNSPECIFIED ATRIAL FLUTTER SNOMED Code(s): 8877110 (2) Subtherapeutic international normalized ratio (INR) Current Visit: Yes Status: Acute Code(s): R79.1 - ABNORMAL COAGULATION PROFILE SNOMED Code(s): 248290088 (3) History of coronary artery bypass graft x 3 Current Visit: Yes Status: Acute Code(s): Z95.1 - PRESENCE OF AORTOCORONARY BYPASS GRAFT SNOMED Code(s): 141738600 (4) History of mechanical aortic valve replacement Current Visit: Yes Status: Acute Code(s): Z95.2 - PRESENCE OF PROSTHETIC HEART VALVE SNOMED Code(s): 437001389506414 (5) History of coronary artery disease Current Visit: Yes Status: Chronic Code(s): Z86.79 - PERSONAL HISTORY OF OTHER DISEASES OF THE CIRCULATORY SYSTEM SNOMED Code(s): 846770000 (6) Aortic stenosis Current Visit: No Status: Resolved Code(s): I35.0 - NONRHEUMATIC AORTIC ( VALVE) STENOSIS SNOMED Code(s): 45885065 (7) History of bicuspid aortic valve Current Visit: Yes Status: Resolved Code(s): Z87.74 - PERSONAL HISTORY OF CONGENITAL MALFORM OF HEART AND CIRC SYS SNOMED Code(s): 218050330 (8) Family history of early CAD Current Visit: No Status: Chronic Code(s): Z82.49 - FAMILY HX OF ISCHEM HEART DIS AND OTH DIS OF THE CIRC SYS SNOMED Code(s): 387907595 (9) Hyperlipidemia Current Visit: No Status: Chronic Code(s): E78.5 - HYPERLIPIDEMIA, UNSPECIFIED SNOMED Code(s): 10666745 (10) Hypertension Current Visit: No Status: Chronic Code(s): I10 - ESSENTIAL (PRIMARY) HYPERTENSION SNOMED Code(s): 31177080 (11) Morbid obesity with BMI of 45.0-49.9, adult Current Visit: No Status: Chronic Code(s): E66.01 - MORBID (SEVERE) OBESITY DUE TO EXCESS CALORIES; Z68.42 - BODY MASS INDEX (BMI) 45.0-49.9, ADULT SNOMED Code(s): 776788167 (12) Obstructive sleep apnea Current Visit: No Status: Chronic Code(s): G47.33 - OBSTRUCTIVE SLEEP APNEA (ADULT) (PEDIATRIC) SNOMED Code(s): 97693955 (13) Restless leg syndrome Current Visit: No Status: Chronic Code(s): G25.81 - RESTLESS LEGS SYNDROME SNOMED Code(s): 19061367 (14) History of Hodgkin's lymphoma Current Visit: No Status: Resolved Code(s): Z85.71 - PERSONAL HISTORY OF HODGKIN LYMPHOMA SNOMED Code(s): 585083389 (15) History of chemotherapy Current Visit: No Status: Resolved Code(s): Z92.21 - PERSONAL HISTORY OF ANTINEOPLASTIC CHEMOTHERAPY SNOMED Code(s): 026445622341682 (16) History of gastric surgery Current Visit: No Status: Resolved Code(s): Z98.890 - OTHER SPECIFIED POSTPROCEDURAL STATES SNOMED Code(s): 432547678 (17) History of radiation therapy Current Visit: No Status: Resolved Code(s): Z92.3 - PERSONAL HISTORY OF IRRADIATION SNOMED Code(s): 557990649 (18) Tobacco dependence in remission Current Visit: No Status: Resolved Code(s): F17.201 - NICOTINE DEPENDENCE, UNSPECIFIED, IN REMISSION SNOMED Code(s): 065283704 Plan: 1. Continue full strength aspirin, home Crestor and beta will. Will increase beta will as tolerated. 2. Continue amiodarone 200 mg by mouth 3 times a day for A. fib prophylaxis. 3. Continue Coumadin. Will dose daily based on PT/INR. FDA recommendations for On-X mechanical aortic valve is for full strength aspirin and target INR 2.5 -3.5 for 3 months, then 1.5-2. Will give 5 mg orally today, INR 1.9. 4. We will continue IV heparin until INR is therapeutic. 5. Continue Cardizem for radial artery spasm prophylaxis. 6. Encourage continued incentive spirometry use every hour while awake. 7. Increase activity, ambulate as tolerated. 8. Continue iron/vitamin C. history of anemia. 9. Will monitor daily labs. Electrolyte replacement per protocol. 10. May transfer to [address] [place] [address] cardiac stepdown unit per cardiothoracic standpoint. 11. Reinforced with the patient the importance of using her heart hugger and wearing a supportive bra, reviewed the importance of lifting restrictions no lifting pushing or pulling anything greater than 10 pounds or jug of bulk for 12 full weeks. 12. More recommendations to follow based on patient's clinical course. Time with Patient: Greater than 30
[2018-10-22] MEDS: FERROUS SULFATE 325 MG TAB PO SCH (13:00)
[2018-10-22] MEDS: ASCORBIC ACID 500 MG TAB PO SCH (13:00)
--- NOTE | 2018-10-22 14:35 | P.PN ---
Subjective Progress Note Date: 10/22/18 Principal diagnosis: Coronary artery disease status post coronary artery bypass grafting. Is a 48-year-old female patient who came in yesterday to the emergency department for some unusual sensation over the chest and shortness of breath and she was found to be in significant tachycardia and EKG showed a flutter 2-1 conduction with rapid ventricular response and based on that the patient was admitted to the intensive care unit. The patient is known to me. She has history of obstructive sleep apnea and she does not utilize a CPAP machine for now. She has a bicuspid aortic valve and severe aortic stenosis and a cardiac catheterization at shown significant CAD including left main stenosis. The patient underwent two-vessel bypass surgery and aortic valve replacement with a mechanical valve and clipping of the atrial appendage. The patient had BRO to LAD and regular bypass to OM1. Note that her preop FEV1 was 74% of predicted. The patient's surgery was essentially uncomplicated. The patient was sent home on anticoagulation with warfarin. She was normal sinus rhythm. Note that her INR is of admission was low at 1.1 and she is currently on IV heparin. She was given amiodarone loading and she subsequently converted to normal normal sinus rhythm. She is hemodynamically stable at this point in time. She is on room air. No cough. No sputum production. Sternum stable clean and intact. No other significant events otherwise for now. She is in the intensive care unit. She is communicating alert and awake. No fever or chills. No other complaints otherwise. Today's evaluation 2018, I'm seeing this patient for a follow-up. The patient is doing well. She has no specific complaints. She is converted to normal sinus rhythm. She is hemodynamically stable. She brought in her own CPAP machine from home which was a dysfunctional all units. We tried on a CPAP unit here in the hospital at a pressure of 7 cm of water and she was unable to tolerate our CPAP therapy. Currently she is on room air. No chest pain. Sternum stable clean and intact. She is ambulating. No cough sputum production chest tightness or wheezing. The patient is on amiodarone 200 mg 3 times a day. The patient is also on medical condition with warfarin. PT/INR is subtherapeutic and the patient is still on IV heparin. Warfarin will be adjusted and the patient will be given a dose of 7.5 mg today. Noted the patient is also on a Cardizem orally 30 mg 4 times a day in addition to metoprolol 25 mg twice a day for rate control. On today's evaluation of 10/21/2018 I'm seeing this patient for a follow-up patient remains in a normal sinus rhythm. No respiratory distress. She claims is on and off she is coughing especially when she exerts. Her lungs are essentially clear. She is pulling approximately 2000 mL on the incentive spirometer. She is on IV heparin. She was given 7.5 mg of Coumadin yesterday and her INR is at 1.5. She'll be given another 5 mg of Coumadin today. Her sleep is disrupted as the patient has symptomatically obstructive sleep apnea. She was unable to tolerate hour CPAP machine here in the hospital. For now she is a selective overflow. We will going to transfer out of the intensive care unit today. The patient is seen today 10/22/2018 in follow-up in the intensive care unit. She is currently awake and alert in no acute distress. Sitting up in a chair at the bedside. She's been up ambulating with assistance without any acute distress. She is maintaining good O2 saturations in the 90s on room air. She is working well with the incentive spirometer. She's been afebrile. Hemodynamically stable. Sinus rhythm. On oral amiodarone 200 mg 3 times a day. Cardizem 30 mg 4 times a day. White count 12.5. Hemoglobin 8.7. Creatinine 0.76. INR 1.9. Currently on warfarin 5 mg daily. Heparin drip remains until therapeutic. Objective - Vital Signs Vital signs: Vital Signs Temp 98.0 F 10/22/18 04:00 Pulse 76 10/22/18 04:00 Resp 18 10/22/18 04:00 BP 120/69 10/22/18 04:00 Pulse Ox 93 L 10/22/18 04:00 Intake & Output 10/21/18 10/22/18 10/22/18 18:59 06:59 18:59 Intake Total 810 525.168 Output Total 1 Balance 809 525.168 Weight 131.8 kg 135.1 kg Intake: IV 60 120 .9 KVO 60 120 Intake, IV Titration 250 165.168 Amount Heparin Sod,Pork in 0.45% 250 165.168 NaCl 25,000 unit In 0.45 % NaCl 1 250ml.bag @ 10 mls/hr IV .Q24H [facility] Rx#: [id number] Oral 500 240 Output: Stool 1 Other: Voiding Method Toilet Toilet # Voids 1 1 - Exam GENERAL EXAM: Alert, active, comfortable in no apparent distress. On room air. HEAD: Normocephalic. EYES: Normal reaction of pupils, equal size. NOSE: Clear with pink turbinates. THROAT: No erythema or exudates. NECK: No masses, no JVD. CHEST: Sternal dressing dry and intact. Her other in place. LUNGS: Equal air entry with faint crackles in the posterior bases. CVS: S1 and S2 normal with no audible murmur, regular rhythm. Valve click. ABDOMEN: No hepatosplenomegaly, normal bowel sounds, no guarding or rigidity. SPINE: No scoliosis or deformity SKIN: No rashes CENTRAL NERVOUS SYSTEM: No focal deficits, tone is normal in all 4 extremities. EXTREMITIES: There is no peripheral edema. No clubbing, no cyanosis. Peripheral pulses are intact. - Labs CBC & Chem 7: 10/22/18 05:53 10/22/18 05:53 Labs: Abnormal Lab Results - Last 24 Hours (Table) 10/22/18 10/22/18 10/22/18 Range/Units 05:53 05:53 05:53 WBC 12.5 H (3.8-10.6) k/uL RBC 3.59 L (3.80-5.40) m/uL Hgb 8.7 L (11.4-16.0) gm/dL Hct 30.9 L (34.0-46.0) % MCH 24.1 L (25.0-35.0) pg MCHC 28.0 L (31.0-37.0) g/dL RDW 17.2 H (11.5-15.5) % PT 18.3 H (9.0-12.0) sec INR 1.9 H (<1.2) APTT 65.8 H (22.0-30.0) sec Chloride 108 H (98-107) mmol/L Glucose 105 H (74-99) mg/dL Assessment and Plan Assessment: Assessment 1 new onset atrial flutter with rapid ventricular response, converted back to normal sinus rhythm The patient remains in sinus rhythm. The patient on oral amiodarone. The patient on IV heparin. PT/INR is being adjusted while the patient being on Coumadin. The patient's INR is still subtherapeutic at 1.9. This is to be adjusted further. 2 bicuspid aortic valve status post aortic valve replacement with a mechanical valve and a subtherapeutic PT/INR while on Coumadin 3 symptomatically multivessel coronary artery disease status post two-vessel bypass surgery utilizing a radial artery and the BRO 4 obstructive sleep apnea without a CPAP machine at this point in time, sleep apnea could've also contributed to her cardiac arrhythmia 5 obesity with a BMI of 47.4 6 hypertension 7 hyperlipidemia 8 history of Hodgkin's lymphoma with previous chemo radiation therapy currently in remission 9 history of gastric sleeve surgery 10 restless leg syndrome 11 hypersomnia secondary to her obstructive sleep apnea, unable to tolerate CPAP unit here in the hospital. Plan The patient was seen and evaluated by Dr. Navarro. Chest x-ray and labs were reviewed. She is working well with the incentive spirometer. On room air. He did bring in a nasal pillow CPAP equipment for her to trial. Otherwise she is doing quite well. She has been up in the hallway with assistance. We will continue to follow make further recommendations based on her clinical status. I, the cosigning physician, performed a history & physical examination of the patient. Lungs sounds with faint crackles in the bilateral posterior bases. Maintaining good O2 saturations in the 90s on room air. I discussed the assessment and plan of care with my nurse practitioner, Candis Nichole. I attest to the above note as dictated by her.
[2018-10-22] MEDS ORDERED: WARFARIN 5 MG TAB PO ONE (18:00)
[2018-10-22] MEDS: PRAMIPEXOLE 0.5 MG TAB PO SCH (20:18)
[2018-10-23 05:55] LABS: Anisocytosis Slight; Basophils # (A) 0.1 k/uL (0-0.2); Basophils % (A) 1 %; Eosinophils # (A) 1.9 k/uL (0-0.7); Eosinophils % (A) 15 %; HCT 28.3 % (34.0-46.0); HGB 8.3 gm/dL (11.4-16.0); Hypochromasia Marked; Lymphocytes # (A) 2.2 k/uL (1.0-4.8); Lymphocytes % (A) 17 %; MCH 24.2 pg (25.0-35.0); MCHC 29.4 g/dL (31.0-37.0); MCV 82.6 fL (80.0-100.0); Mean Platelet Volume 7.2; Monocytes # (A) 0.6 k/uL (0-1.0); Monocytes % (A) 5 %; Neutrophils # (A) 7.7 k/uL (1.3-7.7); Neutrophils % (A) 61 %; Platelet Count 377 k/uL (150-450); Poikilocytosis Slight; RBC 3.42 m/uL (3.80-5.40); RDW 17.4 % (11.5-15.5); WBC 12.6 k/uL (3.8-10.6)
[2018-10-23 06:08] LABS: Partial Thromboplastin Time 75.1 sec (22.0-30.0); Prothrombin Time 19.9 sec (9.0-12.0)
[2018-10-23 06:58] LABS: Anion Gap 6 mmol/L; Blood Urea Nitrogen 14 mg/dL (7-17); Calcium 9.1 mg/dL (8.4-10.2); Carbon Dioxide 30 mmol/L (22-30); Chloride 105 mmol/L (98-107); Glucose 95 mg/dL (74-99); Potassium 4.3 mmol/L (3.5-5.1); Sodium 141 mmol/L (137-145)
--- NOTE | 2018-10-23 08:28 | P.PN ---
Subjective Progress Note Date: 10/23/18 Principal diagnosis: New onset atrial flutter with rapid ventricular rate and some therapeutic INR, currently in sinus rhythm. Previous medical history of bicuspid aortic valve with severe aortic stenosis status 18 days post aortic valve replacement using a 23 mm On-X mechanical valve and aortic root enlargement with [place]-Bg patch as well as exclusion of the left atrial appendage using a 35 mm AtriClip, symptomatic multivessel coronary artery disease with left main coronary artery disease status post coronary artery bypass graft surgery with sequential left internal mammary artery to the left anterior descending artery to the diagonal branch, radial artery to the obtuse marginal artery, hypertension, hyperlipidemia, family history of premature coronary artery disease, morbid obesity, prediabetic with recent hemoglobin A1c 6.3%, Hodgkin's lymphoma with subsequent chemoradiation, previous tobacco dependence with recent FEV1 71% of predicted, obstructive sleep apnea without CPAP use, gastric sleeve surgery, restless leg syndrome. Patient's currently sitting up in a recliner in no acute distress. Remains in normal sinus rhythm. Denies chest pain, denies shortness of breath. She has ambulated multiple times in the hallway without difficulty and without assistance. She is currently on a heparin drip while waiting for her Coumadin levels to be therapeutic, she did receive 5 mg of Coumadin last night. Objective - Vital Signs Vital signs: Vital Signs Temp 97.7 F 10/23/18 04:00 Pulse 77 10/23/18 04:00 Resp 16 10/23/18 04:00 BP 130/71 10/23/18 04:00 Pulse Ox 96 10/23/18 04:00 Intake & Output 10/22/18 10/23/18 10/23/18 18:59 06:59 18:59 Intake Total 840 114.832 Output Total 0 Balance 840 114.832 Weight 132.6 kg Intake: IV 120 30 .9 KVO 120 30 Intake, IV Titration 84.832 Amount Heparin Sod,Pork in 0.45% 84.832 NaCl 25,000 unit In 0.45 % NaCl 1 250ml.bag @ 10 mls/hr IV .Q24H [facility] Rx#: [id number] Oral 720 Output: Urine 0 Other: Voiding Method Toilet # Voids 1 1 - Constitutional General appearance: Present: cooperative, morbidly obese, no acute distress - Respiratory Details: Lungs sounds diminished bilaterally. Respirations even, nonlabored. Currently on room air with oxygen saturation 96%. Able to achieve 1250 mL on her incentive spirometry. Strong cough. - Cardiovascular Details: S1, S2 present, positive valvular click. Regular rate and rhythm, sinus rhythm on telemetry. Sternum stable, some clicking with movement. Palpable peripheral pulses. No edema present. No calf pain or tenderness noted. Heart hugger in place with patient demonstrating appropriate use. SCDs present. - Gastrointestinal Gastrointestinal Comment(s): Abdomen soft, nontender, nondistended. Active bowel sounds present 4 quadrants. Tolerating diet. Positive bowel movement. - Genitourinary Genitourinary Comment(s): Continues to void clear, yellow urine. - Integumentary Integumentary Comment(s): Skin is warm and dry with evidence of good perfusion. Anterior chest incision well approximated. - Neurologic Neurologic: Present: CNII-XII intact - Musculoskeletal Musculoskeletal: Present: gait normal, strength equal bilaterally - Psychiatric Psychiatric: Present: A&O x's 3, appropriate affect, intact judgment & insight - Allied health notes Allied health notes reviewed: nursing - Labs CBC & Chem 7: 10/23/18 05:38 10/23/18 05:38 Labs: Abnormal Lab Results - Last 24 Hours (Table) 10/23/18 10/23/18 Range/Units 05:38 05:38 WBC 12.6 H (3.8-10.6) k/uL RBC 3.42 L (3.80-5.40) m/uL Hgb 8.3 L (11.4-16.0) gm/dL Hct 28.3 L (34.0-46.0) % MCH 24.2 L (25.0-35.0) pg MCHC 29.4 L (31.0-37.0) g/dL RDW 17.4 H (11.5-15.5) % Eosinophils # 1.9 H (0-0.7) k/uL PT 19.9 H (9.0-12.0) sec INR 2.0 H (<1.2) APTT 75.1 H (22.0-30.0) sec Assessment and Plan Assessment: 1. New onset paroxysmal atrial flutter with rapid ventricular response, currently in sinus rhythm 2. Subtherapeutic INR 3. History of bicuspid aortic valve with severe aortic valve stenosis status post On-X mechanical aortic valve replacement with aortic root enlargement and exclusion of the left atrial appendage 4. History of multivessel coronary artery disease with left main disease status post coronary artery bypass graft surgery 5. Hypertension 6. Hyperlipidemia 7. Morbid obesity 8. Obstructive sleep apnea Plan: 1. Continue full strength aspirin, Crestor, beta will therapy. Will increase beta will therapy as tolerated. 2. Continue amiodarone for A. fib prophylaxis. 3. Continue Coumadin. Will dose daily based on PT/INR. FDA recommendations for On-X mechanical aortic valve is for full strength aspirin and target INR 2.5 -3.5 for 3 months, then 1.5-2. Will give 7.5 mg orally today, INR 2.0. 4. Discontinue IV heparin. 5. Will add lisinopril 2.5 mg daily. Will give lasix 20 mg IVP x 1 today. 6 Continue Cardizem for radial artery spasm prophylaxis. Transition to Cardizem CD upon discharge. 7. Encourage continued incentive spirometry use. 8. Increase activity, ambulate as tolerated. 9. Continue iron/vitamin C. 10. Repeat transthoracic echocardiogram completed, EF 50-55%, mechanical valve functioning normally with peak/mean gradient 19.33 mmHg/8.90 mmHg. 11. Will monitor daily labs. Electrolyte replacement per protocol. 12. Reinforce importance of heart hugger use and supportive bra, as well as lifting restrictions, no lifting, pushing, or pulling anything greater than 10 pounds for 12 weeks. 13. CPAP use per Dr. Navarro. 14. Transfer orders placed for 3 self cardiac stepdown unit. May transfer when bed available. 15. More recommendations to follow. Time with Patient: Greater than 30
[2018-10-23] MEDS: METOPROLOL TARTRATE 25 MG TAB PO SCH ×2 (09:04→20:24)
[2018-10-23] MEDS: DILTIAZEM ORAL 30 MG TAB PO SCH ×4 (09:05→23:07)
[2018-10-23] MEDS: AMIODARONE 200 MG TAB PO SCH ×3 (09:05→23:07)
[2018-10-23] MEDS: ASPIRIN 325 MG TAB PO SCH (09:05)
[2018-10-23] MEDS: PANTOPRAZOLE 40 MG TABLET PO SCH (09:05)
[2018-10-23] MEDS: Rosuvastatin Calcium [Crestor] 5 MG PO SCH (09:05)
[2018-10-23] MEDS ORDERED: FUROSEMIDE 10 MG/ML 2 ML VIAL IV ONE (09:17)
[2018-10-23] MEDS: METOPROLOL TARTRATE 5 MG/5 ML VIAL IVP SCH ×3 (12:29→12:31)
[2018-10-23] MEDS: FERROUS SULFATE 325 MG TAB PO SCH (13:45)
[2018-10-23] MEDS: LISINOPRIL 2.5 MG TAB PO SCH (13:45)
[2018-10-23] MEDS: ASCORBIC ACID 500 MG TAB PO SCH (13:45)
--- NOTE | 2018-10-23 17:33 | P.PN ---
Subjective Progress Note Date: 10/23/18 Is a 48-year-old female patient who came in yesterday to the emergency department for some unusual sensation over the chest and shortness of breath and she was found to be in significant tachycardia and EKG showed a flutter 2-1 conduction with rapid ventricular response and based on that the patient was admitted to the intensive care unit. The patient is known to me. She has history of obstructive sleep apnea and she does not utilize a CPAP machine for now. She has a bicuspid aortic valve and severe aortic stenosis and a cardiac catheterization at shown significant CAD including left main stenosis. The patient underwent two-vessel bypass surgery and aortic valve replacement with a mechanical valve and clipping of the atrial appendage. The patient had BRO to LAD and regular bypass to OM1. Note that her preop FEV1 was 74% of predicted. The patient's surgery was essentially uncomplicated. The patient was sent home on anticoagulation with warfarin. She was normal sinus rhythm. Note that her INR is of admission was low at 1.1 and she is currently on IV heparin. She was given amiodarone loading and she subsequently converted to normal normal sinus rhythm. She is hemodynamically stable at this point in time. She is on room air. No cough. No sputum production. Sternum stable clean and intact. No other significant events otherwise for now. She is in the intensive care unit. She is communicating alert and awake. No fever or chills. No other complaints otherwise. Today's evaluation 2018, I'm seeing this patient for a follow-up. The patient is doing well. She has no specific complaints. She is converted to normal sinus rhythm. She is hemodynamically stable. She brought in her own CPAP machine from home which was a dysfunctional all units. We tried on a CPAP unit here in the hospital at a pressure of 7 cm of water and she was unable to tolerate our CPAP therapy. Currently she is on room air. No chest pain. Sternum stable clean and intact. She is ambulating. No cough sputum production chest tightness or wheezing. The patient is on amiodarone 200 mg 3 times a day. The patient is also on medical condition with warfarin. PT/INR is subtherapeutic and the patient is still on IV heparin. Warfarin will be adjusted and the patient will be given a dose of 7.5 mg today. Noted the patient is also on a Cardizem orally 30 mg 4 times a day in addition to metoprolol 25 mg twice a day for rate control. On today's evaluation of 10/21/2018 I'm seeing this patient for a follow-up patient remains in a normal sinus rhythm. No respiratory distress. She claims is on and off she is coughing especially when she exerts. Her lungs are essentially clear. She is pulling approximately 2000 mL on the incentive spirometer. She is on IV heparin. She was given 7.5 mg of Coumadin yesterday and her INR is at 1.5. She'll be given another 5 mg of Coumadin today. Her sleep is disrupted as the patient has symptomatically obstructive sleep apnea. She was unable to tolerate hour CPAP machine here in the hospital. For now she is a selective overflow. We will going to transfer out of the intensive care unit today. On today's evaluation 10/22/2018 I'm seeing this patient for a follow-up. She is currently on a cardiac floor. The patient was able to obtain and APAP unit. This setting is at a minimum pressure of 5 and a maximal pressure of 20. The patient was able to use the machine for almost 3 hours yesterday using the dreamwaremask. I noted that the patient had no apneic events during this period. No significant leaks. She felt that the starting pressure is too low and the average pressure was utilized over the past 3 hours is around 8.7 cm of water. Based on this, I made adjustments and I put this patient on a minimum pressure of 8 and a compression of 20. I also activated CPR. The patient thinks that this is something that she'll be able to tolerate at a later stage. She feels better. She'll be having a outpatient sleep study at a later stage to approve her for a permanent CPAP unit. Otherwise, the patient has no specific complaints for now. She is hemodynamically stable. She is in normal sinus rhythm. Objective - Vital Signs Vital signs: Vital Signs Temp 97.2 F L 10/23/18 16:00 Pulse 79 10/23/18 16:00 Resp 16 10/23/18 16:00 BP 136/65 10/23/18 16:00 Pulse Ox 96 10/23/18 16:00 Intake & Output 10/22/18 10/23/18 10/23/18 18:59 06:59 18:59 Intake Total 840 114.832 240 Output Total 0 Balance 840 114.832 240 Weight 132.6 kg Intake: IV 120 30 .9 KVO 120 30 Intake, IV Titration 84.832 Amount Heparin Sod,Pork in 0.45% 84.832 NaCl 25,000 unit In 0.45 % NaCl 1 250ml.bag @ 10 mls/hr IV .Q24H HENNY Rx#: [id number] Oral 720 240 Output: Urine 0 Other: Voiding Method Toilet Toilet # Voids 1 1 1 - Exam Morbidly obese, comfortable likely distress Head exam was generally normal. There was no scleral icterus or corneal arcus. Mucous membranes were moist. Neck was supple and without jugular venous distension, thyromegaly, or carotid bruits. Carotids were easily palpable bilaterally. There was no adenopathy. Mallampati class IV and there is no oropharyngeal candidiasis or thrush. Heart sounds are regular, positive shortness of significant murmurs appreciated. Sternum stable treatment intact. Lungs were clear to auscultation and percussion, and with normal diaphragmatic excursion. No wheezes or rales were noted. Diminished breath on the lung bases. Abdominal exam revealed normal bowel sounds. The abdomen was soft, non-tender, and without masses, organomegaly, or appreciable enlargement of the abdominal aorta. Examination of the extremities revealed easily palpable radial, femoral and pedal pulses. There was no cyanosis, clubbing or edema. Examination of the skin revealed no evidence of significant rashes, suspicious appearing nevi or other concerning lesions. Neurologically the patient is awake and alert and is no focal neurological deficit Psychiatric to the patient is appropriate. - Labs CBC & Chem 7: 10/23/18 05:38 10/23/18 05:38 Labs: Abnormal Lab Results - Last 24 Hours (Table) 10/23/18 10/23/18 Range/Units 05:38 05:38 WBC 12.6 H (3.8-10.6) k/uL RBC 3.42 L (3.80-5.40) m/uL Hgb 8.3 L (11.4-16.0) gm/dL Hct 28.3 L (34.0-46.0) % MCH 24.2 L (25.0-35.0) pg MCHC 29.4 L (31.0-37.0) g/dL RDW 17.4 H (11.5-15.5) % Eosinophils # 1.9 H (0-0.7) k/uL PT 19.9 H (9.0-12.0) sec INR 2.0 H (<1.2) APTT 75.1 H (22.0-30.0) sec Assessment and Plan Plan: Assessment 1 new onset atrial flutter with rapid ventricular response, converted back to normal sinus rhythm and the patient is currently receiving amiodarone bolus/ loading is hemodynamically stable. The patient remains in an almost cardiac sinus rhythm. The patient on oral amiodarone. The patient on oral Cardizem and oral metoprolol. The patient is also on antibiotic ventilation. The patient on off IV heparin and the patient's INR is therapeutic for now. 2 bicuspid aortic valve status post aortic valve replacement with a mechanical valve and a subtherapeutic PT/INR while on Coumadin, post op day # 21 3 symptomatically multivessel coronary artery disease status post two-vessel bypass surgery utilizing a radial artery and the BRO and a postop day # 21 4 obstructive sleep apnea without a CPAP machine at this point in time, sleep apnea could've also contributed to her cardiac arrhythmia 5 obesity with a BMI of 47.4 6 hypertension 7 hyperlipidemia 8 history of Hodgkin's lymphoma with previous chemo radiation therapy currently in remission 9 history of gastric sleeve surgery 10 restless leg syndrome 11 hypersomnia secondary to her obstructive sleep apnea, unable to tolerate CPAP unit here in the hospital. Plan Patient was able to obtain and a Pap unit. The patient is utilizing A Pap and the appropriate setting changes were made. The minimum pressure will be placed at 8 and a maximal pressure of 20. We'll do a reevaluation in a.m. and check her compliance. She is using a dreamwaremasses was provided to her from my office. She'll be having an outpatient testing regarding obstructive sleep apnea and there is a very high suspicion for symptomatic and severe GEE in her situation. Her current BMI is 48.6. The patient's INR is therapeutic for now at 2.0. Continue to follow make further recommendations based on her progress.
[2018-10-23] MEDS ORDERED: WARFARIN 7.5 MG TAB PO ONE (18:00)
[2018-10-23] MEDS: PRAMIPEXOLE 0.5 MG TAB PO SCH (20:24)
--- NOTE | 2018-10-24 00:25 | PN ---
PROGRESS NOTE DATE OF SERVICE: October 22, 2018. PRESENTING COMPLAINT: Tired. INTERVAL HISTORY: This patient presented with atrial flutter, rapid ventricular rate, back in sinus rhythm. Breathing is improving. Remains on IV heparin. Has been out of bed. Tolerating a diet. REVIEW OF SYSTEMS: Done for constitutional, cardiovascular, GI, pulmonary; relevant findings as above. CURRENT MEDICATIONS: Reviewed. PHYSICAL EXAMINATION: VITAL SIGNS: Temperature 98, pulse 72, respiratory 18, blood pressure 120/70, pulse ox 98% on room air. GENERAL APPEARANCE: Sitting up comfortable. EYES: Pupils equal. Conjunctivae normal. NECK: JVD not raised. Mass not palpable. RESPIRATORY: Effort normal. LUNGS: Diminished breath sounds. CARDIOVASCULAR: First and second sounds normal. Minimal edema. ABDOMEN: Soft, nontender. Liver and spleen not palpable. PSYCHIATRY: Alert and oriented x3. Mood and affect normal. INVESTIGATIONS: White count 12.5, hemoglobin 8.7, INR 1.9, potassium 4.6. BUN and creatinine is normal. ASSESSMENT: 1. Paroxysmal atrial flutter fibrillation, now in sinus rhythm. 2. Coronary artery disease with recent coronary bypass and mechanical aortic valve replacement for severe aortic stenosis. 3. Acute postoperative blood loss anemia expected from surgery. 4. Morbid obesity BMI more than 40. 5. Essential hypertension. 6. Primary osteoarthritis of the lumbar spine. 7. Restless legs syndrome. 8. Chronic scoliosis. 9. Coumadin monitoring. 10.IV heparin monitoring. PLAN: Continue current medication and treatment plan. Care was discussed with the patient. Hoping patient INR gets to 2.4 next 1 or 2 days. MMODL / IJN: [id number] /
--- NOTE | 2018-10-24 00:28 | PN ---
PROGRESS NOTE DATE OF SERVICE: October 23, 2018. PRESENTING COMPLAINT: Tired. INTERVAL HISTORY: Patient admitted with atrial flutter fibrillation, rate controlled. Breathing is stable on IV heparin. Tolerating a diet. Has been out of bed. REVIEW OF SYSTEMS: Done for constitutional, cardiovascular, GI, pulmonary; relevant findings as above. CURRENT MEDICATIONS: Reviewed and include IV heparin, Coumadin. PHYSICAL EXAMINATION: VITAL SIGNS: Temperature 97.2 pulse 79, respiration 16, blood pressure 136/65, pulse ox 96% on room air. GENERAL APPEARANCE: Sitting up, awake. EYES: Pupils are equal. Conjunctivae normal. NECK: JVD not raised. Mass not palpable. RESPIRATORY: Effort normal. LUNGS: Fair air entry. CARDIOVASCULAR: 1st and 2nd sounds normal. No edema. ABDOMEN: Soft, nontender. Liver and spleen not palpable. PSYCHIATRY: Alert and oriented x3. Mood and affect normal. INVESTIGATIONS: White count 12.6, hemoglobin 8.3. INR is 2. Potassium 4.3. ASSESSMENT: 1. Paroxysmal atrial flutter fibrillation, now in sinus rhythm. 2. Coronary artery disease with recent bypass and mechanical aortic valve with severe aortic stenosis. 3. Acute postoperative blood loss anemia expected from surgery. 4. Morbid obesity BMI more than 40. 5. Essential hypertension. 6. Primary osteoarthritis of the lumbar spine. 7. Restless legs syndrome. 8. Chronic scoliosis. 9. Coumadin monitoring. 10.IV heparin monitoring. PLAN: Continue current medication and treatment plan. INR is coming up to 2 today. Remains on IV heparin that is monitored. Care was discussed with the patient. MMODL / IJN: [id number] /
[2018-10-24 06:59] LABS: Anisocytosis Slight; Basophils # (A) 0.1 k/uL (0-0.2); Basophils % (A) 1 %; Eosinophils # (A) 1.2 k/uL (0-0.7); Eosinophils % (A) 12 %; HGB 8.7 gm/dL (11.4-16.0); Hypochromasia Marked; Lymphocytes # (A) 1.8 k/uL (1.0-4.8); Lymphocytes % (A) 17 %; MCH 25.4 pg (25.0-35.0); MCHC 30.1 g/dL (31.0-37.0); MCV 84.6 fL (80.0-100.0); Mean Platelet Volume 6.5; Monocytes # (A) 0.6 k/uL (0-1.0); Monocytes % (A) 6 %; Neutrophils # (A) 6.2 k/uL (1.3-7.7); Neutrophils % (A) 61 %; Platelet Count 472 k/uL (150-450); Poikilocytosis Slight; RBC 3.43 m/uL (3.80-5.40); RDW 16.9 % (11.5-15.5)
[2018-10-24 07:05] LABS: INR 2.2 (<1.2); Prothrombin Time 21.6 sec (9.0-12.0)
[2018-10-24 07:09] LABS: Anion Gap 7 mmol/L; Blood Urea Nitrogen 15 mg/dL (7-17); Calcium 9.4 mg/dL (8.4-10.2); Carbon Dioxide 28 mmol/L (22-30); Chloride 107 mmol/L (98-107); Glucose 98 mg/dL (74-99); Potassium 4.5 mmol/L (3.5-5.1); Sodium 142 mmol/L (137-145)
[2018-10-24] MEDS: AMIODARONE 200 MG TAB PO SCH (09:18)
[2018-10-24] MEDS: ASPIRIN 325 MG TAB PO SCH (09:18)
[2018-10-24] MEDS: METOPROLOL TARTRATE 25 MG TAB PO SCH (09:19)
[2018-10-24] MEDS: Rosuvastatin Calcium [Crestor] 5 MG PO SCH (09:19)
[2018-10-24] MEDS: DILTIAZEM ORAL 30 MG TAB PO SCH ×2 (09:19→12:14)
[2018-10-24 10:22] VITALS: RESP 16
--- NOTE | 2018-10-24 11:14 | XR ---
EXAMINATION TYPE: XR chest 2V DATE OF EXAM: 10/24/2018 COMPARISON: Prior chest x-ray 10/22/2017 HISTORY: Status post cardiac surgery TECHNIQUE: Frontal and lateral views of the chest are obtained. FINDINGS: Patient is post median sternotomy and atrial appendage clipping. Cardiac leads are present . There is no pneumothorax or pleural effusion. Heart size is stable. Minimal patchy basilar density is present. Patient shows cardiac valve replacement change. IMPRESSION: Minimal basilar atelectasis. Stable cardiomegaly.
--- NOTE | 2018-10-24 11:17 | P.PN ---
Subjective Progress Note Date: 10/24/18 Principal diagnosis: New onset atrial flutter with rapid ventricular rate and subtherapeutic INR on admission. History of bicuspid aortic valve with severe aortic stenosis, status post aortic valve replacement using a 23 mm On-X mechanical valve and aortic root enlargement with Tolleson-Bg patch as well as exclusion of the left atrial appendage using a 35 mm AtriClip, symptomatic multivessel coronary artery disease with left main coronary artery disease status post coronary artery bypass graft surgery with sequential left internal mammary artery to the left anterior descending artery to the diagonal branch, radial artery to the obtuse marginal artery, hypertension, hyperlipidemia, family history of premature coronary artery disease, morbid obesity, prediabetic with recent hemoglobin A1c 6.3%, history of Hodgkin's lymphoma with subsequent chemoradiation, previous tobacco dependence with recent FEV1 71% of predicted, obstructive sleep apnea without CPAP use, gastric sleeve surgery, restless leg syndrome. The patient is sitting up to the bedside chair in no acute distress. She denies any complaints of pain or shortness of breath at this time, she remains reporting that she does feel some clicking to her sternum. Remote telemetry showing normal sinus rhythm heart rate 91. No further episodes of atrial flutter. She reports she has been ambulating in the [address] [place] [address] cardiac care unit hallway with minimal assistance. Her INR today is 2.2 and she received 7.5 mg of Coumadin yesterday 10/23/2018. She remains afebrile, her WBC count is 10.0 today. She is anxious to be discharged home. Objective - Vital Signs Vital signs: Vital Signs Temp 98 F 10/24/18 08:30 Pulse 84 10/24/18 08:30 Resp 16 10/24/18 08:30 BP 128/70 10/24/18 08:30 Pulse Ox 96 10/24/18 08:30 Intake & Output 10/23/18 10/24/18 10/24/18 18:59 06:59 18:59 Intake Total 480 120 Output Total 3 Balance 480 -3 120 Weight 131.5 kg Intake: Oral 480 120 Output: Urine 0 Stool 3 Other: Voiding Method Toilet Toilet # Voids 1 1 3 - Constitutional General appearance: Present: cooperative, morbidly obese, no acute distress - Respiratory Details: Lungs sounds essentially clear throughout, diminished bilateral bases. Respirations are symmetrical and nonlabored. Oxygen saturation are 96% on room air. She is achieving 1250 mL on her incentive spirometry. - Cardiovascular Details: Regular rhythm and rate. S1 and S2 present, negative for S3, gallop or murmur. Valvular click present. Sternum is stable, some clicking with movement present. Heart hugger is in place and she is demonstrating appropriate use. Supportive bra in place. No edema present. Sequential compression devices in place to bilateral lower extremities. - Gastrointestinal Gastrointestinal Comment(s): Abdomen is soft, nontender and nondistended. Active bowel sounds all 4 abdominal quadrants. Tolerating oral intake. Passing flatus. No guarding or rigidity. No organomegaly. - Genitourinary Genitourinary Comment(s): Voiding clear yellow urine. - Integumentary Integumentary Comment(s): Skin is warm and dry. No clubbing or cyanosis is present. Midline sternal incision is clean, dry and approximated. No drainage or redness is present. - Neurologic Neurologic: Present: CNII-XII intact - Musculoskeletal Musculoskeletal: Present: gait normal, strength equal bilaterally - Psychiatric Psychiatric: Present: A&O x's 3, appropriate affect, intact judgment & insight - Allied health notes Allied health notes reviewed: nursing - Labs CBC & Chem 7: 10/24/18 06:41 10/24/18 06:41 Labs: Abnormal Lab Results - Last 24 Hours (Table) 10/24/18 10/24/18 Range/Units 06:41 06:41 RBC 3.43 L (3.80-5.40) m/uL Hgb 8.7 L (11.4-16.0) gm/dL Hct 29.0 L (34.0-46.0) % MCHC 30.1 L (31.0-37.0) g/dL RDW 16.9 H (11.5-15.5) % Plt Count 472 H (150-450) k/uL Eosinophils # 1.2 H (0-0.7) k/uL PT 21.6 H (9.0-12.0) sec INR 2.2 H (<1.2) - Imaging and Cardiology Chest x-ray: report reviewed, image reviewed Assessment and Plan (1) Atrial flutter Current Visit: Yes Status: Acute Code(s): I48.92 - UNSPECIFIED ATRIAL FLUTTER SNOMED Code(s): 7765926 (2) Subtherapeutic international normalized ratio (INR) Current Visit: Yes Status: Acute Code(s): R79.1 - ABNORMAL COAGULATION PROFILE SNOMED Code(s): 474396345 (3) History of coronary artery bypass graft x 3 Current Visit: Yes Status: Acute Code(s): Z95.1 - PRESENCE OF AORTOCORONARY BYPASS GRAFT SNOMED Code(s): 745933803 (4) History of mechanical aortic valve replacement Current Visit: Yes Status: Acute Code(s): Z95.2 - PRESENCE OF PROSTHETIC HEART VALVE SNOMED Code(s): 140001370603031 (5) History of coronary artery disease Current Visit: Yes Status: Chronic Code(s): Z86.79 - PERSONAL HISTORY OF OTHER DISEASES OF THE CIRCULATORY SYSTEM SNOMED Code(s): 622207671 (6) Aortic stenosis Current Visit: No Status: Resolved Code(s): I35.0 - NONRHEUMATIC AORTIC ( VALVE) STENOSIS SNOMED Code(s): 63139365 (7) History of bicuspid aortic valve Current Visit: Yes Status: Resolved Code(s): Z87.74 - PERSONAL HISTORY OF CONGENITAL MALFORM OF HEART AND CIRC SYS SNOMED Code(s): 883060648 (8) Family history of early CAD Current Visit: No Status: Chronic Code(s): Z82.49 - FAMILY HX OF ISCHEM HEART DIS AND OTH DIS OF THE CIRC SYS SNOMED Code(s): 905913280 (9) Hyperlipidemia Current Visit: No Status: Chronic Code(s): E78.5 - HYPERLIPIDEMIA, UNSPECIFIED SNOMED Code(s): 18820571 (10) Hypertension Current Visit: No Status: Chronic Code(s): I10 - ESSENTIAL (PRIMARY) HYPERTENSION SNOMED Code(s): 48794888 (11) Morbid obesity with BMI of 45.0-49.9, adult Current Visit: No Status: Chronic Code(s): E66.01 - MORBID (SEVERE) OBESITY DUE TO EXCESS CALORIES; Z68.42 - BODY MASS INDEX (BMI) 45.0-49.9, ADULT SNOMED Code(s): 731279261 (12) Obstructive sleep apnea Current Visit: No Status: Chronic Code(s): G47.33 - OBSTRUCTIVE SLEEP APNEA (ADULT) (PEDIATRIC) SNOMED Code(s): 79052530 (13) Restless leg syndrome Current Visit: No Status: Chronic Code(s): G25.81 - RESTLESS LEGS SYNDROME SNOMED Code(s): 58822539 (14) History of Hodgkin's lymphoma Current Visit: No Status: Resolved Code(s): Z85.71 - PERSONAL HISTORY OF HODGKIN LYMPHOMA SNOMED Code(s): 817120859 (15) History of chemotherapy Current Visit: No Status: Resolved Code(s): Z92.21 - PERSONAL HISTORY OF ANTINEOPLASTIC CHEMOTHERAPY SNOMED Code(s): 707172249329752 (16) History of gastric surgery Current Visit: No Status: Resolved Code(s): Z98.890 - OTHER SPECIFIED POSTPROCEDURAL STATES SNOMED Code(s): 409399180 (17) History of radiation therapy Current Visit: No Status: Resolved Code(s): Z92.3 - PERSONAL HISTORY OF IRRADIATION SNOMED Code(s): 823733972 (18) Tobacco dependence in remission Current Visit: No Status: Resolved Code(s): F17.201 - NICOTINE DEPENDENCE, UNSPECIFIED, IN REMISSION SNOMED Code(s): 534655141 Plan: 1. Continue full strength aspirin, home Crestor and beta will. Will increase beta will as tolerated. 2. Continue amiodarone 200 mg by mouth 3 times a day for A. fib prophylaxis. 3. Continue Coumadin. FDA recommendations for On-X mechanical aortic valve is for full strength aspirin and target INR 2.5-3.5 for 3 months, then 1.5-2. Will give 5 mg orally today, INR 2.2. When patient is discharged she will be sent for a prescription for PT and INRs to be drawn every 3 days and to be dosed by Dr. GAGAN Jones from cardiology. We will discharge the patient home on Coumadin 5 mg on Saturday and Saturday, and Coumadin 7.5 mg on Saturday and Sundays. 4. Encourage continued incentive spirometry use every hour while awake. 5. Continue Cardizem for radial artery spasm prophylaxis. 6. Continue iron/vitamin C. history of anemia. 7. Continue to increase activity, ambulate as tolerated. 8. Reinforced with the patient the importance of using her heart hugger and wearing a supportive bra, reviewed the importance of lifting restrictions no lifting pushing or pulling anything greater than 10 pounds or jug of bulk for 12 full weeks. 9. CPAP orders and recommendations per Dr. Navarro. 10. May discharge home per cardiothoracic surgery standpoint when okay with primary care service. 11. More recommendations to follow based on patient's clinical course. Time with Patient: Greater than 30
[2018-10-24 11:19] VITALS: BMI 48.2
[2018-10-24] MEDS: FERROUS SULFATE 325 MG TAB PO SCH (12:13)
[2018-10-24] MEDS: LISINOPRIL 2.5 MG TAB PO SCH (12:13)
[2018-10-24] MEDS: ASCORBIC ACID 500 MG TAB PO SCH (12:14)
[2018-10-24] MEDS ORDERED: ENOXAPARIN 120 MG/0.8 ML SYRINGE SQ STA (12:16)
[2018-10-24] MEDS ORDERED: ENOXAPARIN 60 MG/0.6 ML SYRINGE SQ STA (12:17)
[2018-10-24 13:12] VITALS: BP 116/61; PULSE 77; TEMP 97.4
--- NOTE | 2018-10-24 14:20 | P.PN ---
Subjective Progress Note Date: 10/24/18 Principal diagnosis: Coronary artery disease status post coronary artery bypass grafting. Is a 48-year-old female patient who came in yesterday to the emergency department for some unusual sensation over the chest and shortness of breath and she was found to be in significant tachycardia and EKG showed a flutter 2-1 conduction with rapid ventricular response and based on that the patient was admitted to the intensive care unit. The patient is known to me. She has history of obstructive sleep apnea and she does not utilize a CPAP machine for now. She has a bicuspid aortic valve and severe aortic stenosis and a cardiac catheterization at shown significant CAD including left main stenosis. The patient underwent two-vessel bypass surgery and aortic valve replacement with a mechanical valve and clipping of the atrial appendage. The patient had BRO to LAD and regular bypass to OM1. Note that her preop FEV1 was 74% of predicted. The patient's surgery was essentially uncomplicated. The patient was sent home on anticoagulation with warfarin. She was normal sinus rhythm. Note that her INR is of admission was low at 1.1 and she is currently on IV heparin. She was given amiodarone loading and she subsequently converted to normal normal sinus rhythm. She is hemodynamically stable at this point in time. She is on room air. No cough. No sputum production. Sternum stable clean and intact. No other significant events otherwise for now. She is in the intensive care unit. She is communicating alert and awake. No fever or chills. No other complaints otherwise. Today's evaluation 2018, I'm seeing this patient for a follow-up. The patient is doing well. She has no specific complaints. She is converted to normal sinus rhythm. She is hemodynamically stable. She brought in her own CPAP machine from home which was a dysfunctional all units. We tried on a CPAP unit here in the hospital at a pressure of 7 cm of water and she was unable to tolerate our CPAP therapy. Currently she is on room air. No chest pain. Sternum stable clean and intact. She is ambulating. No cough sputum production chest tightness or wheezing. The patient is on amiodarone 200 mg 3 times a day. The patient is also on medical condition with warfarin. PT/INR is subtherapeutic and the patient is still on IV heparin. Warfarin will be adjusted and the patient will be given a dose of 7.5 mg today. Noted the patient is also on a Cardizem orally 30 mg 4 times a day in addition to metoprolol 25 mg twice a day for rate control. On today's evaluation of 10/21/2018 I'm seeing this patient for a follow-up patient remains in a normal sinus rhythm. No respiratory distress. She claims is on and off she is coughing especially when she exerts. Her lungs are essentially clear. She is pulling approximately 2000 mL on the incentive spirometer. She is on IV heparin. She was given 7.5 mg of Coumadin yesterday and her INR is at 1.5. She'll be given another 5 mg of Coumadin today. Her sleep is disrupted as the patient has symptomatically obstructive sleep apnea. She was unable to tolerate hour CPAP machine here in the hospital. For now she is a selective overflow. We will going to transfer out of the intensive care unit today. The patient is seen today 10/22/2018 in follow-up in the intensive care unit. She is currently awake and alert in no acute distress. Sitting up in a chair at the bedside. She's been up ambulating with assistance without any acute distress. She is maintaining good O2 saturations in the 90s on room air. She is working well with the incentive spirometer. She's been afebrile. Hemodynamically stable. Sinus rhythm. On oral amiodarone 200 mg 3 times a day. Cardizem 30 mg 4 times a day. White count 12.5. Hemoglobin 8.7. Creatinine 0.76. INR 1.9. Currently on warfarin 5 mg daily. Heparin drip remains until therapeutic. On today's evaluation 10/23/2018 I'm seeing this patient for a follow-up. She is currently on a cardiac floor. The patient was able to obtain and APAP unit. This setting is at a minimum pressure of 5 and a maximal pressure of 20. The patient was able to use the machine for almost 3 hours yesterday using the dreamwaremask. I noted that the patient had no apneic events during this period. No significant leaks. She felt that the starting pressure is too low and the average pressure was utilized over the past 3 hours is around 8.7 cm of water. Based on this, I made adjustments and I put this patient on a minimum pressure of 8 and a compression of 20. I also activated CPR. The patient thinks that this is something that she'll be able to tolerate at a later stage. She feels better. She'll be having a outpatient sleep study at a later stage to approve her for a permanent CPAP unit. Otherwise, the patient has no specific complaints for now. She is hemodynamically stable. She is in normal sinus rhythm. Patient was seen today 10/24/2018 in follow-up on the regular medical floor. She is currently awake and alert in no acute distress. Sitting up in a chair at the bedside. Hoping to go home today. She did utilize her CPAP last night with a Dreamwear nasal mask. Settings are 8/5. She tolerated it well. She denies any worsening shortness of breath, cough or congestion. Maintaining good O2 saturations in the 90s on room air. She's been afebrile. Hemodynamically stable. White count 10.0. Hemoglobin 8.7. INR 2.2. Creatinine 0.84. Objective - Vital Signs Vital signs: Vital Signs Temp 97.4 F L 10/24/18 12:10 Pulse 77 10/24/18 12:10 Resp 16 10/24/18 12:10 BP 116/61 10/24/18 12:10 Pulse Ox 96 10/24/18 12:10 Intake & Output 10/23/18 10/24/18 10/24/18 18:59 06:59 18:59 Intake Total 480 240 Output Total 3 Balance 480 -3 240 Weight 131.5 kg 131.5 kg Intake: Oral 480 240 Output: Urine 0 Stool 3 Other: Voiding Method Toilet Toilet # Voids 1 1 3 - Exam GENERAL EXAM: Alert, active, comfortable in no apparent distress. On room air. HEAD: Normocephalic. EYES: Normal reaction of pupils, equal size. NOSE: Clear with pink turbinates. THROAT: No erythema or exudates. NECK: No masses, no JVD. CHEST: Sternal dressing dry and intact. Heart Hugger in place. LUNGS: Equal air entry with faint crackles in the posterior bases. CVS: S1 and S2 normal with no audible murmur, regular rhythm. Valve click. ABDOMEN: No hepatosplenomegaly, normal bowel sounds, no guarding or rigidity. SPINE: No scoliosis or deformity SKIN: No rashes CENTRAL NERVOUS SYSTEM: No focal deficits, tone is normal in all 4 extremities. EXTREMITIES: There is no peripheral edema. No clubbing, no cyanosis. Peripheral pulses are intact. - Labs CBC & Chem 7: 10/24/18 06:41 10/24/18 06:41 Labs: Abnormal Lab Results - Last 24 Hours (Table) 10/24/18 10/24/18 Range/Units 06:41 06:41 RBC 3.43 L (3.80-5.40) m/uL Hgb 8.7 L (11.4-16.0) gm/dL Hct 29.0 L (34.0-46.0) % MCHC 30.1 L (31.0-37.0) g/dL RDW 16.9 H (11.5-15.5) % Plt Count 472 H (150-450) k/uL Eosinophils # 1.2 H (0-0.7) k/uL PT 21.6 H (9.0-12.0) sec INR 2.2 H (<1.2) Assessment and Plan Assessment: Assessment 1 new onset atrial flutter with rapid ventricular response, converted back to normal sinus rhythm The patient remains in sinus rhythm. The patient on oral amiodarone. The coagulated with warfarin. INR 2.2. 2 bicuspid aortic valve status post aortic valve replacement with a mechanical valve and a therapeutic PT/INR while on Coumadin postoperative day #22 3 symptomatically multivessel coronary artery disease status post two-vessel bypass surgery utilizing a radial artery and the BRO postoperative day #22 4 obstructive sleep apnea without a CPAP machine at this point in time, sleep apnea could've also contributed to her cardiac arrhythmia 5 obesity with a BMI of 47.4 6 hypertension 7 hyperlipidemia 8 history of Hodgkin's lymphoma with previous chemo radiation therapy currently in remission 9 history of gastric sleeve surgery 10 restless leg syndrome 11 hypersomnia secondary to her obstructive sleep apnea, able to tolerate CPAP loaner unit here in the hospital. Plan The patient was seen and evaluated by Dr. Navarro. She is working well with the incentive spirometer. On room air. She is continuing to utilize the CPAP 8 /5 with the Dreamware mask. She is cleared to go home from the pulmonary standpoint. She'll follow-up in our office next week with Dr. Navarro. She' ll bring her CPAP as well. She is however encouraged to call sooner with any other questions or concerns. I, the cosigning physician, performed a history & physical examination of the patient. Lungs sounds with faint crackles in the bilateral posterior bases. Maintaining good O2 saturations in the 90s on room air. I discussed the assessment and plan of care with my nurse practitioner, Candis Nichole. I attest to the above note as dictated by her.
--- NOTE | 2018-10-24 14:55 | P.PN ---
Subjective Progress Note Date: 10/24/18 Is a 48-year-old female who recently underwent aortic valve replacement for bicuspid aortic valve, also had significant coronary artery disease including left main stenosis for which she underwent two-vessel bypass surgery with aortic valve replacement and clipping of the left atrial appendage. She presented to the hospital with atrial flutter with rapid ventricular response. Today she was seen and evaluated on the telemetry unit. Overall doing well. Blood pressure 116/60 with a heart rate in the 70s, 96% on room air. Blood cell count 10.0, hemoglobin 8.7, platelet count 472. PTT 21.6 with an INR of 2.2. Sodium 142, potassium 4.5, BUN 15 and creatinine 0.8. Patient is anticipating discharge home today. Objective - Vital Signs Vital signs: Vital Signs Temp 97.4 F L 10/24/18 12:10 Pulse 77 10/24/18 12:10 Resp 16 10/24/18 12:10 BP 116/61 10/24/18 12:10 Pulse Ox 96 10/24/18 12:10 Intake & Output 10/23/18 10/24/18 10/24/18 18:59 06:59 18:59 Intake Total 480 240 Output Total 3 Balance 480 -3 240 Weight 131.5 kg 131.5 kg Intake: Oral 480 240 Output: Urine 0 Stool 3 Other: Voiding Method Toilet Toilet # Voids 1 1 3 - Exam GENERAL EXAM: Alert, active, comfortable in no apparent distress. On room air. HEAD: Normocephalic. EYES: Normal reaction of pupils, equal size. NOSE: Clear with pink turbinates. THROAT: No erythema or exudates. NECK: No masses, no JVD. CHEST: Sternal dressing dry and intact. Heart Hugger in place. LUNGS: Equal air entry with faint crackles in the posterior bases. CVS: S1 and S2 normal with no audible murmur, regular rhythm. Valve click. ABDOMEN: No hepatosplenomegaly, normal bowel sounds, no guarding or rigidity. SPINE: No scoliosis or deformity SKIN: No rashes CENTRAL NERVOUS SYSTEM: No focal deficits, tone is normal in all 4 extremities. EXTREMITIES: There is no peripheral edema. No clubbing, no cyanosis. Peripheral pulses are intact. - Labs CBC & Chem 7: 10/24/18 06:41 10/24/18 06:41 Labs: Abnormal Lab Results - Last 24 Hours (Table) 10/24/18 10/24/18 Range/Units 06:41 06:41 RBC 3.43 L (3.80-5.40) m/uL Hgb 8.7 L (11.4-16.0) gm/dL Hct 29.0 L (34.0-46.0) % MCHC 30.1 L (31.0-37.0) g/dL RDW 16.9 H (11.5-15.5) % Plt Count 472 H (150-450) k/uL Eosinophils # 1.2 H (0-0.7) k/uL PT 21.6 H (9.0-12.0) sec INR 2.2 H (<1.2) Assessment and Plan Plan: Assessment 1 new onset atrial flutter, typical with rapid ventricular response, converted back to normal sinus rhythm The patient remains in sinus rhythm. The patient on oral amiodarone. The coagulated with warfarin. INR 2.2. 2 bicuspid aortic valve status post aortic valve replacement with a mechanical valve and a therapeutic PT/INR while on Coumadin postoperative day #22 3 symptomatically multivessel coronary artery disease status post two-vessel bypass surgery utilizing a radial artery and the BRO postoperative day #22 4 obstructive sleep apnea without a CPAP machine at this point in time, sleep apnea could've also contributed to her cardiac arrhythmia 5 obesity with a BMI of 47.4 6 hypertension 7 hyperlipidemia 8 history of Hodgkin's lymphoma with previous chemo radiation therapy currently in remission 9 history of gastric sleeve surgery 10 restless leg syndrome 11 hypersomnia secondary to her obstructive sleep apnea, able to tolerate CPAP loaner unit here in the hospital. Plan From cardiology's perspective, we'll recommend to continue the patient on her current medications. She may be able to be discharged home once cleared by primary pulmonary and cardiothoracic surgery. DNP note has been reviewed, I agree with a documented findings and plan of care. Patient was seen and examined.
[2018-10-24] MEDS ORDERED: WARFARIN 5 MG TAB PO SCH ×2 (18:00)
[2018-10-25] MEDS ORDERED: WARFARIN 7.5 MG TAB PO SCH (18:00)
--- NOTE | 2018-10-26 08:37 | DS ---
DISCHARGE SUMMARY DATE OF ADMISSION: October 19, 2018. DATE OF DISCHARGE: October 25, 2018. FINAL DIAGNOSES: 1. Paroxysmal atrial flutter fibrillation rapid ventricular rate, now back in sinus rhythm. 2. Coronary artery disease with recent coronary artery bypass and mechanical aortic valve replacement for severe aortic stenosis. 3. Acute postoperative blood loss anemia expected from surgery. 4. Morbid obesity BMI 40. 5. Essential hypertension. 6. Primary osteoarthritis of the lumbar spine. 7. Restless leg syndrome. 8. Chronic scoliosis. 9. Coumadin monitoring. 10.IV heparin monitoring. HOSPITAL COURSE: This patient had recent coronary bypass and aortic valve replacement, presented with atrial flutter uncontrolled. Medications were adjusted. The patient's Coumadin dose also adjusted. INR had come up to 2.2 on the day of discharge, to keep it therapeutic above 2.5. I did give patient Lovenox on the day of discharge, and 2 more doses of the same. INR has been coming up. The patient is up and about. Symptoms are controlled. PHYSICAL EXAMINATION: VITAL SIGNS: Temperature 97.4. Pulse 77. Respiratory rate 16. Blood pressure 106/61, pulse ox 96 percent on room air. Lungs: Fair air entry. CARDIOVASCULAR: Heart sounds, first and second sounds normal. Up and about. INVESTIGATIONS: White count 10, hemoglobin 8.7, INR 2.2. BUN and creatinine is normal. CONSULTATIONS: Dr. Navarro from Pulmonary, Dr. Napoleon Biggs from Cardiology; Dr. Louis from Cardiothoracic surgery. DISCHARGE MEDICATIONS: 1. Vitamin C 500 mg b.i.d. 2. Aspirin 325 mg p.o. daily. 3. Cardizem CD 120 mg p.o. daily. 4. Iron 325 p.o. b.i.d. 5. Protonix 40 mg with breakfast. 6. Mirapex 1.5 mg p.o. q.h.s. 7. Crestor 5 mg p.o. daily. 8. Cordarone 200 mg b.i.d. for 7 days then 200 mg a day. 9. Lovenox 120 mg subcu q.12h for 4 doses. 10.Zestril 2.5 mg p.o. daily at noon. 11.Lopressor 25 mg b.i.d. 12.Coumadin 5 mg on Saturday, Saturday and Saturday, 7.5 mg on Saturday, Saturday, , Saturday. It may be noted with this kind of valve, the patient needs to have also full dose of aspirin in addition to the Coumadin. Follow up with Dr. Issac Jones in 1 week. Follow up with Dr. Miky Jesus on October 30, 2018. [facility] to follow. Follow up with Dr. Angelito Vera in 2 days, Dr. Navarro on 11/16/2018. Visiting Nurses to follow. Protime to be done on October 27, 2018. Discussion and discharge planning more than 35 minutes. MMODL / IJN: [id number] /
== END 2018-10-24 15:25 | disposition home health service (06) | DRG 309 ==
LOC: EC 00:25 → 2SICU 02:10 → 3SCARD 10-23 09:48
PROVIDERS: ADMIT Hospitalist; ATTEND Hospitalist
DX: I48.3 Typical atrial flutter (principal); D62 Acute posthemorrhagic anemia; Q23.1 Congenital insufficiency of aortic valve; Z68.42 Body mass index [BMI] 45.0-49.9, adult; I47.1 Supraventricular tachycardia; I48.91 Unspecified atrial fibrillation; D72.829 Elevated white blood cell count, unspecified; E66.01 Morbid (severe) obesity due to excess calories; E78.5 Hyperlipidemia, unspecified; G25.81 Restless legs syndrome; G47.10 Hypersomnia, unspecified; G47.33 Obstructive sleep apnea (adult) (pediatric); I11.0 Hypertensive heart disease with heart failure; I25.10 Atherosclerotic heart disease of native coronary artery without angina pectoris; I50.9 Heart failure, unspecified; M41.9 Scoliosis, unspecified; M47.816 Spondylosis without myelopathy or radiculopathy, lumbar region; R79.1 Abnormal coagulation profile; Z79.01 Long term (current) use of anticoagulants; Z79.82 Long term (current) use of aspirin; Z79.899 Other long term (current) drug therapy; Z82.49 Family history of ischemic heart disease and other diseases of the circulatory system; Z82.5 Family history of asthma and other chronic lower respiratory diseases; Z87.442 Personal history of urinary calculi; Z92.21 Personal history of antineoplastic chemotherapy; Z92.3 Personal history of irradiation; Z95.1 Presence of aortocoronary bypass graft; Z95.2 Presence of prosthetic heart valve; Z98.84 Bariatric surgery status; R73.03 Prediabetes; Z88.1 Allergy status to other antibiotic agents; Z88.0 Allergy status to penicillin; Z88.8 Allergy status to other drugs, medicaments and biological substances
CPT/HCPCS: 36415; 71045; 71046; 80048; 80053; 83735; 84100; 84484; 85025; 85027; 85610; 85730; 93005; 93306; 94640; 94660; 96365; 96375; 99291